=== PATIENT | male | born 1970 | race Caucasian/White ===

== ENCOUNTER → 2017-04-27 | Day surgery (SDC) | payer BC ==
[~2017-04-27] VITALS: Ht 177.8 cm; Wt 68.0 kg
[~2017-04-27] MED LIST: ACET325C PO; CHLORHEXIDINE GLUCONATE 2 % 1 PACK (2 CLOTHS) TOPICAL PRN; CLINDAMYCIN 600 MG/DEX PREMIX 50 ML ONE; CLINDAMYCIN 600 MG/NS PREMIX 50 ML IV SCH; IBUP1TAB7 PO; METOPROLOL TARTRATE 25 MG TAB PO PRN; POVIDONE IODINE 5% (ANTISEPSIS KIT) 4 APPLICATIONS EACH NARE PRN; SODIUM CHLORID 0.9% 500 ML IV PRN
[2017-04-27] MEDS: LACTATED RINGER'S 1000 ML IV PRN ×2 (07:50→10:24)
[2017-04-27 09:20] VITALS: BP 130/66; PULSE 70; RESP 16; TEMP 97.4; O2SAT 99
--- NOTE | 2017-04-27 21:41 | MP ---
cc: FREDDIE RODRIGUEZ MD DATE OF SURGERY 04/27/[address] Ruel Rodriguez PREOPERATIVE DIAGNOSIS Neoplasm right tongue. POSTOPERATIVE DIAGNOSIS Neoplasm right tongue. OPERATION PERFORMED 1. Direct laryngoscopy and biopsy. 2. Biopsy of right lateral tongue. INDICATIONS Documented in the history and physical. PROCEDURE IN DETAIL The patient was taken to OR #2 and placed in the supine position. Following induction of general anesthesia and intubation, a shoulder roll and a Jose M head drape were put in place. A dental guard was placed and, using an anterior commissure scope, hypopharynx and larynx were brought into view. There was no evidence of lesions of the hypopharynx or larynx. The scope was removed and a bite guard was put in place on the left side. This gave access to the oral cavity was there was a grossly malignant lesion eroding on the right lateral border of the tongue. Biopsies were obtained from this site. Inspection of the remainder of the oral cavity showed there to be no evidence of neoplastic lesion. The bite guard was removed and the procedure was terminated. The patient was reversed from anesthesia and taken to recovery in good condition. There were no complications. Blood loss was 10 mL. MD ADDIS Bruce/ /8:49 AM /9:33 PM
== END | disposition home or self-care (01) ==
LOC: PHSDC 06:09
PROVIDERS: ATTEND Otolaryngology
DX: D37.02 Neoplasm of uncertain behavior of tongue (principal)
CPT/HCPCS: 00320; 31535; 88305; J3010; J7120

== ENCOUNTER 2017-05-31 06:36 | Day surgery (SDC) | payer BC ==
[~2017-05-31] VITALS: Ht 177.8 cm; Wt 66.8 kg
[~2017-05-31 06:36] MED LIST changes: -CHLORHEXIDINE GLUCONATE 2 % 1 PACK (2 CLOTHS) TOPICAL PRN; -CLINDAMYCIN 600 MG/DEX PREMIX 50 ML ONE; -CLINDAMYCIN 600 MG/NS PREMIX 50 ML IV SCH; -METOPROLOL TARTRATE 25 MG TAB PO PRN; -POVIDONE IODINE 5% (ANTISEPSIS KIT) 4 APPLICATIONS EACH NARE PRN; -SODIUM CHLORID 0.9% 500 ML IV PRN
[2017-05-31 06:55] VITALS: BP 130/106; PULSE 83; RESP 20; TEMP 98.6; O2SAT 100
[2017-05-31] MEDS ORDERED: SENO8.6T5 PO (07:04)
[2017-05-31] MEDS ORDERED: HYDR-3583 PO (07:04)
[2017-05-31] MEDS ORDERED: CHLORHEXIDINE GLUCONATE 2 % 1 PACK (2 CLOTHS) TOPICAL SCH ×2 (07:15→08:15)
[2017-05-31] MEDS ORDERED: VANCOMYCIN 1000 MG/NS 250 ML - implanted port/tunneled catheter IV SCH ×4 (07:15→08:15)
[2017-05-31 07:35] LABS: AUTOMATED NEUTROPHIL # 5.1 TH/MM3 (1.8-7.7); BASOPHIL % 0.5 % (0.0-2.0); EOSINOPHIL # 0.1 TH/MM3 (0-0.4); EOSINOPHIL % 1.2 % (0.0-4.0); HEMATOCRIT 41.9 % (39.0-51.0); HEMOGLOBIN 14.4 GM/DL (13.0-17.0); LYMPHOCYTE # 3.5 TH/MM3 (1.0-4.8); MEAN CELL VOLUME 88.4 FL (80.0-100.0); MEAN CORPUSCULAR HEMOGLOBIN 30.4 PG (27.0-34.0); MEAN CORPUSCULAR HGB CONC 34.4 % (32.0-36.0); MEAN PLATELET VOLUME 8.8 FL (7.0-11.0); MONO % 7.8 % (0.0-8.0); MONOCYTE # 0.7 TH/MM3 (0-0.9); NEUT % 53.5 % (16.0-70.0); PLATELET COUNT 239 TH/MM3 (150-450); RED BLOOD COUNT 4.74 MIL/MM3 (4.50-5.90); RED CELL DISTRIBUTION WIDTH 13.1 % (11.6-17.2); WHITE BLOOD COUNT 9.5 TH/MM3 (4.0-11.0)
[2017-05-31] MEDS ORDERED: POVIDONE IODINE 5% (ANTISEPSIS KIT) 4 APPLICATIONS EACH NARE SCH (08:15)
[2017-05-31] MEDS ORDERED: SODIUM CHLORIDE 0.9% 1000 ML IV SCH (08:15)
[2017-05-31] MEDS ORDERED: MIDAZOLAM HCL 2 MG/2 ML VIAL ONE ×3 (08:22→09:08)
[2017-05-31] MEDS ORDERED: LIDOCAINE 1%/EPINEPHrine 1:100,000 SOLN 30 ML VIAL ONE (08:39)
--- NOTE | 2017-05-31 09:25 | PD.RAD ---
Post Procedure Progress Note Pre Procedure Diagnosis: (1) Oropharyngeal cancer Post Procedure Diagnosis: (1) Oropharyngeal cancer Procedure Date: May 31, 2017 Supervising Radiologist: Rodolfo Ramirez Proceduralist/Assist: Isaias Rojas RT(R), RT Robby(R) Anesthesia: Local, Analgesia, Conscious Sedation Plan of Activity Patient to Unit: ROPU Patient Condition: Good See PACS Report for procedural detail/treatment Central Venous Access Device Procedure 1 Right Internal Jugular Infusaport Placement single lumen Kiswahili: 8 Rodolfo Ramirez MD May 31, 2017 09:25
[2017-05-31 09:30] VITALS: BP 128/75; PULSE 90; RESP 20; TEMP 97.8; O2SAT 98
[2017-05-31] MEDS ORDERED: SODIUM CHLORIDE 0.9% FLUSH 10 ML FLUSH IVF PRN (09:30)
[2017-05-31 09:45] VITALS: BP 117/71; PULSE 78; RESP 20; O2SAT 97
[2017-05-31 10:15] VITALS: BP 116/77; PULSE 82; RESP 18; O2SAT 98
[2017-05-31 10:45] VITALS: BP 115/76; PULSE 71; RESP 16; O2SAT 98
[2017-05-31 11:15] VITALS: BP 120/75; PULSE 79; RESP 18; O2SAT 98
--- NOTE | 2017-05-31 12:43 | RADRPT ---
EXAM DATE/TIME: 05/31/2017 10:01 [facility] COMPARISON: No previous studies available for comparison. INDICATIONS : Patient with oropharyngeal squamous cell cancer in need of Dkyci-y-Cvvb placement. MEDICAL HISTORY : Right side tongue mass, Smoker SURGICAL HISTORY : Tongue mass biopsy ENCOUNTER: Initial ACUITY: 1 month PAIN SCORE: 4/10 LOCATION: Right side jaw FLUORO TIME: 0.5 minutes IMAGE SERIES: 1 SEDATION TIME: 40 minutes ACCESS: Right internal jugular vein SEDATION: 1.) 4.5 mg midazolam (Versed) IV 2.) 225 mcg fentanyl (Sublimaze) IV Prophylactic antibiotics were administered with appropriate pre-procedure timing. Vancomycin within 2 hours of procedure, Ancef (or alternative) within 1 hour of procedure. DEVICE: 1. 8 Hong Konger single lumen Bard Power Port PROCEDURE : 1. Continuous pulse oximetry and EKG monitoring. 2. Intravenous conscious sedation. 3. Ultrasound guidance for venous access. 4. Fluoroscopic guided implantable central venous port placement. The patient was placed supine. The neck was prepped in sterile fashion. Full sterile technique was u sed, including cap, mask, sterile gloves and gown, and a large sterile sheet. Hand hygiene and 2% ch lorhexidine Betadine was utilized per protocol for cutaneous antisepsis with appropriate dry time for site. Sterile gel and sterile probe cover were utilized for ultrasound guidance. The skin and sub cutaneous tissues were infiltrated with local anesthetic solution. Under direct ultrasound guidance, central venous access was accomplished in the targeted vessel. The ultrasound images depicting access guidance were stored and saved to PACS for permanent record. A s ubcutaneous pocket was created using blunt dissection. The port was introduced to the pocket. The c atheter tubing was fed through a subcutaneous tunnel to the venotomy site. The catheter tubing was c ut to a suitable length and then was introduced through a valved Peel-Away sheath and positioned with catheter tubing tip at the cavo-atrial junction level. The pocket incision was closed with subcutic ular Vicryl suture. Steri-Strips were applied. The port was flushed and locked with heparin solutio n per protocol. Sterile dressing was applied to the site. The patient tolerated the procedure well. Conscious sedation was performed with the prescribed dosages and duration as above in the presence of an independent trained radiology nurse to assist in the monitoring of the patient. EKG and oximetry remained stable throughout the procedure. The patient tolerated the procedure well and there were no complications. The patient was sent to post anesthesia recovery in stable condition. CONCLUSION: Uncomplicated ultrasound and fluoroscopic guided implanted central venous port catheter placement as described in detail above. An 8 Hong Konger Power port was placed. Rodolfo Ramirez MD on May 31, 2017 at 12:42 Board Certified Radiologist. This report was verified electronically.
== END 2017-05-31 11:35 | disposition home or self-care (01) ==
LOC: HROP 06:36 → HRIP 06:39 → HROP 11:35
PROVIDERS: ATTEND Internal Medicine
DX: C10.9 Malignant neoplasm of oropharynx, unspecified (principal); Z01.818 Encounter for other preprocedural examination; F17.200 Nicotine dependence, unspecified, uncomplicated
CPT/HCPCS: 36561; 76937; 77001; 85025; 85610; 85730; 99152; 99153; C1788; J1642; J2250; J3010; J3370; J7030; J7050

== ENCOUNTER 2017-06-13 18:55 | Inpatient (IN) | payer BC ==
[~2017-06-13] VITALS: Ht 177.8 cm; Wt 62.1 kg
[~2017-06-13 18:55] MED LIST changes: +HYDR-3583 PO; +SENO8.6T5 PO
[2017-06-13 19:33] VITALS: BP 120/79; PULSE 112; RESP 18; TEMP 99; O2SAT 99
[2017-06-13 20:24] VITALS: RESP 19; O2SAT 98
[2017-06-13] MEDS ORDERED: ONDA8TAB7 PO (20:28)
[2017-06-13] MEDS ORDERED: DEXA4TAB PO (20:28)
[2017-06-13] MEDS ORDERED: FLUC100T2 PO (20:28)
--- NOTE | 2017-06-13 20:37 | PD ---
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 He reports that this was diagnosed approximately a month ago. He reports that his oncologist is . He denies having a primary care physician. He reports that he recently had a dental extraction done and the plan is for him to undergo radiation therapy once he is completely healed from the extraction. He is seeing Dr. lindsey for this. He reports that since the last chemotherapy he has had increasing generalized weakness due to poor p.o. intake. He reports having persistent nausea without vomiting. He reports that is very difficult to eat as his tongue does not move well. He reports that he has been drinking fluids. Initially, he was reticent to have a feeding tube placed, however he reports that this point he has changed his mind because of persistent weakness and hunger. The patient otherwise in review of systems denies having any recent fevers, cough or congestion, neck pain, chest pain, shortness of breath, abdominal pain, urinary symptoms, or neurologic symptoms. The patient reports that he has had diarrhea since Wednesday. He reports that on Wednesday he had 3 episodes and then took an Imodium per the recommendations of his oncologist had no further episodes on Wednesday, however today he has had 2 episodes again. He reports that the stool is brown in color. He denies having any blood or mucus in his stool. 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 Abdominal Surgery: No AICD: No Cardiac Surgery: No Ear Surgery: No Endocrine Surgery: No Eye Surgery: No Genitourinary Surgery: No Gynecologic Surgery: No Joint Replacement: No Oral Surgery: Yes (teeth extraction) Pacemaker: No Thoracic Surgery: No Social History Alcohol Use: No Tobacco Use: Yes Substance Use: No Allergies-Medications (Allergen,Severity, Reaction): Coded Allergies: Penicillins (Verified Allergy, Severe, UNSURE - CHILD, 06/13/17) Uncoded Allergies: SHELLFISH (Allergy, Severe, Anaphylaxis, 04/27/17) Reported Meds & Prescriptions Reported Meds & Active Scripts Active Reported Fluconazole 100 Mg Tab 100 Mg PO DAILY Dexamethasone 4 Mg Tab 4 Mg PO DIRECTED Ondansetron (Ondansetron HCl) 8 Mg Tab 8 Mg PO TID Hydrocodone-Acetaminophen 10-325 mg Tab 1 Tab PO Q4H PRN Acetaminophen 325 Mg Capsule PO DIRECTED Review of Systems Except as stated in HPI: all other systems reviewed are Neg General / Constitutional: No: Fever Eyes: No: Visual changes HENT: No: Headaches Cardiovascular: No: Chest Pain or Discomfort Respiratory: No: Shortness of Breath Gastrointestinal: Positive: Nausea, Diarrhea, Changes in Bowel Habits, No: Vomiting, Abdominal Pain, Loss of Appetite, Other Genitourinary: No: Dysuria Musculoskeletal: No: Pain Skin: No Rash Neurologic: Positive: Weakness (Generalized weakness), No: Focal Abnormalities , Change in Mentation, Slurred Speech, Sensory Disturbance Psychiatric: No: Depression Endocrine: No: Polydipsia Hematologic/Lymphatic: No: Easy Bruising Physical Exam Narrative General: The patient is a well-developed thin appearing male in no acute distress Head and Neck exam: Head is normocephalic atraumatic. Eyes: EOMI, pupils are equal round and reactive to light. Nose: Midline septum with pink mucous membranes Mouth: The patient has an irregularly shaped tongue on examination. Moist mucus membranes. Posterior oropharynx is not erythematous. No tonsillar hypertrophy. Uvula midline. Airway patent. Neck: No palpable lymphadenopathy. No nuchal rigidity. No thyromegaly. Cardiovascular: Regular rate and rhythm without murmurs, gallops, or rubs. Lungs: Clear to auscultation bilaterally. No wheezes, rhonchi, or rales. Abdomen: Soft, without tenderness to palpation in all 4 quadrants of the abdomen. No guarding, rebound, or rigidity. Normal bowel sounds are audible. No tenderness on palpation of McBurney's point. Negative Doyle sign Extremities: No clubbing, cyanosis, or edema. 2+ pulses in all 4 extremities. No calf tenderness on palpation peer Back: No spinous process tenderness to palpation. No costovertebral angle tenderness to palpation. Neurologic Exam: Grossly nonfocal. Skin Exam: No rash noted. Intact skin that is warm and dry. Data Data Last Documented VS Vital Signs Date Time Temp Pulse Resp B/P (MAP) Pulse Ox O2 Delivery O2 Flow Rate FiO2 06/13/17 20:24 19 98 Room Air 06/13/17 19:33 99.0 112 120/79 (93) Orders Orders Electrocardiogram (06/13/17 20:15) Complete Blood Count With Diff (06/13/17 20:15) Comprehensive Metabolic Panel (06/13/17 20:15) Creatine Kinase (Cpk) (06/13/17 20:15) Ckmb (Isoenzyme) Profile (06/13/17 20:15) Troponin I (06/13/17 20:15) Prothrombin Time / Inr (Pt) (06/13/17 20:15) Act Partial Throm Time (Ptt) (06/13/17 20:15) Lipase (06/13/17 20:15) Urinalysis - C+S If Indicated (06/13/17 20:15) Magnesium (Mg) (06/13/17 20:15) Thyroid Stimulating Hormone (06/13/17 20:15) Iv Access Insert/Monitor (06/13/17 20:15) Ecg Monitoring (06/13/17 20:15) Oximetry (06/13/17 20:15) Chest, Single Ap (06/13/17 20:15) Sodium Chlor 0.9% 1000 Ml Inj (Ns 1000 M (06/13/17 20:45) Ondansetron Inj (Zofran Inj) (06/13/17 20:45) Morphine Inj (Morphine Inj) (06/13/17 22:00) Sodium Chlorid 0.9% 500 Ml Inj (Ns 500 M (06/13/17 22:15) Admit Order (Ed Use Only) (06/13/17 22:22) Labs Laboratory Tests Test 06/13/17 20:30 06/13/17 22:10 White Blood Count 3.7 TH/MM3 Red Blood Count 5.12 MIL/MM3 Hemoglobin 15.7 GM/DL Hematocrit 44.7 % Mean Corpuscular Volume 87.2 FL Mean Corpuscular Hemoglobin 30.7 PG Mean Corpuscular Hemoglobin Concent 35.2 % Red Cell Distribution Width 13.0 % Platelet Count 133 TH/MM3 Mean Platelet Volume 10.3 FL Neutrophils (%) (Auto) 61.0 % Lymphocytes (%) (Auto) 36.2 % Monocytes (%) (Auto) 1.5 % Eosinophils (%) (Auto) 0.6 % Basophils (%) (Auto) 0.7 % Neutrophils # (Auto) 2.2 TH/MM3 Lymphocytes # (Auto) 1.3 TH/MM3 Monocytes # (Auto) 0.1 TH/MM3 Eosinophils # (Auto) 0.0 TH/MM3 Basophils # (Auto) 0.0 TH/MM3 CBC Comment AUTO DIFF Differential Total Cells Counted 100 Neutrophils % (Manual) 54 % Band Neutrophils % 9 % Lymphocytes % 34 % Monocytes % 2 % Eosinophils % 1 % Neutrophils # (Manual) 2.3 TH/MM3 Nucleated Red Blood Cells 1 /100 WBC Differential Comment FINAL DIFF MANUAL Platelet Estimate LOW Platelet Morphology Comment NORMAL Prothrombin Time 10.0 SEC Prothromb Time International Ratio 1.0 RATIO Activated Partial Thromboplast Time 25.1 SEC Blood Urea Nitrogen 20 MG/DL Creatinine 1.09 MG/DL Random Glucose 98 MG/DL Total Protein 6.8 GM/DL Albumin 3.5 GM/DL Calcium Level 8.4 MG/DL Magnesium Level 2.0 MG/DL Alkaline Phosphatase 84 U/L Aspartate Amino Transf (AST/SGOT) 18 U/L Alanine Aminotransferase (ALT/SGPT) 36 U/L Total Bilirubin 0.5 MG/DL Sodium Level 130 MEQ/L Potassium Level 4.1 MEQ/L Chloride Level 94 MEQ/L Carbon Dioxide Level 28.3 MEQ/L Anion Gap 8 MEQ/L Estimat Glomerular Filtration Rate 73 ML/MIN Total Creatine Kinase 36 U/L Troponin I LESS THAN 0.02 NG/ML Lipase 91 U/L Thyroid Stimulating Hormone 3rd Gen 0.466 uIU/ML Urine Color LIGHT-YELLOW Urine Turbidity CLEAR Urine pH 6.5 Urine Specific [place] 1.013 Urine Protein TRACE mg/dL Urine Glucose (UA) TRACE mg/dL Urine Ketones NEG mg/dL Urine Occult Blood NEG Urine Nitrite NEG Urine Bilirubin NEG Urine Urobilinogen LESS THAN 2.0 MG/DL Urine Leukocyte Esterase NEG Urine RBC LESS THAN 1 /hpf Urine WBC LESS THAN 1 /hpf Urine Mucus FEW /lpf Microscopic Urinalysis Comment CULT NOT INDICATED MDM Medical Decision Making Medical Screen Exam Complete: Yes Emergency Medical Condition: Yes Medical Record Reviewed: Yes Interpretation(s) Last Impressions Chest X-Ray 06/13/172014 Signed Impressions: Service Date/Time: Tuesday, June 13, 2017 20:39 - CONCLUSION: The lungs are clear. Gerardo Doran MD Differential Diagnosis Dehydration, versus electrolyte derangements, versus gastroenteritis Narrative Course During the course of the patient's emergency department visit, the patient's history, examination, and differential diagnosis were reviewed with the patient. The patient was placed on a tele tech with oximetry and frequent blood pressure monitoring. The patient had IV access obtained and blood work sent for analysis. The patient had an EKG done on arrival. The patient's EKG shows a sinus rhythm with a short CT interval, heart rate of 94, QRS duration 82 ms, QTC [address] segment elevation. The patient was started on normal saline IV fluids, Zofran 4 mg IV for nausea, morphine for pain. The patient's studies were reviewed and remarkable for A CBC that shows a white count of 3.7, hemoglobin 15.7, platelets 133 with 54 neutrophils, 9 bands. CMP is remarkable for a sodium of 130, chloride 94, BUN 20, GFR 74, calcium 8.4, cardiac enzymes within normal limits, lipase 91, TSH 0.466, PT 10, PTT 25.1. Urinalysis is unremarkable. Chest x-ray shows no acute abnormality. The patient's results were discussed with the patient, including the plan of care. I explained that further testing and/ or monitoring is indicated based on the patient's history, examination, and/ or laboratory findings. Therefore, I recommended admission for additional evaluation. The patient expressed understanding and was agreeable with this plan. The patient was admitted to the hospital in stable condition and [facility] Physician Communication Physician Communication The patient's case including history, pertinent physical examination findings, and laboratory studies were discussed with Dr. Luevano. It was agreed that [facility] Diagnosis Primary Impression: Generalized weakness Additional Impressions: Dehydration Dysphagia Qualified Codes: R13.10 - Dysphagia, unspecified Admitting Information Admitting Physician Requests: Observation Jeanette Araiza MD Jun 13, 2017 20:37
[2017-06-13] MEDS ORDERED: SODIUM CHLOR 0.9% 1000 ML INJ 1,000 ML IV ONE (20:45)
[2017-06-13] MEDS ORDERED: ONDANSETRON HCL 4 MG/2 ML VIAL IV ONE (20:45)
--- NOTE | 2017-06-13 20:52 | RADRPT ---
EXAM DATE/TIME: 06/13/2017 20:39 [facility] COMPARISON: No previous studies available for comparison. INDICATIONS : Cough. Congestion. Weakness. MEDICAL HISTORY : None. SURGICAL HISTORY : None. ENCOUNTER: Initial ACUITY: 3 days PAIN SCORE: 5/10 LOCATION: Bilateral chest FINDINGS: A single view of the chest demonstrates the lungs to be symmetrically aerated without evidence of mas s, infiltrate or effusion. The cardiomediastinal contours are unremarkable. Osseous structures are intact. [id number]-c-Ffgq catheter tip in the distal superior vena cava. CONCLUSION: The lungs are clear. Gerardo Doran MD on June 13, 2017 at 20:50 Board Certified Radiologist. This report was verified electronically.
[2017-06-13 21:04] LABS: AUTOMATED NEUTROPHIL # 2.2 TH/MM3 (1.8-7.7); BASOPHIL % 0.7 % (0.0-2.0); EOSINOPHIL % 0.6 % (0.0-4.0); HEMATOCRIT 44.7 % (39.0-51.0); HEMOGLOBIN 15.7 GM/DL (13.0-17.0); LYMPH % 36.2 % (9.0-44.0); LYMPHOCYTE # 1.3 TH/MM3 (1.0-4.8); MEAN CELL VOLUME 87.2 FL (80.0-100.0); MEAN CORPUSCULAR HEMOGLOBIN 30.7 PG (27.0-34.0); MEAN CORPUSCULAR HGB CONC 35.2 % (32.0-36.0); MEAN PLATELET VOLUME 10.3 FL (7.0-11.0); MONO % 1.5 % (0.0-8.0); MONOCYTE # 0.1 TH/MM3 (0-0.9); PLATELET COUNT 133 TH/MM3 (150-450); RED BLOOD COUNT 5.12 MIL/MM3 (4.50-5.90); WHITE BLOOD COUNT 3.7 TH/MM3 (4.0-11.0)
[2017-06-13 21:20] LABS: ALBUMIN 3.5 GM/DL (3.4-5.0); AST (GOT) 18 U/L (15-37); BICARBONATE 28.3 MEQ/L (21.0-32.0); BLOOD UREA NITROGEN 20 MG/DL (7-18); CALCIUM 8.4 MG/DL (8.5-10.1); CHLORIDE 94 MEQ/L (98-107); CREATININE 1.09 MG/DL (0.60-1.30); GLOMERULAR FILTRATION RATE 73 ML/MIN (>89); GLUCOSE,RANDOM 98 MG/DL (74-106); SODIUM (NA) 130 MEQ/L (136-145)
[2017-06-13 21:21] LABS: ALT (GPT) 36 U/L (12-78)
[2017-06-13 21:32] LABS: ALKALINE PHOSPHATASE 84 U/L (45-117); TOTAL BILIRUBIN ADULT 0.5 MG/DL (0.2-1.0); TOTAL PROTEIN 6.8 GM/DL (6.4-8.2); TROPONIN I LESS THAN 0.02 NG/ML (0.02-0.05)
[2017-06-13 21:35] LABS: BANDS 9 % (0-6); CORRECTED NUCLEATED RBC 1 /100 WBC (0-0); LYMPHOCYTES 34 % (9-44); MONOCYTES 2 % (0-8); NEUTROPHIL # MANUAL DIFF 2.3 TH/MM3 (1.8-7.7); NUCLEATED RED BLOOD CELL 1 (0-0); POLYS (SEG NEUTROPHILS) 54 % (16-70)
[2017-06-13] MEDS ORDERED: MORPHINE SULFATE 4 MG/ML INJ IV PUSH ONE (22:00)
[2017-06-13] MEDS ORDERED: SODIUM CHLORID 0.9% 500 ML INJ 500 ML IV ONE (22:15)
[2017-06-13] MEDS ORDERED: IOHEXOL 350 MG/ML 50 ML BTL (for RAD DIAG) G-TUBE ONE (22:25)
--- NOTE | 2017-06-13 22:41 | HHI.HP ---
[facility] Dwayne Naranjo MD Admission Diagnosis Generalized weakness, dehydration Diagnoses: (1) Generalized weakness Diagnosis: Principal (2) Dehydration Diagnosis: Principal (3) Oropharyngeal cancer Diagnosis: Principal Travel History International Travel<30 Days: No Contact w/Intl Traveler <30 Da: No Traveled to Known Affected Are: No History of Present Illness This is a 46-year-old male with a PMH of Squamous Cell Carcinoma of Tongue, currently on Chemo, who presented to the ER w/ complaints of generalized weakness and decreased PO intake. Recently diagnosed w/ Tongue CA approx 1mo ago, following w/ Dr. Purvis and Dr. Naranjo, s/p dental extraction in preparation for radiation and started Chemo last week. Seen in office on Wednesday and found to be dehydration, s/p IVF. States since Wednesday w/ worsening weakness and unable to eat/drink. Denies fever, chills, nausea, vomiting or diarrhea. PEG Tube discussed however pt had declined, now agreeable to feeding tube placement. On arrival, BP 120/79, HR 112, O2 sat 99% on RA, WBC 3.7. Platelets 133. Chemistry unremarkable except for BUN 20, GFR 73 increased from labs on 06/07/17. INR 1.0. UA negative. CXR with no acute findings. Review of Systems Except as stated in HPI: all other systems reviewed are Neg ROS: 14 point review of systems otherwise negative. Past Family Social History Past Medical History PMH: Squamous Cell Carcinoma of Tongue Past Surgical History PAST SURGICAL HISTORY: Dental Extractions Allergies: Coded Allergies: Penicillins (Verified Allergy, Severe, UNSURE - CHILD, 06/13/17) Uncoded Allergies: SHELLFISH (Allergy, Severe, Anaphylaxis, 04/27/17) Family History PAST FAMILY HISTORY: Reviewed. No h/o DM or CAD Social History PAST SOCIAL HISTORY: Negative for alcohol or drugs. History of tobacco. Physical Exam Vital Signs Vital Signs Date Time Temp Pulse Resp B/P (MAP) Pulse Ox O2 Delivery O2 Flow Rate FiO2 06/13/17 20:24 19 98 Room Air 06/13/17 19:33 99.0 112 18 120/79 (41) 99 Physical Exam PE: GENERAL: Pleasant middle-aged white male in no acute distress. Father at bedside. HEENT: PERRLA, EOMI. No scleral icterus or conjunctival pallor. No lid lag or facial droop. CARDIOVASCULAR: Regular rate and rhythm. No obvious murmurs to auscultation. No chest tenderness to palpation. RESPIRATORY: No obvious rhonchi or wheezing. Clear to auscultation. Breath sounds equal bilaterally. GASTROINTESTINAL: Abdomen soft, non-tender, nondistended. BS normal. MUSCULOSKELETAL: Extremities without clubbing, cyanosis, or edema. No obvious deformities. NEUROLOGICAL: Awake, alert and oriented x4. No focal neurologic deficits. Moving both upper and lower extremities spontaneously. Laboratory Laboratory Tests Test 06/13/17 20:30 06/13/17 22:10 White Blood Count 3.7 Red Blood Count 5.12 Hemoglobin 15.7 Hematocrit 44.7 Mean Corpuscular Volume 87.2 Mean Corpuscular Hemoglobin 30.7 Mean Corpuscular Hemoglobin Concent 35.2 Red Cell Distribution Width 13.0 Platelet Count 133 Mean Platelet Volume 10.3 Neutrophils (%) (Auto) 61.0 Lymphocytes (%) (Auto) 36.2 Monocytes (%) (Auto) 1.5 Eosinophils (%) (Auto) 0.6 Basophils (%) (Auto) 0.7 Neutrophils # (Auto) 2.2 Lymphocytes # (Auto) 1.3 Monocytes # (Auto) 0.1 Eosinophils # (Auto) 0.0 Basophils # (Auto) 0.0 CBC Comment AUTO DIFF Differential Total Cells Counted 100 Neutrophils % (Manual) 54 Band Neutrophils % 9 Lymphocytes % 34 Monocytes % 2 Eosinophils % 1 Neutrophils # (Manual) 2.3 Nucleated Red Blood Cells 1 Differential Comment FINAL DIFF MANUAL Platelet Estimate LOW Platelet Morphology Comment NORMAL Prothrombin Time 10.0 Prothromb Time International Ratio 1.0 Activated Partial Thromboplast Time 25.1 Blood Urea Nitrogen 20 Creatinine 1.09 Random Glucose 98 Total Protein 6.8 Albumin 3.5 Calcium Level 8.4 Magnesium Level 2.0 Alkaline Phosphatase 84 Aspartate Amino Transf (AST/SGOT) 18 Alanine Aminotransferase (ALT/SGPT) 36 Total Bilirubin 0.5 Sodium Level 130 Potassium Level 4.1 Chloride Level 94 Carbon Dioxide Level 28.3 Anion Gap 8 Estimat Glomerular Filtration Rate 73 Total Creatine Kinase 36 Troponin I LESS THAN 0.02 Lipase 91 Thyroid Stimulating Hormone 3rd Gen 0.466 Result Diagram: 06/13/17202906/13/172029 Caprini VTE Risk Assessment Caprini VTE Risk Assessment: No/Low Risk (score <= 1) Caprini Risk Assessment Model Point Value = 1 Point Value = 2 Point Value = 3 Point Value = 5 Age 41-60 Minor surgery BMI > 25 kg/m2 Swollen legs Varicose veins or History of unexplained or recurrent spontaneous Oral contraceptives or hormone replacement Sepsis (< 1 month) Serious lung disease, including pneumonia (< 1 month) Abnormal pulmonary function Acute myocardial infarction Congestive heart failure (< 1 month) History of inflammatory bowel disease Medical patient at bed rest Age 61-74 Arthroscopic surgery Major open surgery (> 45 min) Laparoscopic surgery (> 45 min) Malignancy Confined to bed (> 72 hours) Immobilizing plaster cast Central venous access Age >= 75 History of VTE Family history of VTE Factor V Leiden Prothrombin [id number] Lupus anticoagulant Anticardiolipin antibodies Elevated serum homocysteine Heparin-induced thrombocytopenia Other congenital or acquired thrombophilia Stroke (< 1 month) Elective arthroplasty Hip, pelvis, or leg fracture Acute spinal cord injury (< 1 month) Prophylaxis Regimen Total Risk Factor Score Risk Level Prophylaxis Regimen 0-1 Low Early ambulation 2 Moderate Order ONE of the following: *Sequential Compression Device (SCD) *Heparin 5000 units SQ BID 3-4 Higher Order ONE of the following medications: *Heparin 5000 units SQ TID *Enoxaparin/Lovenox 40 mg SQ daily (WT < 150 kg, CrCl > 30 mL/min) *Enoxaparin/Lovenox 30 mg SQ daily (WT < 150 kg, CrCl > 10-29 mL/min) *Enoxaparin/Lovenox 30 mg SQ BID (WT < 150 kg, CrCl > 30 mL/min) AND/OR *Sequential Compression Device (SCD) 5 or more Highest Order ONE of the following medications: *Heparin 5000 units SQ TID (Preferred with Epidurals) *Enoxaparin/Lovenox 40 mg SQ daily (WT < 150 kg, CrCl > 30 mL/min) *Enoxaparin/Lovenox 30 mg SQ daily (WT < 150 kg, CrCl > 10-29 mL/min) *Enoxaparin/Lovenox 30 mg SQ BID (WT < 150 kg, CrCl > 30 mL/min) AND *Sequential Compression Device (SCD) Assessment and Plan Problem List: (1) Generalized weakness ICD Code: R53.1 - Weakness Status: Acute (2) Dehydration ICD Code: E86.0 - Dehydration Status: Acute (3) Oropharyngeal cancer ICD Code: C10.9 - Malignant neoplasm of oropharynx, unspecified Assessment and Plan A/P: 1. Generalized Weakness: likely secondary to combination of chemotherapy and decreased PO intake. PT for eval/tx. 2. Dehydration: BUN 20, GFR 73, previously normal on 06/07/17, unable to take PO , previously offered PEG tube, however had declined, now agreeable. Consult IR for PEG Tube Placement, IVF for hydration, Skimmer Scoop Operator Consult post placement. 3. Oropharyngeal CA: Recent Dx of Squamous Cell CA of Tongue, following w/ Dr. Naranjo, on Chemo, will consult for further recommendations. 4. DVT Prophylaxis: SCD/Teds. 5. Social work for d/c planning as needed. 6. Case discussed w/ ER physician at length, labs/records/imaging reviewed by me. Lucia Luevano MD Jun 13, 2017 22:41
[2017-06-13 22:45] LABS: BILIRUBIN, URINE NEG (NEG); BLOOD, URINE NEG (NEG); GLUCOSE,URINE TRACE mg/dL (NEG); KETONE, URINE NEG (NEG); MUCUS URINE FEW /lpf (OCC); NITRITE,URINE NEG (NEG); PH, URINE 6.5 (5.0-8.5); URINE COLOR LIGHT-YELLOW (YELLW/STRAW); URINE LEUKOCYTE ESTERASE NEG (NEG)
[2017-06-13] MEDS ORDERED: LACTULOSE SYRUP 20 GM/30 ML CUP PO PRN (22:45)
[2017-06-13] MEDS ORDERED: BISACODYL 10 MG SUPP RECTAL PRN (22:45)
[2017-06-13] MEDS ORDERED: MAGNESIUM HYDROXIDE SUSP 30 ML CUP PO PRN (22:45)
[2017-06-13] MEDS ORDERED: SENNOSIDES 8.6 MG TAB PO PRN (22:45)
[2017-06-14] VITALS (20 sets, daily range): BP systolic 101–125; BP diastolic 60–80; PULSE 73–94; RESP 16–22; TEMP 97.2–100.6; O2SAT 96–100
[2017-06-14] MEDS: SODIUM CHLOR 0.9% 1000 ML INJ 1,000 ML IV SCH ×4 (00:34→22:38)
[2017-06-14] MEDS: MORPHINE SULFATE 2 MG/ML INJ IV PUSH PRN ×6 (00:36→19:56)
[2017-06-14] MEDS: ONDANSETRON HCL 4 MG/2 ML VIAL IVP PRN ×4 (03:48→22:29)
[2017-06-14] MEDS: DOCUSATE SODIUM 50 MG/SENNA 8.6 MG TAB PO SCH ×2 (08:27→20:47)
[2017-06-14] MEDS: SODIUM CHLORIDE 0.9% FLUSH 10 ML FLUSH IV FLUSH SCH ×2 (08:27→20:47)
[2017-06-14 08:51] LABS: AUTOMATED NEUTROPHIL # 0.6 TH/MM3 (1.8-7.7); BASOPHIL % 0.6 % (0.0-2.0); EOSINOPHIL % 1.1 % (0.0-4.0); HEMATOCRIT 40.3 % (39.0-51.0); HEMOGLOBIN 13.9 GM/DL (13.0-17.0); LYMPH % 65.6 % (9.0-44.0); LYMPHOCYTE # 1.5 TH/MM3 (1.0-4.8); MEAN CELL VOLUME 88.2 FL (80.0-100.0); MEAN CORPUSCULAR HEMOGLOBIN 30.3 PG (27.0-34.0); MEAN CORPUSCULAR HGB CONC 34.4 % (32.0-36.0); MEAN PLATELET VOLUME 10.3 FL (7.0-11.0); MONO % 3.9 % (0.0-8.0); MONOCYTE # 0.1 TH/MM3 (0-0.9); NEUT % 28.8 % (16.0-70.0); PLATELET COUNT 116 TH/MM3 (150-450); RED BLOOD COUNT 4.57 MIL/MM3 (4.50-5.90); WHITE BLOOD COUNT 2.2 TH/MM3 (4.0-11.0)
[2017-06-14] MEDS ORDERED: MIDAZOLAM HCL 2 MG/2 ML VIAL ONE (09:28)
[2017-06-14 09:29] LABS: ALBUMIN 2.9 GM/DL (3.4-5.0); AST (GOT) 12 U/L (15-37); BICARBONATE 27.3 MEQ/L (21.0-32.0); BLOOD UREA NITROGEN 17 MG/DL (7-18); CALCIUM 8.6 MG/DL (8.5-10.1); CHLORIDE 99 MEQ/L (98-107); CREATININE 0.95 MG/DL (0.60-1.30); GLOMERULAR FILTRATION RATE 86 ML/MIN (>89); GLUCOSE,RANDOM 82 MG/DL (74-106); SODIUM (NA) 134 MEQ/L (136-145)
[2017-06-14] MEDS ORDERED: GLUCAGON 1 MG/ML VIAL ONE (09:29)
[2017-06-14 09:41] LABS: ALKALINE PHOSPHATASE 72 U/L (45-117); ALT (GPT) 28 U/L (12-78); TOTAL BILIRUBIN ADULT 0.5 MG/DL (0.2-1.0); TOTAL PROTEIN 5.8 GM/DL (6.4-8.2)
[2017-06-14 10:03] LABS: BANDS 7 % (0-6); LYMPHOCYTES 70 % (9-44); MONOCYTES 4 % (0-8); NEUTROPHIL # MANUAL DIFF 0.6 TH/MM3 (1.8-7.7); POLYS (SEG NEUTROPHILS) 19 % (16-70)
[2017-06-14] MEDS ORDERED: VANCOMYCIN HCL 1000 MG VIAL ONE (10:16)
--- NOTE | 2017-06-14 10:52 | PD.RAD ---
Post Procedure Progress Note Pre Procedure Diagnosis: (1) Dysphagia (2) Oropharyngeal cancer Post Procedure Diagnosis: (1) Dysphagia (2) Oropharyngeal cancer Procedure Date: Jun 14, 2017 Supervising Radiologist: Adriano Cardenas Proceduralist/Assist: Michelle Bull, RT(R), Marilynn Jang, RT(R) Anesthesia: Conscious Sedation Plan of Activity Patient to Unit: ROPU Patient Condition: Good See PACS Report for procedural detail/treatment Adriano Cardenas MD Jun 14, 2017 10:52
--- NOTE | 2017-06-14 10:52 | HHI.PR ---
Subjective Remarks Patient in nad. Seen later after he returned from IR . Had his PEG tube placed by IR. Has some pain at the PEG tube site. No fever or chills. No n/v/d/c. Denies chest pain or sob . Objective Vitals Vital Signs Date Time Temp Pulse Resp B/P (MAP) Pulse Ox O2 Delivery O2 Flow Rate FiO2 06/14/17 10:40 97.4 82 16 113/68 (83) 99 06/14/17 08:02 98.8 84 16 115/69 (84) 98 06/14/17 03:15 98.9 84 18 125/80 (95) 100 06/14/17 00:36 99.0 83 18 116/75 (89) 99 06/13/17 20:24 19 98 Room Air 06/13/17 19:33 99.0 112 18 120/79 (93) 99 Result Diagram: 06/14/17 0642 06/14/17 0642 Imaging Last Impressions Chest X-Ray 06/13/172014 Signed Impressions: Service Date/Time: Tuesday, June 13, 2017 20:39 - CONCLUSION: The lungs are clear. Gerardo Doran MD Objective Remarks GENERAL: Pleasant middle-aged white male in no acute distress. Father at bedside. HEENT: PERRLA, EOMI. No scleral icterus or conjunctival pallor. No lid lag or facial droop. CARDIOVASCULAR: Regular rate and rhythm. No obvious murmurs to auscultation. No chest tenderness to palpation. RESPIRATORY: No obvious rhonchi or wheezing. Clear to auscultation. Breath sounds equal bilaterally. GASTROINTESTINAL: PEG tube in place, dressing c/d/i. Some tenderness to palpation at the PEG tube side. Abdomen soft, nondistended. BS normal. MUSCULOSKELETAL: Extremities without clubbing, cyanosis, or edema. No obvious deformities. NEUROLOGICAL: Awake, alert and oriented x4. No focal neurologic deficits. Moving both upper and lower extremities spontaneously. A/P Problem List: (1) Generalized weakness ICD Code: R53.1 - Weakness Status: Acute (2) Dehydration ICD Code: E86.0 - Dehydration Status: Acute (3) Oropharyngeal cancer ICD Code: C10.9 - Malignant neoplasm of oropharynx, unspecified Assessment and Plan 1. Generalized Weakness: likely secondary to combination of chemotherapy and decreased PO intake. PT for eval/tx. 2. Dehydration: BUN 20, GFR 73, previously normal on 06/07/17, unable to take PO , previously offered PEG tube, however had declined, now agreeable. Consult IR for PEG Tube Placement, IVF for hydration, Life Skills Coordinator Consulted post placement. 3. Oropharyngeal CA: Recent Dx of Squamous Cell CA of Tongue, following w/ Dr. Naranjo, on Chemo, will consult for further recommendations. 4. DVT Prophylaxis: SCD/Teds. Discussed with patient, nurse, family Shanti Diaz MD Jun 14, 2017 10:52
--- NOTE | 2017-06-14 10:55 | RADRPT ---
EXAM DATE/TIME: 06/14/2017 08:44 [facility] COMPARISON: No previous studies available for comparison. INDICATIONS : Patient with a history of tongue cancer. MEDICAL HISTORY : Tongue cancer SURGICAL HISTORY : Dental extractions. ENCOUNTER: Subsequent ACUITY: 2 months PAIN SCORE: 4/10 LOCATION: right side jaw FLUORO TIME: 1.2 minutes IMAGE SERIES: 0 SEDATION TIME: 30 minutes CONTRAST: 20 cc Omnipaque (iohexol) 350 1.) 3 mg midazolam (Versed) IV 2.) 150 mcg Fentanyl (Sublimaze) IV Intra-procedural antibiotics were given as prescribed above. DEVICE(S): 1.) 18 Fr gastrostomy tube PROCEDURE : 1. Limited abdominal ultrasound. 2. Fluoroscopically guided gastrostomy tube placement. 3. Conscious sedation with continuous EKG and oximetry monitoring. The risks, benefits and alternatives to the procedure were explained and verbal and written consent w as obtained. The site was prepped in sterile fashion. Full sterile technique was used, including ca p, mask, sterile gloves and gown and a large sterile sheet. Hand hygiene and 2% chlorhexidine and/or betadine/alcohol prep was utilized per protocol for cutaneous antisepsis. The skin and subcutaneous tissues were infiltrated with local anesthetic solution. Sterile gel and sterile probe cover were u tilized for ultrasound guidance. Ultrasound was used to veto the position of the liver. The stomach was insufflated with room air. Th ree percutaneous fasteners were placed to secure the anterior gastric wall. A small incision was made between the fasteners. The stomach was accessed with an 18 gauge needle. A n 0.035 wire was advanced into the small bowel. The tract was dilated. The gastrostomy tube was int roduced through a peel-away sheath. The position was confirmed with an injection of contrast. Conscious sedation was performed with the prescribed dosages and duration as above in the presence of an independent trained radiology nurse to assist in the monitoring of the patient. EKG and oximetry remained stable throughout the procedure. The patient tolerated the procedure well and there were n o complications. The patient was sent to post anesthesia recovery in stable condition. CONCLUSION: Uncomplicated gastrostomy tube placement as above. Adriano Cardenas MD on June 14, 2017 at 10:53 Board Certified Radiologist. This report was verified electronically.
--- NOTE | 2017-06-14 18:10 | EKG ---
Date Performed: 06/13/2017 Time Performed: 20:07:33 PTAGE: 46 years EKG: Sinus rhythm WITH SHORT [place] INTERVAL MINIMAL VOLTAGE CRITERIA FOR LVH, CONSIDER NORMAL VARIANT BORDERLINE ECG NO PREVIOUS TRACING DOCTOR: Shayy Faust Interpretating Date/Time 06/14/2017 18:09:58
[2017-06-14] MEDS: ACETAMINOPHEN/HYDROcodone 325 MG/5 MG TAB PO PRN ×2 (18:38→22:37)
[2017-06-15] VITALS (33 sets, daily range): BP systolic 112–133; BP diastolic 69–78; PULSE 82–134; RESP 16–20; TEMP 99.9–102.6; O2SAT 97–100
[2017-06-15] MEDS: FLUCONAZOLE 100 MG PREMIX BAG 50 ML IV SCH ×2 (00:05→22:38)
[2017-06-15] MEDS: MORPHINE SULFATE 2 MG/ML INJ IV PUSH PRN ×4 (01:24→22:30)
[2017-06-15] MEDS: ACETAMINOPHEN 325 MG TAB PO PRN ×3 (01:28→19:00)
[2017-06-15] MEDS ORDERED: CHOLESTYRAMINE 4 GM PACKET PO ONE (03:30)
[2017-06-15] MEDS: ACETAMINOPHEN/HYDROcodone 325 MG/5 MG TAB PO PRN ×2 (03:42→08:09)
[2017-06-15 07:04] LABS: BICARBONATE 27.3 MEQ/L (21.0-32.0); CALCIUM 7.9 MG/DL (8.5-10.1); CREATININE 1.13 MG/DL (0.60-1.30)
[2017-06-15 07:11] LABS: HEMATOCRIT 37.7 % (39.0-51.0); HEMOGLOBIN 12.9 GM/DL (13.0-17.0); MEAN CELL VOLUME 87.9 FL (80.0-100.0); MEAN CORPUSCULAR HGB CONC 34.1 % (32.0-36.0); MEAN PLATELET VOLUME 10.1 FL (7.0-11.0); PLATELET COUNT 103 TH/MM3 (150-450); RED BLOOD COUNT 4.29 MIL/MM3 (4.50-5.90); RED CELL DISTRIBUTION WIDTH 12.7 % (11.6-17.2)
[2017-06-15] MEDS: DOCUSATE SODIUM 50 MG/SENNA 8.6 MG TAB PO SCH ×2 (07:24→21:00)
[2017-06-15] MEDS: SODIUM CHLORIDE 0.9% FLUSH 10 ML FLUSH IV FLUSH SCH ×2 (07:24→21:01)
--- NOTE | 2017-06-15 08:29 | HHI.PR ---
Subjective Remarks This is a pleasant 46 y/o Male with Squamous Cell Carcinoma of the Tongue, currently on Chemotherapy, who came to ER with generalized weakness and decreased PO intake. Recently diagnosed w/ Tongue CA approx 1mo ago, following w/ Dr. Purvis and Dr. Naranjo, s/p dental extraction in preparation for radiation and started Chemo last week. Seen in office on Wednesday and found to be dehydration, s/p IVF. States since Wednesday w/ worsening weakness and unable to eat/drink. 06/15: Yesterday status post PEG tube placement by Interventional Radiology. patient Neutropenic developed fever with diagnosis of Neutropenic Fever was started on Aztreonam by Oncology and asked for ID specialist consult. as per Doctor Naranjo Severe dysphagia due to large tongue mass, Status post PEG tube placement, Oral thrush present, no nausea, vomit or diarrhea. Objective Vital Signs Date Time Temp Pulse Resp B/P (MAP) Pulse Ox O2 Delivery O2 Flow Rate FiO2 06/15/17 08:07 101.3 102 18 112/78 (89) 99 06/15/17 07:23 96 06/15/17 06:00 94 06/15/17 05:00 92 06/15/17 04:40 16 06/15/17 04:03 94 06/15/17 03:50 100.4 96 20 119/72 (88) 98 06/15/17 03:00 124 06/15/17 02:28 16 06/15/17 02:00 90 06/15/17 01:29 18 06/15/17 01:25 101.0 06/15/17 01:00 90 06/15/17 00:09 100.2 06/15/17 00:02 88 06/14/17 23:00 88 06/14/17 22:54 100.6 88 16 114/67 (83) 96 06/14/17 22:00 94 06/14/17 21:00 84 06/14/17 20:01 88 06/14/17 19:57 99.9 91 18 113/72 (86) 98 06/14/17 19:00 90 06/14/17 17:10 98.2 86 22 114/75 (88) 99 06/14/17 16:00 98.3 74 20 121/68 (85) 100 06/14/17 15:24 81 18 115/65 (82) 99 06/14/17 14:15 97.2 84 18 121/74 (90) 100 06/14/17 14:15 97.2 83 18 122/75 (91) 100 06/14/17 13:27 99.4 73 16 109/70 (83) 100 06/14/17 12:05 80 18 115/72 (86) 99 06/14/17 11:30 77 18 101/60 (74) 100 06/14/17 11:00 77 18 108/69 (82) 98 06/14/17 10:45 82 18 113/68 (83) 98 06/14/17 10:40 97.4 82 16 113/68 (83) 99 I/O 06/14/17 06/14/17 06/14/17 06/15/17 06/15/17 06/15/17 07:00 15:00 23:00 07:00 15:00 23:00 Intake Total 595 ml 853 ml Output Total 200 ml 1 ml Balance 395 ml 852 ml Intake Oral 240 ml 240 ml IV Total 355 ml Tube Feeding 213 ml Other 400 ml Output Urine Total 200 ml Stool Total 1 ml # Voids 1 2 2 # Bowel Movements 2 Result Diagram: 06/15/17 0537 06/15/17 0537 Imaging Last Impressions Gastrostomy Tube Placement 06/14/17 0000 Signed Impressions: Service Date/Time: Wednesday, June 14, 2017 08:44 - CONCLUSION: Uncomplicated gastrostomy tube placement as above. Adriano Cardenas MD Chest X-Ray 06/13/172014 Signed Impressions: Service Date/Time: Tuesday, June 13, 2017 20:39 - CONCLUSION: The lungs are clear. Gerardo Doran MD Procedures PEG tube placement 06/14 Other Results Laboratory Tests Test 06/13/17 20:30 06/13/17 22:10 06/14/17 06:42 06/15/17 00:13 Eosinophils % 1 % Nucleated Red Blood Cells 1 /100 WBC Prothrombin Time 10.0 SEC Prothromb Time International Ratio 1.0 RATIO Activated Partial Thromboplast Time 25.1 SEC Blood Urea Nitrogen 20 MG/DL 17 MG/DL Creatinine 1.09 MG/DL 0.95 MG/DL Random Glucose 98 MG/DL 82 MG/DL Total Protein 6.8 GM/DL 5.8 GM/DL Albumin 3.5 GM/DL 2.9 GM/DL Calcium Level 8.4 MG/DL 8.6 MG/DL Magnesium Level 2.0 MG/DL Alkaline Phosphatase 84 U/L 72 U/L Aspartate Amino Transf (AST/SGOT) 18 U/L 12 U/L Alanine Aminotransferase (ALT/SGPT) 36 U/L 28 U/L Total Bilirubin 0.5 MG/DL 0.5 MG/DL Sodium Level 130 MEQ/L 134 MEQ/L Potassium Level 4.1 MEQ/L 4.2 MEQ/L Chloride Level 94 MEQ/L 99 MEQ/L Carbon Dioxide Level 28.3 MEQ/L 27.3 MEQ/L Total Creatine Kinase 36 U/L Troponin I LESS THAN 0.02 NG/ML Lipase 91 U/L Thyroid Stimulating Hormone 3rd Gen 0.466 uIU/ML Urine Color LIGHT-YELLOW Urine Turbidity CLEAR Urine pH 6.5 Urine Specific [place] 1.013 Urine Protein TRACE mg/dL Urine Glucose (UA) TRACE mg/dL Urine Ketones NEG mg/dL Urine Occult Blood NEG Urine Nitrite NEG Urine Bilirubin NEG Urine Urobilinogen LESS THAN 2.0 MG/DL Urine Leukocyte Esterase NEG Urine RBC LESS THAN 1 /hpf Urine WBC LESS THAN 1 /hpf Urine Mucus FEW /lpf Microscopic Urinalysis Comment CULT NOT INDICATED Neutrophils (%) (Auto) 28.8 % Lymphocytes (%) (Auto) 65.6 % Monocytes (%) (Auto) 3.9 % Eosinophils (%) (Auto) 1.1 % Basophils (%) (Auto) 0.6 % Neutrophils # (Auto) 0.6 TH/MM3 Lymphocytes # (Auto) 1.5 TH/MM3 Monocytes # (Auto) 0.1 TH/MM3 Eosinophils # (Auto) 0.0 TH/MM3 Basophils # (Auto) 0.0 TH/MM3 Differential Total Cells Counted 100 Neutrophils % (Manual) 19 % Band Neutrophils % 7 % Lymphocytes % 70 % Monocytes % 4 % Neutrophils # (Manual) 0.6 TH/MM3 Platelet Estimate LOW Platelet Morphology Comment NORMAL Red Cell Morphology Comment NORMAL Stool C. difficile Toxin (PCR) NEGATIVE Stl C. difficile Toxin Epiderm 027 PRESUMPTIVE NEGATIVE Test 06/15/17 05:37 White Blood Count 1.0 TH/MM3 Red Blood Count 4.29 MIL/MM3 Hemoglobin 12.9 GM/DL Hematocrit 37.7 % Mean Corpuscular Volume 87.9 FL Mean Corpuscular Hemoglobin 30.0 PG Mean Corpuscular Hemoglobin Concent 34.1 % Red Cell Distribution Width 12.7 % Platelet Count 103 TH/MM3 Mean Platelet Volume 10.1 FL CBC Comment AUTO DIFF Blood Urea Nitrogen 16 MG/DL Creatinine 1.13 MG/DL Random Glucose 102 MG/DL Calcium Level 7.9 MG/DL Sodium Level 133 MEQ/L Potassium Level 4.3 MEQ/L Chloride Level 98 MEQ/L Carbon Dioxide Level 27.3 MEQ/L Anion Gap 8 MEQ/L Estimat Glomerular Filtration Rate 70 ML/MIN Objective Remarks GENERAL: No acute distress. HEENT: PERRLA, EOMI. No scleral icterus or conjunctival pallor. No lid lag or facial droop. large tongue mass and positive oral trush. CARDIOVASCULAR: Regular rate and rhythm. No obvious murmurs to auscultation. No chest tenderness to palpation. RESPIRATORY: No obvious rhonchi or wheezing. Clear to auscultation. Breath sounds equal bilaterally. GASTROINTESTINAL: PEG tube in place, dressing c/d/i. Some tenderness to palpation at the PEG tube side. Abdomen soft, nondistended. BS normal. MUSCULOSKELETAL: Extremities without clubbing, cyanosis, or edema. No obvious deformities. NEUROLOGICAL: Awake, alert and oriented x4. No focal neurologic deficits. Moving both upper and lower extremities spontaneously. Medications and IVs Current Medications Medications (Trade) Dose Ordered Sig/Tiffanie Route Start Time Stop Time Status Last Admin Sodium Chloride 1,000 ml @ 100 mls/hr Q10H IV 06/13/17 23:00 06/14/17 22:38 (NS Flush) 2 ml UNSCH PRN IV FLUSH 06/13/17 22:45 (NS Flush) 2 ml BID IV FLUSH 06/14/17 09:00 06/14/17 08:27 (Zofran Inj) 4 mg Q6H PRN IVP 06/13/17 22:45 06/14/17 22:29 (Tylenol) 650 mg Q6H PRN PO 06/13/17 22:45 06/15/17 01:28 (Morphine Inj) 2 mg Q3H PRN IV PUSH 06/13/17 22:45 06/15/17 01:24 (Kathleen-Colace) 1 tab BID PO 06/14/17 09:00 (Milk Of Magnesia Liq) 30 ml Q12H PRN PO 06/13/17 22:45 (Senokot) 17.2 mg Q12H PRN PO 06/13/17 22:45 (Dulcolax Supp) 10 mg DAILY PRN RECTAL 06/13/17 22:45 (Lactulose Liq) 30 ml DAILY PRN PO 06/13/17 22:45 Fluconazole/ Sodium Chloride 50 ml @ 50 mls/hr Q24H IV 06/14/17 23:00 06/15/17 00:05 (Roxicodone) 5 mg Q4H PRN PO 06/15/17 08:30 UNV Aztreonam 2000 mg/ Sodium Chloride 100 ml @ 200 mls/hr Q8H IV 06/15/17 08:30 UNV A/P Assessment and Plan (1) Generalized weakness ICD Code: R53.1 - Weakness Status: Acute (2) Dehydration ICD Code: E86.0 - Dehydration Status: Acute (3) 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 Generalized Weakness: likely secondary to combination of chemotherapy and decreased PO intake. PT for eval/tx. 2. Dehydration: BUN 20, GFR 73, previously normal on 06/07/17, unable to take PO , previously offered PEG tube, however had declined, now agreeable. status post PEG tube placement, Dietitian consulted. for tube feeding. 3. Oropharyngeal CA: Recent Dx of Squamous Cell CA of Tongue, Doctor Marcella following student records specialist 4. Neutropenic fever started on Aztreonam by Oncology and asked for ID specialist. 5. Oral Thrush on Nystatin swish and swallow. 4. DVT Prophylaxis: SCD/Teds. Discharge Planning as per student records specialist. Kyle Ramires MD Jun 15, 2017 08:29
[2017-06-15] MEDS ORDERED: AZTREONAM INJ 2,000 MG in SODIUM CHLORIDE 0.9% INJ 100 ML IV SCH (09:00)
--- NOTE | 2017-06-15 09:36 | MB ---
cc: Dwayne Naranjo MD DATE OF CONSULT: REASON FOR CONSULTATION: Patient with locally advanced base of the tongue cancer, who presents to the emergency department with poor intake and dehydration. 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 He has T3 disease. On imaging, no gabby disease was found but subsequently he was found to have palpable bilateral cervical lymph nodes. Due to significant dysphagia and delay in initiating combined chemotherapy and radiation treatment, he was initiated on neoadjuvant chemotherapy. He has been receiving the TPF regime. The patient had declined PEG tube placement. He has received 1 cycle of TPF. He has now developed significant dysphagia and he is unable to eat orally. His liquid intake is also poor. He presents to the emergency department. He was admitted to the hospital. He was given IV hydration. He is feeling somewhat better. He is now agreeable to placement of a PEG tube. REVIEW OF SYSTEMS: A comprehensive review of systems was completed which is negative except as described in the history of present illness. PAST MEDICAL HISTORY: Squamous cell carcinoma of the tongue. PAST SURGICAL HISTORY: Tongue biopsy, history of dental extraction. FAMILY HISTORY: Family history was reviewed and is noncontributory to this admission. SOCIAL HISTORY: History of tobacco abuse. No alcohol abuse. No drug abuse. MEDICATIONS: Zofran 4 mg IV q.6 hours p.r.n., senna p.r.n., bisacodyl p.r.n. ALLERGIES: HE IS ALLERGIC TO PENICILLIN AND SHELLFISH. PHYSICAL EXAMINATION: VITAL SIGNS: Blood pressure is 115/69, pulse is 80, temperature is 98.8. GENERAL: Well-developed, well-nourished male in no apparent distress. HEENT: Pupils are equal, round and reactive to light. EOMI. Oral thrush is noted. Tongue mass was seen on exam. Bilateral cervical lymphadenopathy is significantly decreased. CHEST: Clear to auscultation bilaterally. CARDIAC: S1, S2. Regular rate and rhythm. ABDOMEN: Soft, nontender, nondistended. Bowel sounds are present. EXTREMITIES: Without any edema, erythema or cyanosis. SKIN: Without any petechiae, lesion or bruises. NEURO: No focal deficits. PSYCHIATRIC: Mood and affect . IMAGING STUDIES: Chest x-ray was reviewed and did not show any acute cardiopulmonary abnormality. ASSESSMENT AND PLAN: This is a 46-year-old male who has a diagnosis of HPV negative squamous cell carcinoma of the tongue. He is currently being treated with neoadjuvant chemotherapy. He presents to the emergency department with poor intake, dehydration and nausea. 1. Severe dysphagia due to large tongue mass. He is unable to maintain his oral intake. He is agreeable to placement of a PEG tube. We will ask IR for PEG tube placement. Will consult retail greeter for tube feeds. He will also need dietary instructions. 2. Nausea. Continue Zofran and Compazine p.r.n. 3. Oral candidiasis. I will start him on oral Diflucan. He was given a prescription for nystatin previously but the oral candidiasis has been resistant to this treatment. 4. Squamous cell carcinoma of the tongue. He will resume neoadjuvant chemotherapy in the outpatient setting. 5. Neutropenia 2/2 to chemotherapy--may need neurogen injections, if WBC continues to drop monitor daily cbc Thank you for allowing me to participate in the care of this patient. I will continue to follow this patient along. MD LAZARO Gonzalez/TL/ , 10:48 PM , 08:23 AM [facility]
--- NOTE | 2017-06-15 09:54 | RADRPT ---
EXAM DATE/TIME: 06/15/2017 09:07 [facility] COMPARISON: CHEST SINGLE AP, June 13, 2017, 20:39. INDICATIONS : Weakness and cough. MEDICAL HISTORY : Tongue cancer SURGICAL HISTORY : Dental extractions. ENCOUNTER: Subsequent ACUITY: 3 days PAIN SCORE: 0/10 LOCATION: Bilateral chest FINDINGS: Stable right IJ [id number]. No new focal pleural or parenchymal opacities. Cardiomediastinal conto urs are within normal limits. Bony thorax is intact. CONCLUSION: 1. No acute abnormality or significant interval change. Adriano Cardenas MD on June 15, 2017 at 9:51 Board Certified Radiologist. This report was verified electronically.
[2017-06-15 09:55] LABS: BANDS 4 % (0-6); LYMPHOCYTES 67 % (9-44); MONOCYTES 22 % (0-8); POLYS (SEG NEUTROPHILS) 7 % (16-70)
[2017-06-15 09:57] LABS: NEUTROPHIL # MANUAL DIFF 0.1 TH/MM3 (1.8-7.7); OVALOCYTES 1+ (NORMAL)
[2017-06-15] MEDS: ONDANSETRON HCL 4 MG/2 ML VIAL IVP PRN ×2 (12:00→18:57)
--- NOTE | 2017-06-15 13:09 | PD.ID.CON ---
History of Present Illness Service ID Consult Requested By Reason for Consult Evaluation and Mment of Neutropenic fever s/p chemotherapy. Primary Care Physician Dwayne Naranjo MD Diagnoses: History of Present Illness is a 46 y/o CM with PMHx of smoking for many years. 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 He has T3 disease. Per review of Dr.Awais Naranjo records patient was found on imaging to have no gabby disease but subsequently he was found to have palpable bilateral cervical lymph nodes. Due to significant dysphagia and delay in initiating combined chemotherapy and radiation treatment, he was initiated on neoadjuvant chemotherapy. He has been receiving a regimen named as TPF. The patient had declined PEG tube placement initially. Hehas received 1 cycle of TPF last dose of which was 06/11/2017 using a PORT cath in right chest wall when the port was last accessed. He then developed significant dysphagia and was unable to eat orally any solids. He has noticed a progressive worsening of his dysphagia for solid foods. His liquid intake ended up being poor as well. With this background, patient presented to the emergency department. He was admitted to the hospital and was given IV fluids. On admission patient had no fever and his WBC was 3.7. He was tachycardic on admission and BP was normal range for age. Patient started developing leucopenia worsening and given his recent history of Chemotherapy and neutropenia ID was consulted. Review of Systems ROS Limitations: Clinical Condition Constitutional: DENIES: Diaphoretic episodes, Fatigue, Fever, Weight gain, Weight loss, Chills, Dizziness, Change in appetite, Night Sweats Endocrine: DENIES: Heat/cold intolerance, Polydipsia, Polyuria, Polyphagia Eyes: DENIES: Blurred vision, Diplopia, Eye inflammation, Eye pain, Vision loss , Photosensitivity, Double Vision Ears, nose, mouth, throat: COMPLAINS OF: Oral lesions, Throat pain, Odynophagia , DENIES: Tinnitus, Hearing loss, Vertigo, Nasal discharge, Hoarseness, Ear Pain , Running Nose, Epistaxis, Sinus Pain, Toothache Respiratory: DENIES: Apneas, Cough, Snoring, Wheezing, Hemoptysis, Sputum production, Shortness of breath Cardiovascular: DENIES: Chest pain, Palpitations, Syncope, Dyspnea on Exertion , PND, Lower Extremity Edema, Orthopnea, Claudication Gastrointestinal: COMPLAINS OF: Diarrhea, DENIES: Abdominal pain, Black stools , Bloody stools, Constipation, Nausea, Vomiting, Difficulty Swallowing, Anorexia Genitourinary: DENIES: Sexual dysfunction, Urinary frequency, Urinary incontinence, Urgency, Hematuria, Dysuria, Nocturia, Penile Discharge, Testicular Pain, Testicular Swelling Musculoskeletal: DENIES: Joint pain, Muscle aches, Stiffness, Joint Swelling, Back pain, Neck pain Integumentary: DENIES: Abnormal pigmentation, Nail changes, Pruritus, Rash Hematologic/lymphatic: DENIES: Bruising, Lymphadenopathy Immunologic/allergic: DENIES: Eczema, Urticaria Neurologic: DENIES: Abnormal gait, Headache, Localized weakness, Paresthesias, Seizures, Speech Problems, Tremor, Poor Balance Psychiatric: DENIES: Anxiety, Confusion, Mood changes, Depression, Hallucinations, Agitation, Suicidal Ideation, Homicidal Ideation, Delusions Except as stated in HPI: all other systems reviewed are Neg Past Family Social History Allergies: Coded Allergies: Penicillins (Verified Allergy, Severe, UNSURE - CHILD, 06/13/17) Uncoded Allergies: SHELLFISH (Allergy, Severe, Anaphylaxis, 04/27/17) Past Medical History Squamous cell carcinoma of the tongue. s/p biopsy Past Surgical History Tongue biopsy, history of dental extraction in Jun 02, 2007. No dental prophylaxis just mouth washes per patient. Reported Medications Reported Meds & Active Scripts Active Reported Fluconazole 100 Mg Tab 100 Mg PO DAILY Dexamethasone 4 Mg Tab 4 Mg PO DIRECTED Ondansetron (Ondansetron HCl) 8 Mg Tab 8 Mg PO TID Hydrocodone-Acetaminophen 10-325 mg Tab 1 Tab PO Q4H PRN Acetaminophen 325 Mg Capsule PO DIRECTED Active Ordered Medications Current Medications Medications (Trade) Dose Ordered Sig/Tiffanie Route Start Time Stop Time Status Last Admin Sodium Chloride 1,000 ml @ 100 mls/hr Q10H IV 06/13/17 23:00 06/15/17 15:13 (NS Flush) 2 ml UNSCH PRN IV FLUSH 06/13/17 22:45 (NS Flush) 2 ml BID IV FLUSH 06/14/17 09:00 06/14/17 08:27 (Zofran Inj) 4 mg Q6H PRN IVP 06/13/17 22:45 06/15/17 12:00 (Tylenol) 650 mg Q6H PRN PO 06/13/17 22:45 06/15/17 12:17 (Morphine Inj) 2 mg Q3H PRN IV PUSH 06/13/17 22:45 06/15/17 12:18 (Kathleen-Colace) 1 tab BID PO 06/14/17 09:00 (Milk Of Magnesia Liq) 30 ml Q12H PRN PO 06/13/17 22:45 (Senokot) 17.2 mg Q12H PRN PO 06/13/17 22:45 (Dulcolax Supp) 10 mg DAILY PRN RECTAL 06/13/17 22:45 (Lactulose Liq) 30 ml DAILY PRN PO 06/13/17 22:45 Fluconazole/ Sodium Chloride 50 ml @ 50 mls/hr Q24H IV 06/14/17 23:00 06/15/17 00:05 (Roxicodone) 5 mg Q4H PRN PO 06/15/17 08:30 06/15/17 15:25 (Neupogen Inj) 480 mcg DAILY@14 SQ 06/15/17 14:00 06/15/17 15:13 Cefepime HCl 2000 mg/Sodium Chloride 100 ml @ 200 mls/hr Q8H IV 06/15/17 15:00 06/15/17 15:13 (Benadryl Inj) 25 mg Q6H PRN IV PUSH 06/15/17 14:00 (Flagyl) 500 mg Q8HR PO 06/15/17 14:00 06/15/17 15:13 Family History Family h/o breast cancer in one aunt. Dad had prostate cancer. Social History History of smoking in past. No oral tobacco use. No alcohol abuse. No drug abuse. Single lives in an apartment. Parents help him out. No children. Not . Physical Exam Vital Signs Vital Signs Date Time Temp Pulse Resp B/P (MAP) Pulse Ox O2 Delivery O2 Flow Rate FiO2 06/15/17 13:01 110 06/15/17 11:58 102.2 107 16 133/77 (95) 97 06/15/17 08:07 101.3 102 18 112/78 (89) 99 06/15/17 07:23 96 06/15/17 06:00 94 06/15/17 05:00 92 06/15/17 04:40 16 06/15/17 04:03 94 06/15/17 03:50 100.4 96 20 119/72 (88) 98 06/15/17 03:00 124 06/15/17 02:28 16 06/15/17 02:00 90 06/15/17 01:29 18 06/15/17 01:25 101.0 06/15/17 01:00 90 06/15/17 00:09 100.2 06/15/17 00:02 88 06/14/17 23:00 88 06/14/17 22:54 100.6 88 16 114/67 (83) 96 06/14/17 22:00 94 06/14/17 21:00 84 06/14/17 20:01 88 06/14/17 19:57 99.9 91 18 113/72 (86) 98 06/14/17 19:00 90 06/14/17 17:10 98.2 86 22 114/75 (88) 99 06/14/17 16:00 98.3 74 20 121/68 (85) 100 06/14/17 15:24 81 18 115/65 (82) 99 06/14/17 14:15 97.2 84 18 121/74 (90) 100 06/14/17 14:15 97.2 83 18 122/75 (91) 100 06/14/17 13:27 99.4 73 16 109/70 (83) 100 Physical Exam GENERAL: This is a well-nourished, well-developed patient, in no apparent distress. SKIN: No rashes, ecchymoses or lesions. Cool and dry. HEAD: Atraumatic. Normocephalic. No temporal or scalp tenderness. EYES: Pupils equal round and reactive. Extraocular motions intact. No scleral icterus. No injection or drainage. Mouth exam: Enlarged tongue. Voice like potato in mouth. Tongue with white deposit. Patient was able to lift tongue and undersurface with similar white patches. Uvula central. No bleeding. ENT: Nose without bleeding, purulent drainage or septal hematoma. NECK: Trachea midline. Supple, nontender, no meningeal signs. CARDIOVASCULAR: Regular rate and rhythm without murmurs, gallops, or rubs. RESPIRATORY: Clear to auscultation. Breath sounds equal bilaterally. No wheezes , rales, or rhonchi. GASTROINTESTINAL: Abdomen soft, non-tender, nondistended. PEG tube site with no e/o infection. MUSCULOSKELETAL: Extremities without clubbing, cyanosis, or edema. No joint tenderness, effusion, or edema noted. No calf tenderness. Negative Homans sign bilaterally. NEUROLOGICAL: Awake and alert. Non focal exam Psych cooperative IV line sites with no e.o infection. Laboratory Laboratory Tests Test 06/15/17 00:13 06/15/17 05:37 Stool C. difficile Toxin (PCR) NEGATIVE Stl C. difficile Toxin Epiderm 027 PRESUMPTIVE NEGATIVE White Blood Count 1.0 Red Blood Count 4.29 Hemoglobin 12.9 Hematocrit 37.7 Mean Corpuscular Volume 87.9 Mean Corpuscular Hemoglobin 30.0 Mean Corpuscular Hemoglobin Concent 34.1 Red Cell Distribution Width 12.7 Platelet Count 103 Mean Platelet Volume 10.1 CBC Comment AUTO DIFF Differential Total Cells Counted 100 Neutrophils % (Manual) 7 Band Neutrophils % 4 Lymphocytes % 67 Monocytes % 22 Neutrophils # (Manual) 0.1 Differential Comment FINAL DIFF MANUAL Platelet Estimate LOW Platelet Morphology Comment ENLARGED Ovalocytes 1+ Blood Urea Nitrogen 16 Creatinine 1.13 Random Glucose 102 Calcium Level 7.9 Sodium Level 133 Potassium Level 4.3 Chloride Level 98 Carbon Dioxide Level 27.3 Anion Gap 8 Estimat Glomerular Filtration Rate 70 Date/Time Source Procedure Growth Status 06/15/17 08:40 Blood Peripheral Aerobic Blood Culture Pending Received 06/15/17 08:40 Blood Peripheral Anaerobic Blood Culture Pending Received Result Diagram: 06/15/17 0537 06/15/17 0537 Imaging Last Impressions Chest X-Ray 06/15/17 0000 Signed Impressions: Service Date/Time: Thursday, June 15, 2017 09:07 - CONCLUSION: 1. No acute abnormality or significant interval change. Adriano Cardenas MD Gastrostomy Tube Placement 06/14/17 0000 Signed Impressions: Service Date/Time: Wednesday, June 14, 2017 08:44 - CONCLUSION: Uncomplicated gastrostomy tube placement as above. Adriano Cardenas MD Assessment and Plan Assessment and Plan Neutropenic fever Cancer of tongue T3 stage S/p chemotherapy on 06/11/[address] Diarrhea Cdiff negative likely mucositis related to chemotherapy. Oral thrush vs cancer of tongue related leucoplakia. Possible Esophagitis Candidal vs Malignancy related. Penicillin allergy Recs Follow blood cultures DC Azactam(does not cover Strep and other gram negatives well and with oral and GI pathology coverage needed) Start Cefepime IV. DW patient allergy in detail. Patient had strep throat as a child with throat swelling and rash. Unsure if disease related or PCN related. Explained to patient and he is ok with trying out Cefepime. Explained risks of rash, difficulty breathing etc. Start oral flagyl (anaerobe coverage given history of diarrhea related, GI mucositis) Blood culture from port x1. Recent history of port access possible bacteremia. Continue Vanco IV (target 15-20) Continue Diflucan IV for now. Assess response to Diflucan to decide if escalation needed. Benadryl Prn. dw RN to call me if any adverse reactions to Cefepime. Follow cultures Follow clinically dw patient in presence of RN. Noa Hawkins MD Jun 15, 2017 13:09
[2017-06-15] MEDS ORDERED: diphenhydrAMINE HCL 50 MG/ML VIAL IV PUSH PRN (14:00)
[2017-06-15 14:33] LABS: BILIRUBIN, URINE NEG (NEG); BLOOD, URINE NEG (NEG); GLUCOSE,URINE 70 mg/dL (NEG); HYALINE CAST, URINE 3 /lpf (RARE); KETONE, URINE 10 mg/dL (NEG); MUCUS URINE FEW /lpf (OCC); NITRITE,URINE NEG (NEG); PH, URINE 5.5 (5.0-8.5); URINE COLOR YELLOW (YELLW/STRAW); URINE LEUKOCYTE ESTERASE NEG (NEG)
[2017-06-15] MEDS: metroNIDAZOLE 500 MG TAB PO SCH ×2 (15:13→21:00)
[2017-06-15] MEDS: FILGRASTIM 480 MCG/1.6 ML VIAL SQ SCH (15:13)
[2017-06-15] MEDS: SODIUM CHLOR 0.9% 1000 ML INJ 1,000 ML IV SCH ×2 (15:13→22:37)
[2017-06-15] MEDS: CEFEPIME INJ 2,000 MG in SODIUM CHLORIDE 0.9% INJ 100 ML IV SCH (15:13)
--- NOTE | 2017-06-15 18:52 | PD.ONC.PN ---
Subjective Subjective Remarks had fever overnight, tachycardic and having diarrhea nausea somewhat better tube feeds started RN present during rounds stools sample was sent out for c.diff Objective Data Date Time Temp Pulse Resp B/P (MAP) Pulse Ox O2 Delivery O2 Flow Rate FiO2 06/15/17 17:15 108 06/15/17 17:00 134 06/15/17 16:46 14 06/15/17 16:00 98 06/15/17 15:40 100.3 100 16 123/69 (87) 100 06/15/17 15:00 100 06/15/17 14:00 104 06/15/17 13:01 110 06/15/17 12:00 108 06/15/17 11:58 102.2 107 16 133/77 (95) 97 06/15/17 11:00 122 06/15/17 10:00 104 06/15/17 09:00 100 06/15/17 08:07 101.3 102 18 112/78 (89) 99 06/15/17 08:00 102 06/15/17 07:23 96 06/15/17 06:00 94 06/15/17 05:00 92 06/15/17 04:40 16 06/15/17 04:03 94 06/15/17 03:50 100.4 96 20 119/72 (88) 98 06/15/17 03:00 124 06/15/17 02:28 16 06/15/17 02:00 90 06/15/17 01:29 18 06/15/17 01:25 101.0 06/15/17 01:00 90 06/15/17 00:09 100.2 06/15/17 00:02 88 06/14/17 23:00 88 06/14/17 22:54 100.6 88 16 114/67 (83) 96 06/14/17 22:00 94 06/14/17 21:00 84 06/14/17 20:01 88 06/14/17 19:57 99.9 91 18 113/72 (86) 98 06/14/17 19:00 90 06/15/17 06/15/17 06/15/17 07:00 15:00 23:00 Intake Total 853 ml 1320 ml Output Total 1 ml Balance 852 ml 1320 ml Result Diagram: 06/15/17 0537 06/15/17 0537 Laboratory Results Laboratory Tests Test 06/15/17 00:13 06/15/17 05:37 06/15/17 12:22 Stool C. difficile Toxin (PCR) NEGATIVE Stl C. difficile Toxin Epiderm 027 PRESUMPTIVE NEGATIVE White Blood Count 1.0 TH/MM3 Red Blood Count 4.29 MIL/MM3 Hemoglobin 12.9 GM/DL Hematocrit 37.7 % Mean Corpuscular Volume 87.9 FL Mean Corpuscular Hemoglobin 30.0 PG Mean Corpuscular Hemoglobin Concent 34.1 % Red Cell Distribution Width 12.7 % Platelet Count 103 TH/MM3 Mean Platelet Volume 10.1 FL CBC Comment AUTO DIFF Differential Total Cells Counted 100 Neutrophils % (Manual) 7 % Band Neutrophils % 4 % Lymphocytes % 67 % Monocytes % 22 % Neutrophils # (Manual) 0.1 TH/MM3 Differential Comment FINAL DIFF MANUAL Platelet Estimate LOW Platelet Morphology Comment ENLARGED Ovalocytes 1+ Blood Urea Nitrogen 16 MG/DL Creatinine 1.13 MG/DL Random Glucose 102 MG/DL Calcium Level 7.9 MG/DL Sodium Level 133 MEQ/L Potassium Level 4.3 MEQ/L Chloride Level 98 MEQ/L Carbon Dioxide Level 27.3 MEQ/L Anion Gap 8 MEQ/L Estimat Glomerular Filtration Rate 70 ML/MIN Urine Color YELLOW Urine Turbidity CLEAR Urine pH 5.5 Urine Specific [place] 1.018 Urine Protein TRACE mg/dL Urine Glucose (UA) 70 mg/dL Urine Ketones 10 mg/dL Urine Occult Blood NEG Urine Nitrite NEG Urine Bilirubin NEG Urine Urobilinogen LESS THAN 2.0 MG/DL Urine Leukocyte Esterase NEG Urine RBC LESS THAN 1 /hpf Urine WBC 2 /hpf Urine Hyaline Casts 3 /lpf Urine Mucus FEW /lpf Culture Results Microbiology Date/Time Source Procedure Growth Status 06/15/17 14:30 Blood Other Aerobic Blood Culture Pending Received 06/15/17 14:30 Blood Other Anaerobic Blood Culture Pending Received 06/15/17 08:40 Blood Peripheral Aerobic Blood Culture Pending Received 06/15/17 08:40 Blood Peripheral Anaerobic Blood Culture Pending Received 06/15/17 08:35 Blood Peripheral Aerobic Blood Culture Pending Received 06/15/17 08:35 Blood Peripheral Anaerobic Blood Culture Pending Received Imaging Studies Last 24 hours Impressions Chest X-Ray 06/15/17 0000 Signed Impressions: Service Date/Time: Thursday, June 15, 2017 09:07 - CONCLUSION: 1. No acute abnormality or significant interval change. Adriano Cardenas MD Administered Medications Medications (Trade) Dose Ordered Sig/Tiffanie Route PRN Reason Start Time Stop Time Status Last Admin Dose Admin Sodium Chloride 1,000 ml @ 100 mls/hr Q10H IV 06/13/17 23:00 06/15/17 15:13 Sodium Chloride (NS Flush) 2 ml BID IV FLUSH 06/14/17 09:00 06/14/17 08:27 Ondansetron HCl (Zofran Inj) 4 mg Q6H PRN IVP NAUSEA OR VOMITING 06/13/17 22:45 06/15/17 12:00 Acetaminophen (Tylenol) 650 mg Q6H PRN PO FEVER>100.4 06/13/17 22:45 06/15/17 12:17 Morphine Sulfate (Morphine Inj) 2 mg Q3H PRN IV PUSH PAIN 6-10 06/13/17 22:45 06/15/17 12:18 Fluconazole/ Sodium Chloride 50 ml @ 50 mls/hr Q24H IV 06/14/17 23:00 06/15/17 00:05 Oxycodone HCl (Roxicodone) 5 mg Q4H PRN PO PAIN SCALE 1 TO 5 06/15/17 08:30 06/15/17 15:25 Filgrastim (Neupogen Inj) 480 mcg DAILY@14 SQ 06/15/17 14:00 06/15/17 15:13 Cefepime HCl 2000 mg/Sodium Chloride 100 ml @ 200 mls/hr Q8H IV 06/15/17 15:00 06/15/17 15:13 Metronidazole (Flagyl) 500 mg Q8HR PO 06/15/17 14:00 06/15/17 15:13 Objective Remarks GENERAL: nad SKIN: Warm and dry. HEENT: oral thrush . NECK: Supple, trachea midline. No JVD or lymphadenopathy. LYMPHATIC: No adenopathy. CARDIOVASCULAR: Regular rate and rhythm without murmurs. RESPIRATORY: Breath sounds equal bilaterally. No accessory muscle use. GASTROINTESTINAL: Abdomen soft, mild diffused tenderness, nondistended. EXTREMITIES: No cyanosis, or edema. 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 He is currently being treated with neoadjuvant chemotherapy. He presents to the emergency department with poor intake, dehydration and nausea. 1. Febrile Neutropenia due to chemotherapy - Neupogen started earlier - Blood cultures pending - on IV cefepime - if continue to spike fevers will add IV Vancomycin - C.diff negative 2. Diarrhea 2/2 to chemotherapy - IV hydration - Imodium prn 3. Dysphagia due to malignancy - PEG tube placed - on Tube feeds 4. Thrombocytopenia 2/2 maliganacy 5. Base of the tongue squamous cell carcinoma - s/p TPF Problem Qualifiers (1) Dysphagia: Qualified Codes: R13.10 - Dysphagia, unspecified Dwayne Naranjo MD Jun 15, 2017 18:51
[2017-06-15] MEDS ORDERED: PADIMATE (CHAPSTICK) 4.5 GM TUBE TOPICAL PRN (21:15)
[2017-06-15] MEDS: SODIUM CHLORIDE 0.9% FLUSH 10 ML FLUSH IV FLUSH PRN (22:30)
[2017-06-16] VITALS (27 sets, daily range): BP systolic 113–123; BP diastolic 62–76; PULSE 76–103; RESP 16–18; TEMP 98.5–101.1; O2SAT 97–99
[2017-06-16] MEDS: ONDANSETRON HCL 4 MG/2 ML VIAL IVP PRN ×4 (00:10→18:36)
[2017-06-16] MEDS: SODIUM CHLORIDE 0.9% FLUSH 10 ML FLUSH IV FLUSH PRN (00:11)
[2017-06-16] MEDS: CEFEPIME INJ 2,000 MG in SODIUM CHLORIDE 0.9% INJ 100 ML IV SCH ×4 (00:11→22:17)
[2017-06-16] MEDS: ACETAMINOPHEN 325 MG TAB PO PRN (01:22)
[2017-06-16] MEDS: metroNIDAZOLE 500 MG TAB PO SCH ×2 (06:15→14:23)
[2017-06-16] MEDS: DOCUSATE SODIUM 50 MG/SENNA 8.6 MG TAB PO SCH ×2 (08:35→21:00)
[2017-06-16] MEDS: SODIUM CHLORIDE 0.9% FLUSH 10 ML FLUSH IV FLUSH SCH ×2 (08:41→21:00)
--- NOTE | 2017-06-16 08:53 | HHI.PR ---
Subjective Remarks This is a pleasant 46 y/o Male with Squamous Cell Carcinoma of the Tongue, currently on Chemotherapy, who came to ER with generalized weakness and decreased PO intake. Recently diagnosed w/ Tongue CA approx 1mo ago, following w/ Dr. Purvis and Dr. Naranjo, s/p dental extraction in preparation for radiation and started Chemo last week. Seen in office on Wednesday and found to be dehydration, s/p IVF. States since Wednesday w/ worsening weakness and unable to eat/drink. 06/15: Yesterday status post PEG tube placement by Interventional Radiology. patient Neutropenic developed fever with diagnosis of Neutropenic Fever was started on Aztreonam by Oncology and asked for ID specialist consult. as per Doctor Marcella Severe dysphagia due to large tongue mass, Status post PEG tube placement, Oral thrush present. 06/16: Stable in his bedroom, continue present care. HPV negative, asked for Dietitian, was started on Neupogen, initially on Aztreonam, switched to Cefepime by ID specialist, today added Levaquin due to that continue with Fever. Diarrhea due to chemotherapy. Objective Vital Signs Date Time Temp Pulse Resp B/P (MAP) Pulse Ox O2 Delivery O2 Flow Rate FiO2 06/16/17 06:03 84 06/16/17 05:02 80 06/16/17 04:31 99.2 92 16 118/68 (85) 99 06/16/17 04:02 80 06/16/17 03:08 85 06/16/17 02:05 88 06/16/17 01:02 103 06/16/17 00:12 101.1 97 18 123/76 (92) 99 06/16/17 00:07 102 06/15/17 23:04 82 06/15/17 22:02 88 06/15/17 21:08 89 06/15/17 20:47 100.0 93 16 129/74 (92) 98 06/15/17 20:45 99.9 06/15/17 20:00 106 06/15/17 19:26 16 06/15/17 19:07 110 06/15/17 19:00 102.6 06/15/17 17:15 108 06/15/17 17:00 134 06/15/17 16:46 14 06/15/17 16:00 98 06/15/17 15:40 100.3 100 16 123/69 (87) 100 06/15/17 15:00 100 06/15/17 14:00 104 06/15/17 13:01 110 06/15/17 12:00 108 06/15/17 11:58 102.2 107 16 133/77 (95) 97 06/15/17 11:00 122 06/15/17 10:00 104 06/15/17 09:00 100 I/O 06/15/17 06/15/17 06/15/17 06/16/17 06/16/17 06/16/17 07:00 15:00 23:00 07:00 15:00 23:00 Intake Total 853 ml 2320 ml 665 ml Output Total 1 ml Balance 852 ml 2320 ml 665 ml Intake Oral 240 ml 200 ml 200 ml IV Total 2000 ml 165 ml Tube Feeding 213 ml 120 ml 120 ml Other 400 ml 180 ml Stool Total 1 ml # Voids 2 4 2 # Bowel Movements 5 2 Result Diagram: 06/15/17 0537 06/15/17 0537 Imaging Last Impressions Chest X-Ray 06/15/17 0000 Signed Impressions: Service Date/Time: Thursday, June 15, 2017 09:07 - CONCLUSION: 1. No acute abnormality or significant interval change. Adriano Cardenas MD Gastrostomy Tube Placement 06/14/17 0000 Signed Impressions: Service Date/Time: Wednesday, June 14, 2017 08:44 - CONCLUSION: Uncomplicated gastrostomy tube placement as above. Adriano Cardenas MD Procedures PEG tube placement 06/14 Other Results Laboratory Tests Test 06/13/17 20:30 06/13/17 22:10 06/14/17 06:42 06/15/17 00:13 Eosinophils % 1 % Nucleated Red Blood Cells 1 /100 WBC Prothrombin Time 10.0 SEC Prothromb Time International Ratio 1.0 RATIO Activated Partial Thromboplast Time 25.1 SEC Blood Urea Nitrogen 20 MG/DL 17 MG/DL Creatinine 1.09 MG/DL 0.95 MG/DL Random Glucose 98 MG/DL 82 MG/DL Total Protein 6.8 GM/DL 5.8 GM/DL Albumin 3.5 GM/DL 2.9 GM/DL Calcium Level 8.4 MG/DL 8.6 MG/DL Magnesium Level 2.0 MG/DL Alkaline Phosphatase 84 U/L 72 U/L Aspartate Amino Transf (AST/SGOT) 18 U/L 12 U/L Alanine Aminotransferase (ALT/SGPT) 36 U/L 28 U/L Total Bilirubin 0.5 MG/DL 0.5 MG/DL Sodium Level 130 MEQ/L 134 MEQ/L Potassium Level 4.1 MEQ/L 4.2 MEQ/L Chloride Level 94 MEQ/L 99 MEQ/L Carbon Dioxide Level 28.3 MEQ/L 27.3 MEQ/L Total Creatine Kinase 36 U/L Troponin I LESS THAN 0.02 NG/ML Lipase 91 U/L Thyroid Stimulating Hormone 3rd Gen 0.466 uIU/ML Microscopic Urinalysis Comment CULT NOT INDICATED Neutrophils (%) (Auto) 28.8 % Lymphocytes (%) (Auto) 65.6 % Monocytes (%) (Auto) 3.9 % Eosinophils (%) (Auto) 1.1 % Basophils (%) (Auto) 0.6 % Neutrophils # (Auto) 0.6 TH/MM3 Lymphocytes # (Auto) 1.5 TH/MM3 Monocytes # (Auto) 0.1 TH/MM3 Eosinophils # (Auto) 0.0 TH/MM3 Basophils # (Auto) 0.0 TH/MM3 Red Cell Morphology Comment NORMAL Stool C. difficile Toxin (PCR) NEGATIVE Stl C. difficile Toxin Epiderm 027 PRESUMPTIVE NEGATIVE Test 06/15/17 05:37 06/15/17 12:22 White Blood Count 1.0 TH/MM3 Red Blood Count 4.29 MIL/MM3 Hemoglobin 12.9 GM/DL Hematocrit 37.7 % Mean Corpuscular Volume 87.9 FL Mean Corpuscular Hemoglobin 30.0 PG Mean Corpuscular Hemoglobin Concent 34.1 % Red Cell Distribution Width 12.7 % Platelet Count 103 TH/MM3 Mean Platelet Volume 10.1 FL CBC Comment AUTO DIFF Differential Total Cells Counted 100 Neutrophils % (Manual) 7 % Band Neutrophils % 4 % Lymphocytes % 67 % Monocytes % 22 % Neutrophils # (Manual) 0.1 TH/MM3 Differential Comment FINAL DIFF MANUAL Platelet Estimate LOW Platelet Morphology Comment ENLARGED Ovalocytes 1+ Blood Urea Nitrogen 16 MG/DL Creatinine 1.13 MG/DL Random Glucose 102 MG/DL Calcium Level 7.9 MG/DL Sodium Level 133 MEQ/L Potassium Level 4.3 MEQ/L Chloride Level 98 MEQ/L Carbon Dioxide Level 27.3 MEQ/L Anion Gap 8 MEQ/L Estimat Glomerular Filtration Rate 70 ML/MIN Urine Color YELLOW Urine Turbidity CLEAR Urine pH 5.5 Urine Specific [place] 1.018 Urine Protein TRACE mg/dL Urine Glucose (UA) 70 mg/dL Urine Ketones 10 mg/dL Urine Occult Blood NEG Urine Nitrite NEG Urine Bilirubin NEG Urine Urobilinogen LESS THAN 2.0 MG/DL Urine Leukocyte Esterase NEG Urine RBC LESS THAN 1 /hpf Urine WBC 2 /hpf Urine Hyaline Casts 3 /lpf Urine Mucus FEW /lpf Objective Remarks GENERAL: No acute distress. HEENT: PERRLA, EOMI. No scleral icterus or conjunctival pallor. No lid lag or facial droop. large tongue mass and positive oral trush. CARDIOVASCULAR: Regular rate and rhythm. RESPIRATORY: No obvious rhonchi or wheezing. Clear to auscultation. GASTROINTESTINAL: PEG tube in place, dressing c/d/i. Some tenderness to palpation at the PEG tube side. MUSCULOSKELETAL: Extremities without clubbing, cyanosis, or edema. No obvious deformities. NEUROLOGICAL: Awake, alert and oriented x4. No focal deficits. Medications and IVs Current Medications Medications (Trade) Dose Ordered Sig/Tiffanie Route Start Time Stop Time Status Last Admin Sodium Chloride 1,000 ml @ 100 mls/hr Q10H IV 06/13/17 23:00 06/15/17 22:37 (NS Flush) 2 ml UNSCH PRN IV FLUSH 06/13/17 22:45 06/16/17 00:11 (NS Flush) 2 ml BID IV FLUSH 06/14/17 09:00 06/15/17 21:01 (Zofran Inj) 4 mg Q6H PRN IVP 06/13/17 22:45 06/16/17 06:16 (Tylenol) 650 mg Q6H PRN PO 06/13/17 22:45 06/16/17 01:22 (Morphine Inj) 2 mg Q3H PRN IV PUSH 06/13/17 22:45 06/15/17 22:30 (Kathleen-Colace) 1 tab BID PO 06/14/17 09:00 (Milk Of Magnesia Liq) 30 ml Q12H PRN PO 06/13/17 22:45 (Senokot) 17.2 mg Q12H PRN PO 06/13/17 22:45 (Dulcolax Supp) 10 mg DAILY PRN RECTAL 06/13/17 22:45 (Lactulose Liq) 30 ml DAILY PRN PO 06/13/17 22:45 Fluconazole/ Sodium Chloride 50 ml @ 50 mls/hr Q24H IV 06/14/17 23:00 06/15/17 22:38 (Roxicodone) 5 mg Q4H PRN PO 06/15/17 08:30 06/16/17 06:16 (Neupogen Inj) 480 mcg DAILY@14 SQ 06/15/17 14:00 06/15/17 15:13 Cefepime HCl 2000 mg/Sodium Chloride 100 ml @ 200 mls/hr Q8H IV 06/15/17 15:00 Future Hold 06/16/17 00:11 (Benadryl Inj) 25 mg Q6H PRN IV PUSH 06/15/17 14:00 (Flagyl) 500 mg Q8HR PO 06/15/17 14:00 06/16/17 06:15 (Chapstick) 1 applic UNSCH PRN TOPICAL 06/15/17 21:15 A/P Assessment and Plan (1) Generalized weakness ICD Code: R53.1 - Weakness Status: Acute (2) Dehydration ICD Code: E86.0 - Dehydration Status: Acute (3) 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 Generalized Weakness: likely secondary to combination of chemotherapy and decreased PO intake. PT for eval/tx. 2. Dehydration: BUN 20, GFR 73, previously normal on 06/07/17, unable to take PO , previously offered PEG tube, however had declined, now agreeable. status post PEG tube placement, Dietitian consulted. for tube feeding. 3. Oropharyngeal CA: Recent Dx of Squamous Cell CA of Tongue, Doctor Marcella following Oncology specialist06/16: HPV negative started on Neupogen, initially on Aztreonam, switched to Cefepime by ID specialist, today added Levaquin due to that continue with Fever. 4. Diarrhea due to chemotherapy. C Diff negative. 5. Neutropenic fever started on Aztreonam by Oncology and asked for ID specialist. 6. 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 at this time on Fluconazole. 4. DVT Prophylaxis: SCD/Teds. Discharge Planning as per material specialist. Kyle Ramires MD Jun 16, 2017 08:53
[2017-06-16] MEDS ORDERED: LEVOFLOXACIN 500 MG PREMIX INJ 100 ML IV SCH (09:00)
[2017-06-16] MEDS: SODIUM CHLOR 0.9% 1000 ML INJ 1,000 ML IV SCH ×2 (10:25→22:08)
--- NOTE | 2017-06-16 10:32 | HHI.IDPN ---
Subjective Subjective Remarks is a 46 y/o CM with PMHx of smoking for many years. 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 He has T3 disease. Per review of Dr.Awais Naranjo records patient was found on imaging to have no gabby disease but subsequently he was found to have palpable bilateral cervical lymph nodes. Due to significant dysphagia and delay in initiating combined chemotherapy and radiation treatment, he was initiated on neoadjuvant chemotherapy. He has been receiving a regimen named as TPF. The patient had declined PEG tube placement initially. Hehas received 1 cycle of TPF last dose of which was 06/11/2017 using a PORT cath in right chest wall when the port was last accessed. He then developed significant dysphagia and was unable to eat orally any solids. He has noticed a progressive worsening of his dysphagia for solid foods. His liquid intake ended up being poor as well. With this background, patient presented to the emergency department. He was admitted to the hospital and was given IV fluids. On admission patient had no fever and his WBC was 3.7. He was tachycardic on admission and BP was normal range for age. Patient started developing leucopenia worsening and given his recent history of Chemotherapy and neutropenia ID was consulted. Antibiotics Cefepime IV Flagyl oral Fluconazole oral. Lines Line sites with no e.o infection Past Medical History Past Medical History Squamous cell carcinoma of the tongue. s/p biopsy Past Surgical History Tongue biopsy, history of dental extraction in Jun 02, 2007. No dental prophylaxis just mouth washes per patient. Allergies: Coded Allergies: Penicillins (Verified Allergy, Severe, UNSURE - CHILD, 06/13/17) Uncoded Allergies: SHELLFISH (Allergy, Severe, Anaphylaxis, 04/27/17) Objective . Vital Signs Date Time Temp Pulse Resp B/P (MAP) Pulse Ox O2 Delivery O2 Flow Rate FiO2 06/16/17 06:03 84 06/16/17 05:02 80 06/16/17 04:31 99.2 92 16 118/68 (85) 99 06/16/17 04:02 80 06/16/17 03:08 85 06/16/17 02:05 88 06/16/17 01:02 103 06/16/17 00:12 101.1 97 18 123/76 (92) 99 06/16/17 00:07 102 06/15/17 23:04 82 06/15/17 22:02 88 06/15/17 21:08 89 06/15/17 20:47 100.0 93 16 129/74 (92) 98 06/15/17 20:45 99.9 06/15/17 20:00 106 06/15/17 19:26 16 06/15/17 19:07 110 06/15/17 19:00 102.6 06/15/17 17:15 108 06/15/17 17:00 134 06/15/17 16:46 14 06/15/17 16:00 98 06/15/17 15:40 100.3 100 16 123/69 (87) 100 06/15/17 15:00 100 06/15/17 14:00 104 06/15/17 13:01 110 06/15/17 12:00 108 06/15/17 11:58 102.2 107 16 133/77 (95) 97 06/15/17 11:00 122 . Laboratory Tests Test 06/15/17 05:37 White Blood Count 1.0 TH/MM3 Red Blood Count 4.29 MIL/MM3 Hemoglobin 12.9 GM/DL Hematocrit 37.7 % Mean Corpuscular Volume 87.9 FL Mean Corpuscular Hemoglobin 30.0 PG Mean Corpuscular Hemoglobin Concent 34.1 % Red Cell Distribution Width 12.7 % Platelet Count 103 TH/MM3 Mean Platelet Volume 10.1 FL CBC Comment AUTO DIFF Differential Total Cells Counted 100 Neutrophils % (Manual) 7 % Band Neutrophils % 4 % Lymphocytes % 67 % Monocytes % 22 % Neutrophils # (Manual) 0.1 TH/MM3 Differential Comment FINAL DIFF MANUAL Platelet Estimate LOW Platelet Morphology Comment ENLARGED Ovalocytes 1+ Laboratory Tests Test 06/15/17 05:37 Blood Urea Nitrogen 16 MG/DL Creatinine 1.13 MG/DL Random Glucose 102 MG/DL Calcium Level 7.9 MG/DL Sodium Level 133 MEQ/L Potassium Level 4.3 MEQ/L Chloride Level 98 MEQ/L Carbon Dioxide Level 27.3 MEQ/L Anion Gap 8 MEQ/L Estimat Glomerular Filtration Rate 70 ML/MIN Microbiology Date/Time Source Procedure Growth Status 06/15/17 14:30 Blood Other Aerobic Blood Culture Pending Received 06/15/17 14:30 Blood Other Anaerobic Blood Culture Pending Received 06/15/17 08:40 Blood Peripheral Aerobic Blood Culture Pending Received 06/15/17 08:40 Blood Peripheral Anaerobic Blood Culture Pending Received 06/15/17 08:35 Blood Peripheral Aerobic Blood Culture Pending Received 06/15/17 08:35 Blood Peripheral Anaerobic Blood Culture Pending Received Imaging Last Impressions Chest X-Ray 06/15/17 0000 Signed Impressions: Service Date/Time: Thursday, June 15, 2017 09:07 - CONCLUSION: 1. No acute abnormality or significant interval change. Adriano Cardenas MD Gastrostomy Tube Placement 06/14/17 0000 Signed Impressions: Service Date/Time: Wednesday, June 14, 2017 08:44 - CONCLUSION: Uncomplicated gastrostomy tube placement as above. Adriano Cardenas MD Physical Exam GENERAL: This is a well-nourished, well-developed patient, in no apparent distress. SKIN: No rashes, ecchymoses or lesions. Cool and dry. HEAD: Atraumatic. Normocephalic. No temporal or scalp tenderness. EYES: Pupils equal round and reactive. Extraocular motions intact. No scleral icterus. No injection or drainage. Mouth exam: Enlarged tongue. Voice like potato in mouth. Tongue with white deposit. Patient was able to lift tongue and undersurface with similar white patches. Uvula central. No bleeding. ENT: Nose without bleeding, purulent drainage or septal hematoma. NECK: Trachea midline. Supple, nontender, no meningeal signs. CARDIOVASCULAR: Regular rate and rhythm without murmurs, gallops, or rubs. RESPIRATORY: Clear to auscultation. Breath sounds equal bilaterally. No wheezes , rales, or rhonchi. GASTROINTESTINAL: Abdomen soft, non-tender, nondistended. PEG tube site with no e/o infection. MUSCULOSKELETAL: Extremities without clubbing, cyanosis, or edema. No joint tenderness, effusion, or edema noted. No calf tenderness. Negative Homans sign bilaterally. NEUROLOGICAL: Awake and alert. Non focal exam Psych cooperative IV line sites with no e.o infection. Assessment & Plan Remarks Neutropenic fever Cancer of tongue T3 stage S/p chemotherapy on 06/11/[address] Diarrhea Cdiff negative likely mucositis related to chemotherapy. Oral thrush vs cancer of tongue related leucoplakia. Possible Esophagitis Candidal vs Malignancy related. Penicillin allergy: unknown as a child when he had strep throat. Recs Follow blood cultures Continue Cefepime IV. dw patient he denies any tongue swelling, difficulty breathing or lip swelling etc. He denies any rash. He reports nausea, vomiting and diarrhea with abdominal discomfort. Willing to try premedication with Benadryl. Says "I think it is in my head: lets try with Benadryl and give me something to take the edge off". Counseled him to let RN know if any signs of airway issues, rash or any adverse reaction I will reassess if cefepime should be continued based on this info. DC oral flagyl could be contributing to nausea and vomiting. Will reassess later in the day. If fevers persist will consider Vanco IV. Continue Diflucan IV for now. Assess response to Diflucan to decide if escalation needed. Benadryl Prn. anthony RN to call me if any adverse reactions to Cefepime. Follow cultures Follow clinically dw patient and RN. Noa Hawkins MD Jun 16, 2017 10:32
[2017-06-16 12:28] LABS: HEMATOCRIT 34.4 % (39.0-51.0); HEMOGLOBIN 11.8 GM/DL (13.0-17.0); MEAN CORPUSCULAR HEMOGLOBIN 29.8 PG (27.0-34.0); MEAN CORPUSCULAR HGB CONC 34.2 % (32.0-36.0); MEAN PLATELET VOLUME 8.9 FL (7.0-11.0); PLATELET COUNT 106 TH/MM3 (150-450); RED BLOOD COUNT 3.95 MIL/MM3 (4.50-5.90); RED CELL DISTRIBUTION WIDTH 13.1 % (11.6-17.2); WHITE BLOOD COUNT 4.4 TH/MM3 (4.0-11.0)
[2017-06-16 13:21] LABS: BANDS 21 % (0-6); LYMPHOCYTES 19 % (9-44); MONOCYTES 36 % (0-8); POLYS (SEG NEUTROPHILS) 24 % (16-70)
[2017-06-16 13:22] LABS: DOHLE BODIES PRESENT (NONE SEEN)
[2017-06-16] MEDS: diphenhydrAMINE HCL 50 MG/ML VIAL IV PUSH SCH ×2 (14:00→22:08)
[2017-06-16] MEDS: FILGRASTIM 480 MCG/1.6 ML VIAL SQ SCH (14:25)
--- NOTE | 2017-06-16 17:15 | PD.ONC.PN ---
Subjective Subjective Remarks remains nauseous 3-4 episodes of diarrhea today no fevers oral intake is poor Tube feeds ongoing ambulating denies any pain Objective Data Date Time Temp Pulse Resp B/P (MAP) Pulse Ox O2 Delivery O2 Flow Rate FiO2 06/16/17 16:13 98.5 80 16 120/62 (81) 99 06/16/17 13:00 88 06/16/17 12:00 82 06/16/17 12:00 99.5 93 16 122/76 (91) 98 06/16/17 11:00 86 06/16/17 10:00 86 06/16/17 09:00 88 06/16/17 08:00 99.2 90 16 115/64 (81) 97 06/16/17 08:00 86 06/16/17 07:00 76 06/16/17 06:03 84 06/16/17 05:02 80 06/16/17 04:31 99.2 92 16 118/68 (85) 99 06/16/17 04:02 80 06/16/17 03:08 85 06/16/17 02:05 88 06/16/17 01:02 103 06/16/17 00:12 101.1 97 18 123/76 (92) 99 06/16/17 00:07 102 06/15/17 23:04 82 06/15/17 22:02 88 06/15/17 21:08 89 06/15/17 20:47 100.0 93 16 129/74 (92) 98 06/15/17 20:45 99.9 06/15/17 20:00 106 06/15/17 19:26 16 06/15/17 19:07 110 06/15/17 19:00 102.6 06/16/17 06/16/17 06/16/17 07:00 15:00 23:00 Intake Total 665 ml Balance 665 ml Result Diagram: 06/16/17 1210 06/15/17 0537 Laboratory Results Laboratory Tests Test 06/16/17 12:10 White Blood Count 4.4 TH/MM3 Red Blood Count 3.95 MIL/MM3 Hemoglobin 11.8 GM/DL Hematocrit 34.4 % Mean Corpuscular Volume 87.0 FL Mean Corpuscular Hemoglobin 29.8 PG Mean Corpuscular Hemoglobin Concent 34.2 % Red Cell Distribution Width 13.1 % Platelet Count 106 TH/MM3 Mean Platelet Volume 8.9 FL CBC Comment AUTO DIFF Differential Total Cells Counted 100 Neutrophils % (Manual) 24 % Band Neutrophils % 21 % Lymphocytes % 19 % Monocytes % 36 % Neutrophils # (Manual) 2.0 TH/MM3 Differential Comment FINAL DIFF MANUAL Dohle Bodies PRESENT Platelet Estimate LOW Platelet Morphology Comment NORMAL Red Cell Morphology Comment NORMAL Culture Results Microbiology Date/Time Source Procedure Growth Status 06/15/17 14:30 Blood Other Aerobic Blood Culture - Preliminary NO GROWTH IN 1 DAY Resulted 06/15/17 14:30 Blood Other Anaerobic Blood Culture - Preliminary NO GROWTH IN 1 DAY Resulted 06/15/17 08:40 Blood Peripheral Aerobic Blood Culture - Preliminary NO GROWTH IN 1 DAY Resulted 06/15/17 08:40 Blood Peripheral Anaerobic Blood Culture - Preliminary NO GROWTH IN 1 DAY Resulted 06/15/17 08:35 Blood Peripheral Aerobic Blood Culture - Preliminary NO GROWTH IN 1 DAY Resulted 06/15/17 08:35 Blood Peripheral Anaerobic Blood Culture - Preliminary NO GROWTH IN 1 DAY Resulted Administered Medications Medications (Trade) Dose Ordered Sig/Tiffanie Route PRN Reason Start Time Stop Time Status Last Admin Dose Admin Sodium Chloride 1,000 ml @ 100 mls/hr Q10H IV 06/13/17 23:00 06/16/17 10:25 Sodium Chloride (NS Flush) 2 ml UNSCH PRN IV FLUSH FLUSH AFTER USING IV ACCESS 06/13/17 22:45 06/16/17 00:11 Sodium Chloride (NS Flush) 2 ml BID IV FLUSH 06/14/17 09:00 06/15/17 21:01 Ondansetron HCl (Zofran Inj) 4 mg Q6H PRN IVP NAUSEA OR VOMITING 06/13/17 22:45 06/16/17 12:53 Acetaminophen (Tylenol) 650 mg Q6H PRN PO FEVER>100.4 06/13/17 22:45 06/16/17 01:22 Morphine Sulfate (Morphine Inj) 2 mg Q3H PRN IV PUSH PAIN 6-10 06/13/17 22:45 06/15/17 22:30 Fluconazole/ Sodium Chloride 50 ml @ 50 mls/hr Q24H IV 06/14/17 23:00 06/15/17 22:38 Oxycodone HCl (Roxicodone) 5 mg Q4H PRN PO PAIN SCALE 1 TO 5 06/15/17 08:30 06/16/17 14:23 Filgrastim (Neupogen Inj) 480 mcg DAILY@14 SQ 06/15/17 14:00 06/16/17 14:25 Cefepime HCl 2000 mg/Sodium Chloride 100 ml @ 200 mls/hr Q8H IV 06/15/17 15:00 Future hold 06/16/17 15:36 Metronidazole (Flagyl) 500 mg Q8HR PO 06/15/17 14:00 06/16/17 14:23 Levofloxacin/ Dextrose 100 ml @ 100 mls/hr Q24H IV 06/16/17 09:00 06/16/17 10:24 Diphenhydramine HCl (Benadryl Inj) 25 mg Q6H IV PUSH 06/16/17 14:00 06/16/17 14:00 Objective Remarks GENERAL: nad SKIN: Warm and dry. LYMPHATIC: No adenopathy. CARDIOVASCULAR: Regular rate and rhythm without murmurs. RESPIRATORY: Breath sounds equal bilaterally. No accessory muscle use. GASTROINTESTINAL: Abdomen soft, nondistended, mildly tender EXTREMITIES: No cyanosis, or edema. 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 He is currently being treated with neoadjuvant chemotherapy. He presents to the emergency department with poor intake, dehydration and nausea. 1. Febrile Neutropenia due to chemotherapy - Neutropenia resolved - continue Neupogen for another 48 hours - Blood cultures NGTD - on IV cefepime - if continue to spike fevers will add IV Vancomycin - C.diff negative - D/C Levaquin and Flagyl as this causing the patient to have possible nausea 2. Diarrhea 2/2 to chemotherapy//? antibiotics - IV hydration - Imodium prn started 3. Dysphagia due to malignancy - PEG tube placed - on Tube feeds 4. Thrombocytopenia 2/2 maliganacy 5. Base of the tongue squamous cell carcinoma - s/p TPF 6. Nausea persistent: - trial of scopolamine patch - continue zofran prn 7. Oral Mucositis and candidiasis: - will add magic mouthwash - IV Diflucan RN present during rounds Problem Qualifiers (1) Dysphagia: Qualified Codes: R13.10 - Dysphagia, unspecified Dwayne Naranjo MD Jun 16, 2017 17:15
[2017-06-16] MEDS ORDERED: SODIUM CHLORIDE 0.9% FLUSH 10 ML FLUSH IV FLUSH PRN (17:30)
[2017-06-16] MEDS ORDERED: LOPERAMIDE HCL SOLN 2 MG/10 ML UDC PO PRN (18:45)
[2017-06-16] MEDS: SCOPOLAMINE 1.5 MG PATCH T-DERMAL SCH (22:10)
[2017-06-16] MEDS: MORPHINE SULFATE 2 MG/ML INJ IV PUSH PRN (22:12)
[2017-06-16] MEDS: NYSTAT/DIPHENHY/LIDO MOUTHWASH (Adult) 120ML SWISH-SWAL SCH (22:14)
[2017-06-17] VITALS (25 sets, daily range): BP systolic 102–128; BP diastolic 55–76; PULSE 70–100; RESP 16–20; TEMP 98.4–99; O2SAT 98–100
[2017-06-17] MEDS: FLUCONAZOLE 100 MG PREMIX BAG 50 ML IV SCH (00:22)
[2017-06-17] MEDS: diphenhydrAMINE HCL 50 MG/ML VIAL IV PUSH SCH ×3 (02:16→20:00)
[2017-06-17] MEDS: MORPHINE SULFATE 2 MG/ML INJ IV PUSH PRN ×2 (02:16→06:08)
[2017-06-17 04:49] LABS: AUTOMATED NEUTROPHIL # 3.8 TH/MM3 (1.8-7.7); BASOPHIL % 0.1 % (0.0-2.0); EOSINOPHIL % 0.1 % (0.0-4.0); HEMATOCRIT 22.8 % (39.0-51.0); HEMOGLOBIN 7.9 GM/DL (13.0-17.0); LYMPH % 16.2 % (9.0-44.0); MEAN CELL VOLUME 87.6 FL (80.0-100.0); MEAN CORPUSCULAR HEMOGLOBIN 30.3 PG (27.0-34.0); MEAN CORPUSCULAR HGB CONC 34.5 % (32.0-36.0); MEAN PLATELET VOLUME 8.4 FL (7.0-11.0); MONO % 19.5 % (0.0-8.0); MONOCYTE # 1.2 TH/MM3 (0-0.9); NEUT % 64.1 % (16.0-70.0); PLATELET COUNT 88 TH/MM3 (150-450); RED BLOOD COUNT 2.61 MIL/MM3 (4.50-5.90); RED CELL DISTRIBUTION WIDTH 12.9 % (11.6-17.2)
[2017-06-17 05:19] LABS: ALBUMIN 1.9 GM/DL (3.4-5.0); ALKALINE PHOSPHATASE 55 U/L (45-117); ALT (GPT) 14 U/L (12-78); AST (GOT) 8 U/L (15-37); BICARBONATE 24.3 MEQ/L (21.0-32.0); BLOOD UREA NITROGEN 12 MG/DL (7-18); CALCIUM 7.7 MG/DL (8.5-10.1); CHLORIDE 105 MEQ/L (98-107); CREATININE 0.87 MG/DL (0.60-1.30); GLOMERULAR FILTRATION RATE 95 ML/MIN (>89); GLUCOSE,RANDOM 93 MG/DL (74-106); MAGNESIUM 1.9 MG/DL (1.5-2.5); PHOSPHORUS 1.4 MG/DL (2.5-4.9); SODIUM (NA) 139 MEQ/L (136-145); TOTAL BILIRUBIN ADULT 0.2 MG/DL (0.2-1.0); TOTAL PROTEIN 4.9 GM/DL (6.4-8.2)
[2017-06-17] MEDS: ONDANSETRON HCL 4 MG/2 ML VIAL IVP PRN (06:07)
[2017-06-17] MEDS: CEFEPIME INJ 2,000 MG in SODIUM CHLORIDE 0.9% INJ 100 ML IV SCH (06:08)
[2017-06-17] MEDS: SODIUM CHLOR 0.9% 1000 ML INJ 1,000 ML IV SCH (07:00)
[2017-06-17 08:24] LABS: BANDS 38 % (0-6); LYMPHOCYTES 14 % (9-44); MONOCYTES 5 % (0-8); NEUTROPHIL # MANUAL DIFF 4.9 TH/MM3 (1.8-7.7); POLYS (SEG NEUTROPHILS) 43 % (16-70); TOXIC GRANULATION 2+ (NORMAL)
[2017-06-17 08:25] LABS: DOHLE BODIES PRESENT (NONE SEEN)
[2017-06-17 08:26] LABS: OVALOCYTES 1+ (NORMAL)
--- NOTE | 2017-06-17 08:33 | HHI.PR ---
Subjective Remarks This is a pleasant 46 y/o Male with Squamous Cell Carcinoma of the Tongue, currently on Chemotherapy, who came to ER with generalized weakness and decreased PO intake. Recently diagnosed w/ Tongue CA approx 1mo ago, following w/ Dr. Purvis and Dr. Naranjo, s/p dental extraction in preparation for radiation and started Chemo last week. Seen in office on Wednesday and found to be dehydration, s/p IVF. States since Wednesday w/ worsening weakness and unable to eat/drink. 06/15: Yesterday status post PEG tube placement by Interventional Radiology. patient Neutropenic developed fever with diagnosis of Neutropenic Fever was started on Aztreonam by Oncology and asked for ID specialist consult. as per Doctor Marcella Severe dysphagia due to large tongue mass, Status post PEG tube placement, Oral thrush present. 06/16: Stable in his bedroom, continue present care. HPV negative, asked for Dietitian, was started on Neupogen, initially on Aztreonam, switched to Cefepime by ID specialist, added Flagyl and then removed , continued Diflucan, he had some allergic reaction handled by ID specialist with Benadryl. 06/17: patient improving condition, seen by ID specialist recommended to discontinue Cefepime, IV, Neutropenia resolved, continue Diflucan IV for now and switch to oral to complete 7 day course, Nystatin local for 10 days, persistent nausea, vomit or diarrhea, awaiting final by Oncology. ID singed off the case. as per Oncology started on Scopolamine patch. Objective Vital Signs Date Time Temp Pulse Resp B/P (MAP) Pulse Ox O2 Delivery O2 Flow Rate FiO2 06/17/17 06:00 82 06/17/17 05:00 76 06/17/17 04:06 98.5 76 16 128/76 (93) 98 06/17/17 04:00 78 06/17/17 03:00 90 06/17/17 02:00 78 06/17/17 01:00 80 06/17/17 00:03 99.0 85 16 120/75 (90) 100 06/17/17 00:00 82 06/16/17 23:00 82 06/16/17 22:05 99.0 76 18 113/65 (81) 99 06/16/17 22:00 78 06/16/17 21:00 84 06/16/17 20:00 81 06/16/17 18:00 84 06/16/17 17:00 84 06/16/17 16:13 98.5 80 16 120/62 (81) 99 06/16/17 16:00 84 06/16/17 15:00 78 06/16/17 14:00 80 06/16/17 13:00 88 06/16/17 13:00 82 06/16/17 12:00 82 06/16/17 12:00 99.5 93 16 122/76 (91) 98 06/16/17 11:00 86 06/16/17 10:00 86 06/16/17 09:00 88 I/O 06/16/17 06/16/17 06/16/17 06/17/17 06/17/17 06/17/17 07:00 15:00 23:00 07:00 15:00 23:00 Intake Total 665 ml 100 ml 520 ml 200 ml Output Total 0 ml Balance 665 ml 100 ml 520 ml 200 ml Intake Oral 200 ml 240 ml 200 ml IV Total 165 ml 100 ml 100 ml Tube Feeding 120 ml 180 ml Other 180 ml Tube Feeding Residual Discard 0 ml # Voids 2 1 2 # Bowel Movements 2 5 1 Result Diagram: 06/17/17 0420 06/17/17 0420 Imaging Last Impressions Chest X-Ray 06/15/17 0000 Signed Impressions: Service Date/Time: Thursday, June 15, 2017 09:07 - CONCLUSION: 1. No acute abnormality or significant interval change. Adriano Cardenas MD Gastrostomy Tube Placement 06/14/17 0000 Signed Impressions: Service Date/Time: Wednesday, June 14, 2017 08:44 - CONCLUSION: Uncomplicated gastrostomy tube placement as above. Adriano Cardenas MD Procedures PEG tube placement 06/14 Other Results Laboratory Tests Test 06/13/17 20:30 06/13/17 22:10 06/15/17 00:13 06/15/17 12:22 Eosinophils % 1 % Nucleated Red Blood Cells 1 /100 WBC Prothrombin Time 10.0 SEC Prothromb Time International Ratio 1.0 RATIO Activated Partial Thromboplast Time 25.1 SEC Total Creatine Kinase 36 U/L Troponin I LESS THAN 0.02 NG/ML Lipase 91 U/L Thyroid Stimulating Hormone 3rd Gen 0.466 uIU/ML Microscopic Urinalysis Comment CULT NOT INDICATED Stool C. difficile Toxin (PCR) NEGATIVE Stl C. difficile Toxin Epiderm 027 PRESUMPTIVE NEGATIVE Urine Color YELLOW Urine Turbidity CLEAR Urine pH 5.5 Urine Specific [place] 1.018 Urine Protein TRACE mg/dL Urine Glucose (UA) 70 mg/dL Urine Ketones 10 mg/dL Urine Occult Blood NEG Urine Nitrite NEG Urine Bilirubin NEG Urine Urobilinogen LESS THAN 2.0 MG/DL Urine Leukocyte Esterase NEG Urine RBC LESS THAN 1 /hpf Urine WBC 2 /hpf Urine Hyaline Casts 3 /lpf Urine Mucus FEW /lpf Test 06/16/17 12:10 06/17/17 04:20 Red Cell Morphology Comment NORMAL White Blood Count 6.0 TH/MM3 Red Blood Count 2.61 MIL/MM3 Hemoglobin 7.9 GM/DL Hematocrit 22.8 % Mean Corpuscular Volume 87.6 FL Mean Corpuscular Hemoglobin 30.3 PG Mean Corpuscular Hemoglobin Concent 34.5 % Red Cell Distribution Width 12.9 % Platelet Count 88 TH/MM3 Mean Platelet Volume 8.4 FL Neutrophils (%) (Auto) 64.1 % Lymphocytes (%) (Auto) 16.2 % Monocytes (%) (Auto) 19.5 % Eosinophils (%) (Auto) 0.1 % Basophils (%) (Auto) 0.1 % Neutrophils # (Auto) 3.8 TH/MM3 Lymphocytes # (Auto) 1.0 TH/MM3 Monocytes # (Auto) 1.2 TH/MM3 Eosinophils # (Auto) 0.0 TH/MM3 Basophils # (Auto) 0.0 TH/MM3 CBC Comment AUTO DIFF Differential Total Cells Counted 100 Neutrophils % (Manual) 43 % Band Neutrophils % 38 % Lymphocytes % 14 % Monocytes % 5 % Neutrophils # (Manual) 4.9 TH/MM3 Differential Comment FINAL DIFF MANUAL Toxic Granulation 2+ Dohle Bodies PRESENT Platelet Estimate LOW Platelet Morphology Comment NORMAL Ovalocytes 1+ Blood Urea Nitrogen 12 MG/DL Creatinine 0.87 MG/DL Random Glucose 93 MG/DL Total Protein 4.9 GM/DL Albumin 1.9 GM/DL Calcium Level 7.7 MG/DL Phosphorus Level 1.4 MG/DL Magnesium Level 1.9 MG/DL Alkaline Phosphatase 55 U/L Aspartate Amino Transf (AST/SGOT) 8 U/L Alanine Aminotransferase (ALT/SGPT) 14 U/L Total Bilirubin 0.2 MG/DL Sodium Level 139 MEQ/L Potassium Level 3.8 MEQ/L Chloride Level 105 MEQ/L Carbon Dioxide Level 24.3 MEQ/L Anion Gap 10 MEQ/L Estimat Glomerular Filtration Rate 95 ML/MIN Objective Remarks GENERAL: No acute distress. HEENT: PERRLA, EOMI. No scleral icterus or conjunctival pallor. No lid lag or facial droop. large tongue mass and positive oral trush. CARDIOVASCULAR: Regular rate and rhythm. RESPIRATORY: No obvious rhonchi or wheezing. Clear to auscultation. GASTROINTESTINAL: PEG tube in place, dressing c/d/i. Some tenderness to palpation at the PEG tube side. MUSCULOSKELETAL: Extremities without clubbing, cyanosis, or edema. No obvious deformities. NEUROLOGICAL: Awake, alert and oriented x4. No focal deficits. Medications and IVs Current Medications Medications (Trade) Dose Ordered Sig/Tiffanie Route Start Time Stop Time Status Last Admin Sodium Chloride 1,000 ml @ 100 mls/hr Q10H IV 06/13/17 23:00 06/16/17 22:08 (NS Flush) 2 ml UNSCH PRN IV FLUSH 06/13/17 22:45 06/16/17 00:11 (NS Flush) 2 ml BID IV FLUSH 06/14/17 09:00 06/15/17 21:01 (Zofran Inj) 4 mg Q6H PRN IVP 06/13/17 22:45 06/17/17 06:07 (Tylenol) 650 mg Q6H PRN PO 06/13/17 22:45 06/16/17 01:22 (Morphine Inj) 2 mg Q3H PRN IV PUSH 06/13/17 22:45 06/17/17 06:08 (Kathleen-Colace) 1 tab BID PO 06/14/17 09:00 (Milk Of Magnesia Liq) 30 ml Q12H PRN PO 06/13/17 22:45 (Senokot) 17.2 mg Q12H PRN PO 06/13/17 22:45 (Dulcolax Supp) 10 mg DAILY PRN RECTAL 06/13/17 22:45 (Lactulose Liq) 30 ml DAILY PRN PO 06/13/17 22:45 Fluconazole/ Sodium Chloride 50 ml @ 50 mls/hr Q24H IV 06/14/17 23:00 06/17/17 00:22 (Roxicodone) 5 mg Q4H PRN PO 06/15/17 08:30 06/16/17 18:36 (Neupogen Inj) 480 mcg DAILY@14 SQ 06/15/17 14:00 06/16/17 14:25 Cefepime HCl 2000 mg/Sodium Chloride 100 ml @ 200 mls/hr Q8H IV 06/15/17 15:00 Future hold 06/17/17 06:08 (Chapstick) 1 applic UNSCH PRN TOPICAL 06/15/17 21:15 (Benadryl Inj) 25 mg Q6H IV PUSH 06/16/17 14:00 06/17/17 02:16 (NS Flush) 5 ml UNSCH PRN IV FLUSH 06/16/17 17:30 (Heparin Central Flush) 250 units UNSCH PRN IV FLUSH 06/16/17 17:30 (Heparin Central Flush) 500 units UNSCH IV FLUSH 06/16/17 17:30 (Magic Mouthwash Adult Liq) 10 ml QID SWISH-SWAL 06/16/17 21:00 06/16/17 22:14 (Transderm-Scop 1.5 Mg Patch.72 Hr) 1 patch Q3D T-DERMAL 06/16/17 21:00 06/16/17 22:10 (Imodium Liq) 2 mg UNSCH PRN PO 06/16/17 18:45 A/P Assessment and Plan (1) Generalized weakness ICD Code: R53.1 - Weakness Status: Acute (2) Dehydration ICD Code: E86.0 - Dehydration Status: Acute (3) 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 Generalized Weakness: likely secondary to combination of chemotherapy and decreased PO intake. PT for eval/tx. 2. Dehydration: BUN 20, GFR 73, previously normal on 06/07/17, unable to take PO , previously offered PEG tube, however had declined, now agreeable. status post PEG tube placement, receiving tube feedings. 3. Oropharyngeal CA: Recent Dx of Squamous Cell CA of Tongue, Doctor Marcella following Oncology specialist06/16: HPV negative started on Neupogen, initially on Aztreonam, switched to Cefepime by ID specialist, today added Levaquin due to that continue with Fever. 4. Diarrhea due to chemotherapy. C Diff negative. 5. Neutropenic fever started Aztreonam not good coverage with this medicine, was started on Cefepime by ID specialist he developed allergic reaction handled with Diphenhydramine, added Flagyl and then removed, continued Diflucan. today 06/17: ID specialist recommended to discontinue Cefepime, IV, Neutropenia resolved, continue Diflucan IV for now and switch to oral to complete 7 day course, Nystatin local for 10 days, awaiting final by Oncology. ID singed off the case. 6. 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 at this time on Fluconazole. continue IV and then oral Nystatin for 10 days. 7. Hypophosphatemia 1.4 given 21 mmol of Potassium phosphate, DVT Prophylaxis: SCD/Teds. Discharge Planning as per debt collection specialist. Kyle Rmaires MD Jun 17, 2017 08:33
[2017-06-17] MEDS: NYSTAT/DIPHENHY/LIDO MOUTHWASH (Adult) 120ML SWISH-SWAL SCH ×4 (08:57→21:00)
[2017-06-17] MEDS: DOCUSATE SODIUM 50 MG/SENNA 8.6 MG TAB PO SCH ×2 (08:58→21:00)
[2017-06-17] MEDS ORDERED: POTASSIUM PHOSPHATE INJ 21 MMOL in SODIUM CHLORIDE 0.9% INJ 150 ML IV ONE (09:00)
[2017-06-17] MEDS ORDERED: MAGNESIUM SULFATE 1 GM PREMIX 100 ML IV ONE (09:00)
--- NOTE | 2017-06-17 10:32 | HHI.IDPN ---
Subjective Subjective Remarks is a 46 y/o CM with PMHx of smoking for many years. 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 He has T3 disease. Per review of Dr.Awais Naranjo records patient was found on imaging to have no gabby disease but subsequently he was found to have palpable bilateral cervical lymph nodes. Due to significant dysphagia and delay in initiating combined chemotherapy and radiation treatment, he was initiated on neoadjuvant chemotherapy. He has been receiving a regimen named as TPF. The patient had declined PEG tube placement initially. Hehas received 1 cycle of TPF last dose of which was 06/11/2017 using a PORT cath in right chest wall when the port was last accessed. He then developed significant dysphagia and was unable to eat orally any solids. He has noticed a progressive worsening of his dysphagia for solid foods. His liquid intake ended up being poor as well. With this background, patient presented to the emergency department. He was admitted to the hospital and was given IV fluids. On admission patient had no fever and his WBC was 3.7. He was tachycardic on admission and BP was normal range for age. Patient started developing leucopenia worsening and given his recent history of Chemotherapy and neutropenia ID was consulted. Overnight events reviewed. No fevers No rash Complains of nausea. tube feeds increased to 25 cc. Speech therapist at bedside and recommends only liquids for pleasure. Nutrition mostly thru PEG tube. Antibiotics Cefepime IV Lines Line sites with no e.o infection Past Medical History Past Medical History Squamous cell carcinoma of the tongue. s/p biopsy Past Surgical History Tongue biopsy, history of dental extraction in Jun 02, 2007. No dental prophylaxis just mouth washes per patient. Allergies: Coded Allergies: Penicillins (Verified Allergy, Severe, UNSURE - CHILD, 06/13/17) Uncoded Allergies: SHELLFISH (Allergy, Severe, Anaphylaxis, 04/27/17) Objective . Vital Signs Date Time Temp Pulse Resp B/P (MAP) Pulse Ox O2 Delivery O2 Flow Rate FiO2 06/17/17 08:00 99.0 78 18 111/67 (82) 100 06/17/17 06:00 82 06/17/17 05:00 76 06/17/17 04:06 98.5 76 16 128/76 (93) 98 06/17/17 04:00 78 06/17/17 03:00 90 3/15/18 02:00 78 06/17/17 01:00 80 06/17/17 00:03 99.0 85 16 120/75 (90) 100 06/17/17 00:00 82 06/16/17 23:00 82 06/16/17 22:05 99.0 76 18 113/65 (81) 99 06/16/17 22:00 78 06/16/17 21:00 84 06/16/17 20:00 81 06/16/17 18:00 84 06/16/17 17:00 84 06/16/17 16:13 98.5 80 16 120/62 (81) 99 06/16/17 16:00 84 06/16/17 15:00 78 06/16/17 14:00 80 06/16/17 13:00 88 06/16/17 13:00 82 06/16/17 12:00 82 06/16/17 12:00 99.5 93 16 122/76 (91) 98 06/16/17 11:00 86 . Laboratory Tests Test 06/16/17 12:10 06/17/17 04:20 White Blood Count 4.4 TH/MM3 6.0 TH/MM3 Red Blood Count 3.95 MIL/MM3 2.61 MIL/MM3 Hemoglobin 11.8 GM/DL 7.9 GM/DL Hematocrit 34.4 % 22.8 % Mean Corpuscular Volume 87.0 FL 87.6 FL Mean Corpuscular Hemoglobin 29.8 PG 30.3 PG Mean Corpuscular Hemoglobin Concent 34.2 % 34.5 % Red Cell Distribution Width 13.1 % 12.9 % Platelet Count 106 TH/MM3 88 TH/MM3 Mean Platelet Volume 8.9 FL 8.4 FL CBC Comment AUTO DIFF AUTO DIFF Differential Total Cells Counted 100 100 Neutrophils % (Manual) 24 % 43 % Band Neutrophils % 21 % 38 % Lymphocytes % 19 % 14 % Monocytes % 36 % 5 % Neutrophils # (Manual) 2.0 TH/MM3 4.9 TH/MM3 Differential Comment FINAL DIFF MANUAL FINAL DIFF MANUAL Dohle Bodies PRESENT PRESENT Platelet Estimate LOW LOW Platelet Morphology Comment NORMAL NORMAL Red Cell Morphology Comment NORMAL Neutrophils (%) (Auto) 64.1 % Lymphocytes (%) (Auto) 16.2 % Monocytes (%) (Auto) 19.5 % Eosinophils (%) (Auto) 0.1 % Basophils (%) (Auto) 0.1 % Neutrophils # (Auto) 3.8 TH/MM3 Lymphocytes # (Auto) 1.0 TH/MM3 Monocytes # (Auto) 1.2 TH/MM3 Eosinophils # (Auto) 0.0 TH/MM3 Basophils # (Auto) 0.0 TH/MM3 Toxic Granulation 2+ Ovalocytes 1+ Laboratory Tests Test 06/17/17 04:20 Blood Urea Nitrogen 12 MG/DL Creatinine 0.87 MG/DL Random Glucose 93 MG/DL Total Protein 4.9 GM/DL Albumin 1.9 GM/DL Calcium Level 7.7 MG/DL Phosphorus Level 1.4 MG/DL Magnesium Level 1.9 MG/DL Alkaline Phosphatase 55 U/L Aspartate Amino Transf (AST/SGOT) 8 U/L Alanine Aminotransferase (ALT/SGPT) 14 U/L Total Bilirubin 0.2 MG/DL Sodium Level 139 MEQ/L Potassium Level 3.8 MEQ/L Chloride Level 105 MEQ/L Carbon Dioxide Level 24.3 MEQ/L Anion Gap 10 MEQ/L Estimat Glomerular Filtration Rate 95 ML/MIN Microbiology Date/Time Source Procedure Growth Status 06/15/17 14:30 Blood Other Aerobic Blood Culture - Preliminary NO GROWTH IN 1 DAY Resulted 06/15/17 14:30 Blood Other Anaerobic Blood Culture - Preliminary NO GROWTH IN 1 DAY Resulted 06/15/17 08:40 Blood Peripheral Aerobic Blood Culture - Preliminary NO GROWTH IN 1 DAY Resulted 06/15/17 08:40 Blood Peripheral Anaerobic Blood Culture - Preliminary NO GROWTH IN 1 DAY Resulted 06/15/17 08:35 Blood Peripheral Aerobic Blood Culture - Preliminary NO GROWTH IN 1 DAY Resulted 06/15/17 08:35 Blood Peripheral Anaerobic Blood Culture - Preliminary NO GROWTH IN 1 DAY Resulted Imaging Last Impressions Chest X-Ray 06/15/17 0000 Signed Impressions: Service Date/Time: Thursday, June 15, 2017 09:07 - CONCLUSION: 1. No acute abnormality or significant interval change. Adriano Cardenas MD Gastrostomy Tube Placement 06/14/17 0000 Signed Impressions: Service Date/Time: Wednesday, June 14, 2017 08:44 - CONCLUSION: Uncomplicated gastrostomy tube placement as above. Adriano Cardenas MD Physical Exam GENERAL: This is a well-nourished, well-developed patient, in no apparent distress. SKIN: No rashes, ecchymoses or lesions. Cool and dry. HEAD: Atraumatic. Normocephalic. No temporal or scalp tenderness. EYES: Pupils equal round and reactive. Extraocular motions intact. No scleral icterus. No injection or drainage. Mouth exam: Enlarged tongue. Voice like potato in mouth. Tongue with white deposit. Patient was able to lift tongue and undersurface with similar white patches. Uvula central. No bleeding. ENT: Nose without bleeding, purulent drainage or septal hematoma. NECK: Trachea midline. Supple, nontender, no meningeal signs. CARDIOVASCULAR: Regular rate and rhythm without murmurs, gallops, or rubs. RESPIRATORY: Clear to auscultation. Breath sounds equal bilaterally. No wheezes , rales, or rhonchi. GASTROINTESTINAL: Abdomen soft, non-tender, nondistended. PEG tube site with no e/o infection. MUSCULOSKELETAL: Extremities without clubbing, cyanosis, or edema. No joint tenderness, effusion, or edema noted. No calf tenderness. Negative Homans sign bilaterally. NEUROLOGICAL: Awake and alert. Non focal exam Psych cooperative IV line sites with no e.o infection. Assessment & Plan Remarks Neutropenic fever Cancer of tongue T3 stage S/p chemotherapy on 06/11/[address] Diarrhea Cdiff negative likely mucositis related to chemotherapy. Oral thrush vs cancer of tongue related leucoplakia. Possible Esophagitis Candidal vs Malignancy related. Penicillin allergy: unknown as a child when he had strep throat. Recs Follow blood cultures DC Cefepime IV. Neutropenia resolved. Continue Diflucan IV for now may be switched to oral to complete 7 day course. Nystatin local application on tongue surfaces if helps continue for 10 days. Not sure if some of the leucoplakia is cancer related. Follow cultures Follow clinically dw patient and RN. anthony Lainez: will sign off please call back if any change in clinical condition or question. I will be OOT from 06/18 to 06/27/2017. Noa Hawkins MD Jun 17, 2017 10:32
[2017-06-17] MEDS: SODIUM CHLORIDE 0.9% FLUSH 10 ML FLUSH IV FLUSH SCH ×2 (12:09→22:45)
--- NOTE | 2017-06-17 12:44 | PD.ONC.PN ---
Subjective Subjective Remarks says that antibiotics are making me sick nausea better controlled no fevers overnight TF continues Objective Data Date Time Temp Pulse Resp B/P (MAP) Pulse Ox O2 Delivery O2 Flow Rate FiO2 06/17/17 12:00 99.0 75 18 117/56 (76) 100 06/17/17 08:00 99.0 78 18 111/67 (82) 100 06/17/17 06:00 82 06/17/17 05:00 76 06/17/17 04:06 98.5 76 16 128/76 (93) 98 06/17/17 04:00 78 06/17/17 03:00 90 06/17/17 02:00 78 06/17/17 01:00 80 06/17/17 00:03 99.0 85 16 120/75 (90) 100 06/17/17 00:00 82 06/16/17 23:00 82 06/16/17 22:05 99.0 76 18 113/65 (81) 99 06/16/17 22:00 78 06/16/17 21:00 84 06/16/17 20:00 81 06/16/17 18:00 84 06/16/17 17:00 84 06/16/17 16:13 98.5 80 16 120/62 (81) 99 06/16/17 16:00 84 06/16/17 15:00 78 06/16/17 14:00 80 06/16/17 13:00 88 06/16/17 13:00 82 06/17/17 06/17/17 06/17/17 07:00 15:00 23:00 Intake Total 300 ml Balance 300 ml Result Diagram: 06/17/17 0420 06/17/17 0420 Laboratory Results Laboratory Tests Test 06/17/17 04:20 White Blood Count 6.0 TH/MM3 Red Blood Count 2.61 MIL/MM3 Hemoglobin 7.9 GM/DL Hematocrit 22.8 % Mean Corpuscular Volume 87.6 FL Mean Corpuscular Hemoglobin 30.3 PG Mean Corpuscular Hemoglobin Concent 34.5 % Red Cell Distribution Width 12.9 % Platelet Count 88 TH/MM3 Mean Platelet Volume 8.4 FL Neutrophils (%) (Auto) 64.1 % Lymphocytes (%) (Auto) 16.2 % Monocytes (%) (Auto) 19.5 % Eosinophils (%) (Auto) 0.1 % Basophils (%) (Auto) 0.1 % Neutrophils # (Auto) 3.8 TH/MM3 Lymphocytes # (Auto) 1.0 TH/MM3 Monocytes # (Auto) 1.2 TH/MM3 Eosinophils # (Auto) 0.0 TH/MM3 Basophils # (Auto) 0.0 TH/MM3 CBC Comment AUTO DIFF Differential Total Cells Counted 100 Neutrophils % (Manual) 43 % Band Neutrophils % 38 % Lymphocytes % 14 % Monocytes % 5 % Neutrophils # (Manual) 4.9 TH/MM3 Differential Comment FINAL DIFF MANUAL Toxic Granulation 2+ Dohle Bodies PRESENT Platelet Estimate LOW Platelet Morphology Comment NORMAL Ovalocytes 1+ Blood Urea Nitrogen 12 MG/DL Creatinine 0.87 MG/DL Random Glucose 93 MG/DL Total Protein 4.9 GM/DL Albumin 1.9 GM/DL Calcium Level 7.7 MG/DL Phosphorus Level 1.4 MG/DL Magnesium Level 1.9 MG/DL Alkaline Phosphatase 55 U/L Aspartate Amino Transf (AST/SGOT) 8 U/L Alanine Aminotransferase (ALT/SGPT) 14 U/L Total Bilirubin 0.2 MG/DL Sodium Level 139 MEQ/L Potassium Level 3.8 MEQ/L Chloride Level 105 MEQ/L Carbon Dioxide Level 24.3 MEQ/L Anion Gap 10 MEQ/L Estimat Glomerular Filtration Rate 95 ML/MIN Culture Results Microbiology Date/Time Source Procedure Growth Status 06/15/17 14:30 Blood Other Aerobic Blood Culture - Preliminary NO GROWTH IN 2 DAYS Resulted 06/15/17 14:30 Blood Other Anaerobic Blood Culture - Preliminary NO GROWTH IN 2 DAYS Resulted 06/15/17 08:40 Blood Peripheral Aerobic Blood Culture - Preliminary NO GROWTH IN 2 DAYS Resulted 06/15/17 08:40 Blood Peripheral Anaerobic Blood Culture - Preliminary NO GROWTH IN 2 DAYS Resulted 06/15/17 08:35 Blood Peripheral Aerobic Blood Culture - Preliminary NO GROWTH IN 2 DAYS Resulted 06/15/17 08:35 Blood Peripheral Anaerobic Blood Culture - Preliminary NO GROWTH IN 2 DAYS Resulted Administered Medications Medications (Trade) Dose Ordered Sig/Tiffanie Route PRN Reason Start Time Stop Time Status Last Admin Dose Admin Sodium Chloride 1,000 ml @ 100 mls/hr Q10H IV 06/13/17 23:00 06/17/17 07:00 Sodium Chloride (NS Flush) 2 ml UNSCH PRN IV FLUSH FLUSH AFTER USING IV ACCESS 06/13/17 22:45 06/16/17 00:11 Sodium Chloride (NS Flush) 2 ml BID IV FLUSH 06/14/17 09:00 06/17/17 12:09 Ondansetron HCl (Zofran Inj) 4 mg Q6H PRN IVP NAUSEA OR VOMITING 06/13/17 22:45 06/17/17 06:07 Acetaminophen (Tylenol) 650 mg Q6H PRN PO FEVER>100.4 06/13/17 22:45 06/16/17 01:22 Morphine Sulfate (Morphine Inj) 2 mg Q3H PRN IV PUSH PAIN 6-10 06/13/17 22:45 06/17/17 06:08 Fluconazole/ Sodium Chloride 50 ml @ 50 mls/hr Q24H IV 06/14/17 23:00 06/17/17 00:22 Oxycodone HCl (Roxicodone) 5 mg Q4H PRN PO PAIN SCALE 1 TO 5 06/15/17 08:30 06/17/17 08:58 Filgrastim (Neupogen Inj) 480 mcg DAILY@14 SQ 06/15/17 14:00 06/16/17 14:25 Diphenhydramine HCl (Benadryl Inj) 25 mg Q6H IV PUSH 06/16/17 14:00 06/17/17 02:16 Multi-Ingredient Mouthwash/Gargle (Magic Mouthwash Adult Liq) 10 ml QID SWISH-SWAL 06/16/17 21:00 06/17/17 12:08 Scopolamine (Transderm-Scop 1.5 Mg Patch.72 Hr) 1 patch Q3D T-DERMAL 06/16/17 21:00 06/16/17 22:10 Loperamide HCl (Imodium Liq) 2 mg UNSCH PRN PO DIARRHEA 06/16/17 18:45 06/17/17 08:57 Potassium Phosphate 21 mmol/ Sodium Chloride 157 ml @ 38.75 mls/ hr ONCE ONCE IV 06/17/17 09:00 06/17/17 13:03 06/17/17 09:25 Objective Remarks GENERAL: nad CARDIOVASCULAR: Regular rate and rhythm without murmurs. RESPIRATORY: Breath sounds equal bilaterally. No accessory muscle use. GASTROINTESTINAL: Abdomen soft, nondistended. diffused mil tenderness EXTREMITIES: No cyanosis, or edema. 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 He is currently being treated with neoadjuvant chemotherapy. He presents to the emergency department with poor intake, dehydration and nausea. 1. Febrile Neutropenia due to chemotherapy - Neutropenia resolved - will stop Neupogen tomorrow - Blood cultures NGTD - stop cefepime - C.diff negative 2. Diarrhea 2/2 to chemotherapy//? antibiotics - resolving - IV hydration - Imodium prn started 3. Dysphagia due to malignancy - PEG tube placed - on Tube feeds 4. Thrombocytopenia 2/2 maliganacy 5. Base of the tongue squamous cell carcinoma - s/p TPF 6. Nausea persistent:---improving -scopolamine patch - continue zofran prn 7. Oral Mucositis and candidiasis: - magic mouthwash tid - IV Diflucan Patient's relative present during rounds spoke with Dr. Hawkins regarding d/cing cefepime Problem Qualifiers (1) Dysphagia: Qualified Codes: R13.10 - Dysphagia, unspecified Dwayne Naranjo MD Jun 17, 2017 12:44
[2017-06-17] MEDS: FILGRASTIM 480 MCG/1.6 ML VIAL SQ SCH (14:53)
[2017-06-17] MEDS ORDERED: diphenhydrAMINE HCL 25 MG CAP PO ONE (21:15)
[2017-06-17] MEDS ORDERED: ACETAMINOPHEN 325 MG TAB PO ONE (21:15)
[2017-06-17] MEDS ORDERED: diphenhydrAMINE HCL 25 MG CAP PO PRN (22:15)
[2017-06-17] MEDS ORDERED: ACETAMINOPHEN 325 MG TAB PO PRN (22:15)
[2017-06-18] VITALS (17 sets, daily range): BP systolic 102–115; BP diastolic 55–72; PULSE 62–90; RESP 18–20; TEMP 97.4–99; O2SAT 98–99
[2017-06-18] MEDS: FLUCONAZOLE 100 MG PREMIX BAG 50 ML IV SCH (00:16)
[2017-06-18] MEDS: diphenhydrAMINE HCL 50 MG/ML VIAL IV PUSH SCH ×4 (02:00→20:00)
[2017-06-18] MEDS ORDERED: ACETAMINOPHEN 325 MG TAB PO PRN (02:30)
[2017-06-18] MEDS ORDERED: diphenhydrAMINE HCL 25 MG CAP PO PRN (02:30)
[2017-06-18] MEDS: SODIUM CHLOR 0.9% 1000 ML INJ 1,000 ML IV SCH ×3 (05:50→23:00)
[2017-06-18] MEDS: NYSTAT/DIPHENHY/LIDO MOUTHWASH (Adult) 120ML SWISH-SWAL SCH ×4 (07:45→21:03)
[2017-06-18] MEDS: DOCUSATE SODIUM 50 MG/SENNA 8.6 MG TAB PO SCH ×2 (07:47→21:00)
--- NOTE | 2017-06-18 08:51 | PD.ONC.PN ---
Subjective Subjective Remarks afebrile nausea minimal able to eat soft food able to ambulate Objective Data Date Time Temp Pulse Resp B/P (MAP) Pulse Ox O2 Delivery O2 Flow Rate FiO2 06/18/17 07:10 98.3 65 20 102/66 99 06/18/17 06:00 72 06/18/17 05:00 62 06/18/17 04:01 98.4 69 20 103/59 (74) 98 06/18/17 04:00 98.4 69 20 103/59 (74) 98 06/18/17 04:00 68 06/18/17 03:50 98.4 69 20 103/59 98 06/18/17 03:35 98.4 70 20 111/65 98 06/18/17 03:00 76 06/18/17 02:30 99.0 70 20 115/58 98 06/18/17 02:00 70 06/18/17 01:00 90 06/18/17 00:00 75 06/18/17 00:00 98.7 71 20 102/55 (71) 99 06/17/17 23:25 98.7 71 20 102/55 99 06/17/17 23:00 76 06/17/17 22:55 98.4 72 20 103/56 99 06/17/17 22:00 78 06/17/17 21:00 86 06/17/17 20:00 74 06/17/17 20:00 98.4 72 20 106/58 (74) 99 06/17/17 19:00 70 06/17/17 18:00 82 06/17/17 17:00 100 06/17/17 16:00 98.7 73 18 113/59 (77) 100 06/17/17 16:00 74 06/17/17 15:00 80 06/17/17 14:00 76 06/17/17 13:00 86 06/17/17 12:15 78 06/17/17 12:00 99.0 75 18 117/56 (76) 100 06/18/17 06/18/17 06/18/17 07:00 15:00 23:00 Intake Total 1300 ml 450 ml Balance 1300 ml 450 ml Result Diagram: 06/17/17 04206/17/17 0420 Culture Results Microbiology Date/Time Source Procedure Growth Status 06/15/17 14:30 Blood Other Aerobic Blood Culture - Preliminary NO GROWTH IN 2 DAYS Resulted 06/15/17 14:30 Blood Other Anaerobic Blood Culture - Preliminary NO GROWTH IN 2 DAYS Resulted Administered Medications Medications (Trade) Dose Ordered Sig/Tiffanie Route PRN Reason Start Time Stop Time Status Last Admin Dose Admin Sodium Chloride 1,000 ml @ 100 mls/hr Q10H IV 06/13/17 23:00 06/18/17 05:50 Sodium Chloride (NS Flush) 2 ml UNSCH PRN IV FLUSH FLUSH AFTER USING IV ACCESS 06/13/17 22:45 06/16/17 00:11 Sodium Chloride (NS Flush) 2 ml BID IV FLUSH 06/14/17 09:00 06/17/17 22:45 Ondansetron HCl (Zofran Inj) 4 mg Q6H PRN IVP NAUSEA OR VOMITING 06/13/17 22:45 06/17/17 06:07 Acetaminophen (Tylenol) 650 mg Q6H PRN PO FEVER>100.4 06/13/17 22:45 06/16/17 01:22 Morphine Sulfate (Morphine Inj) 2 mg Q3H PRN IV PUSH PAIN 6-10 06/13/17 22:45 06/17/17 06:08 Senna/Docusate Sodium (Kathleen-Colace) 1 tab BID PO 06/14/17 09:00 06/18/17 07:47 Fluconazole/ Sodium Chloride 50 ml @ 50 mls/hr Q24H IV 06/14/17 23:00 06/18/17 00:16 Oxycodone HCl (Roxicodone) 5 mg Q4H PRN PO PAIN SCALE 1 TO 5 06/15/17 08:30 06/18/17 07:48 Filgrastim (Neupogen Inj) 480 mcg DAILY@14 SQ 06/15/17 14:00 06/17/17 14:53 Diphenhydramine HCl (Benadryl Inj) 25 mg Q6H IV PUSH 06/16/17 14:00 06/18/17 08:05 Multi-Ingredient Mouthwash/Gargle (Magic Mouthwash Adult Liq) 10 ml QID SWISH-SWAL 06/16/17 21:00 06/18/17 07:45 Scopolamine (Transderm-Scop 1.5 Mg Patch.72 Hr) 1 patch Q3D T-DERMAL 06/16/17 21:00 06/16/17 22:10 Loperamide HCl (Imodium Liq) 2 mg UNSCH PRN PO DIARRHEA 06/16/17 18:45 06/17/17 08:57 Diphenhydramine HCl (Benadryl) 25 mg UNSCH X1 PRN PO 30 MIN BEFORE TRANSFUSION 06/18/17 02:30 06/18/17 23:59 06/18/17 02:47 Acetaminophen (Tylenol) 650 mg UNSCH X1 PRN PO 30 MIN BEFORE TRANSFUSION 06/18/17 02:30 06/18/17 23:59 06/18/17 02:46 Objective Remarks GENERAL: nad SKIN: Warm and dry. LYMPHATIC: No adenopathy. CARDIOVASCULAR: Regular rate and rhythm without murmurs. RESPIRATORY: Breath sounds equal bilaterally. No accessory muscle use. GASTROINTESTINAL: Abdomen soft , nondistended. EXTREMITIES: No cyanosis, or edema. 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 He is currently being treated with neoadjuvant chemotherapy. He presents to the emergency department with poor intake, dehydration and nausea. 1. Febrile Neutropenia due to chemotherapy - Neutropenia resolved - Neupogen stopped - Blood cultures NGTD - stop cefepime - C.diff negative 2. Diarrhea 2/2 to chemotherapy//? antibiotics - resolving - IV hydration - Imodium prn started 3. Dysphagia due to malignancy - PEG tube placed - on Tube feeds 4. Thrombocytopenia 2/2 maliganacy 5. Base of the tongue squamous cell carcinoma - s/p TPF 6. Nausea persistent:---improving -scopolamine patch - continue zofran prn 7. Oral Mucositis and candidiasis: - magic mouthwash tid - IV Diflucan - switch IV Diflucan to oral Ok to d/c home on Wednesday if continues to do well Problem Qualifiers (1) Dysphagia: Qualified Codes: R13.10 - Dysphagia, unspecified Dwayne Naranjo MD Jun 18, 2017 08:51
--- NOTE | 2017-06-18 08:51 | HHI.PR ---
Subjective Remarks This is a pleasant 46 y/o Male with Squamous Cell Carcinoma of the Tongue, currently on Chemotherapy, who came to ER with generalized weakness and decreased PO intake. Recently diagnosed w/ Tongue CA approx 1mo ago, following w/ Dr. Purvis and Dr. Naranjo, s/p dental extraction in preparation for radiation and started Chemo last week. Seen in office on Wednesday and found to be dehydration, s/p IVF. States since Wednesday w/ worsening weakness and unable to eat/drink. 06/15: Yesterday status post PEG tube placement by Interventional Radiology. patient Neutropenic developed fever with diagnosis of Neutropenic Fever was started on Aztreonam by Oncology and asked for ID specialist consult. as per Doctor Marcella Severe dysphagia due to large tongue mass, Status post PEG tube placement, Oral thrush present. 06/16: Stable in his bedroom, continue present care. HPV negative, asked for Dietitian, was started on Neupogen, initially on Aztreonam, switched to Cefepime by ID specialist, added Flagyl and then removed , continued Diflucan, he had some allergic reaction handled by ID specialist with Benadryl. 06/17: patient improving condition, seen by ID specialist recommended to discontinue Cefepime, IV, Neutropenia resolved, continue Diflucan IV for now and switch to oral to complete 7 day course, Nystatin local for 10 days, persistent nausea and vomit, awaiting final by Oncology. ID singed off the case. as per Oncology started on Scopolamine patch. 06/18: Seen in his bedroom in the presence of his relative, continue with nausea , but no vomit, recommended by Oncology Swallow evaluation, Hemoglobin improved to 12.5 after two units of PRBCs, will stop Neupogen tomorrow and probable discharge during the weekend. Objective Vital Signs Date Time Temp Pulse Resp B/P (MAP) Pulse Ox O2 Delivery O2 Flow Rate FiO2 06/18/17 07:10 98.3 65 20 102/66 99 06/18/17 06:00 72 06/18/17 05:00 62 06/18/17 04:01 98.4 69 20 103/59 (74) 98 06/18/17 04:00 98.4 69 20 103/59 (74) 98 06/18/17 04:00 68 06/18/17 03:50 98.4 69 20 103/59 98 06/18/17 03:35 98.4 70 20 111/65 98 06/18/17 03:00 76 06/18/17 02:30 99.0 70 20 115/58 98 06/18/17 02:00 70 06/18/17 01:00 90 06/18/17 00:00 75 06/18/17 00:00 98.7 71 20 102/55 (71) 99 06/17/17 23:25 98.7 71 20 102/55 99 06/17/17 23:00 76 06/17/17 22:55 98.4 72 20 103/56 99 06/17/17 22:00 78 06/17/17 21:00 86 06/17/17 20:00 74 06/17/17 20:00 98.4 72 20 106/58 (74) 99 06/17/17 19:00 70 06/17/17 18:00 82 06/17/17 17:00 100 06/17/17 16:00 98.7 73 18 113/59 (77) 100 06/17/17 16:00 74 06/17/17 15:00 80 06/17/17 14:00 76 06/17/17 13:00 86 06/17/17 12:15 78 06/17/17 12:00 99.0 75 18 117/56 (76) 100 I/O 06/17/17 06/17/17 06/17/17 06/18/17 06/18/17 06/18/17 06:59 14:59 22:59 06:59 14:59 22:59 Intake Total 200 ml 200 ml 890 ml 1300 ml 450 ml Balance 200 ml 200 ml 890 ml 1300 ml 450 ml Intake Oral 200 ml 600 ml 480 ml IV Total 200 ml Tube Feeding 290 ml 300 ml Packed Cells 400 ml 400 ml Blood Product IV Normal Saline Flush 50 ml Tube Irrigant 120 ml # Voids 2 5 5 # Bowel Movements 1 2 1 Result Diagram: 06/17/17 0420 06/17/17 0420 Imaging Last Impressions Chest X-Ray 06/15/17 0000 Signed Impressions: Service Date/Time: Thursday, June 15, 2017 09:07 - CONCLUSION: 1. No acute abnormality or significant interval change. Adriano Cardenas MD Gastrostomy Tube Placement 06/14/17 0000 Signed Impressions: Service Date/Time: Wednesday, June 14, 2017 08:44 - CONCLUSION: Uncomplicated gastrostomy tube placement as above. Adriano Cardenas MD Procedures PEG tube placement 06/14 Other Results Laboratory Tests Test 06/13/17 20:30 06/13/17 22:10 06/15/17 00:13 06/15/17 12:22 Eosinophils % 1 % Nucleated Red Blood Cells 1 /100 WBC Prothrombin Time 10.0 SEC Prothromb Time International Ratio 1.0 RATIO Activated Partial Thromboplast Time 25.1 SEC Total Creatine Kinase 36 U/L Troponin I LESS THAN 0.02 NG/ML Lipase 91 U/L Thyroid Stimulating Hormone 3rd Gen 0.466 uIU/ML Microscopic Urinalysis Comment CULT NOT INDICATED Stool C. difficile Toxin (PCR) NEGATIVE Stl C. difficile Toxin Epiderm 027 PRESUMPTIVE NEGATIVE Urine Color YELLOW Urine Turbidity CLEAR Urine pH 5.5 Urine Specific [place] 1.018 Urine Protein TRACE mg/dL Urine Glucose (UA) 70 mg/dL Urine Ketones 10 mg/dL Urine Occult Blood NEG Urine Nitrite NEG Urine Bilirubin NEG Urine Urobilinogen LESS THAN 2.0 MG/DL Urine Leukocyte Esterase NEG Urine RBC LESS THAN 1 /hpf Urine WBC 2 /hpf Urine Hyaline Casts 3 /lpf Urine Mucus FEW /lpf Test 06/16/17 12:10 06/17/17 04:20 Red Cell Morphology Comment NORMAL White Blood Count 6.0 TH/MM3 Red Blood Count 2.61 MIL/MM3 Hemoglobin 7.9 GM/DL Hematocrit 22.8 % Mean Corpuscular Volume 87.6 FL Mean Corpuscular Hemoglobin 30.3 PG Mean Corpuscular Hemoglobin Concent 34.5 % Red Cell Distribution Width 12.9 % Platelet Count 88 TH/MM3 Mean Platelet Volume 8.4 FL Neutrophils (%) (Auto) 64.1 % Lymphocytes (%) (Auto) 16.2 % Monocytes (%) (Auto) 19.5 % Eosinophils (%) (Auto) 0.1 % Basophils (%) (Auto) 0.1 % Neutrophils # (Auto) 3.8 TH/MM3 Lymphocytes # (Auto) 1.0 TH/MM3 Monocytes # (Auto) 1.2 TH/MM3 Eosinophils # (Auto) 0.0 TH/MM3 Basophils # (Auto) 0.0 TH/MM3 CBC Comment AUTO DIFF Differential Total Cells Counted 100 Neutrophils % (Manual) 43 % Band Neutrophils % 38 % Lymphocytes % 14 % Monocytes % 5 % Neutrophils # (Manual) 4.9 TH/MM3 Differential Comment FINAL DIFF MANUAL Toxic Granulation 2+ Dohle Bodies PRESENT Platelet Estimate LOW Platelet Morphology Comment NORMAL Ovalocytes 1+ Blood Urea Nitrogen 12 MG/DL Creatinine 0.87 MG/DL Random Glucose 93 MG/DL Total Protein 4.9 GM/DL Albumin 1.9 GM/DL Calcium Level 7.7 MG/DL Phosphorus Level 1.4 MG/DL Magnesium Level 1.9 MG/DL Alkaline Phosphatase 55 U/L Aspartate Amino Transf (AST/SGOT) 8 U/L Alanine Aminotransferase (ALT/SGPT) 14 U/L Total Bilirubin 0.2 MG/DL Sodium Level 139 MEQ/L Potassium Level 3.8 MEQ/L Chloride Level 105 MEQ/L Carbon Dioxide Level 24.3 MEQ/L Anion Gap 10 MEQ/L Estimat Glomerular Filtration Rate 95 ML/MIN Objective Remarks GENERAL: No acute distress. HEENT: PERRLA, EOMI. No scleral icterus or conjunctival pallor. No lid lag or facial droop. large tongue mass and positive oral trush. CARDIOVASCULAR: Regular rate and rhythm. RESPIRATORY: No obvious rhonchi or wheezing. Clear to auscultation. GASTROINTESTINAL: PEG tube in place, dressing c/d/i. Some tenderness to palpation at the PEG tube side. MUSCULOSKELETAL: Extremities without clubbing, cyanosis, or edema. No obvious deformities. NEUROLOGICAL: Awake, alert and oriented x4. No focal deficits. Medications and IVs Current Medications Medications (Trade) Dose Ordered Sig/Tiffanie Route Start Time Stop Time Status Last Admin Sodium Chloride 1,000 ml @ 100 mls/hr Q10H IV 06/13/17 23:00 06/18/17 05:50 (NS Flush) 2 ml UNSCH PRN IV FLUSH 06/13/17 22:45 06/16/17 00:11 (NS Flush) 2 ml BID IV FLUSH 06/14/17 09:00 06/17/17 22:45 (Zofran Inj) 4 mg Q6H PRN IVP 06/13/17 22:45 06/17/17 06:07 (Tylenol) 650 mg Q6H PRN PO 06/13/17 22:45 06/16/17 01:22 (Morphine Inj) 2 mg Q3H PRN IV PUSH 06/13/17 22:45 06/17/17 06:08 (Kathleen-Colace) 1 tab BID PO 06/14/17 09:00 06/18/17 07:47 (Milk Of Magnesia Liq) 30 ml Q12H PRN PO 06/13/17 22:45 (Senokot) 17.2 mg Q12H PRN PO 06/13/17 22:45 (Dulcolax Supp) 10 mg DAILY PRN RECTAL 06/13/17 22:45 (Lactulose Liq) 30 ml DAILY PRN PO 06/13/17 22:45 Fluconazole/ Sodium Chloride 50 ml @ 50 mls/hr Q24H IV 06/14/17 23:00 06/18/17 00:16 (Roxicodone) 5 mg Q4H PRN PO 06/15/17 08:30 06/18/17 07:48 (Neupogen Inj) 480 mcg DAILY@14 SQ 06/15/17 14:00 06/17/17 14:53 (Chapstick) 1 applic UNSCH PRN TOPICAL 06/15/17 21:15 (Benadryl Inj) 25 mg Q6H IV PUSH 06/16/17 14:00 06/18/17 08:05 (NS Flush) 5 ml UNSCH PRN IV FLUSH 06/16/17 17:30 (Heparin Central Flush) 250 units UNSCH PRN IV FLUSH 06/16/17 17:30 (Heparin Central Flush) 500 units UNSCH IV FLUSH 06/16/17 17:30 (Magic Mouthwash Adult Liq) 10 ml QID SWISH-SWAL 06/16/17 21:00 06/18/17 07:45 (Transderm-Scop 1.5 Mg Patch.72 Hr) 1 patch Q3D T-DERMAL 06/16/17 21:00 06/16/17 22:10 (Imodium Liq) 2 mg UNSCH PRN PO 06/16/17 18:45 06/17/17 08:57 (Tylenol) 650 mg Q4H PRN PO 06/17/17 22:15 06/19/17 22:14 (Benadryl) 25 mg Q4H PRN PO 06/17/17 22:15 06/19/17 22:14 (Benadryl) 25 mg UNSCH X1 PRN PO 06/18/17 02:30 06/18/17 23:59 06/18/17 02:47 (Tylenol) 650 mg UNSCH X1 PRN PO 06/18/17 02:30 06/18/17 23:59 06/18/17 02:46 A/P Assessment and Plan (1) Generalized weakness ICD Code: R53.1 - Weakness Status: Acute (2) Dehydration ICD Code: E86.0 - Dehydration Status: Acute (3) 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 Generalized Weakness: likely secondary to combination of chemotherapy and decreased PO intake. PT for eval/tx. 2. Dehydration: BUN 20, GFR 73, previously normal on 06/07/17, unable to take PO , previously offered PEG tube, however had declined, now agreeable. status post PEG tube placement, receiving tube feedings. asked by Oncology for Speech therapy for swallow evaluation. 3. Oropharyngeal CA: Recent Dx of Squamous Cell CA of Tongue, Doctor Marcella following Oncology specialist06/16: HPV negative started on Neupogen, but will be discontinued tomorrow. 4. Diarrhea due to chemotherapy. C Diff negative. 5. Neutropenic fever started Aztreonam not good coverage with this medicine, was started on Cefepime by ID specialist he developed allergic reaction handled with Diphenhydramine, added Flagyl and then removed, continued Diflucan. today 06/17: ID specialist recommended to discontinue Cefepime, IV, Neutropenia resolved, continue Diflucan IV for now and switch to oral to complete 7 day course, Nystatin local for 10 days, awaiting final by Oncology. ID singed off the case. 6. 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 at this time on Fluconazole. continue IV and then oral Nystatin for 10 days. 7. Hypophosphatemia 1.4 given 21 mmol of Potassium phosphate, 8. Anemia Hemoglobin 7.9 given two units of PRBCs today 12.6 DVT Prophylaxis: SCD/Teds. Discussed on Multidisciplinary rounds and recommended by Oncology for discharge during the weekend. Discharge Planning Expected by tomorrow. Kyle Ramires MD Jun 18, 2017 08:51
[2017-06-18] MEDS: SODIUM CHLORIDE 0.9% FLUSH 10 ML FLUSH IV FLUSH SCH ×2 (08:56→21:03)
[2017-06-18 09:05] LABS: HEMATOCRIT 37.1 % (39.0-51.0); HEMOGLOBIN 12.6 GM/DL (13.0-17.0); PLATELET COUNT 159 TH/MM3 (150-450); WHITE BLOOD COUNT 28.1 TH/MM3 (4.0-11.0)
[2017-06-18 09:36] LABS: ALBUMIN 2.1 GM/DL (3.4-5.0); AST (GOT) 10 U/L (15-37); BICARBONATE 26.4 MEQ/L (21.0-32.0); BLOOD UREA NITROGEN 8 MG/DL (7-18); CALCIUM 8.5 MG/DL (8.5-10.1); CHLORIDE 107 MEQ/L (98-107); CREATININE 0.91 MG/DL (0.60-1.30); GLOMERULAR FILTRATION RATE 90 ML/MIN (>89); GLUCOSE,RANDOM 93 MG/DL (74-106); SODIUM (NA) 142 MEQ/L (136-145)
[2017-06-18 09:45] LABS: ALKALINE PHOSPHATASE 145 U/L (45-117); ALT (GPT) 15 U/L (12-78); PHOSPHORUS 2.7 MG/DL (2.5-4.9); TOTAL BILIRUBIN ADULT 0.4 MG/DL (0.2-1.0); TOTAL PROTEIN 5.1 GM/DL (6.4-8.2)
[2017-06-18] MEDS: FILGRASTIM 480 MCG/1.6 ML VIAL SQ SCH (14:54)
[2017-06-19] VITALS (12 sets, daily range): BP systolic 106–123; BP diastolic 60–75; PULSE 60–82; RESP 16–24; TEMP 98.3–99.1; O2SAT 96–100
[2017-06-19] MEDS: ACETAMINOPHEN 325 MG TAB PO PRN (01:01)
[2017-06-19] MEDS: diphenhydrAMINE HCL 50 MG/ML VIAL IV PUSH SCH ×2 (01:49→08:00)
[2017-06-19] MEDS: SODIUM CHLOR 0.9% 1000 ML INJ 1,000 ML IV SCH (03:39)
[2017-06-19 06:33] LABS: AUTOMATED NEUTROPHIL # 33.7 TH/MM3 (1.8-7.7); BASOPHIL # 0.1 TH/MM3 (0-0.2); BASOPHIL % 0.3 % (0.0-2.0); EOSINOPHIL % 0.1 % (0.0-4.0); HEMATOCRIT 36.5 % (39.0-51.0); HEMOGLOBIN 12.1 GM/DL (13.0-17.0); LYMPH % 8.6 % (9.0-44.0); LYMPHOCYTE # 3.3 TH/MM3 (1.0-4.8); MEAN CELL VOLUME 87.5 FL (80.0-100.0); MEAN CORPUSCULAR HEMOGLOBIN 29.1 PG (27.0-34.0); MEAN CORPUSCULAR HGB CONC 33.3 % (32.0-36.0); MEAN PLATELET VOLUME 8.1 FL (7.0-11.0); MONO % 2.6 % (0.0-8.0); NEUT % 88.4 % (16.0-70.0); PLATELET COUNT 179 TH/MM3 (150-450); RED BLOOD COUNT 4.17 MIL/MM3 (4.50-5.90); RED CELL DISTRIBUTION WIDTH 14.2 % (11.6-17.2); WHITE BLOOD COUNT 38.1 TH/MM3 (4.0-11.0)
[2017-06-19] MEDS: FLUCONAZOLE 100 MG TAB PO SCH (08:26)
[2017-06-19] MEDS: NYSTAT/DIPHENHY/LIDO MOUTHWASH (Adult) 120ML SWISH-SWAL SCH ×4 (08:27→22:42)
[2017-06-19] MEDS: DOCUSATE SODIUM 50 MG/SENNA 8.6 MG TAB PO SCH (08:31)
[2017-06-19] MEDS: SODIUM CHLORIDE 0.9% FLUSH 10 ML FLUSH IV FLUSH SCH ×2 (08:31→22:05)
--- NOTE | 2017-06-19 08:36 | PD.ONC.PN ---
Subjective Subjective Remarks Afebrile overnight. Patient resting in bed in nad. Starting bolus tube feeds today. had some pain earlier this am not controlled with Oxycodone 5mg. ok with going home when tolerating bolus tube feeds. Objective Data Date Time Temp Pulse Resp B/P (MAP) Pulse Ox O2 Delivery O2 Flow Rate FiO2 06/19/17 08:09 98.3 70 18 123/67 (85) 100 06/19/17 07:00 82 06/19/17 06:00 60 06/19/17 05:00 60 06/19/17 04:00 62 06/19/17 04:00 98.7 77 18 106/60 (75) 98 06/19/17 03:00 66 06/19/17 02:00 66 06/19/17 01:00 72 06/19/17 00:00 68 06/19/17 00:00 99.1 75 19 107/69 (82) 96 06/18/17 22:00 66 06/18/17 20:00 68 06/18/17 20:00 97.4 81 18 107/68 (81) 99 06/18/17 17:46 18 06/18/17 16:00 98.8 76 18 105/65 (78) 98 06/18/17 12:00 98.6 79 18 111/66 (81) 98 06/19/17 06/19/17 06/19/17 07:00 15:00 23:00 Intake Total 1888 ml Balance 1888 ml Result Diagram: 06/19/17 0505 06/18/17 0900 Laboratory Results Laboratory Tests Test 06/18/17 08:45 06/18/17 09:00 06/19/17 05:05 White Blood Count 28.1 TH/MM3 38.1 TH/MM3 Hemoglobin 12.6 GM/DL 12.1 GM/DL Hematocrit 37.1 % 36.5 % Platelet Count 159 TH/MM3 179 TH/MM3 Blood Urea Nitrogen 8 MG/DL Creatinine 0.91 MG/DL Random Glucose 93 MG/DL Total Protein 5.1 GM/DL Albumin 2.1 GM/DL Calcium Level 8.5 MG/DL Phosphorus Level 2.7 MG/DL Magnesium Level 2.0 MG/DL Alkaline Phosphatase 145 U/L Aspartate Amino Transf (AST/SGOT) 10 U/L Alanine Aminotransferase (ALT/SGPT) 15 U/L Total Bilirubin 0.4 MG/DL Sodium Level 142 MEQ/L Potassium Level 3.8 MEQ/L Chloride Level 107 MEQ/L Carbon Dioxide Level 26.4 MEQ/L Anion Gap 9 MEQ/L Estimat Glomerular Filtration Rate 90 ML/MIN Red Blood Count 4.17 MIL/MM3 Mean Corpuscular Volume 87.5 FL Mean Corpuscular Hemoglobin 29.1 PG Mean Corpuscular Hemoglobin Concent 33.3 % Red Cell Distribution Width 14.2 % Mean Platelet Volume 8.1 FL Neutrophils (%) (Auto) 88.4 % Lymphocytes (%) (Auto) 8.6 % Monocytes (%) (Auto) 2.6 % Eosinophils (%) (Auto) 0.1 % Basophils (%) (Auto) 0.3 % Neutrophils # (Auto) 33.7 TH/MM3 Lymphocytes # (Auto) 3.3 TH/MM3 Monocytes # (Auto) 1.0 TH/MM3 Eosinophils # (Auto) 0.0 TH/MM3 Basophils # (Auto) 0.1 TH/MM3 CBC Comment AUTO DIFF Administered Medications Medications (Trade) Dose Ordered Sig/Tiffanie Route PRN Reason Start Time Stop Time Status Last Admin Dose Admin Sodium Chloride 1,000 ml @ 100 mls/hr Q10H IV 06/13/17 23:00 06/19/17 03:39 Sodium Chloride (NS Flush) 2 ml UNSCH PRN IV FLUSH FLUSH AFTER USING IV ACCESS 06/13/17 22:45 06/16/17 00:11 Sodium Chloride (NS Flush) 2 ml BID IV FLUSH 06/14/17 09:00 06/18/17 21:03 Ondansetron HCl (Zofran Inj) 4 mg Q6H PRN IVP NAUSEA OR VOMITING 06/13/17 22:45 06/17/17 06:07 Acetaminophen (Tylenol) 650 mg Q6H PRN PO FEVER>100.4 06/13/17 22:45 06/19/17 01:01 Senna/Docusate Sodium (Kathleen-Colace) 1 tab BID PO 06/14/17 09:00 06/18/17 07:47 Oxycodone HCl (Roxicodone) 5 mg Q4H PRN PO PAIN SCALE 1 TO 5 06/15/17 08:30 06/19/17 05:18 Diphenhydramine HCl (Benadryl Inj) 25 mg Q6H IV PUSH 06/16/17 14:00 06/18/17 14:53 Multi-Ingredient Mouthwash/Gargle (Magic Mouthwash Adult Liq) 10 ml QID SWISH-SWAL 06/16/17 21:00 06/18/17 21:03 Scopolamine (Transderm-Scop 1.5 Mg Patch.72 Hr) 1 patch Q3D T-DERMAL 06/16/17 21:00 06/16/17 22:10 Loperamide HCl (Imodium Liq) 2 mg UNSCH PRN PO DIARRHEA 06/16/17 18:45 06/17/17 08:57 Fluconazole (Diflucan) 100 mg DAILY PO 06/19/17 09:00 06/19/17 08:26 Objective Remarks GENERAL: chronically ill appearing middle aged male, supine in bed resting. SKIN: Warm and dry. HEAD: Normocephalic. EYES: No injection or drainage. NECK: Supple, trachea midline. CARDIOVASCULAR: Regular rate and rhythm RESPIRATORY: Breath sounds equal bilaterally. No accessory muscle use. GASTROINTESTINAL: Abdomen soft, non-tender, nondistended. PEG tube clamped. EXTREMITIES: No cyanosis NEUROLOGICAL: awake and alert, normal speech. moving extremities. 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 receiving neoadjuvant chemotherapy outpatient. Was admitted with dehydration, nausea, malnutrition. Plan 1. monitor CBC, start Lovenox for DVT prophylaxis 2. start bolus-tube feeds. 3. once tolerating bolus tube feeds, patient is clear for discharge from oncology perspective. Attending Statement The exam, history, and the medical decision-making described in the above note were completed with the assistance of the mid-level provider. I reviewed and agree with the findings presented. I attest that I had a [id number] encounter with the patient on the same day, and personally performed and documented my assessment and findings in the medical record. doing well and tolerating tube feedings. neck nodes much better and hopefully home in 1-2 days if tolerating tube feedings. Jacquelin Quan Jun 19, 2017 08:36 Jake Morales MD Jun 19, 2017 12:57
[2017-06-19 09:18] LABS: BANDS 54 % (0-6); DOHLE BODIES PRESENT (NONE SEEN); LYMPHOCYTES 7 % (9-44); MONOCYTES 3 % (0-8); NEUTROPHIL # MANUAL DIFF 34.3 TH/MM3 (1.8-7.7); POLYS (SEG NEUTROPHILS) 36 % (16-70); TOXIC GRANULATION 2+ (NORMAL)
[2017-06-19] MEDS: ENOXAPARIN SODIUM 40 MG/0.4 ML SYRINGE SQ SCH (10:23)
--- NOTE | 2017-06-19 12:44 | HHI.PR ---
Subjective Remarks Follow-up squamous carcinoma of the tongue/neutropenic fever/failure to thrive 06/19/17-patient seen and examined, bolus feeds started today, no acute event overnight. Denies any significant shortness of breath Objective Vitals Vital Signs Date Time Temp Pulse Resp B/P (MAP) Pulse Ox O2 Delivery O2 Flow Rate FiO2 06/19/17 11:27 98.6 74 18 113/60 (77) 98 06/19/17 08:09 98.3 70 18 123/67 (85) 100 06/19/17 07:00 82 06/19/17 06:00 60 06/19/17 05:00 60 06/19/17 04:00 62 06/19/17 04:00 98.7 77 18 106/60 (75) 98 06/19/17 03:00 66 06/19/17 02:00 66 06/19/17 01:00 72 06/19/17 00:00 68 06/19/17 00:00 99.1 75 19 107/69 (82) 96 06/18/17 22:00 66 06/18/17 20:00 68 06/18/17 20:00 97.4 81 18 107/68 (81) 99 06/18/17 17:46 18 06/18/17 16:00 98.8 76 18 105/65 (78) 98 I/O 06/18/17 06/18/17 06/18/17 06/19/17 06/19/17 06/19/17 07:00 15:00 23:00 07:00 15:00 23:00 Intake Total 1300 ml 450 ml 2903 ml 1888 ml Balance 1300 ml 450 ml 2903 ml 1888 ml Intake Oral 480 ml IV Total 1063 ml 998 ml Tube Feeding 300 ml 1840 ml 840 ml Packed Cells 400 ml 400 ml Blood Product IV Normal Saline Flush 50 ml Tube Irrigant 120 ml Other 50 ml # Voids 5 # Bowel Movements 1 Result Diagram: 06/19/17 0505 06/18/17 0900 Imaging Last Impressions Chest X-Ray 06/15/17 0000 Signed Impressions: Service Date/Time: Thursday, June 15, 2017 09:07 - CONCLUSION: 1. No acute abnormality or significant interval change. Adriano Cardenas MD Gastrostomy Tube Placement 06/14/17 0000 Signed Impressions: Service Date/Time: Wednesday, June 14, 2017 08:44 - CONCLUSION: Uncomplicated gastrostomy tube placement as above. Adriano Cardenas MD Objective Remarks GENERAL: NAD SKIN: Warm and dry. HEAD: Normocephalic. EYES: No scleral icterus. No injection or drainage. NECK: Supple, trachea midline. No JVD or lymphadenopathy. CARDIOVASCULAR: Regular rate and rhythm without murmurs, gallops, or rubs. RESPIRATORY: Breath sounds equal bilaterally. No accessory muscle use. GASTROINTESTINAL: Abdomen soft, non-tender, nondistended. PEG tube in place MUSCULOSKELETAL: No cyanosis, or edema. BACK: Nontender without obvious deformity. No CVA tenderness. A/P Problem List: (1) Generalized weakness ICD Code: R53.1 - Weakness Status: Acute (2) Dehydration ICD Code: E86.0 - Dehydration Status: Acute (3) Oropharyngeal cancer ICD Code: C10.9 - Malignant neoplasm of oropharynx, unspecified Assessment and Plan 46-year-old man with 1. Oropharyngeal CA: Recent Dx of Squamous Cell CA of Tongue, Doctor Marcella following agriculture extension specialist HPV negative s/p Neupogen, 2. Diarrhea due to chemotherapy. C Diff negative. Resolved 3. Neutropenic fever Resolved Completed course of antibiotics Appreciate input from ID 4. Oral Thrush 2 new oral Nystatin for 10 days. 5. Dysphagia PEG tube placed 06/18/17 Currently tube feed and if tolerated bolus tube will discharge in a.m. 6. Anemia of acute bleed Transfused PRBC DVT Prophylaxis: SCD/Teds. Álvaro Strong MD Jun 19, 2017 12:44
[2017-06-19] MEDS ORDERED: MORPHINE SULFATE 2 MG/ML INJ IV PRN (18:00)
[2017-06-19] MEDS: SCOPOLAMINE 1.5 MG PATCH T-DERMAL SCH (22:05)
[2017-06-20] VITALS: BP 115/67; PULSE 73; RESP 20; TEMP 98.5; O2SAT 98
[2017-06-20 04:00] VITALS: BP 117/70; PULSE 73; RESP 18; TEMP 98.8; O2SAT 99
[2017-06-20 06:04] LABS: HEMATOCRIT 39.3 % (39.0-51.0); MEAN CELL VOLUME 88.3 FL (80.0-100.0); MEAN CORPUSCULAR HEMOGLOBIN 29.3 PG (27.0-34.0); MEAN CORPUSCULAR HGB CONC 33.1 % (32.0-36.0); MEAN PLATELET VOLUME 7.7 FL (7.0-11.0); PLATELET COUNT 208 TH/MM3 (150-450); RED BLOOD COUNT 4.45 MIL/MM3 (4.50-5.90); RED CELL DISTRIBUTION WIDTH 14.3 % (11.6-17.2); WHITE BLOOD COUNT 32.6 TH/MM3 (4.0-11.0)
[2017-06-20 07:24] LABS: BANDS 14 % (0-6); LYMPHOCYTES 12 % (9-44); METAMYELOCYTES 1 % (0-1); MONOCYTES 4 % (0-8); MYELOCYTES 1 % (0-0); NEUTROPHIL # MANUAL DIFF 27.4 TH/MM3 (1.8-7.7); POLYS (SEG NEUTROPHILS) 68 % (16-70)
[2017-06-20 07:26] LABS: TOXIC VACUOLATION PRESENT (NONE SEEN)
[2017-06-20 08:26] VITALS: BP 121/80; PULSE 72; RESP 16; O2SAT 100
[2017-06-20] MEDS: FLUCONAZOLE 100 MG TAB PO SCH (08:32)
[2017-06-20] MEDS: ENOXAPARIN SODIUM 40 MG/0.4 ML SYRINGE SQ SCH (08:32)
[2017-06-20] MEDS: NYSTAT/DIPHENHY/LIDO MOUTHWASH (Adult) 120ML SWISH-SWAL SCH ×2 (08:33→14:00)
[2017-06-20] MEDS: SODIUM CHLORIDE 0.9% FLUSH 10 ML FLUSH IV FLUSH SCH (08:33)
[2017-06-20] MEDS ORDERED: SCOPOLAMINE 1.5 MG T-DERMAL (09:47)
[2017-06-20] MEDS ORDERED: MAGICADU2 SWISH-SWAL (09:47)
[2017-06-20] MEDS ORDERED: VITAL G-TUBE (09:50)
--- NOTE | 2017-06-20 09:51 | HHI.FF ---
Face to Face Verification Diagnosis: (1) Oropharyngeal cancer (2) Dysphagia Home Health Nursing Order: Medical education Nursing assessment with vital signs Instructions: Gastrostomy tube maintenance and bolus tube feeding teaching I have seen patient Gavin Flowers on 06/20/17. My clinical findings support the need for the requested home health care services because: Ltd mobility - disease progression I certify that my clinical findings support that this patient is homebound because: Need for psychosocial assistance Jacquelin Quan Jun 20, 2017 09:51
--- NOTE | 2017-06-20 09:55 | PD.ONC.PN ---
Subjective Subjective Remarks Afebrile overnight. Patient resting in bed in nad. No complaints. tolerating bolus tube feeds. feels ready to go home. Objective Data Date Time Temp Pulse Resp B/P (MAP) Pulse Ox O2 Delivery O2 Flow Rate FiO2 06/20/17 08:26 72 16 121/80 (94) 100 06/20/17 04:00 98.8 73 18 117/70 (86) 99 06/20/17 00:00 98.5 73 20 115/67 (83) 98 06/19/17 20:00 98.7 68 24 110/75 (87) 99 06/19/17 17:01 98.5 76 16 108/65 (79) 99 06/19/17 11:27 98.6 74 18 113/60 (77) 98 06/20/17 06/20/17 06/20/17 06:59 14:59 22:59 Intake Total 1440 ml Output Total 600 ml Balance 840 ml Result Diagram: 06/20/17 0520 06/18/17 0900 Laboratory Results Laboratory Tests Test 06/20/17 05:20 White Blood Count 32.6 TH/MM3 Red Blood Count 4.45 MIL/MM3 Hemoglobin 13.0 GM/DL Hematocrit 39.3 % Mean Corpuscular Volume 88.3 FL Mean Corpuscular Hemoglobin 29.3 PG Mean Corpuscular Hemoglobin Concent 33.1 % Red Cell Distribution Width 14.3 % Platelet Count 208 TH/MM3 Mean Platelet Volume 7.7 FL CBC Comment AUTO DIFF Differential Total Cells Counted 100 Neutrophils % (Manual) 68 % Band Neutrophils % 14 % Lymphocytes % 12 % Monocytes % 4 % Neutrophils # (Manual) 27.4 TH/MM3 Metamyelocytes 1 % Myelocytes 1 % Differential Comment FINAL DIFF MANUAL Toxic Vacuolation PRESENT Platelet Estimate NORMAL Platelet Morphology Comment NORMAL Red Cell Morphology Comment NORMAL Administered Medications Medications (Trade) Dose Ordered Sig/Tiffanie Route PRN Reason Start Time Stop Time Status Last Admin Dose Admin Sodium Chloride (NS Flush) 2 ml UNSCH PRN IV FLUSH FLUSH AFTER USING IV ACCESS 06/13/17 22:45 06/16/17 00:11 Sodium Chloride (NS Flush) 2 ml BID IV FLUSH 06/14/17 09:00 06/20/17 08:33 Ondansetron HCl (Zofran Inj) 4 mg Q6H PRN IVP NAUSEA OR VOMITING 06/13/17 22:45 06/17/17 06:07 Acetaminophen (Tylenol) 650 mg Q6H PRN PO FEVER>100.4 06/13/17 22:45 06/19/17 01:01 Oxycodone HCl (Roxicodone) 5 mg Q4H PRN PO PAIN SCALE 1 TO 5 06/15/17 08:30 06/19/17 05:18 Multi-Ingredient Mouthwash/Gargle (Magic Mouthwash Adult Liq) 10 ml QID SWISH-SWAL 06/16/17 21:00 06/20/17 08:33 Scopolamine (Transderm-Scop 1.5 Mg Patch.72 Hr) 1 patch Q3D T-DERMAL 06/16/17 21:00 06/19/17 22:05 Loperamide HCl (Imodium Liq) 2 mg UNSCH PRN PO DIARRHEA 06/16/17 18:45 06/17/17 08:57 Fluconazole (Diflucan) 100 mg DAILY PO 06/19/17 09:00 06/20/17 08:32 Oxycodone HCl (Roxicodone) 10 mg Q4H PRN PO pain6-10 06/19/17 08:00 06/20/17 08:33 Enoxaparin Sodium (Lovenox Inj) 40 mg Q24H SQ 06/19/17 09:00 06/20/17 08:32 Morphine Sulfate (Morphine Inj) 2 mg Q2H PRN IV BREAKTHROUGH PAIN 06/19/17 18:00 06/19/17 18:25 Objective Remarks GENERAL: chronically ill male, upright in bed in nad. SKIN: Warm and dry. HEAD: Normocephalic. EYES: No injection or drainage. NECK: Supple, trachea midline. CARDIOVASCULAR: Regular rate and rhythm RESPIRATORY: Breath sounds equal bilaterally. No accessory muscle use. GASTROINTESTINAL: Abdomen soft, non-tender, nondistended. PEG tube clamped. EXTREMITIES: No cyanosis NEUROLOGICAL: awake, alert. moving all extremities. 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 receiving neoadjuvant chemotherapy outpatient. Was admitted with dehydration, nausea, malnutrition. Plan 1. clear for discharge 2. Rx written for bolus tube feeds per furniture repair technician recommendations: Vital 1.5 360cc QID 3. follow up in clinic on Wednesday. Attending Statement The exam, history, and the medical decision-making described in the above note were completed with the assistance of the mid-level provider. I reviewed and agree with the findings presented. I attest that I had a [id number] encounter with the patient on the same day, and personally performed and documented my assessment and findings in the medical record. doing well and feeling stronger. abdomen soft. still has pain related to tx. will discharge home and give prescription for oxycodone 10 mg as needed . outpatient follow up in place Jacquelin Quan Jun 20, 2017 09:55 Jake Morales MD Jun 20, 2017 12:37
--- NOTE | 2017-06-20 11:20 | HHI.PR ---
Subjective Remarks Follow-up squamous carcinoma of the tongue/neutropenic fever/failure to thrive 06/19/17-patient seen and examined, bolus feeds started today, no acute event overnight. Denies any significant shortness of breath 06/20/17-patient seen and examined, tolerated bolus feeds yesterday and this morning Objective Vitals Vital Signs Date Time Temp Pulse Resp B/P (MAP) Pulse Ox O2 Delivery O2 Flow Rate FiO2 06/20/17 08:26 72 16 121/80 (94) 100 06/20/17 04:00 98.8 73 18 117/70 (86) 99 06/20/17 00:00 98.5 73 20 115/67 (83) 98 06/19/17 20:00 98.7 68 24 110/75 (87) 99 06/19/17 17:01 98.5 76 16 108/65 (79) 99 06/19/17 11:27 98.6 74 18 113/60 (77) 98 I/O 06/19/17 06/19/17 06/19/17 06/20/17 06/20/17 06/20/17 07:00 15:00 23:00 07:00 15:00 23:00 Intake Total 1888 ml 1020 ml 1440 ml Output Total 600 ml 600 ml Balance 1888 ml 420 ml 840 ml Intake Oral 1020 ml 1440 ml IV Total 998 ml Tube Feeding 840 ml Other 50 ml Output Urine Total 600 ml 600 ml # Voids 7 5 # Bowel Movements 1 Result Diagram: 06/20/17 0520 06/18/17 0900 Imaging Last Impressions Chest X-Ray 06/15/17 0000 Signed Impressions: Service Date/Time: Thursday, June 15, 2017 09:07 - CONCLUSION: 1. No acute abnormality or significant interval change. Adriano Cardenas MD Gastrostomy Tube Placement 06/14/17 0000 Signed Impressions: Service Date/Time: Wednesday, June 14, 2017 08:44 - CONCLUSION: Uncomplicated gastrostomy tube placement as above. Adriano Cardenas MD Objective Remarks GENERAL: NAD SKIN: Warm and dry. HEAD: Normocephalic. EYES: No scleral icterus. No injection or drainage. NECK: Supple, trachea midline. No JVD or lymphadenopathy. CARDIOVASCULAR: Regular rate and rhythm without murmurs, gallops, or rubs. RESPIRATORY: Breath sounds equal bilaterally. No accessory muscle use. GASTROINTESTINAL: Abdomen soft, non-tender, nondistended. PEG tube in place MUSCULOSKELETAL: No cyanosis, or edema. BACK: Nontender without obvious deformity. No CVA tenderness. Procedures PEG tube placement A/P Problem List: (1) Generalized weakness ICD Code: R53.1 - Weakness Status: Acute (2) Dehydration ICD Code: E86.0 - Dehydration Status: Acute (3) Oropharyngeal cancer ICD Code: C10.9 - Malignant neoplasm of oropharynx, unspecified Assessment and Plan 46-year-old man with 1. Oropharyngeal CA: Recent Dx of Squamous Cell CA of Tongue, Doctor Marcella following operations specialist HPV negative Currently on Neupogen, 2. Diarrhea due to chemotherapy. C Diff negative. Resolved 3. Neutropenic fever Resolved Completed course of antibiotics Appreciate input from ID 4. Oral Thrush Continue oral Nystatin for 10 days. 5. Dysphagia PEG tube placed 06/18/17 Currently tube feed and tolerating bolus feeds 6. Anemia of acute bleed Transfused PRBC DVT Prophylaxis: SCD/Teds. Álvaro Strong MD Jun 20, 2017 11:20
[2017-06-20] MEDS ORDERED: DIFL100T PO (11:23)
--- NOTE | 2017-06-20 11:25 | HHI.DS ---
Discharge Summary Admission Date Jun 14, 2017 at 11:09 Discharge Date: Jun 20, 2017 Admitting Diagnosis Generalized weakness, dehydration (1) Generalized weakness ICD Code: R53.1 - Weakness Status: Acute (2) Dehydration ICD Code: E86.0 - Dehydration Status: Acute (3) Oropharyngeal cancer ICD Code: C10.9 - Malignant neoplasm of oropharynx, unspecified Procedures PEG tube placement Brief History - From Admission This is a 46-year-old male with a PMH of Squamous Cell Carcinoma of Tongue, currently on Chemo, who presented to the ER w/ complaints of generalized weakness and decreased PO intake. Recently diagnosed w/ Tongue CA approx 1mo ago, following w/ Dr. Purvis and Dr. Naranjo, s/p dental extraction in preparation for radiation and started Chemo last week. Seen in office on Wednesday and found to be dehydration, s/p IVF. States since Wednesday w/ worsening weakness and unable to eat/drink. Denies fever, chills, nausea, vomiting or diarrhea. PEG Tube discussed however pt had declined, now agreeable to feeding tube placement. On arrival, BP 120/79, HR 112, O2 sat 99% on RA, WBC 3.7. Platelets 133. Chemistry unremarkable except for BUN 20, GFR 73 increased from labs on 06/07/17. INR 1.0. UA negative. CXR with no acute findings. CBC/BMP: 06/20/17 0520 06/18/17 0900 Significant Findings Laboratory Tests Test 06/18/17 08:45 06/18/17 09:00 06/19/17 05:05 06/20/17 05:20 White Blood Count 28.1 TH/MM3 (4.0-11.0) 38.1 TH/MM3 (4.0-11.0) 32.6 TH/MM3 (4.0-11.0) Hemoglobin 12.6 GM/DL (13.0-17.0) 12.1 GM/DL (13.0-17.0) Hematocrit 37.1 % (39.0-51.0) 36.5 % (39.0-51.0) Total Protein 5.1 GM/DL (6.4-8.2) Albumin 2.1 GM/DL (3.4-5.0) Alkaline Phosphatase 145 U/L (45-117) Aspartate Amino Transf (AST/SGOT) 10 U/L (15-37) Red Blood Count 4.17 MIL/MM3 (4.50-5.90) 4.45 MIL/MM3 (4.50-5.90) Neutrophils (%) (Auto) 88.4 % (16.0-70.0) Lymphocytes (%) (Auto) 8.6 % (9.0-44.0) Neutrophils # (Auto) 33.7 TH/MM3 (1.8-7.7) Monocytes # (Auto) 1.0 TH/MM3 (0-0.9) Band Neutrophils % 54 % (0-6) 14 % (0-6) Lymphocytes % 7 % (9-44) Neutrophils # (Manual) 34.3 TH/MM3 (1.8-7.7) 27.4 TH/MM3 (1.8-7.7) Toxic Granulation 2+ (NORMAL) Dohle Bodies PRESENT (NONE SEEN) Myelocytes 1 % (0-0) Toxic Vacuolation PRESENT (NONE SEEN) Imaging Last Impressions Chest X-Ray 06/15/17 0000 Signed Impressions: Service Date/Time: Thursday, June 15, 2017 09:07 - CONCLUSION: 1. No acute abnormality or significant interval change. Adriano Cardenas MD Gastrostomy Tube Placement 06/14/17 0000 Signed Impressions: Service Date/Time: Wednesday, June 14, 2017 08:44 - CONCLUSION: Uncomplicated gastrostomy tube placement as above. Adriano Cardenas MD PE at Discharge GENERAL: NAD SKIN: Warm and dry. HEAD: Normocephalic. EYES: No scleral icterus. No injection or drainage. NECK: Supple, trachea midline. No JVD or lymphadenopathy. CARDIOVASCULAR: Regular rate and rhythm without murmurs, gallops, or rubs. RESPIRATORY: Breath sounds equal bilaterally. No accessory muscle use. GASTROINTESTINAL: Abdomen soft, non-tender, nondistended. PEG tube in place MUSCULOSKELETAL: No cyanosis, or edema. BACK: Nontender without obvious deformity. No CVA tenderness. Hospital Course While in the hospital, patient was treated for: 1. Oropharyngeal CA: Recent Dx of Squamous Cell CA of Tongue, Doctor Marcella following inbound ingredient logistics specialist HPV negative he was treated with Neupogen, 2. Diarrhea due to chemotherapy. C Diff negative. Resolved 3. Neutropenic fever Resolved Completed course of antibiotics Appreciate input from ID 4. Oral Thrush He was treated with oral Nystatin to complete in total of 10 days. 5. Dysphagia PEG tube placed 06/18/17 and patient tolerated tube feed as well as bolus feed prior to discharge 6. Anemia of acute bleed Transfused PRBC 2 units DVT Prophylaxis: SCD/Teds. Pt Condition on Discharge: Good Discharge Disposition: Disch w/ Home Health Serv Discharge Time: > 30 minutes Discharge Instructions DIET: Follow Instructions for: On Tube Feeding Activities you can perform: Regular-No Restrictions Follow up Referrals: Oncology/Hematology - 06/22/17 with Dwayne Naranjo MD PCP Follow-up - 1 Week New Medications: [vital] () 360 ML G-TUBE QID Vital 1.5, 360mls four times daily. flush with 100cc saline after each feeding. Fluconazole (Diflucan) 100 Mg Tab 100 MG PO DAILY for Infection, #5 TAB Pwmmlyhy-Qmwsoiwbutdqisu-Ciupzecvv Liq (Magic Mouthwash Adult Liq) 120 Ml Susp 10 ML SWISH-SWAL QID for oral thrush, #360 ML [Scopolamine 1.5 Mg Patch.72 Hr] () 1 PATCH PATCH 1 PATCH T-DERMAL Q3D, #6 Continued Medications: Acetaminophen (Acetaminophen) 325 Mg Capsule PO DIRECTED Dexamethasone (Dexamethasone) 4 Mg Tab 4 MG PO DIRECTED, TAB 0 Refills Fluconazole (Fluconazole) 100 Mg Tab 100 MG PO DAILY for Infection, TAB 0 Refills Hydrocodone-Acetaminophen (Hydrocodone-Acetaminophen) 10-325 mg Tab 1 TAB PO Q4H PRN for PAIN, TAB 0 Refills Ondansetron (Ondansetron) 8 Mg Tab 8 MG PO TID for Nausea/Vomiting, TAB 0 Refills Álvaro Strong MD Jun 20, 2017 11:25
[2017-06-20] MEDS ORDERED: OXYC-395 PO (12:35)
== END 2017-06-20 14:25 | disposition home health service (06) | DRG 809 ==
LOC: NEPE 18:55 → NEDA 22:24 → NEPGCP 06-14 00:07 → OBSVTOIN 06-14 11:09 → HCIN 06-14 14:05
PROVIDERS: ADMIT Hospitalist; ATTEND Hospitalist
PROC: 0DH63UZ Insertion of Feeding Device into Stomach, Percutaneous Approach (ICD-10-PCS; principal; 2017-06-14)
PROC: 30233N1 Transfusion of Nonautologous Red Blood Cells into Peripheral Vein, Percutaneous Approach (ICD-10-PCS; 2017-06-17)
DX: D70.1 Agranulocytosis secondary to cancer chemotherapy (principal); B37.0 Candidal stomatitis; R13.10 Dysphagia, unspecified; K52.1 Toxic gastroenteritis and colitis; E46 Unspecified protein-calorie malnutrition; D69.59 Other secondary thrombocytopenia; Z68.1 Body mass index [BMI] 19.9 or less, adult; R50.81 Fever presenting with conditions classified elsewhere; E83.39 Other disorders of phosphorus metabolism; C01 Malignant neoplasm of base of tongue; E86.0 Dehydration; T45.1X5A Adverse effect of antineoplastic and immunosuppressive drugs, initial encounter; R00.0 Tachycardia, unspecified; R11.2 Nausea with vomiting, unspecified; R62.7 Adult failure to thrive; D63.0 Anemia in neoplastic disease; Z80.3 Family history of malignant neoplasm of breast; Z80.42 Family history of malignant neoplasm of prostate; Z87.891 Personal history of nicotine dependence; Z88.0 Allergy status to penicillin; Z91.013 Allergy to seafood
CPT/HCPCS: 36430; 49440; 71045; 80048; 80053; 81001; 82550; 83690; 83735; 84100; 84443; 84484; 85007; 85014; 85018; 85027; 85048; 85049; 85610; 85730; 86850; 86900; 86901; 86920; 87040; 87493; 93005; 96361; 96365; 96372; 96374; 96375; 99152; 99153; C1769; C1887; C1894; G0378; J0692; J1100; J1200; J1442; J1450; J1610; J1626; J1642; J1650; J1956; J2250; J2270; J2405; J2505; J3010; J3370; J3475; J7030; J7040; P9016; Q9967

== ENCOUNTER 2017-07-01 09:28 | Emergency (ER) | payer BC ==
[~2017-07-01] VITALS: Ht 177.8 cm; Wt 62.0 kg
[~2017-07-01 09:28] MED LIST changes: +DEXA4TAB PO; +DIFL100T PO; +FLUC100T2 PO; -IBUP1TAB7 PO; +MAGICADU2 SWISH-SWAL; +ONDA8TAB7 PO; +OXYC-395 PO; +SCOPOLAMINE 1.5 MG T-DERMAL; -SENO8.6T5 PO; +VITAL G-TUBE
[2017-07-01 09:32] VITALS: BP 107/63; PULSE 109; RESP 19; TEMP 97.6; O2SAT 98
[2017-07-01] MEDS ORDERED: SODIUM CHLORIDE 0.9% FLUSH 10 ML FLUSH IVF PRN (10:15)
--- NOTE | 2017-07-01 10:26 | PD ---
HPI Chief Complaint: General Weakness Time Seen by Provider: 10:19 Travel History International Travel<30 days: No Contact w/Intl Traveler<30days: No Traveled to known affect area: No History of Present Illness HPI 46-year-old male patient with history of tongue cancer currently on chemotherapy , here because he states that he feels like he is getting dehydrated, getting less and less down, nauseous, and having diarrhea. He denies any fevers or other issues. He has a PEG tube and states that he does get hydration and liquid supplements through his PEG tube as well. Modifying Factors: None Associated Signs & Symptoms: General weakness, feeling dehydrated, nausea, diarrhea Risk Factors: Tongue cancer on chemotherapy PFSH Past Medical History Autoimmune Disease: No Cancer: Yes (squamous cell on tounge) Cardiovascular Problems: No Chemotherapy: Yes Diabetes: No Endocrine: No Genitourinary: No Hepatitis: No Hiatal Hernia: No Immune Disorder: No Musculoskeletal: No Neurologic: No Psychiatric: No Reproductive: No Respiratory: No Radiation Therapy: No (radiation in [facility]) Thyroid Disease: No Past Surgical History Abdominal Surgery: No AICD: No Cardiac Surgery: No Ear Surgery: No Endocrine Surgery: No Eye Surgery: No Genitourinary Surgery: No Gynecologic Surgery: No Insulin Pump: No Joint Replacement: No Oral Surgery: Yes (teeth extraction) Pacemaker: No Thoracic Surgery: No Social History Alcohol Use: No Tobacco Use: Yes Substance Use: No Allergies-Medications (Allergen,Severity, Reaction): Coded Allergies: Penicillins (Verified Allergy, Severe, UNSURE - CHILD, 07/01/17) Uncoded Allergies: SHELLFISH (Allergy, Severe, Anaphylaxis, 04/27/17) Reported Meds & Prescriptions Reported Meds & Active Scripts Active Zofran Odt (Ondansetron Odt) 4 Mg Tab 4 Mg SL Q6HR PRN Oxycodone (Oxycodone HCl) 10 Mg Tab 10 Mg PO Q4H PRN [vital] 360 Ml G-TUBE QID Vital 1.5, 360mls four times daily. flush with 100cc saline after each feeding. Magic Mouthwash Adult Liq (Multi-Ingredient Mouthwash/Gargle) 120 Ml Susp 10 Ml SWISH-SWAL QID [Scopolamine 1.5 Mg Patch.72 Hr] 1 PATCH Patch 1 Patch T-DERMAL Q3D Reported Imodium A-D (Loperamide HCl) 2 Mg Capsule 2 Mg PO Q6H PRN Ondansetron (Ondansetron HCl) 8 Mg Tab 8 Mg PO TID Review of Systems Except as stated in HPI: all other systems reviewed are Neg Physical Exam Narrative GENERAL: Well-developed middle-age male patient currently in mild distress. Awake and oriented 3. SKIN: Focused skin assessment warm/dry. HEAD: Atraumatic. Normocephalic. EYES: Pupils equal and round. No scleral icterus. No injection or drainage. ENT: No nasal bleeding or discharge. Mucous membranes pink and moist. Tongue with whitish plaques. Airway intact. NECK: Trachea midline. No JVD. Supple. CARDIOVASCULAR: Regular rate and rhythm. No murmur appreciated. RESPIRATORY: No accessory muscle use. Clear to auscultation. Breath sounds equal bilaterally. GASTROINTESTINAL: Abdomen soft, non-tender, nondistended. Hepatic and splenic margins not palpable. PEG tube in place. MUSCULOSKELETAL: No obvious deformities. No clubbing. No cyanosis. No edema. NEUROLOGICAL: Awake and alert. No obvious cranial nerve deficits. Motor grossly within normal limits. Normal speech. PSYCHIATRIC: Appropriate mood and affect; insight and judgment normal. Data Data Last Documented VS Vital Signs Date Time Temp Pulse Resp B/P (MAP) Pulse Ox O2 Delivery O2 Flow Rate FiO2 07/01/17 13:00 74 18 104/62 (76) 97 Room Air 07/01/17 09:32 97.6 Orders Orders Electrocardiogram (07/01/17 10:14) Complete Blood Count With Diff (07/01/17 10:14) Comprehensive Metabolic Panel (07/01/17 10:14) Urinalysis - C+S If Indicated (07/01/17 10:14) Ecg Monitoring (07/01/17 10:14) Iv Access Insert/Monitor (07/01/17 10:14) Oximetry (07/01/17 10:14) Sodium Chloride 0.9% Flush (Ns Flush) (07/01/17 10:15) Sodium Chlor 0.9% 1000 Ml Inj (Ns 1000 M (07/01/17 10:30) Ondansetron Inj (Zofran Inj) (07/01/17 10:30) Ed Discharge Order (07/01/17 12:48) Labs Laboratory Tests Test 07/01/17 10:25 07/01/17 11:56 White Blood Count 12.3 TH/MM3 Red Blood Count 4.66 MIL/MM3 Hemoglobin 14.0 GM/DL Hematocrit 41.2 % Mean Corpuscular Volume 88.4 FL Mean Corpuscular Hemoglobin 29.9 PG Mean Corpuscular Hemoglobin Concent 33.9 % Red Cell Distribution Width 14.2 % Platelet Count 215 TH/MM3 Mean Platelet Volume 10.0 FL Neutrophils (%) (Auto) 91.8 % Lymphocytes (%) (Auto) 6.2 % Monocytes (%) (Auto) 1.3 % Eosinophils (%) (Auto) 0.1 % Basophils (%) (Auto) 0.6 % Neutrophils # (Auto) 11.3 TH/MM3 Lymphocytes # (Auto) 0.8 TH/MM3 Monocytes # (Auto) 0.2 TH/MM3 Eosinophils # (Auto) 0.0 TH/MM3 Basophils # (Auto) 0.1 TH/MM3 CBC Comment DIFF FINAL Differential Comment Blood Urea Nitrogen 23 MG/DL Creatinine 0.84 MG/DL Random Glucose 75 MG/DL Total Protein 6.7 GM/DL Albumin 2.8 GM/DL Calcium Level 8.5 MG/DL Alkaline Phosphatase 111 U/L Aspartate Amino Transf (AST/SGOT) 37 U/L Alanine Aminotransferase (ALT/SGPT) 88 U/L Total Bilirubin 0.3 MG/DL Sodium Level 136 MEQ/L Potassium Level 4.4 MEQ/L Chloride Level 103 MEQ/L Carbon Dioxide Level 25.1 MEQ/L Anion Gap 8 MEQ/L Estimat Glomerular Filtration Rate 99 ML/MIN Urine Color LIGHT-YELLOW Urine Turbidity CLEAR Urine pH 7.0 Urine Specific [place] 1.014 Urine Protein NEG mg/dL Urine Glucose (UA) NEG mg/dL Urine Ketones NEG mg/dL Urine Occult Blood NEG Urine Nitrite NEG Urine Bilirubin NEG Urine Urobilinogen LESS THAN 2.0 MG/DL Urine Leukocyte Esterase NEG Urine RBC LESS THAN 1 /hpf Urine WBC 1 /hpf Microscopic Urinalysis Comment CULT NOT INDICATED MDM Medical Decision Making Medical Screen Exam Complete: Yes Emergency Medical Condition: Yes Medical Record Reviewed: Yes Interpretation(s) Laboratory Tests Test 07/01/17 10:25 07/01/17 11:56 White Blood Count 12.3 TH/MM3 (4.0-11.0) Neutrophils (%) (Auto) 91.8 % (16.0-70.0) Lymphocytes (%) (Auto) 6.2 % (9.0-44.0) Neutrophils # (Auto) 11.3 TH/MM3 (1.8-7.7) Lymphocytes # (Auto) 0.8 TH/MM3 (1.0-4.8) Blood Urea Nitrogen 23 MG/DL (7-18) Albumin 2.8 GM/DL (3.4-5.0) Alanine Aminotransferase (ALT/SGPT) 88 U/L (12-78) Differential Diagnosis Dehydration versus metabolic issues versus sepsis versus gastroenteritis Narrative Course Lab work did not show significant metabolic issues. His BUN is mildly elevated and I suspect that he may have some mild dehydration. IV fluids have been given in the ER. He does not have any vomiting in the ER. Abdomen is fairly benign and not suspecting acute intra-abdominal process. Symptoms are likely secondary to chemotherapy side effects. At this point, plan would be to release him with further symptomatic relief for nausea and vomiting and follow- up to oncologist. The plan was discussed with the patient he states understanding. I have discussed the plan with Dr. Naranjo, patient's oncologist, as well and he is agreeable. Diagnosis Primary Impression: Mild dehydration Med/Other Pt SpecificInfo: Prescription(s) given Scripts Ondansetron Odt (Zofran Odt) 4 Mg Tab 4 MG SL Q6HR Y for Nausea/Vomiting, #7 TAB 0 Refills Prov: Santhosh Greenwood MD 07/01/17 Disposition: 01 DISCHARGE HOME Condition: Stable Santhosh Greenwood MD Jul 01, 2017 10:25
[2017-07-01] MEDS ORDERED: SODIUM CHLOR 0.9% 1000 ML INJ 1,000 ML IV ONE (10:30)
[2017-07-01] MEDS ORDERED: ONDANSETRON HCL 4 MG/2 ML VIAL IV PUSH ONE (10:30)
[2017-07-01 10:50] LABS: AUTOMATED NEUTROPHIL # 11.3 TH/MM3 (1.8-7.7); BASOPHIL # 0.1 TH/MM3 (0-0.2); BASOPHIL % 0.6 % (0.0-2.0); EOSINOPHIL % 0.1 % (0.0-4.0); HEMATOCRIT 41.2 % (39.0-51.0); LYMPH % 6.2 % (9.0-44.0); LYMPHOCYTE # 0.8 TH/MM3 (1.0-4.8); MEAN CELL VOLUME 88.4 FL (80.0-100.0); MEAN CORPUSCULAR HEMOGLOBIN 29.9 PG (27.0-34.0); MEAN CORPUSCULAR HGB CONC 33.9 % (32.0-36.0); MONO % 1.3 % (0.0-8.0); MONOCYTE # 0.2 TH/MM3 (0-0.9); NEUT % 91.8 % (16.0-70.0); PLATELET COUNT 215 TH/MM3 (150-450); RED BLOOD COUNT 4.66 MIL/MM3 (4.50-5.90); RED CELL DISTRIBUTION WIDTH 14.2 % (11.6-17.2); WHITE BLOOD COUNT 12.3 TH/MM3 (4.0-11.0)
[2017-07-01] MEDS ORDERED: OXYC-395 PO (10:55)
[2017-07-01] MEDS ORDERED: LOPE-1 PO (10:55)
[2017-07-01 11:01] VITALS: BP 113/66; PULSE 70; RESP 18
[2017-07-01 11:13] LABS: ALBUMIN 2.8 GM/DL (3.4-5.0); AST (GOT) 37 U/L (15-37); BICARBONATE 25.1 MEQ/L (21.0-32.0); BLOOD UREA NITROGEN 23 MG/DL (7-18); CALCIUM 8.5 MG/DL (8.5-10.1); CHLORIDE 103 MEQ/L (98-107); CREATININE 0.84 MG/DL (0.60-1.30); GLOMERULAR FILTRATION RATE 99 ML/MIN (>89); GLUCOSE,RANDOM 75 MG/DL (74-106); SODIUM (NA) 136 MEQ/L (136-145)
[2017-07-01 11:14] LABS: ALT (GPT) 88 U/L (12-78)
[2017-07-01 11:16] LABS: ALKALINE PHOSPHATASE 111 U/L (45-117); TOTAL BILIRUBIN ADULT 0.3 MG/DL (0.2-1.0); TOTAL PROTEIN 6.7 GM/DL (6.4-8.2)
[2017-07-01 12:02] LABS: BILIRUBIN, URINE NEG (NEG); BLOOD, URINE NEG (NEG); GLUCOSE,URINE NEG (NEG); KETONE, URINE NEG (NEG); NITRITE,URINE NEG (NEG); URINE COLOR LIGHT-YELLOW (YELLW/STRAW); URINE LEUKOCYTE ESTERASE NEG (NEG)
[2017-07-01] MEDS ORDERED: ZOFR4TAB3 SL (12:51)
[2017-07-01 13:00] VITALS: BP 104/62; PULSE 74; RESP 18; O2SAT 97
--- NOTE | 2017-07-02 11:30 | EKG ---
Date Performed: 07/01/2017 Time Performed: 10:47:40 PTAGE: 46 years EKG: Sinus rhythm WITH SHORT CO INTERVAL POSSIBLE RIGHT VENTRICULAR CONDUCTION DELAY BORDERLINE ECG PREVIOUS TRACING : 07/01/2017 10.41 Since the previous tracing, no significant change noted DOCTOR: Patric Snow Interpretating Date/Time 07/02/2017 11:26:29
== END 2017-07-01 14:15 | disposition home or self-care (01) ==
LOC: NEPC 09:28
DX: E86.0 Dehydration (principal); C02.9 Malignant neoplasm of tongue, unspecified; Z93.1 Gastrostomy status; Z72.0 Tobacco use
CPT/HCPCS: 80053; 81001; 85025; 93005; 96374; 99284; J2405; J7030

== ENCOUNTER 2017-07-03 08:21 | Inpatient (IN) | payer BC ==
[2017-07-03] VITALS (10 sets, daily range): BP systolic 81–112; BP diastolic 48–67; PULSE 59–87; RESP 14–24; TEMP 97.7–99.2; O2SAT 97–100
[~2017-07-03] VITALS: Ht 177.8 cm; Wt 51.8 kg
[~2017-07-03 08:21] MED LIST changes: -ACET325C PO; -DEXA4TAB PO; -DIFL100T PO; -FLUC100T2 PO; -HYDR-3583 PO; +LOPE-1 PO; +ZOFR4TAB3 SL
[2017-07-03] MEDS ORDERED: SODIUM CHLOR 0.9% 1000 ML INJ 1,000 ML IV ONE ×4 (08:54→18:15)
[2017-07-03] MEDS ORDERED: SODIUM CHLORIDE 0.9% FLUSH 10 ML FLUSH IVF PRN ×2 (09:00)
[2017-07-03] MEDS ORDERED: PROCHLORPERAZINE INJ 10 MG/2 ML VIAL IV PUSH ONE (09:00)
[2017-07-03] MEDS ORDERED: diphenhydrAMINE HCL 50 MG/ML VIAL IV PUSH ONE (09:00)
[2017-07-03 09:30] LABS: AUTOMATED NEUTROPHIL # 3.7 TH/MM3 (1.8-7.7); BASOPHIL % 0.7 % (0.0-2.0); EOSINOPHIL % 0.6 % (0.0-4.0); HEMATOCRIT 43.4 % (39.0-51.0); HEMOGLOBIN 14.6 GM/DL (13.0-17.0); LYMPH % 18.1 % (9.0-44.0); LYMPHOCYTE # 0.8 TH/MM3 (1.0-4.8); MEAN CORPUSCULAR HEMOGLOBIN 29.3 PG (27.0-34.0); MEAN CORPUSCULAR HGB CONC 33.6 % (32.0-36.0); MEAN PLATELET VOLUME 9.3 FL (7.0-11.0); MONO % 1.2 % (0.0-8.0); MONOCYTE # 0.1 TH/MM3 (0-0.9); NEUT % 79.4 % (16.0-70.0); PLATELET COUNT 175 TH/MM3 (150-450); RED BLOOD COUNT 4.99 MIL/MM3 (4.50-5.90); RED CELL DISTRIBUTION WIDTH 14.3 % (11.6-17.2); WHITE BLOOD COUNT 4.7 TH/MM3 (4.0-11.0)
[2017-07-03] MEDS ORDERED: HYDROmorphone HCL PF 2 MG/ML VIAL IV PUSH ONE (09:30)
[2017-07-03 10:03] LABS: BICARBONATE 26.3 MEQ/L (21.0-32.0); CALCIUM 8.9 MG/DL (8.5-10.1); CREATININE 0.8 MG/DL (0.60-1.30)
--- NOTE | 2017-07-03 11:40 | PD ---
HPI . Nausea and diarrhea Chief Complaint: GI Complaint Time Seen by Provider: 08:54 Travel History International Travel<30 days: No Contact w/Intl Traveler<30days: No Traveled to known affect area: No History of Present Illness HPI This is a patient with a history of tongue cancer who has a PEG tube and who is currently receiving chemotherapy through a port who presents to us with nausea, vomiting and diarrhea. He has tried to feed himself through his PEG tube but vomits the feedings. He is also having diarrhea. His symptoms have been uncontrolled by scopolamine and Zofran ODT. He is complaining of feeling profoundly weak. The patient reports that he was seen here just a couple of days ago for same. His labs were unremarkable and he was sent home. He states that the symptoms have persisted. The patient's father expresses concern about sending him home again. He is followed by Dr. James for the tongue cancer. Symptoms are moderate with no obvious modifying factors. 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) Cardiovascular Problems: No Chemotherapy: Yes (CURRENT) Diabetes: No Diminished Hearing: No Endocrine: No Gastrointestinal Disorders: Yes (nausea ) Genitourinary: No Hepatitis: No Hiatal Hernia: No Immune Disorder: No Implanted Vascular Access Dvce: Yes Musculoskeletal: No Neurologic: No Psychiatric: No Reproductive: No Respiratory: No Immunizations Current: Yes Thyroid Disease: No Tetanus Vaccination: Unknown Influenza Vaccination: No Past Surgical History Abdominal Surgery: Yes (PEG TUBE PLACEMENT ) AICD: No Cardiac Surgery: No Ear Surgery: No Endocrine Surgery: No Eye Surgery: No Genitourinary Surgery: No Gynecologic Surgery: No Insulin Pump: No Joint Replacement: No Neurologic Surgery: No Oral Surgery: Yes (teeth extraction) Pacemaker: No Thoracic Surgery: No Other Surgery: Yes (PORT PLACEMENT ) Social History Alcohol Use: No Tobacco Use: No (QUIT ) Substance Use: No Allergies-Medications (Allergen,Severity, Reaction): Coded Allergies: Penicillins (Verified Allergy, Severe, UNSURE - CHILD, 07/01/17) Uncoded Allergies: SHELLFISH (Allergy, Severe, Anaphylaxis, 04/27/17) Reported Meds & Prescriptions Reported Meds & Active Scripts Active Zofran Odt (Ondansetron Odt) 4 Mg Tab 4 Mg SL Q6HR PRN Oxycodone (Oxycodone HCl) 10 Mg Tab 10 Mg PO Q4H PRN [vital] 360 Ml G-TUBE QID Vital 1.5, 360mls four times daily. flush with 100cc saline after each feeding. Magic Mouthwash Adult Liq (Multi-Ingredient Mouthwash/Gargle) 120 Ml Susp 10 Ml SWISH-SWAL QID [Scopolamine 1.5 Mg Patch.72 Hr] 1 PATCH Patch 1 Patch T-DERMAL Q3D Reported Imodium A-D (Loperamide HCl) 2 Mg Capsule 2 Mg PO Q6H PRN Ondansetron (Ondansetron HCl) 8 Mg Tab 8 Mg PO TID Review of Systems Except as stated in HPI: all other systems reviewed are Neg General / Constitutional: No: Fever, Chills HENT: Positive: Other (Tongue pain. Difficulty speaking secondary to the tongue mass.) Gastrointestinal: Positive: Nausea, Vomiting, Diarrhea, Abdominal Pain Neurologic: Positive: Weakness Physical Exam Narrative GENERAL: Patient is awake and alert. Speech is a little bit difficult to understand because of his tongue mass. SKIN: warm/dry. Skin has good color and turgor. HEAD: Normocephalic. Atraumatic. EYES: Pupils equal and round. No scleral icterus. No injection or drainage. ENT: No nasal bleeding or discharge. Mucous membranes pink and moist. NECK: Trachea midline. Full range of motion without pain.. CARDIOVASCULAR: Regular rate and rhythm. Heart sounds normal. RESPIRATORY: No accessory muscle use. Clear to auscultation. Breath sounds equal bilaterally. GASTROINTESTINAL: Abdomen soft. Nontender. Bowel sounds present. Nondistended. PEG tube in place. MUSCULOSKELETAL: No obvious deformities. NEUROLOGICAL: Awake and alert. No obvious cranial nerve deficits. Motor grossly within normal limits. Normal speech. PSYCHIATRIC: Appropriate mood and affect; insight and judgment normal. Data Data Last Documented VS Vital Signs Date Time Temp Pulse Resp B/P (MAP) Pulse Ox O2 Delivery O2 Flow Rate FiO2 07/03/17 10:00 63 18 81/48 (59) 97 Room Air 07/03/17 08:25 97.7 Orders Orders Complete Blood Count With Diff (07/03/17 08:54) Basic Metabolic Panel (Bmp) (07/03/17 08:54) Urinalysis - C+S If Indicated (07/03/17 08:54) Iv Access Insert/Monitor (07/03/17 08:54) Ecg Monitoring (07/03/17 08:54) Oximetry (07/03/17 08:54) Sodium Chlor 0.9% 1000 Ml Inj (Ns 1000 M (07/03/17 08:54) Sodium Chloride 0.9% Flush (Ns Flush) (07/03/17 09:00) C Diff Toxin Pcr (07/03/17 08:54) Enteric Path (Stool) (07/03/17 08:54) Sodium Chlor 0.9% 1000 Ml Inj (Ns 1000 M (07/03/17 08:56) Sodium Chloride 0.9% Flush (Ns Flush) (07/03/17 09:00) Diphenhydramine Inj (Benadryl Inj) (07/03/17 09:00) Prochlorperazine Inj (Compazine Inj) (07/03/17 09:00) Hydromorphone Pf Inj (Dilaudid Pf Inj) (07/03/17 09:30) Lactic Acid (07/03/17 11:29) Sodium Chlor 0.9% 1000 Ml Inj (Ns 1000 M (07/03/17 11:30) Labs Laboratory Tests Test 07/03/17 09:15 White Blood Count 4.7 TH/MM3 Red Blood Count 4.99 MIL/MM3 Hemoglobin 14.6 GM/DL Hematocrit 43.4 % Mean Corpuscular Volume 87.0 FL Mean Corpuscular Hemoglobin 29.3 PG Mean Corpuscular Hemoglobin Concent 33.6 % Red Cell Distribution Width 14.3 % Platelet Count 175 TH/MM3 Mean Platelet Volume 9.3 FL Neutrophils (%) (Auto) 79.4 % Lymphocytes (%) (Auto) 18.1 % Monocytes (%) (Auto) 1.2 % Eosinophils (%) (Auto) 0.6 % Basophils (%) (Auto) 0.7 % Neutrophils # (Auto) 3.7 TH/MM3 Lymphocytes # (Auto) 0.8 TH/MM3 Monocytes # (Auto) 0.1 TH/MM3 Eosinophils # (Auto) 0.0 TH/MM3 Basophils # (Auto) 0.0 TH/MM3 CBC Comment DIFF FINAL Differential Comment Blood Urea Nitrogen 20 MG/DL Creatinine 0.80 MG/DL Random Glucose 100 MG/DL Calcium Level 8.9 MG/DL Sodium Level 134 MEQ/L Potassium Level 5.0 MEQ/L Chloride Level 101 MEQ/L Carbon Dioxide Level 26.3 MEQ/L Anion Gap 7 MEQ/L Estimat Glomerular Filtration Rate 105 ML/MIN MDM Medical Decision Making Medical Screen Exam Complete: Yes Emergency Medical Condition: Yes Differential Diagnosis Differential diagnosis of diarrhea includes but is not limited to early enteritis, bacterial enteritis, antibiotic induced diarrhea, irritable bowel syndrome Narrative Course This is a cancer patient who has just finished chemo (he is still attached to the [id number]) who presents to us with chief complaint of nausea, vomiting and diarrhea. These have been ongoing symptoms for the last several days. The patient was seen here a few days ago for same. His labs looked good that day and he was discharged home. He is using scopolamine and Zofran ODT but is still unable to tolerate PEG tube feedings. He is feeling very weak. CBC & BMP Diagram 07/03/17 09:15 Calcium Level 8.9 The patient reports that he feels better following IV Compazine/Benadryl and a liter of IV fluids. I will go ahead and give him a second liter of fluids. He and his father are requesting admission for hydration. That seems like a reasonable request. His outpatient management has been maximized with the use of both scopolamine and Zofran but he continues to vomit his PEG tube feedings. Physician Communication Physician Communication Dr Nolan Diagnosis Primary Impression: Vomiting Qualified Codes: R11.2 - Nausea with vomiting, unspecified Additional Impressions: Diarrhea Qualified Codes: R19.7 - Diarrhea, unspecified Dehydration Admitting Information Admitting Physician Requests: Observation Condition: Stable Caroline Villanueva MD Jul 03, 2017 11:40
[2017-07-03] MEDS ORDERED: ONDANSETRON HCL 4 MG/2 ML VIAL IVP PRN (11:45)
[2017-07-03] MEDS ORDERED: NALOXONE HCL 0.4 MG/ML AMP IV PUSH PRN (11:45)
[2017-07-03] MEDS ORDERED: SODIUM CHLOR 0.9% 1000 ML INJ 1,000 ML IV SCH (12:00)
[2017-07-03 12:22] LABS: BILIRUBIN, URINE NEG (NEG); BLOOD, URINE NEG (NEG); GLUCOSE,URINE NEG (NEG); KETONE, URINE NEG (NEG); NITRITE,URINE NEG (NEG); PH, URINE 6.5 (5.0-8.5); URINE COLOR YELLOW (YELLW/STRAW); URINE LEUKOCYTE ESTERASE NEG (NEG)
--- NOTE | 2017-07-03 13:54 | HHI.HP ---
[facility] Dwayne Naranjo MD Admission Diagnosis persistent N/V/D, tongue cancer Diagnoses: Chief Complaint: Generalized weakness, nausea/vomiting/diarrhea Travel History International Travel<30 Days: No Contact w/Intl Traveler <30 Da: No Traveled to Known Affected Are: No History of Present Illness 46-year-old male with a history significant for tongue cancer undergoing chemotherapy who presented to the hospital with complaint of nausea, vomiting, diarrhea, and generalized weakness. Patient reports he had 3 episodes of diarrhea started around 2 AM this morning with associated nausea and vomiting. He became very weak and felt dehydrated which prompted the emergency room visit. He states this is chemotherapy related. He has had similar issue in the past. He denies any sick contacts. Review of Systems Constitutional: COMPLAINS OF: Fatigue, DENIES: Fever, Chills Ears, nose, mouth, throat: COMPLAINS OF: Oral lesions Respiratory: DENIES: Cough, Shortness of breath Gastrointestinal: COMPLAINS OF: Diarrhea, Nausea, Vomiting, DENIES: Abdominal pain, Black stools, Bloody stools Except as stated in HPI: all other systems reviewed are Neg Past Family Social History Past Medical History Squamous cell carcinoma of the tongue Past Surgical History Dental extraction Tongue biopsy Reported Medications Reported Meds & Active Scripts Active Zofran Odt (Ondansetron Odt) 4 Mg Tab 4 Mg SL Q6HR PRN Oxycodone (Oxycodone HCl) 10 Mg Tab 10 Mg PO Q4H PRN [vital] 360 Ml G-TUBE QID Vital 1.5, 360mls four times daily. flush with 100cc saline after each feeding. Magic Mouthwash Adult Liq (Multi-Ingredient Mouthwash/Gargle) 120 Ml Susp 10 Ml SWISH-SWAL QID [Scopolamine 1.5 Mg Patch.72 Hr] 1 PATCH Patch 1 Patch T-DERMAL Q3D Reported Imodium A-D (Loperamide HCl) 2 Mg Capsule 2 Mg PO Q6H PRN Ondansetron (Ondansetron HCl) 8 Mg Tab 8 Mg PO TID Allergies: Coded Allergies: Penicillins (Verified Allergy, Severe, UNSURE - CHILD, 07/03/17) Uncoded Allergies: SHELLFISH (Allergy, Severe, Anaphylaxis, 04/27/17) Family History Reviewed and found to be noncontributory. Social History Patient states he quit using tobacco. Denies alcohol or illicit drug use. Physical Exam Vital Signs Vital Signs Date Time Temp Pulse Resp B/P (MAP) Pulse Ox O2 Delivery O2 Flow Rate FiO2 07/03/17 12:00 59 24 92/54 (67) 98 Room Air 07/03/17 10:00 63 18 81/48 (59) 97 Room Air 07/03/17 09:17 73 18 112/66 (81) 99 Room Air 07/03/17 08:25 97.7 87 18 108/55 (72) 100 Physical Exam GENERAL: This is a well-nourished, well-developed patient, in no apparent distress. SKIN: No rashes, ecchymoses or lesions. Cool and dry. HEAD: Atraumatic. Normocephalic. No temporal or scalp tenderness. EYES: Pupils equal round and reactive. Extraocular motions intact. No scleral icterus. No injection or drainage. ENT: Right side of the tongue with irritation and some deformity. Airway patent. NECK: Trachea midline. No JVD or lymphadenopathy. Supple, nontender, no meningeal signs. CARDIOVASCULAR: Regular rate and rhythm without murmurs, gallops, or rubs. RESPIRATORY: Clear to auscultation. Breath sounds equal bilaterally. No wheezes , rales, or rhonchi. GASTROINTESTINAL: Abdomen soft, non-tender, nondistended. PEG tube in place. MUSCULOSKELETAL: Extremities without clubbing, cyanosis, or edema. No joint tenderness, effusion, or edema noted. No calf tenderness. Negative Homans sign bilaterally. NEUROLOGICAL: Awake and alert. Cranial nerves II through XII intact. Motor and sensory grossly within normal limits. Five out of 5 muscle strength in all muscle groups. Normal speech. Laboratory Laboratory Tests Test 07/03/17 09:15 07/03/17 11:05 07/03/17 12:05 White Blood Count 4.7 Red Blood Count 4.99 Hemoglobin 14.6 Hematocrit 43.4 Mean Corpuscular Volume 87.0 Mean Corpuscular Hemoglobin 29.3 Mean Corpuscular Hemoglobin Concent 33.6 Red Cell Distribution Width 14.3 Platelet Count 175 Mean Platelet Volume 9.3 Neutrophils (%) (Auto) 79.4 Lymphocytes (%) (Auto) 18.1 Monocytes (%) (Auto) 1.2 Eosinophils (%) (Auto) 0.6 Basophils (%) (Auto) 0.7 Neutrophils # (Auto) 3.7 Lymphocytes # (Auto) 0.8 Monocytes # (Auto) 0.1 Eosinophils # (Auto) 0.0 Basophils # (Auto) 0.0 CBC Comment DIFF FINAL Differential Comment Blood Urea Nitrogen 20 Creatinine 0.80 Random Glucose 100 Calcium Level 8.9 Sodium Level 134 Potassium Level 5.0 Chloride Level 101 Carbon Dioxide Level 26.3 Anion Gap 7 Estimat Glomerular Filtration Rate 105 Urine Color YELLOW Urine Turbidity CLEAR Urine pH 6.5 Urine Specific [place] 1.014 Urine Protein TRACE Urine Glucose (UA) NEG Urine Ketones NEG Urine Occult Blood NEG Urine Nitrite NEG Urine Bilirubin NEG Urine Urobilinogen LESS THAN 2.0 Urine Leukocyte Esterase NEG Urine RBC LESS THAN 1 Urine WBC 1 Microscopic Urinalysis Comment CULT NOT INDICATED Lactic Acid Level 1.0 Result Diagram: 07/03/1791407/03/17914 Caprini VTE Risk Assessment Caprini VTE Risk Assessment: Mod/High Risk (score >= 2) Caprini Risk Assessment Model Point Value = 1 Point Value = 2 Point Value = 3 Point Value = 5 Age 41-60 Minor surgery BMI > 25 kg/m2 Swollen legs Varicose veins or History of unexplained or recurrent spontaneous Oral contraceptives or hormone replacement Sepsis (< 1 month) Serious lung disease, including pneumonia (< 1 month) Abnormal pulmonary function Acute myocardial infarction Congestive heart failure (< 1 month) History of inflammatory bowel disease Medical patient at bed rest Age 61-74 Arthroscopic surgery Major open surgery (> 45 min) Laparoscopic surgery (> 45 min) Malignancy Confined to bed (> 72 hours) Immobilizing plaster cast Central venous access Age >= 75 History of VTE Family history of VTE Factor V Leiden Prothrombin [id number] Lupus anticoagulant Anticardiolipin antibodies Elevated serum homocysteine Heparin-induced thrombocytopenia Other congenital or acquired thrombophilia Stroke (< 1 month) Elective arthroplasty Hip, pelvis, or leg fracture Acute spinal cord injury (< 1 month) Prophylaxis Regimen Total Risk Factor Score Risk Level Prophylaxis Regimen 0-1 Low Early ambulation 2 Moderate Order ONE of the following: *Sequential Compression Device (SCD) *Heparin 5000 units SQ BID 3-4 Higher Order ONE of the following medications: *Heparin 5000 units SQ TID *Enoxaparin/Lovenox 40 mg SQ daily (WT < 150 kg, CrCl > 30 mL/min) *Enoxaparin/Lovenox 30 mg SQ daily (WT < 150 kg, CrCl > 10-29 mL/min) *Enoxaparin/Lovenox 30 mg SQ BID (WT < 150 kg, CrCl > 30 mL/min) AND/OR *Sequential Compression Device (SCD) 5 or more Highest Order ONE of the following medications: *Heparin 5000 units SQ TID (Preferred with Epidurals) *Enoxaparin/Lovenox 40 mg SQ daily (WT < 150 kg, CrCl > 30 mL/min) *Enoxaparin/Lovenox 30 mg SQ daily (WT < 150 kg, CrCl > 10-29 mL/min) *Enoxaparin/Lovenox 30 mg SQ BID (WT < 150 kg, CrCl > 30 mL/min) AND *Sequential Compression Device (SCD) Assessment and Plan Problem List: (1) Chemotherapy-induced nausea and vomiting ICD Code: R11.2 - Nausea with vomiting, unspecified; T45.1X5A - Adverse effect of antineoplastic and immunosuppressive drugs, initial encounter Plan: Continue antiemetics with Zofran, discussed with oncologist, Dr. Thompson. Symptoms likely related to chemotherapy. IV fluids for hydration. Continue tube feeding (2) Primary tongue squamous cell carcinoma ICD Code: C02.9 - Malignant neoplasm of tongue, unspecified Plan: Patient currently receiving chemotherapy. Follow-up outpatient. Continue bypass feeding via PEG with vitals 1.5 at 360 mL's 4 times daily per previous dietitian recommendations. Consult dietitian to see if there is any other formula that can help with diarrhea. (3) Diarrhea ICD Code: R19.7 - Diarrhea, unspecified Status: Acute Plan: Doubt C. difficile. Likely related to chemotherapy. Check C. diff. Imodium as needed. (4) Dehydration ICD Code: E86.0 - Dehydration Status: Acute Plan: Mild. Continue IV fluid Assessment and Plan Admit for observation for IV fluid and symptomatic control of nausea, vomiting, and diarrhea. If he does not turn around quickly, he may need to be admitted for further supportive care. Discussed Condition With Dr. Villanueva and Dr. Villanueva Problem Qualifiers (1) Diarrhea: Qualified Codes: R19.7 - Diarrhea, unspecified Kamila Nolan MD Jul 03, 2017 13:54
[2017-07-03] MEDS ORDERED: METOCLOPRAMIDE HCL 10 MG/2 ML VIAL IV PUSH PRN (14:00)
[2017-07-03] MEDS ORDERED: LOPERAMIDE HCL 2 MG CAP PO PRN (14:00)
[2017-07-03] MEDS: ONDANSETRON HCL 4 MG/2 ML VIAL IVP SCH ×2 (16:30→21:35)
--- NOTE | 2017-07-03 16:40 | MB ---
cc: José Miguel Thompson MD DATE: 07/03/2017 REASON FOR CONSULTATION: Oncology consult to render and opinion on patient with nausea, vomiting, diarrhea after chemotherapy for head and neck cancer. 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 He just completed cycle 2 of TPF chemotherapy. He started having nausea the day after chemotherapy. This morning, he threw up for the first time. He also started to diarrhea a few days ago. On average he has about 3-4 watery stools. He started having mucositis. He is still able to drink fluid, but he is not able to swallow any solid food and is getting nutrition through the PEG tube. He denies any fever or chill. He has lost some weight. He denies any chest pressure, palpitations, shortness of breath or cough. He denies any dysuria or hematuria. PAST MEDICAL HISTORY: Base of tongue squamous cell carcinoma with involvement of bilateral cervical lymph nodes P16 negative. PAST SURGICAL HISTORY: PEG tube placement and port placement, tongue biopsy and dental extraction. FAMILY HISTORY: Father has prostate cancer. Mother had breast cancer. SOCIAL HISTORY: Quit tobacco about 2 months ago. Denies any alcohol use. ALLERGIES: PENICILLIN AND SHELLFISH. MEDICATIONS: 1. Scopolamine. 2. Zofran p.r.n. 3. Reglan p.r.n. REVIEW OF SYSTEMS: CONSTITUTIONAL: As above. EYES: Negative. ENT: As above. CARDIOVASCULAR: He denies any chest pressure or palpitation. RESPIRATORY: No shortness of breath or cough. GASTROINTESTINAL: As above. GENITOURINARY: As above. MUSCULOSKELETAL: Negative. HEMATOLOGIC: Negative. DERMATOLOGIC: Negative. NEUROLOGIC: Negative. PSYCHIATRIC: Negative. PHYSICAL EXAMINATION: VITAL SIGNS: Temperature 97.7, blood pressure 100/58, O2 saturation 99% on room air. GENERAL: He is alert and oriented x 3, no acute distress. HEENT: He has alopecia. Pupils equal, round, and reactive to light. Oropharynx grade 1 mucositis. No bleeding noted. NECK: No thyromegaly. No palpable adenopathy. LYMPHATIC: No palpable cervical, axillary, or inguinal lymph node. CARDIOVASCULAR: Regular S1, S2. No murmur. LUNGS: Clear to auscultation bilaterally. No wheeze or rhonchi. ABDOMEN: Soft, nontender. Could not palpate liver, spleen. PEG tube site noted, no erythema. EXTREMITIES: No cyanosis, clubbing, or edema. BACK: No paravertebral tenderness. SKIN: No rash or petechiae. NEUROLOGIC: Nonfocal. LABORATORY DATA: WBC 4.7, hemoglobin 14.6, platelet count 175. Creatinine 0.8. ASSESSMENT: 1. Base of tongue poorly differentiated squamous cell carcinoma with palpable bilateral cervical adenopathy. P16 negative. He is currently receiving neoadjuvant chemotherapy. He developed significant nausea, vomiting and dysphagia after first cycle of TPF chemotherapy and a PEG tube was placed. He received cycle 2 of chemotherapy 06/28/2017 and the 5-FU pump was discontinue today. He again tolerated it poorly. He had persistent nausea. He threw up once this morning. He also been having diarrhea for the last few days. These are all side effects from the chemotherapy. He, however, has a good response and neck adenopathy are no longer palpable. His CBC is normal today. He will need to start Neupogen tomorrow. 2. Persistent nausea and vomiting due to cisplatin. I am going to schedule his intravenous Zofran. He will continue the scopolamine patch. Anticipate nausea to improve in the next few days. 3. Diarrhea, most likely due to the 5-FU infusion. The 5-FU pump was just discontinued. He will continue Imodium as needed. I am going to stop his Reglan. If he still has no improvement, I will start him on Lomotil. 4. Mucositis due to chemotherapy. He will start Magic mouthwash. 5. Nutrition. He is getting PEG tube feeding. Nutrition has been consulted. 6. Dehydration. He will continue IV fluid. PLAN: 1. Continue hydration. 2. Schedule Zofran and stop Reglan. 3. Start Magic mouthwash. 4. Continue scopolamine patch. 5. Await nutrition consult. 6. Start Neupogen tomorrow. 7. Case discussed with Dr. Nolan. Thank you Dr. Nolan for asking me to see this patient. MD CHRIS Forbes/MOHINDER , 03:00 PM , 04:39 PM LIZBETH
[2017-07-03] MEDS: SCOPOLAMINE 1.5 MG PATCH T-DERMAL SCH (17:39)
[2017-07-03] MEDS: NYSTAT/DIPHENHY/LIDO MOUTHWASH (Adult) 120ML SWISH-SWAL SCH ×2 (17:39→21:40)
[2017-07-03] MEDS: SODIUM CHLORIDE 0.9% FLUSH 10 ML FLUSH IV FLUSH SCH (21:00)
[2017-07-03] MEDS: SODIUM CHLOR 0.9% 1000 ML INJ 1,000 ML IV SCH (21:38)
[2017-07-04] VITALS (19 sets, daily range): BP systolic 108–128; BP diastolic 60–82; PULSE 66–86; RESP 12–18; TEMP 97.7–99.8; O2SAT 99–100
[2017-07-04] MEDS ORDERED: PROMETHAZINE INJ 25 MG/ML VIAL IM ONE (03:45)
[2017-07-04] MEDS ORDERED: HYDROmorphone HCL PF 2 MG/ML VIAL IV PUSH ONE (03:45)
[2017-07-04] MEDS: HYOSCYAMINE SOLN 0.125 MG/ML 15 ML BTL PO PRN ×2 (04:07→10:18)
[2017-07-04] MEDS: SODIUM CHLOR 0.9% 1000 ML INJ 1,000 ML IV SCH ×4 (05:51→21:34)
[2017-07-04] MEDS: ONDANSETRON HCL 4 MG/2 ML VIAL IVP SCH ×3 (06:29→21:36)
[2017-07-04] MEDS: LOPERAMIDE HCL SOLN 2 MG/10 ML UDC PO PRN ×3 (06:30→18:22)
--- NOTE | 2017-07-04 07:55 | HHI.PR ---
Subjective Remarks Follow up on patient with tongue cancer undergoing chemo admitted with N/V, diarrhea. Patient seen and examined. Complaining of persistent nausea, no vomiting this morning. Still with diarrhea but has improved some. C Diff negative. Endorses weakness. Denies any fever or chills. Denies any chest pain or dyspnea. Denies any dysuria. Objective Vitals Vital Signs Date Time Temp Pulse Resp B/P (MAP) Pulse Ox O2 Delivery O2 Flow Rate FiO2 07/04/17 07:37 99.8 84 12 125/65 (85) 100 07/04/17 03:45 99.1 70 16 109/69 (82) 99 07/04/17 00:01 99.4 72 16 108/60 (76) 99 07/03/17 21:27 99.2 71 17 106/67 (80) 100 07/03/17 17:06 98.8 73 14 93/57 (69) 99 07/03/17 16:39 70 16 103/58 (73) 98 07/03/17 16:30 79 18 103/58 (73) 98 Room Air 07/03/17 14:00 66 18 100/58 (72) 99 Room Air 07/03/17 13:00 68 20 90/52 (65) 99 Room Air 07/03/17 12:00 59 24 92/54 (67) 98 Room Air 07/03/17 10:00 63 18 81/48 (59) 97 Room Air 07/03/17 09:17 73 18 112/66 (81) 99 Room Air 07/03/17 08:25 97.7 87 18 108/55 (72) 100 I/O 07/03/17 07/03/17 07/03/17 07/04/17 07/04/17 07/04/17 07:00 15:00 23:00 07:00 15:00 23:00 Intake Total 3000 ml 1000 ml 1000 ml Balance 3000 ml 1000 ml 1000 ml Intake IV Total 3000 ml 1000 ml 1000 ml Result Diagram: 07/03/1791407/03/17914 Objective Remarks GENERAL: This is a thin ill appearing male patient, in no apparent distress. Awake and alert. Sitting up in bed. SKIN: Cool and dry. HEAD: Atraumatic. Normocephalic. EYES: Extraocular motions intact. No scleral icterus. No injection or drainage. ENT: Right side of the tongue with irritation and some deformity. Airway patent. NECK: Trachea midline. CARDIOVASCULAR: Regular rate and rhythm without murmurs, gallops, or rubs. RESPIRATORY: Clear to auscultation. Breath sounds equal bilaterally. No wheezes , rales, or rhonchi. GASTROINTESTINAL: Abdomen soft, non-tender, nondistended. PEG tube in place. MUSCULOSKELETAL: Extremities without clubbing, cyanosis, or edema. NEUROLOGICAL: Awake and alert. Cranial nerves II through XII grossly intact. Motor and sensory grossly within normal limits. Nonfocal. Dysarthric speech secondary to tongue cancer. PSYCHIATRIC: Appropriate mood and affect. Normal judgment and insight. Medications and IVs Current Medications Medications (Trade) Dose Ordered Sig/Tiffanie Route Start Time Stop Time Status Last Admin (Heparin Central Flush) 500 units DAILY IV FLUSH 07/03/17 11:45 07/03/17 12:03 (NS Flush) 2 ml UNSCH PRN IV FLUSH 07/03/17 11:45 (NS Flush) 2 ml BID IV FLUSH 07/03/17 21:00 (Narcan Inj) 0.4 mg UNSCH PRN IV PUSH 07/03/17 11:45 (Roxicodone) 5 mg Q4H PRN PO 07/03/17 14:00 07/04/17 06:30 (Transderm-Scop 1.5 Mg Patch.72 Hr) 1 patch Q3D T-DERMAL 07/03/17 16:00 07/03/17 17:39 Miscellaneous Information 1 Q3D T-DERMAL 07/06/17 16:00 (Zofran Inj) 8 mg Q8HR IVP 07/03/17 15:15 07/04/17 06:29 (Magic Mouthwash Adult Liq) 10 ml QID SWISH-SWAL 07/03/17 18:00 07/03/17 21:40 Sodium Chloride 1,000 ml @ 125 mls/hr Q8H IV 07/03/17 18:30 07/04/17 05:51 (Levsin Liq) 0.125 mg Q4H PRN PO 07/04/17 03:45 07/04/17 04:07 (Imodium Liq) 2 mg UNSCH PRN PO 07/04/17 06:15 07/04/17 06:30 A/P Problem List: (1) Chemotherapy-induced nausea and vomiting ICD Code: R11.2 - Nausea with vomiting, unspecified; T45.1X5A - Adverse effect of antineoplastic and immunosuppressive drugs, initial encounter (2) Primary tongue squamous cell carcinoma ICD Code: C02.9 - Malignant neoplasm of tongue, unspecified (3) Diarrhea ICD Code: R19.7 - Diarrhea, unspecified Status: Acute (4) Dehydration ICD Code: E86.0 - Dehydration Status: Acute Assessment and Plan 46-year-old male with tongue cancer currently undergoing chemotherapy treatment admitted with weakness, diarrhea, nausea and vomiting. Chemotherapy induced nausea and vomiting -Continue antiemetics with IV Zofran and scopolamine patch -Hem/Onc following, appreciate recommendations -IVF for hydration Chemotherapy induced neutropenia Low grade fever -Tm 99.8 -started on Neupogen per Oncology Primary tongue squamous cell carcinoma Dysphagia -currently undergoing neoadjuvant chemotherapy -pain medication prn -continue PEG feedings with Vital 1.5 at 360mls QID per previous dietary recommendations - unable to tolerate TF overnight 2/2 N/V -Home Therapy Teacher consulted Diarrhea -related to tube feeding and chemotherapy treatment -C diff negative -continue Lomotil prn -IVF -monitor electrolytes Dehydration -secondary to volume loss -improved with IVF hydration DVT prophylaxis -bilateral SCDs Discharge Planning Discharge pending clinical improvement and Oncology clearance Problem Qualifiers (1) Diarrhea: Qualified Codes: R19.7 - Diarrhea, unspecified Shanae Muñoz Jul 04, 2017 07:55
[2017-07-04 08:33] LABS: HEMATOCRIT 38.9 % (39.0-51.0); HEMOGLOBIN 13.2 GM/DL (13.0-17.0); MEAN CELL VOLUME 87.4 FL (80.0-100.0); MEAN CORPUSCULAR HEMOGLOBIN 29.7 PG (27.0-34.0); MEAN PLATELET VOLUME 9.5 FL (7.0-11.0); PLATELET COUNT 151 TH/MM3 (150-450); RED BLOOD COUNT 4.45 MIL/MM3 (4.50-5.90); RED CELL DISTRIBUTION WIDTH 14.2 % (11.6-17.2); WHITE BLOOD COUNT 3.9 TH/MM3 (4.0-11.0)
[2017-07-04] MEDS: SODIUM CHLORIDE 0.9% FLUSH 10 ML FLUSH IV FLUSH SCH ×2 (09:00→20:30)
[2017-07-04 09:03] LABS: ALBUMIN 2.6 GM/DL (3.4-5.0); ALKALINE PHOSPHATASE 93 U/L (45-117); ALT (GPT) 43 U/L (12-78); AST (GOT) 19 U/L (15-37); BICARBONATE 26.1 MEQ/L (21.0-32.0); BLOOD UREA NITROGEN 14 MG/DL (7-18); CALCIUM 7.9 MG/DL (8.5-10.1); CHLORIDE 104 MEQ/L (98-107); CREATININE 0.73 MG/DL (0.60-1.30); GLOMERULAR FILTRATION RATE 116 ML/MIN (>89); GLUCOSE,RANDOM 88 MG/DL (74-106); SODIUM (NA) 136 MEQ/L (136-145); TOTAL BILIRUBIN ADULT 0.4 MG/DL (0.2-1.0)
[2017-07-04 09:12] LABS: BANDS 7 % (0-6); LYMPHOCYTES 28 % (9-44); NEUTROPHIL # MANUAL DIFF 2.8 TH/MM3 (1.8-7.7); POLYS (SEG NEUTROPHILS) 65 % (16-70)
--- NOTE | 2017-07-04 09:54 | PD.ONC.PN ---
Subjective Subjective Remarks Tmax 99.8 overnight. patient resting in bed in nad. had several loose stools overnight. still feels nauseated with occasional vomiting. not able to tolerate a regular diet. Objective Data Date Time Temp Pulse Resp B/P (MAP) Pulse Ox O2 Delivery O2 Flow Rate FiO2 07/04/17 07:37 99.8 84 12 125/65 (85) 100 07/04/17 03:45 99.1 70 16 109/69 (82) 99 07/04/17 00:01 99.4 72 16 108/60 (76) 99 07/03/17 21:27 99.2 71 17 106/67 (80) 100 07/03/17 17:06 98.8 73 14 93/57 (69) 99 07/03/17 16:39 70 16 103/58 (73) 98 07/03/17 16:30 79 18 103/58 (73) 98 Room Air 07/03/17 14:00 66 18 100/58 (72) 99 Room Air 07/03/17 13:00 68 20 90/52 (65) 99 Room Air 07/03/17 12:00 59 24 92/54 (67) 98 Room Air 07/03/17 10:00 63 18 81/48 (59) 97 Room Air 07/04/17 07/04/17 07/04/17 07:00 15:00 23:00 Intake Total 1000 ml Balance 1000 ml Result Diagram: 07/04/17 0747 07/04/17 0747 Laboratory Results Laboratory Tests Test 07/03/17 11:05 07/03/17 12:05 07/04/17 04:15 07/04/17 07:47 Urine Color YELLOW Urine Turbidity CLEAR Urine pH 6.5 Urine Specific [place] 1.014 Urine Protein TRACE mg/dL Urine Glucose (UA) NEG mg/dL Urine Ketones NEG mg/dL Urine Occult Blood NEG Urine Nitrite NEG Urine Bilirubin NEG Urine Urobilinogen LESS THAN 2.0 MG/DL Urine Leukocyte Esterase NEG Urine RBC LESS THAN 1 /hpf Urine WBC 1 /hpf Microscopic Urinalysis Comment CULT NOT INDICATED Lactic Acid Level 1.0 mmol/L Stool C. difficile Toxin (PCR) NEGATIVE Stl C. difficile Toxin Epiderm 027 PRESUMPTIVE NEGATIVE White Blood Count 3.9 TH/MM3 Red Blood Count 4.45 MIL/MM3 Hemoglobin 13.2 GM/DL Hematocrit 38.9 % Mean Corpuscular Volume 87.4 FL Mean Corpuscular Hemoglobin 29.7 PG Mean Corpuscular Hemoglobin Concent 34.0 % Red Cell Distribution Width 14.2 % Platelet Count 151 TH/MM3 Mean Platelet Volume 9.5 FL CBC Comment AUTO DIFF Differential Total Cells Counted 100 Neutrophils % (Manual) 65 % Band Neutrophils % 7 % Lymphocytes % 28 % Neutrophils # (Manual) 2.8 TH/MM3 Differential Comment FINAL DIFF MANUAL Platelet Estimate NORMAL Platelet Morphology Comment NORMAL Red Cell Morphology Comment NORMAL Blood Urea Nitrogen 14 MG/DL Creatinine 0.73 MG/DL Random Glucose 88 MG/DL Total Protein 6.0 GM/DL Albumin 2.6 GM/DL Calcium Level 7.9 MG/DL Alkaline Phosphatase 93 U/L Aspartate Amino Transf (AST/SGOT) 19 U/L Alanine Aminotransferase (ALT/SGPT) 43 U/L Total Bilirubin 0.4 MG/DL Sodium Level 136 MEQ/L Potassium Level 4.3 MEQ/L Chloride Level 104 MEQ/L Carbon Dioxide Level 26.1 MEQ/L Anion Gap 6 MEQ/L Estimat Glomerular Filtration Rate 116 ML/MIN Culture Results Microbiology Date/Time Source Procedure Growth Status 07/04/17 04:15 Stool Stool Pending Received Administered Medications Medications (Trade) Dose Ordered Sig/Tiffanie Route PRN Reason Start Time Stop Time Status Last Admin Dose Admin Heparin Sodium (Porcine) (Heparin Central Flush) 500 units DAILY IV FLUSH 07/03/17 11:45 07/03/17 12:03 Oxycodone HCl (Roxicodone) 5 mg Q4H PRN PO PAIN GREATER THAN 5 07/03/17 14:00 07/04/17 06:30 Scopolamine (Transderm-Scop 1.5 Mg Patch.72 Hr) 1 patch Q3D T-DERMAL 07/03/17 16:00 07/03/17 17:39 Ondansetron HCl (Zofran Inj) 8 mg Q8HR IVP 07/03/17 15:15 07/04/17 06:29 Multi-Ingredient Mouthwash/Gargle (Magic Mouthwash Adult Liq) 10 ml QID SWISH-SWAL 07/03/17 18:00 07/03/17 21:40 Sodium Chloride 1,000 ml @ 125 mls/hr Q8H IV 07/03/17 18:30 07/04/17 05:51 Hyoscyamine Sulfate (Levsin Liq) 0.125 mg Q4H PRN PO secretions 07/04/17 03:45 07/04/17 04:07 Loperamide HCl (Imodium Liq) 2 mg UNSCH PRN PO DIARRHEA 07/04/17 06:15 07/04/17 06:30 Objective Remarks GENERAL: Middle aged male, sitting up in bed, appears nauseated, malnourished. SKIN: Warm and dry. HEAD: Normocephalic. EYES: No injection or drainage. NECK: Supple, trachea midline. CARDIOVASCULAR: Regular rate and rhythm RESPIRATORY: Breath sounds equal bilaterally. No accessory muscle use. GASTROINTESTINAL: Abdomen soft, non-tender, nondistended. G-tube clamped. EXTREMITIES: No cyanosis NEUROLOGICAL: awake, alert. Assessment/Plan Problem List: (1) Chemotherapy-induced nausea and vomiting ICD Codes: R11.2 - Nausea with vomiting, unspecified; T45.1X5A - Adverse effect of antineoplastic and immunosuppressive drugs, initial encounter Plan: --on scheduled Zofran + scopolamine. --Anticipate nausea to improve in the next few days. (2) Primary tongue squamous cell carcinoma ICD Codes: C02.9 - Malignant neoplasm of tongue, unspecified Plan: --Base of tongue poorly differentiated squamous cell carcinoma with palpable bilateral cervical adenopathy. P16 negative. --developed significant nausea, vomiting and dysphagia after first cycle of TPF chemotherapy and a PEG tube was placed. --received cycle 2 of chemotherapy 06/28/2017 and the 5-FU pump, which was discontinued 07/03, started having nausea the day after chemotherapy. (3) Diarrhea ICD Codes: R19.7 - Diarrhea, unspecified Status: Acute Plan: --most likely due to the 5-FU infusion. The 5-FU pump was just discontinued on 07/03. --Imodium as needed. can start on Lomotil if needed. (4) Mucositis (ulcerative) due to antineoplastic therapy ICD Codes: K12.31 - Oral mucositis (ulcerative) due to antineoplastic therapy Plan: --on Magic mouthwash. (5) Malnourished ICD Codes: E46 - Unspecified protein-calorie malnutrition Plan: --getting PEG tube feeding. --anesthesiologist physician following. 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 Plan 1. continue supportive care 2. transfer to oncology 3. start Neupogen Attending Statement The exam, history, and the medical decision-making described in the above note were completed with the assistance of the mid-level provider. I reviewed and agree with the findings presented. I attest that I had a [id number] encounter with the patient on the same day, and personally performed and documented my assessment and findings in the medical record. Still has nausea and vomiting. Diarrhea improved with imodium. WBC trended lower. Start compazine. Continue hydration. Start neupogen. Restart tube feeding. Titrate pain meds. Problem Qualifiers (1) Diarrhea: Qualified Codes: R19.7 - Diarrhea, unspecified Jacquelin Quan Jul 04, 2017 09:54 José Miguel Thompson MD Jul 04, 2017 11:46
[2017-07-04] MEDS: NYSTAT/DIPHENHY/LIDO MOUTHWASH (Adult) 120ML SWISH-SWAL SCH ×4 (10:18→20:30)
[2017-07-04] MEDS: HYDROmorphone HCL PF 2 MG/ML VIAL IV PUSH PRN ×3 (11:54→20:25)
[2017-07-04] MEDS: PROCHLORPERAZINE INJ 10 MG/2 ML VIAL IV PUSH PRN ×3 (11:55→20:20)
[2017-07-04] MEDS: diphenhydrAMINE HCL 50 MG/ML VIAL IV PUSH PRN ×3 (11:55→20:23)
[2017-07-04] MEDS: FILGRASTIM 300 MCG/ML VIAL SQ SCH (13:23)
[2017-07-05] VITALS (23 sets, daily range): BP systolic 119–131; BP diastolic 66–80; PULSE 75–106; RESP 18–20; TEMP 99–102.5; O2SAT 97–99
[2017-07-05] MEDS: PROCHLORPERAZINE INJ 10 MG/2 ML VIAL IV PUSH PRN ×5 (01:11→22:18)
[2017-07-05] MEDS: diphenhydrAMINE HCL 50 MG/ML VIAL IV PUSH PRN ×3 (01:11→10:16)
[2017-07-05] MEDS: HYDROmorphone HCL PF 2 MG/ML VIAL IV PUSH PRN ×6 (01:16→22:19)
[2017-07-05 04:41] LABS: HEMOGLOBIN 12.9 GM/DL (13.0-17.0); MEAN CELL VOLUME 87.1 FL (80.0-100.0); MEAN CORPUSCULAR HEMOGLOBIN 29.6 PG (27.0-34.0); MEAN PLATELET VOLUME 9.3 FL (7.0-11.0); PLATELET COUNT 144 TH/MM3 (150-450); RED BLOOD COUNT 4.36 MIL/MM3 (4.50-5.90); RED CELL DISTRIBUTION WIDTH 14.1 % (11.6-17.2); WHITE BLOOD COUNT 1.5 TH/MM3 (4.0-11.0)
[2017-07-05 05:23] LABS: BICARBONATE 24.7 MEQ/L (21.0-32.0); CALCIUM 8.3 MG/DL (8.5-10.1); CREATININE 0.69 MG/DL (0.60-1.30)
[2017-07-05] MEDS: LOPERAMIDE HCL SOLN 2 MG/10 ML UDC PO PRN ×3 (06:10→20:06)
[2017-07-05] MEDS: SODIUM CHLOR 0.9% 1000 ML INJ 1,000 ML IV SCH ×2 (06:17→16:00)
[2017-07-05] MEDS: ONDANSETRON HCL 4 MG/2 ML VIAL IVP SCH ×3 (06:40→21:03)
[2017-07-05 08:36] LABS: BANDS 2 % (0-6); BASOPHILS 1 % (0-2); LYMPHOCYTES 55 % (9-44); METAMYELOCYTES 7 % (0-1); MONOCYTES 5 % (0-8); NEUTROPHIL # MANUAL DIFF 0.6 TH/MM3 (1.8-7.7); POLYS (SEG NEUTROPHILS) 29 % (16-70)
[2017-07-05 08:38] LABS: OVALOCYTES 1+ (NORMAL)
[2017-07-05] MEDS: SODIUM CHLORIDE 0.9% FLUSH 10 ML FLUSH IV FLUSH SCH ×2 (09:00→20:18)
[2017-07-05] MEDS: NYSTAT/DIPHENHY/LIDO MOUTHWASH (Adult) 120ML SWISH-SWAL SCH ×4 (09:39→20:27)
--- NOTE | 2017-07-05 10:48 | PD.ONC.PN ---
Subjective Subjective Remarks Low-grade fever of 100.0 this a.m. Patient reports he continues to have nausea and diarrhea However he does mention that he feels like his tongue lesion is decreasing in size Objective Data Date Time Temp Pulse Resp B/P (MAP) Pulse Ox O2 Delivery O2 Flow Rate FiO2 07/05/17 08:37 100.0 87 18 121/66 (84) 07/05/17 07:01 79 07/05/17 06:03 91 07/05/17 05:06 90 07/05/17 04:06 90 07/05/17 03:42 99.0 87 18 127/80 (96) 98 07/05/17 03:03 76 07/05/17 02:07 80 07/05/17 01:07 84 07/05/17 00:11 18 07/05/17 00:10 86 07/04/17 23:37 97.9 84 16 120/82 (95) 99 07/04/17 23:03 77 07/04/17 22:02 80 07/04/17 21:05 86 07/04/17 20:19 99.4 80 18 127/79 (95) 100 07/04/17 20:04 77 07/04/17 19:00 82 07/04/17 18:00 72 07/04/17 17:00 72 07/04/17 16:00 84 07/04/17 15:47 97.7 81 18 128/70 (89) 100 07/04/17 15:00 69 07/04/17 14:00 68 07/04/17 13:00 66 07/04/17 11:59 84 07/04/17 11:44 99.2 79 18 121/65 (83) 100 07/05/17 07/05/17 07/05/17 07:00 15:00 23:00 Intake Total 1000 ml 420 ml Balance 1000 ml 420 ml Result Diagram: 07/05/17 0350 07/05/17 0350 Laboratory Results Laboratory Tests Test 07/05/17 03:50 White Blood Count 1.5 TH/MM3 Red Blood Count 4.36 MIL/MM3 Hemoglobin 12.9 GM/DL Hematocrit 38.0 % Mean Corpuscular Volume 87.1 FL Mean Corpuscular Hemoglobin 29.6 PG Mean Corpuscular Hemoglobin Concent 34.0 % Red Cell Distribution Width 14.1 % Platelet Count 144 TH/MM3 Mean Platelet Volume 9.3 FL CBC Comment AUTO DIFF Differential Total Cells Counted 100 Neutrophils % (Manual) 29 % Band Neutrophils % 2 % Lymphocytes % 55 % Monocytes % 5 % Eosinophils % 1 % Basophils % 1 % Neutrophils # (Manual) 0.6 TH/MM3 Metamyelocytes 7 % Differential Comment FINAL DIFF MANUAL Atypical Lymphocytes % Platelet Estimate LOW Platelet Morphology Comment ENLARGED Ovalocytes 1+ Blood Urea Nitrogen 13 MG/DL Creatinine 0.69 MG/DL Random Glucose 86 MG/DL Calcium Level 8.3 MG/DL Sodium Level 138 MEQ/L Potassium Level 3.9 MEQ/L Chloride Level 104 MEQ/L Carbon Dioxide Level 24.7 MEQ/L Anion Gap 9 MEQ/L Estimat Glomerular Filtration Rate 124 ML/MIN Culture Results Microbiology Date/Time Source Procedure Growth Status 07/04/17 04:15 Stool Stool Pending Received Administered Medications Medications (Trade) Dose Ordered Sig/Tiffanie Route PRN Reason Start Time Stop Time Status Last Admin Dose Admin Heparin Sodium (Porcine) (Heparin Central Flush) 500 units DAILY IV FLUSH 07/03/17 11:45 07/04/17 10:17 Sodium Chloride (NS Flush) 2 ml BID IV FLUSH 07/03/17 21:00 07/05/17 09:00 Scopolamine (Transderm-Scop 1.5 Mg Patch.72 Hr) 1 patch Q3D T-DERMAL 07/03/17 16:00 07/03/17 17:39 Ondansetron HCl (Zofran Inj) 8 mg Q8HR IVP 07/03/17 15:15 07/05/17 06:40 Multi-Ingredient Mouthwash/Gargle (Magic Mouthwash Adult Liq) 10 ml QID SWISH-SWAL 07/03/17 18:00 07/05/17 09:39 Sodium Chloride 1,000 ml @ 125 mls/hr Q8H IV 07/03/17 18:30 07/05/17 06:17 Hyoscyamine Sulfate (Levsin Liq) 0.125 mg Q4H PRN PO secretions 07/04/17 03:45 07/04/17 10:18 Loperamide HCl (Imodium Liq) 2 mg UNSCH PRN PO DIARRHEA 07/04/17 06:15 07/05/17 06:10 Filgrastim (Neupogen Inj) 300 mcg DAILY@14 SQ 07/04/17 14:00 07/04/17 13:23 Hydromorphone HCl (Dilaudid Pf Inj) 0.5 mg Q4H PRN IV PUSH pain1-10 07/04/17 11:15 07/05/17 10:15 Prochlorperazine Edisylate (Compazine Inj) 5 mg Q4H PRN IV PUSH breakthrough nausea 07/04/17 11:15 07/05/17 10:15 Diphenhydramine HCl (Benadryl Inj) 25 mg Q4H PRN IV PUSH itching 07/04/17 11:15 07/05/17 10:16 Objective Remarks GENERAL: Younger male resting in bed in no obvious distress SKIN: Warm and dry. HEAD: Normocephalic. EYES: No scleral icterus. No injection or drainage. NECK: Supple, trachea midline. No JVD or lymphadenopathy. CARDIOVASCULAR: Regular rate and rhythm without murmurs. RESPIRATORY: Breath sounds equal bilaterally. No accessory muscle use. GASTROINTESTINAL: Abdomen soft. PEG tube in place. EXTREMITIES: No cyanosis, or edema. MUSCULOSKELETAL: Adequate muscle tone. NEUROLOGICAL: Moving all extremities. Alert and oriented. Difficulty with speech however this is due to oral lesion. Assessment/Plan Problem List: (1) Chemotherapy-induced nausea and vomiting ICD Codes: R11.2 - Nausea with vomiting, unspecified; T45.1X5A - Adverse effect of antineoplastic and immunosuppressive drugs, initial encounter Plan: --on scheduled Zofran + scopolamine. --Patient has as needed Compazine --Anticipate nausea to improve in the next few days. (2) Primary tongue squamous cell carcinoma ICD Codes: C02.9 - Malignant neoplasm of tongue, unspecified Plan: --Base of tongue poorly differentiated squamous cell carcinoma with palpable bilateral cervical adenopathy. P16 negative. --developed significant nausea, vomiting and dysphagia after first cycle of TPF chemotherapy and a PEG tube was placed. --received cycle 2 of chemotherapy 06/28/2017 and the 5-FU pump, which was discontinued 07/03, started having nausea the day after chemotherapy. (3) Diarrhea ICD Codes: R19.7 - Diarrhea, unspecified Status: Acute Plan: --most likely due to the 5-FU infusion. The 5-FU pump was just discontinued on 07/03. --Imodium as needed. can start on Lomotil if needed. (4) Mucositis (ulcerative) due to antineoplastic therapy ICD Codes: K12.31 - Oral mucositis (ulcerative) due to antineoplastic therapy Plan: --on Magic mouthwash. (5) Malnourished ICD Codes: E46 - Unspecified protein-calorie malnutrition Plan: --getting PEG tube feeding. --bowling ball grader and marker following. 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 Plan 1. Increase Compazine to 10 mg p.o. every 8 hours as needed for breakthrough nausea 2. Get blood cultures 1 for low-grade temp 3. Start cefepime for neutropenia with low-grade fever 4. Continue supportive care Attending Statement The exam, history, and the medical decision-making described in the above note were completed with the assistance of the mid-level provider. I reviewed and agree with the findings presented. I attest that I had a [id number] encounter with the patient on the same day, and personally performed and documented my assessment and findings in the medical record. Locally advanced base of the tongue cancer receiving jorge-adjuvant chemotherapy Nausea persists--getting Zofran and has scopolamine patch add compazine start trial of steroids dexamethasone 4mg BID low grade fever with Neutropenia ANC 600 blood cultures and start IV cefepime continue daily Neupogen IV Dilaudid for pain control Oral mucositis and Candidiasis Magic mouth wash TID start IV Diflucan continue Tube feeds acutely ill patient with multiple issues Problem Qualifiers (1) Diarrhea: Qualified Codes: R19.7 - Diarrhea, unspecified Sharon Rojas MARKETING CLERK Jul 05, 2017 10:47 Dwayne Naranjo MD Jul 05, 2017 22:55
--- NOTE | 2017-07-05 11:32 | HHI.PR ---
Subjective Remarks Patient reports he is still having severe nausea. Pain is not controlled. He is requiring IV Dilaudid. Temperature 100.0 this morning and is neutropenic. Objective Vitals Vital Signs Date Time Temp Pulse Resp B/P (MAP) Pulse Ox O2 Delivery O2 Flow Rate FiO2 07/05/17 08:37 100.0 87 18 121/66 (84) 07/05/17 07:01 79 07/05/17 06:03 91 07/05/17 05:06 90 07/05/17 04:06 90 07/05/17 03:42 99.0 87 18 127/80 (96) 98 07/05/17 03:03 76 07/05/17 02:07 80 07/05/17 01:07 84 07/05/17 00:11 18 07/05/17 00:10 86 07/04/17 23:37 97.9 84 16 120/82 (95) 99 07/04/17 23:03 77 07/04/17 22:02 80 07/04/17 21:05 86 07/04/17 20:19 99.4 80 18 127/79 (95) 100 07/04/17 20:04 77 07/04/17 19:00 82 07/04/17 18:00 72 07/04/17 17:00 72 07/04/17 16:00 84 07/04/17 15:47 97.7 81 18 128/70 (89) 100 07/04/17 15:00 69 07/04/17 14:00 68 07/04/17 13:00 66 07/04/17 11:59 84 07/04/17 11:44 99.2 79 18 121/65 (83) 100 I/O 07/04/17 07/04/17 07/04/17 07/05/17 07/05/17 07/05/17 07:00 15:00 23:00 07:00 15:00 23:00 Intake Total 1000 ml 1150 ml 1000 ml 420 ml Balance 1000 ml 1150 ml 1000 ml 420 ml Intake Oral 150 ml 240 ml IV Total 1000 ml 1000 ml 1000 ml Tube Feeding 120 ml Tube Irrigant 60 ml # Voids 4 # Bowel Movements 5 1 Result Diagram: 07/05/17 0350 07/05/17 0350 Objective Remarks GENERAL: Chronically ill-appearing male in no acute distress. ENT: Right side of the tongue with irritation and some deformity. Airway patent. CARDIOVASCULAR: Normal rate and regular rhythm without murmurs, gallops, or rubs. RESPIRATORY: Good respiratory efforts. Breath sounds equal and clear to auscultation bilaterally. GASTROINTESTINAL: Abdomen soft, non-tender, non-distended. Normal active bowel sounds MUSCULOSKELETAL: Extremities without cyanosis, or edema. NEURO: Alert & Oriented x4 to person, place, time, situation. Moves all ext x4 PSYCH: Appropriate mood and affect. A/P Problem List: (1) Chemotherapy-induced nausea and vomiting ICD Code: R11.2 - Nausea with vomiting, unspecified; T45.1X5A - Adverse effect of antineoplastic and immunosuppressive drugs, initial encounter Plan: Continue antiemetics with Zofran, scopolamine patch. Symptoms likely related to chemotherapy. IV fluids for hydration. Continue tube feeding (2) Primary tongue squamous cell carcinoma ICD Code: C02.9 - Malignant neoplasm of tongue, unspecified Plan: Patient currently receiving chemotherapy. Follow-up outpatient. Continue bypass feeding via PEG with vitals 1.5 at 360 mL's 4 times daily per previous dietitian recommendations. Consult dietitian to see if there is any other formula that can help with diarrhea. (3) Diarrhea ICD Code: R19.7 - Diarrhea, unspecified Status: Acute Plan: Likely related to chemotherapy. C. diff neg. Imodium as needed. (4) Dehydration ICD Code: E86.0 - Dehydration Status: Acute Plan: Mild. Continue IV fluid (5) Neutropenia ICD Code: D70.9 - Neutropenia, unspecified Plan: Appreciate oncology following. Patient has been started empirically on antibiotics. Blood cultures ordered. Discharge Planning Admit to inpatient. Patient has intractable nausea, diarrhea secondary to chemotherapy. He is neutropenic with low-grade fever. Will require a longer stay for workup and treatment. Problem Qualifiers (1) Diarrhea: Qualified Codes: R19.7 - Diarrhea, unspecified (2) Neutropenia: Qualified Codes: D70.1 - Agranulocytosis secondary to cancer chemotherapy; T45.1X5A - Adverse effect of antineoplastic and immunosuppressive drugs, initial encounter Kamila Nolan MD Jul 05, 2017 11:32
[2017-07-05] MEDS: CEFEPIME INJ 2,000 MG in SODIUM CHLORIDE 0.9% INJ 100 ML IV SCH ×2 (13:00→20:10)
[2017-07-05] MEDS: FILGRASTIM 300 MCG/ML VIAL SQ SCH (14:00)
[2017-07-05] MEDS: ACETAMINOPHEN 650 MG/20.3 ML UDC PEG PRN ×2 (18:40→22:50)
[2017-07-06] VITALS (22 sets, daily range): BP systolic 101–122; BP diastolic 60–69; PULSE 70–105; RESP 16–20; TEMP 97.9–101.1; O2SAT 97–99
[2017-07-06] MEDS: FLUCONAZOLE 100 MG PREMIX BAG 50 ML IV SCH ×2 (01:20→23:34)
[2017-07-06] MEDS: SODIUM CHLOR 0.9% 1000 ML INJ 1,000 ML IV SCH ×4 (01:20→20:05)
[2017-07-06] MEDS: PROCHLORPERAZINE INJ 10 MG/2 ML VIAL IV PUSH PRN ×2 (02:41→09:01)
[2017-07-06] MEDS: HYDROmorphone HCL PF 2 MG/ML VIAL IV PUSH PRN ×6 (02:43→23:33)
[2017-07-06] MEDS: SODIUM CHLORIDE 0.9% FLUSH 10 ML FLUSH IV FLUSH PRN ×2 (02:45→03:57)
[2017-07-06] MEDS: ACETAMINOPHEN 650 MG/20.3 ML UDC PEG PRN ×2 (03:51→09:12)
[2017-07-06] MEDS: CEFEPIME INJ 2,000 MG in SODIUM CHLORIDE 0.9% INJ 100 ML IV SCH ×3 (05:42→22:04)
[2017-07-06 05:52] LABS: HEMATOCRIT 35.5 % (39.0-51.0); HEMOGLOBIN 12.2 GM/DL (13.0-17.0); MEAN CELL VOLUME 86.3 FL (80.0-100.0); MEAN CORPUSCULAR HEMOGLOBIN 29.6 PG (27.0-34.0); MEAN CORPUSCULAR HGB CONC 34.3 % (32.0-36.0); MEAN PLATELET VOLUME 9.2 FL (7.0-11.0); PLATELET COUNT 118 TH/MM3 (150-450); RED BLOOD COUNT 4.12 MIL/MM3 (4.50-5.90); RED CELL DISTRIBUTION WIDTH 13.9 % (11.6-17.2); WHITE BLOOD COUNT 0.9 TH/MM3 (4.0-11.0)
[2017-07-06 06:19] LABS: BICARBONATE 23.7 MEQ/L (21.0-32.0); CALCIUM 7.7 MG/DL (8.5-10.1); CREATININE 0.65 MG/DL (0.60-1.30)
[2017-07-06] MEDS: ONDANSETRON HCL 4 MG/2 ML VIAL IVP SCH ×3 (06:53→22:58)
[2017-07-06 08:18] LABS: BANDS 6 % (0-6); DOHLE BODIES PRESENT (NONE SEEN); LYMPHOCYTES 41 % (9-44); MONOCYTES 47 % (0-8); NEUTROPHIL # MANUAL DIFF 0.1 TH/MM3 (1.8-7.7); POLYS (SEG NEUTROPHILS) 5 % (16-70)
[2017-07-06] MEDS: SODIUM CHLORIDE 0.9% FLUSH 10 ML FLUSH IV FLUSH SCH ×2 (09:00→22:04)
[2017-07-06] MEDS: NYSTAT/DIPHENHY/LIDO MOUTHWASH (Adult) 120ML SWISH-SWAL SCH ×4 (09:01→21:00)
[2017-07-06] MEDS: LOPERAMIDE HCL SOLN 2 MG/10 ML UDC PO PRN (09:01)
[2017-07-06] MEDS: DEXAMETHASONE 4 MG TAB PO SCH ×2 (09:02→22:03)
--- NOTE | 2017-07-06 09:28 | PD.ONC.PN ---
Subjective Subjective Remarks Tmax 101.1 overnight. Patient resting in bed. tolerating tube feed boluses of ~120cc every four hours. however, he would like to try the continuous tube feeds again as he is still feeling nauseated. Objective Data Date Time Temp Pulse Resp B/P (MAP) Pulse Ox O2 Delivery O2 Flow Rate FiO2 07/06/17 09:14 100.5 105 20 122/66 (84) 98 07/06/17 06:05 88 07/06/17 05:05 92 07/06/17 04:14 93 07/06/17 04:00 18 07/06/17 03:45 101.1 94 18 119/67 (84) 98 07/06/17 03:09 90 07/06/17 02:01 87 07/06/17 01:04 91 07/06/17 01:00 99.9 93 18 105/65 (78) 98 07/06/17 00:08 88 07/05/17 23:08 92 07/05/17 22:02 99 07/05/17 21:05 104 07/05/17 20:00 102 07/05/17 19:50 99.7 106 18 131/70 (90) 97 07/05/17 19:48 99.4 07/05/17 19:01 91 07/05/17 17:52 102.5 104 20 127/74 (91) 99 07/05/17 17:11 95 07/05/17 12:30 100.2 91 19 119/75 (90) 98 07/05/17 12:00 75 07/06/17 07/06/17 07/06/17 07:00 15:00 23:00 Intake Total 1150 ml 370 ml Balance 1150 ml 370 ml Result Diagram: 07/06/17 0400 07/06/17 0400 Laboratory Results Laboratory Tests Test 07/06/17 04:00 White Blood Count 0.9 TH/MM3 Red Blood Count 4.12 MIL/MM3 Hemoglobin 12.2 GM/DL Hematocrit 35.5 % Mean Corpuscular Volume 86.3 FL Mean Corpuscular Hemoglobin 29.6 PG Mean Corpuscular Hemoglobin Concent 34.3 % Red Cell Distribution Width 13.9 % Platelet Count 118 TH/MM3 Mean Platelet Volume 9.2 FL CBC Comment AUTO DIFF Differential Total Cells Counted 100 Neutrophils % (Manual) 5 % Band Neutrophils % 6 % Lymphocytes % 41 % Monocytes % 47 % Eosinophils % 1 % Neutrophils # (Manual) 0.1 TH/MM3 Differential Comment FINAL DIFF MANUAL Dohle Bodies PRESENT Platelet Estimate LOW Platelet Morphology Comment NORMAL Red Cell Morphology Comment NORMAL Blood Urea Nitrogen 11 MG/DL Creatinine 0.65 MG/DL Random Glucose 115 MG/DL Calcium Level 7.7 MG/DL Sodium Level 135 MEQ/L Potassium Level 3.7 MEQ/L Chloride Level 102 MEQ/L Carbon Dioxide Level 23.7 MEQ/L Anion Gap 9 MEQ/L Estimat Glomerular Filtration Rate 133 ML/MIN Culture Results Microbiology Date/Time Source Procedure Growth Status 07/05/17 14:10 Blood Line Aerobic Blood Culture Pending Received 07/05/17 14:10 Blood Line Anaerobic Blood Culture Pending Received 07/04/17 04:15 Stool Stool - Final NO ENTERIC PATHOGENS DETECTED BY PCR... Complete Administered Medications Medications (Trade) Dose Ordered Sig/Tiffanie Route PRN Reason Start Time Stop Time Status Last Admin Dose Admin Heparin Sodium (Porcine) (Heparin Central Flush) 500 units DAILY IV FLUSH 07/03/17 11:45 07/04/17 10:17 Sodium Chloride (NS Flush) 2 ml UNSCH PRN IV FLUSH FLUSH AFTER USING IV ACCESS 07/03/17 11:45 07/06/17 03:57 Sodium Chloride (NS Flush) 2 ml BID IV FLUSH 07/03/17 21:00 07/05/17 20:18 Scopolamine (Transderm-Scop 1.5 Mg Patch.72 Hr) 1 patch Q3D T-DERMAL 07/03/17 16:00 07/03/17 17:39 Ondansetron HCl (Zofran Inj) 8 mg Q8HR IVP 07/03/17 15:15 07/06/17 06:53 Multi-Ingredient Mouthwash/Gargle (Magic Mouthwash Adult Liq) 10 ml QID SWISH-SWAL 07/03/17 18:00 07/06/17 09:01 Sodium Chloride 1,000 ml @ 125 mls/hr Q8H IV 07/03/17 18:30 07/06/17 01:20 Hyoscyamine Sulfate (Levsin Liq) 0.125 mg Q4H PRN PO secretions 07/04/17 03:45 07/04/17 10:18 Loperamide HCl (Imodium Liq) 2 mg UNSCH PRN PO DIARRHEA 07/04/17 06:15 07/06/17 09:01 Filgrastim (Neupogen Inj) 300 mcg DAILY@14 SQ 07/04/17 14:00 07/05/17 14:00 Diphenhydramine HCl (Benadryl Inj) 25 mg Q4H PRN IV PUSH itching 07/04/17 11:15 07/05/17 10:16 Prochlorperazine Edisylate (Compazine Inj) 10 mg Q4H PRN IV PUSH breakthrough nausea 07/05/17 12:00 07/06/17 09:01 Cefepime HCl 2000 mg/Sodium Chloride 100 ml @ 200 mls/hr Q8H IV 07/05/17 13:00 07/06/17 05:42 Hydromorphone HCl (Dilaudid Pf Inj) 1 mg Q4H PRN IV PUSH pain1-10 07/05/17 15:15 07/06/17 06:57 Acetaminophen (Tylenol 650 Mg/ 20 ml Liq) 650 mg Q4H PRN PEG FEVER GREATER THAN 100.4 07/05/17 18:45 07/06/17 09:12 Dexamethasone (Decadron) 4 mg Q12HR PO 07/06/17 09:00 07/06/17 09:02 Fluconazole/ Sodium Chloride 50 ml @ 50 mls/hr Q24H IV 07/06/17 00:00 07/06/17 01:20 Objective Remarks GENERAL: Middle aged male, sitting up in bed in [facility]. SKIN: Warm and dry. HEAD: Normocephalic. EYES: No injection or drainage. NECK: Supple, trachea midline. CARDIOVASCULAR: Regular rate and rhythm RESPIRATORY: Breath sounds equal bilaterally. No accessory muscle use. GASTROINTESTINAL: Abdomen soft, non-tender, G-tube clamped. EXTREMITIES: No cyanosis, or edema. MUSCULOSKELETAL: Adequate muscle tone. NEUROLOGICAL: awake and alert. moving extremities. Assessment/Plan Problem List: (1) Chemotherapy-induced nausea and vomiting ICD Codes: R11.2 - Nausea with vomiting, unspecified; T45.1X5A - Adverse effect of antineoplastic and immunosuppressive drugs, initial encounter Plan: --on scheduled Zofran + scopolamine. --Patient has as needed Compazine --nausea improving. (2) Primary tongue squamous cell carcinoma ICD Codes: C02.9 - Malignant neoplasm of tongue, unspecified Plan: --Base of tongue poorly differentiated squamous cell carcinoma with palpable bilateral cervical adenopathy. P16 negative. --developed significant nausea, vomiting and dysphagia after first cycle of TPF chemotherapy and a PEG tube was placed. --received cycle 2 of chemotherapy 06/28/2017 and the 5-FU pump, which was discontinued 07/03, started having nausea the day after chemotherapy. (3) Diarrhea ICD Codes: R19.7 - Diarrhea, unspecified Status: Acute Plan: --improving. --most likely due to the 5-FU infusion. The 5-FU pump was just discontinued on 07/03. --Imodium as needed. can start on Lomotil if needed. (4) Mucositis (ulcerative) due to antineoplastic therapy ICD Codes: K12.31 - Oral mucositis (ulcerative) due to antineoplastic therapy Plan: --on Magic mouthwash. (5) Malnourished ICD Codes: E46 - Unspecified protein-calorie malnutrition Plan: --getting PEG tube feeding. --benefits counselor following. 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 Plan 1. continue antibiotics 2. continue IVF + tube feeds 3. monitor fevers Attending Statement The exam, history, and the medical decision-making described in the above note were completed with the assistance of the mid-level provider. I reviewed and agree with the findings presented. I attest that I had a [id number] encounter with the patient on the same day, and personally performed and documented my assessment and findings in the medical record. Nausea better controlled oral pain/mucositis continue pain control with prn Dilaudid continue Neupogen had fever of 101 will hold off on expanding abx coverage blood cultures pending from 07/06 previous cx negative to date continue TF supportive care Problem Qualifiers (1) Diarrhea: Qualified Codes: R19.7 - Diarrhea, unspecified Jacquelin Quan Jul 06, 2017 09:28 Dwayne Naranjo MD Jul 07, 2017 00:25
--- NOTE | 2017-07-06 10:39 | HHI.PR ---
Subjective Remarks Persistent fevers. Feeling poorly. Nausea but no vomiting. Objective Vitals Vital Signs Date Time Temp Pulse Resp B/P (MAP) Pulse Ox O2 Delivery O2 Flow Rate FiO2 07/06/17 09:14 100.5 105 20 122/66 (84) 98 07/06/17 06:05 88 07/06/17 05:05 92 07/06/17 04:14 93 07/06/17 04:00 18 07/06/17 03:45 101.1 94 18 119/67 (84) 98 07/06/17 03:09 90 07/06/17 02:01 87 07/06/17 01:04 91 07/06/17 01:00 99.9 93 18 105/65 (78) 98 07/06/17 00:08 88 07/05/17 23:08 92 07/05/17 22:02 99 07/05/17 21:05 104 07/05/17 20:00 102 07/05/17 19:50 99.7 106 18 131/70 (90) 97 07/05/17 19:48 99.4 07/05/17 19:01 91 07/05/17 17:52 102.5 104 20 127/74 (91) 99 07/05/17 17:11 95 07/05/17 12:30 100.2 91 19 119/75 (90) 98 07/05/17 12:00 75 I/O 07/05/17 07/05/17 07/05/17 07/06/17 07/06/17 07/06/17 07:00 15:00 23:00 07:00 15:00 23:00 Intake Total 1000 ml 420 ml 910 ml 1150 ml 370 ml Balance 1000 ml 420 ml 910 ml 1150 ml 370 ml Intake Oral 240 ml 360 ml 60 ml IV Total 1000 ml 100 ml 1150 ml 100 ml Tube Feeding 120 ml 360 ml 120 ml Tube Irrigant 60 ml 90 ml 90 ml # Voids 4 2 1 # Bowel Movements 1 1 Result Diagram: 07/06/17 0400 07/06/17 0400 Objective Remarks GENERAL: Chronically ill-appearing male in no acute distress. ENT: Right side of the tongue with irritation and some deformity. Mucositis present. Airway patent. CARDIOVASCULAR: Normal rate and regular rhythm without murmurs, gallops, or rubs. RESPIRATORY: Good respiratory efforts. Breath sounds equal and clear to auscultation bilaterally. GASTROINTESTINAL: Abdomen soft, non-tender, non-distended. Normal active bowel sounds MUSCULOSKELETAL: Extremities without cyanosis, or edema. NEURO: Alert & Oriented x4 to person, place, time, situation. Moves all ext x4 PSYCH: Appropriate mood and affect. A/P Problem List: (1) Chemotherapy-induced nausea and vomiting ICD Code: R11.2 - Nausea with vomiting, unspecified; T45.1X5A - Adverse effect of antineoplastic and immunosuppressive drugs, initial encounter Plan: Continue antiemetics with Zofran, scopolamine patch. Symptoms likely related to chemotherapy. IV fluids for hydration. Continue tube feeding (2) Primary tongue squamous cell carcinoma ICD Code: C02.9 - Malignant neoplasm of tongue, unspecified Plan: Patient currently receiving chemotherapy. Follow-up outpatient. Continue bypass feeding via PEG with vitals Dietitian following. Can do smaller bolus feeding more frequently per the dietitian recommendations. Discussed with patient. Mucositis. Patient started on fluconazole (3) Diarrhea ICD Code: R19.7 - Diarrhea, unspecified Status: Acute Plan: Likely related to chemotherapy. C. diff neg. Imodium as needed. Add probiotic (4) Dehydration ICD Code: E86.0 - Dehydration Status: Acute Plan: Mild. Continue IV fluid (5) Neutropenic fever ICD Code: D70.9 - Neutropenia, unspecified; R50.81 - Fever presenting with conditions classified elsewhere Plan: Patient has been started empirically on broad-spectrum antibiotics. Blood cultures pending. Problem Qualifiers (1) Diarrhea: Qualified Codes: R19.7 - Diarrhea, unspecified Kamila Nolan MD Jul 06, 2017 10:39
[2017-07-06] MEDS: NYSTATIN SUSP 500,000 U/5 ML CUP SWISH-SWAL SCH ×3 (13:00→21:00)
[2017-07-06] MEDS: FILGRASTIM 300 MCG/ML VIAL SQ SCH (14:35)
[2017-07-06] MEDS: SCOPOLAMINE 1.5 MG PATCH T-DERMAL SCH (14:36)
[2017-07-06] MEDS: REMOVE OLD SCOPOLAMINE PATCH T-DERMAL SCH (15:35)
[2017-07-07] VITALS (27 sets, daily range): BP systolic 103–112; BP diastolic 62–66; PULSE 54–80; RESP 16–20; TEMP 97.8–98.3; O2SAT 97–100
[2017-07-07] MEDS: SODIUM CHLOR 0.9% 1000 ML INJ 1,000 ML IV SCH ×4 (02:30→23:39)
[2017-07-07] MEDS: PROCHLORPERAZINE INJ 10 MG/2 ML VIAL IV PUSH PRN (03:13)
[2017-07-07] MEDS: HYDROmorphone HCL PF 2 MG/ML VIAL IV PUSH PRN ×5 (03:24→22:05)
[2017-07-07] MEDS: SODIUM CHLORIDE 0.9% FLUSH 10 ML FLUSH IV FLUSH PRN (03:24)
[2017-07-07 05:27] LABS: HEMATOCRIT 32.7 % (39.0-51.0); HEMOGLOBIN 11.2 GM/DL (13.0-17.0); MEAN CELL VOLUME 87.1 FL (80.0-100.0); MEAN CORPUSCULAR HEMOGLOBIN 29.8 PG (27.0-34.0); MEAN CORPUSCULAR HGB CONC 34.2 % (32.0-36.0); MEAN PLATELET VOLUME 8.9 FL (7.0-11.0); PLATELET COUNT 130 TH/MM3 (150-450); RED BLOOD COUNT 3.76 MIL/MM3 (4.50-5.90); RED CELL DISTRIBUTION WIDTH 13.7 % (11.6-17.2); WHITE BLOOD COUNT 2.3 TH/MM3 (4.0-11.0)
[2017-07-07] MEDS: CEFEPIME INJ 2,000 MG in SODIUM CHLORIDE 0.9% INJ 100 ML IV SCH ×3 (05:30→20:27)
[2017-07-07 05:55] LABS: BICARBONATE 25.9 MEQ/L (21.0-32.0); CALCIUM 7.8 MG/DL (8.5-10.1); CREATININE 0.62 MG/DL (0.60-1.30)
[2017-07-07] MEDS: ONDANSETRON HCL 4 MG/2 ML VIAL IVP SCH (06:29)
[2017-07-07 07:59] LABS: BANDS 7 % (0-6); LYMPHOCYTES 20 % (9-44); MONOCYTES 59 % (0-8); NEUTROPHIL # MANUAL DIFF 0.5 TH/MM3 (1.8-7.7); POLYS (SEG NEUTROPHILS) 14 % (16-70)
[2017-07-07] MEDS: DEXAMETHASONE 4 MG TAB PO SCH ×2 (08:33→20:27)
[2017-07-07] MEDS: NYSTATIN SUSP 500,000 U/5 ML CUP SWISH-SWAL SCH ×4 (08:33→20:27)
[2017-07-07] MEDS: SODIUM CHLORIDE 0.9% FLUSH 10 ML FLUSH IV FLUSH SCH ×2 (08:42→21:00)
[2017-07-07] MEDS: NYSTAT/DIPHENHY/LIDO MOUTHWASH (Adult) 120ML SWISH-SWAL SCH ×4 (09:00→20:27)
--- NOTE | 2017-07-07 10:04 | HHI.PR ---
Subjective Remarks 46-year-old male with a history significant for tongue cancer undergoing chemotherapy who presented to the hospital with complaint of nausea, vomiting, diarrhea, and generalized weakness. Patient reports he had 3 episodes of diarrhea started around 2 AM this morning with associated nausea and vomiting. He became very weak and felt dehydrated which prompted the emergency room visit. He states this is chemotherapy related. He has had similar issue in the past. He denies any sick contacts. 4-1 Follow up on patient with tongue cancer undergoing chemo admitted with N/V, diarrhea. Patient seen and examined. Complaining of persistent nausea, no vomiting this morning. Still with diarrhea but has improved some. C Diff negative. Endorses weakness. Denies any fever or chills. Denies any chest pain or dyspnea. Denies any dysuria. 4-2 Patient reports he is still having severe nausea. Pain is not controlled. He is requiring IV Dilaudid. Temperature 100.0 this morning and is neutropenic. 4-3 Persistent fevers. Feeling poorly. Nausea but no vomiting. 4-4 STILL HAVING FEVERS NO VOMITING STILL HAVING NAUSEA TOLERATING TUBE FEEDS AT 30ML /HOUR DW RN AND PT AND CM AND ONCOLOGY Objective Vitals Vital Signs Date Time Temp Pulse Resp B/P (MAP) Pulse Ox O2 Delivery O2 Flow Rate FiO2 07/07/17 06:01 65 07/07/17 05:00 64 07/07/17 04:04 66 07/07/17 03:28 98.3 74 16 106/63 (77) 97 07/07/17 03:06 80 07/07/17 02:02 76 07/07/17 01:01 72 07/07/17 00:04 75 07/06/17 23:36 98.9 78 16 107/60 (76) 97 07/06/17 23:15 77 07/06/17 22:00 76 07/06/17 21:01 70 07/06/17 20:12 99.1 87 16 111/65 (80) 99 07/06/17 20:07 71 07/06/17 19:12 89 07/06/17 16:04 84 07/06/17 16:00 97.9 75 16 101/62 (75) 99 07/06/17 12:00 78 07/06/17 12:00 98.7 72 16 110/69 (83) 97 I/O 07/06/17 07/06/17 07/06/17 07/07/17 07/07/17 07/07/17 07:00 15:00 23:00 07:00 15:00 23:00 Intake Total 1150 ml 1270 ml 0 ml 2235 ml Balance 1150 ml 1270 ml 0 ml 2235 ml Intake Oral 60 ml 0 ml 60 ml IV Total 1150 ml 1000 ml 1350 ml Tube Feeding 120 ml 575 ml Tube Irrigant 90 ml 250 ml # Voids 1 5 3 # Bowel Movements 5 0 Result Diagram: 07/07/17 0350 07/07/17 0350 Other Results Laboratory Tests Test 07/05/17 03:50 07/06/17 04:00 07/07/17 03:50 White Blood Count 1.5 TH/MM3 0.9 TH/MM3 2.3 TH/MM3 Red Blood Count 4.36 MIL/MM3 4.12 MIL/MM3 3.76 MIL/MM3 Hemoglobin 12.9 GM/DL 12.2 GM/DL 11.2 GM/DL Hematocrit 38.0 % 35.5 % 32.7 % Mean Corpuscular Volume 87.1 FL 86.3 FL 87.1 FL Mean Corpuscular Hemoglobin 29.6 PG 29.6 PG 29.8 PG Mean Corpuscular Hemoglobin Concent 34.0 % 34.3 % 34.2 % Red Cell Distribution Width 14.1 % 13.9 % 13.7 % Platelet Count 144 TH/MM3 118 TH/MM3 130 TH/MM3 Mean Platelet Volume 9.3 FL 9.2 FL 8.9 FL CBC Comment AUTO DIFF AUTO DIFF AUTO DIFF Differential Total Cells Counted 100 100 100 Neutrophils % (Manual) 29 % 5 % 14 % Band Neutrophils % 2 % 6 % 7 % Lymphocytes % 55 % 41 % 20 % Monocytes % 5 % 47 % 59 % Eosinophils % 1 % 1 % Basophils % 1 % Neutrophils # (Manual) 0.6 TH/MM3 0.1 TH/MM3 0.5 TH/MM3 Metamyelocytes 7 % Differential Comment FINAL DIFF MANUAL FINAL DIFF MANUAL FINAL DIFF MANUAL Atypical Lymphocytes % Platelet Estimate LOW LOW LOW Platelet Morphology Comment ENLARGED NORMAL NORMAL Ovalocytes 1+ Blood Urea Nitrogen 13 MG/DL 11 MG/DL 10 MG/DL Creatinine 0.69 MG/DL 0.65 MG/DL 0.62 MG/DL Random Glucose 86 MG/DL 115 MG/DL 113 MG/DL Calcium Level 8.3 MG/DL 7.7 MG/DL 7.8 MG/DL Sodium Level 138 MEQ/L 135 MEQ/L 137 MEQ/L Potassium Level 3.9 MEQ/L 3.7 MEQ/L 3.8 MEQ/L Chloride Level 104 MEQ/L 102 MEQ/L 104 MEQ/L Carbon Dioxide Level 24.7 MEQ/L 23.7 MEQ/L 25.9 MEQ/L Anion Gap 9 MEQ/L 9 MEQ/L 7 MEQ/L Estimat Glomerular Filtration Rate 124 ML/MIN 133 ML/MIN 140 ML/MIN Dohle Bodies PRESENT Red Cell Morphology Comment NORMAL Objective Remarks GENERAL: AWAKE AND ALERT AND ORIENTED X3 TALKATIVE AND COOPERATIVE- THIN APPEARING GENTLEMAN SKIN: Warm and dry. HEAD: Atraumatic. Normocephalic. EYES: Pupils equal and round. No scleral icterus. No injection or drainage. EOMI ENT: No nasal bleeding or discharge. Mucous membranes pink and moist. NECK: Trachea midline. No JVD. SUPPLE CARDIOVASCULAR: Regular rate and rhythm. S1, S2 NO S3 OR S4 RESPIRATORY: No accessory muscle use. Clear to auscultation. Breath sounds equal bilaterally. GASTROINTESTINAL: Abdomen soft, non-tender, nondistended. Hepatic and splenic margins not palpable. PEG IN PLACE MUSCULOSKELETAL: Extremities without clubbing, cyanosis, or edema. No obvious deformities. NEUROLOGICAL: Awake and alert. No obvious cranial nerve deficits. Motor grossly within normal limits. 4 out of 5 muscle strength in the arms and legs. Normal speech. PSYCHIATRIC: Appropriate mood and affect; insight and judgment normal. Medications and IVs Current Medications Sodium Chloride 1,000 ml @ 1,000 mls/hr Q1H ONCE IV Last administered on at 09:10; Start 07/03/17 at 08:54; Stop 07/03/17 at 09:53; Status DC Sodium Chloride (NS Flush) 2 ml UNSCH PRN IVF FLUSH AFTER USING IV ACCESS Last administered on 07/03/17at 09:11; Start 07/03/17 at 09:00; Stop 07/03/17 at 11:51 ; Status DC Sodium Chloride 1,000 ml @ 1,000 mls/hr Q1H ONCE IV Last administered on at 09:10; Start 07/03/17 at 08:56; Stop 07/03/17 at 09:55; Status DC Sodium Chloride (NS Flush) 2 ml UNSCH PRN IVF FLUSH AFTER USING IV ACCESS Last administered on 07/03/17at 09:11; Start 07/03/17 at 09:00; Stop 07/03/17 at 11:51 ; Status DC Diphenhydramine HCl (Benadryl Inj) 25 mg ONCE ONCE IV PUSH Last administered on 07/03/17at 09:09; Start 07/03/17 at 09:00; Stop 07/03/17 at 09:01; Status DC Prochlorperazine Edisylate (Compazine Inj) 10 mg ONCE ONCE IV PUSH Last administered on 07/03/17at 09:11; Start 07/03/17 at 09:00; Stop 07/03/17 at 09:01 ; Status DC Hydromorphone HCl (Dilaudid Pf Inj) 2 mg ONCE ONCE IV PUSH Last administered on 07/03/17at 09:37; Start 07/03/17 at 09:30; Stop 07/03/17 at 09:31; Status DC Sodium Chloride 1,000 ml @ 999 mls/hr BOLUS ONCE IV Last administered on 07/03at 12:03; Start 07/03/17 at 11:30; Stop 07/03/17 at 12:30; Status DC Heparin Sodium (Porcine) (Heparin Central Flush) 500 units DAILY IV FLUSH Last administered on 07/04/17at 10:17; Start 07/03/17 at 11:45 Sodium Chloride 1,000 ml @ 125 mls/hr Q8H IV Last administered on 07/03/17at 13 :45; Start 07/03/17 at 12:00; Stop 07/03/17 at 18:09; Status DC Sodium Chloride (NS Flush) 2 ml UNSCH PRN IV FLUSH FLUSH AFTER USING IV ACCESS Last administered on 07/07/17at 03:24; Start 07/03/17 at 11:45 Sodium Chloride (NS Flush) 2 ml BID IV FLUSH Last administered on 07/07/17at 08: 42; Start 07/03/17 at 21:00 Ondansetron HCl (Zofran Inj) 4 mg Q6H PRN IVP NAUSEA OR VOMITING; Start at 11:45; Stop 07/03/17 at 15:05; Status DC Naloxone HCl (Narcan Inj) 0.4 mg UNSCH PRN IV PUSH SEE LABEL COMMENTS; Start at 11:45 Oxycodone HCl (Roxicodone) 5 mg Q4H PRN PO PAIN GREATER THAN 5 Last administered on 07/04/17at 06:30; Start 07/03/17 at 14:00; Stop 07/04/17 at 11:10; Status DC Loperamide HCl (Imodium) 2 mg Q6H PRN PO DIARRHEA; Start 07/03/17 at 14:00; Stop 07/04/17 at 06:11; Status DC Scopolamine (Transderm-Scop 1.5 Mg Patch.72 Hr) 1 patch Q3D T-DERMAL Last administered on 07/06/17at 14:36; Start 07/03/17 at 16:00 Metoclopramide HCl (Reglan Inj) 10 mg Q6H PRN IV PUSH NAUSEA Last administered on 07/03/17at 14:35; Start 07/03/17 at 14:00; Stop 07/03/17 at 15:05; Status DC Miscellaneous Information 1 Q3D T-DERMAL Last administered on 07/06/17at 15:35; Start 07/06/17 at 16:00 Ondansetron HCl (Zofran Inj) 8 mg Q8HR IVP Last administered on 07/07/17at 06:29 ; Start 07/03/17 at 15:15 Multi-Ingredient Mouthwash/Gargle (Magic Mouthwash Adult Liq) 10 ml QID SWISH- SWAL Last administered on 07/06/17at 21:00; Start 07/03/17 at 18:00 Sodium Chloride 1,000 ml @ 999 mls/hr Q1H1M ONCE IV Last administered on at 18:25; Start 07/03/17 at 18:15; Stop 07/03/17 at 19:15; Status DC Sodium Chloride 1,000 ml @ 125 mls/hr Q8H IV Last administered on 07/07/17at 06: 28; Start 07/03/17 at 18:30 Promethazine HCl (Phenergan Inj) 25 mg ONCE ONCE IM Last administered on at 03:57; Start 07/04/17 at 03:45; Stop 07/04/17 at 03:48; Status DC Hydromorphone HCl (Dilaudid Pf Inj) 0.5 mg ONCE ONCE IV PUSH Last administered on 07/04/17at 03:58; Start 07/04/17 at 03:45; Stop 07/04/17 at 03:48; Status DC Hyoscyamine Sulfate (Levsin Liq) 0.125 mg Q4H PRN PO secretions Last administered on 07/04/17at 10:18; Start 07/04/17 at 03:45 Loperamide HCl (Imodium Liq) 2 mg UNSCH PRN PO DIARRHEA Last administered on 07/06/17at 09:01; Start 07/04/17 at 06:15 Filgrastim (Neupogen Inj) 300 mcg DAILY@14 SQ Last administered on 07/06/17at 14: 35; Start 07/04/17 at 14:00; Stop 07/06/17 at 14:58; Status DC Hydromorphone HCl (Dilaudid Pf Inj) 0.5 mg Q4H PRN IV PUSH pain1-10 Last administered on 07/05/17at 10:15; Start 07/04/17 at 11:15; Stop 07/05/17 at 11:27; Status DC Prochlorperazine Edisylate (Compazine Inj) 5 mg Q4H PRN IV PUSH breakthrough nausea Last administered on 07/05/17at 10:15; Start 07/04/17 at 11:15; Stop at 10:43; Status DC Diphenhydramine HCl (Benadryl Inj) 25 mg Q4H PRN IV PUSH itching Last administered on 07/05/17at 10:16; Start 07/04/17 at 11:15 Prochlorperazine Edisylate (Compazine Inj) 10 mg Q4H PRN IV PUSH breakthrough nausea Last administered on 07/07/17at 03:13; Start 07/05/17 at 12:00 Cefepime HCl 2000 mg/Sodium Chloride 100 ml @ 200 mls/hr Q8H IV Last administered on 07/07/17at 05:30; Start 07/05/17 at 13:00 Hydromorphone HCl (Dilaudid Pf Inj) 1 mg Q4H PRN IV PUSH pain1-10 Last administered on 07/07/17 08:30; Start 07/05/17 at 15:15 Acetaminophen (Tylenol 650 Mg/ 20 ml Liq) 650 mg Q4H PRN PEG FEVER GREATER THAN 100.4 Last administered on 07/06/17 09:12; Start 07/05/17 at 18:45 Dexamethasone (Decadron) 4 mg Q12HR PO Last administered on 07/07/17 08:33; Start 07/06/17 at 09:00 Fluconazole/ Sodium Chloride 50 ml @ 50 mls/hr Q24H IV Last administered on 07/06at 23:34; Start 07/06/17 at 00:00 Nystatin (Mycostatin Liq) 5 ml QID SWISH-SWAL Last administered on 07/07/17 08 :33; Start 07/06/17 at 13:00 Filgrastim 300 mcg/Dextrose 26 ml @ 50 mls/hr DAILY@14 IV ; Start 07/07/17 at 14: 00 A/P Problem List: (1) Chemotherapy-induced nausea and vomiting ICD Code: R11.2 - Nausea with vomiting, unspecified; T45.1X5A - Adverse effect of antineoplastic and immunosuppressive drugs, initial encounter Plan: Continue antiemetics with Zofran, scopolamine patch. Symptoms likely related to chemotherapy. IV fluids for hydration. Continue tube feeding (2) Primary tongue squamous cell carcinoma ICD Code: C02.9 - Malignant neoplasm of tongue, unspecified Plan: Patient currently receiving chemotherapy. Follow-up outpatient. Continue bypass feeding via PEG with vitals Dietitian following. Can do smaller bolus feeding more frequently per the dietitian recommendations. Discussed with patient. Mucositis. Patient started on fluconazole (3) Diarrhea ICD Code: R19.7 - Diarrhea, unspecified Status: Acute Plan: Likely related to chemotherapy. C. diff neg. Imodium as needed. Add probiotic (4) Dehydration ICD Code: E86.0 - Dehydration Status: Acute Plan: Mild. Continue IV fluid (5) Neutropenic fever ICD Code: D70.9 - Neutropenia, unspecified; R50.81 - Fever presenting with conditions classified elsewhere Plan: Patient has been started empirically on broad-spectrum antibiotics. Blood cultures pending. Assessment and Plan (1) Chemotherapy-induced nausea and vomiting ICD Code: R11.2 - Nausea with vomiting, unspecified; T45.1X5A - Adverse effect of antineoplastic and immunosuppressive drugs, initial encounter Plan: Continue antiemetics with Zofran, scopolamine patch. Symptoms likely related to chemotherapy. IV fluids for hydration. Continue tube feeding (2) Primary tongue squamous cell carcinoma ICD Code: C02.9 - Malignant neoplasm of tongue, unspecified Plan: Patient currently receiving chemotherapy. Follow-up outpatient. Continue bypass feeding via PEG with vitals Dietitian following. Can do smaller bolus feeding more frequently per the dietitian recommendations. Discussed with patient. Mucositis. Patient started on fluconazole (3) Diarrhea ICD Code: R19.7 - Diarrhea, unspecified Status: Acute Plan: Likely related to chemotherapy. C. diff neg. Imodium as needed. Add probiotic (4) Dehydration ICD Code: E86.0 - Dehydration Status: Acute Plan: Mild. Continue IV fluid (5) Neutropenic fever ICD Code: D70.9 - Neutropenia, unspecified; R50.81 - Fever presenting with conditions classified elsewhere Plan: Patient has been started empirically on broad-spectrum antibiotics. Blood cultures pending. Discharge Planning PENDING TO CONTINUE AFEBRILE Problem Qualifiers (1) Diarrhea: Qualified Codes: R19.7 - Diarrhea, unspecified Alvarado Macedo DO Jul 07, 2017 10:04
--- NOTE | 2017-07-07 13:04 | PD.ONC.PN ---
Subjective Subjective Remarks Afebrile overnight. Patient resting in bed. he is tolerating his tube feeds at 30/hour and thinks he could tolerate more. he is getting back the feeling in his mouth which is painful. the pain is controlled with the dilaudid at present. still has increased oral secretions. Objective Data Date Time Temp Pulse Resp B/P (MAP) Pulse Ox O2 Delivery O2 Flow Rate FiO2 07/07/17 08:29 97.8 65 16 104/66 (79) 98 07/07/17 06:01 65 07/07/17 05:00 64 07/07/17 04:04 66 07/07/17 03:28 98.3 74 16 106/63 (77) 97 07/07/17 03:06 80 07/07/17 02:02 76 07/07/17 01:01 72 07/07/17 00:04 75 07/06/17 23:36 98.9 78 16 107/60 (76) 97 07/06/17 23:15 77 07/06/17 22:00 76 07/06/17 21:01 70 07/06/17 20:12 99.1 87 16 111/65 (80) 99 07/06/17 20:07 71 07/06/17 19:12 89 07/06/17 16:04 84 07/06/17 16:00 97.9 75 16 101/62 (75) 99 07/07/17 07/07/17 07/07/17 07:00 15:00 23:00 Intake Total 2235 ml Balance 2235 ml Result Diagram: 07/07/17 0350 07/07/17 0350 Laboratory Results Laboratory Tests Test 07/07/17 03:50 White Blood Count 2.3 TH/MM3 Red Blood Count 3.76 MIL/MM3 Hemoglobin 11.2 GM/DL Hematocrit 32.7 % Mean Corpuscular Volume 87.1 FL Mean Corpuscular Hemoglobin 29.8 PG Mean Corpuscular Hemoglobin Concent 34.2 % Red Cell Distribution Width 13.7 % Platelet Count 130 TH/MM3 Mean Platelet Volume 8.9 FL CBC Comment AUTO DIFF Differential Total Cells Counted 100 Neutrophils % (Manual) 14 % Band Neutrophils % 7 % Lymphocytes % 20 % Monocytes % 59 % Neutrophils # (Manual) 0.5 TH/MM3 Differential Comment FINAL DIFF MANUAL Platelet Estimate LOW Platelet Morphology Comment NORMAL Blood Urea Nitrogen 10 MG/DL Creatinine 0.62 MG/DL Random Glucose 113 MG/DL Calcium Level 7.8 MG/DL Sodium Level 137 MEQ/L Potassium Level 3.8 MEQ/L Chloride Level 104 MEQ/L Carbon Dioxide Level 25.9 MEQ/L Anion Gap 7 MEQ/L Estimat Glomerular Filtration Rate 140 ML/MIN Culture Results Microbiology Date/Time Source Procedure Growth Status 07/06/17 11:55 Blood Peripheral Aerobic Blood Culture - Preliminary NO GROWTH IN 1 DAY Resulted 07/06/17 11:55 Blood Peripheral Anaerobic Blood Culture - Preliminary NO GROWTH IN 1 DAY Resulted 07/05/17 14:10 Blood Line Aerobic Blood Culture - Preliminary NO GROWTH IN 2 DAYS Resulted 07/05/17 14:10 Blood Line Anaerobic Blood Culture - Preliminary NO GROWTH IN 2 DAYS Resulted Administered Medications Medications (Trade) Dose Ordered Sig/Tiffanie Route PRN Reason Start Time Stop Time Status Last Admin Dose Admin Heparin Sodium (Porcine) (Heparin Central Flush) 500 units DAILY IV FLUSH 07/03/17 11:45 07/04/17 10:17 Sodium Chloride (NS Flush) 2 ml UNSCH PRN IV FLUSH FLUSH AFTER USING IV ACCESS 07/03/17 11:45 07/07/17 03:24 Sodium Chloride (NS Flush) 2 ml BID IV FLUSH 07/03/17 21:00 07/07/17 08:42 Scopolamine (Transderm-Scop 1.5 Mg Patch.72 Hr) 1 patch Q3D T-DERMAL 07/03/17 16:00 07/06/17 14:36 Miscellaneous Information 1 Q3D T-DERMAL 07/06/17 16:00 07/06/17 15:35 Ondansetron HCl (Zofran Inj) 8 mg Q8HR IVP 07/03/17 15:15 07/07/17 06:29 Multi-Ingredient Mouthwash/Gargle (Magic Mouthwash Adult Liq) 10 ml QID SWISH-SWAL 07/03/17 18:00 07/06/17 21:00 Sodium Chloride 1,000 ml @ 125 mls/hr Q8H IV 07/03/17 18:30 07/07/17 06:28 Hyoscyamine Sulfate (Levsin Liq) 0.125 mg Q4H PRN PO secretions 07/04/17 03:45 07/04/17 10:18 Loperamide HCl (Imodium Liq) 2 mg UNSCH PRN PO DIARRHEA 07/04/17 06:15 07/06/17 09:01 Diphenhydramine HCl (Benadryl Inj) 25 mg Q4H PRN IV PUSH itching 07/04/17 11:15 07/05/17 10:16 Prochlorperazine Edisylate (Compazine Inj) 10 mg Q4H PRN IV PUSH breakthrough nausea 07/05/17 12:00 07/07/17 03:13 Cefepime HCl 2000 mg/Sodium Chloride 100 ml @ 200 mls/hr Q8H IV 07/05/17 13:00 07/07/17 05:30 Hydromorphone HCl (Dilaudid Pf Inj) 1 mg Q4H PRN IV PUSH pain1-10 07/05/17 15:15 07/07/17 08:30 Acetaminophen (Tylenol 650 Mg/ 20 ml Liq) 650 mg Q4H PRN PEG FEVER GREATER THAN 100.4 07/05/17 18:45 07/06/17 09:12 Dexamethasone (Decadron) 4 mg Q12HR PO 07/06/17 09:00 07/07/17 08:33 Fluconazole/ Sodium Chloride 50 ml @ 50 mls/hr Q24H IV 07/06/17 00:00 07/06/17 23:34 Nystatin (Mycostatin Liq) 5 ml QID SWISH-SWAL 07/06/17 13:00 07/07/17 08:33 Objective Remarks GENERAL: Middle aged male, sitting up in bed resting SKIN: Warm and dry. HEAD: Normocephalic. EYES: No injection or drainage. NECK: Supple, trachea midline. CARDIOVASCULAR: Regular rate and rhythm RESPIRATORY: Breath sounds equal bilaterally. No accessory muscle use. GASTROINTESTINAL: Abdomen soft, non-tender, G-tube in place, receiving TF @ 30cc /hr. +BS EXTREMITIES: No cyanosis, or edema. MUSCULOSKELETAL: Adequate muscle tone. NEUROLOGICAL: awake, alert. no obvious focal deficit. Assessment/Plan Problem List: (1) Chemotherapy-induced nausea and vomiting ICD Codes: R11.2 - Nausea with vomiting, unspecified; T45.1X5A - Adverse effect of antineoplastic and immunosuppressive drugs, initial encounter Status: Resolved Plan: --on scheduled Zofran + scopolamine. --Patient has as needed Compazine --nausea improving. (2) Primary tongue squamous cell carcinoma ICD Codes: C02.9 - Malignant neoplasm of tongue, unspecified Plan: --Base of tongue poorly differentiated squamous cell carcinoma with palpable bilateral cervical adenopathy. P16 negative. --developed significant nausea, vomiting and dysphagia after first cycle of TPF chemotherapy and a PEG tube was placed. --received cycle 2 of chemotherapy 06/28/2017 and the 5-FU pump, which was discontinued 07/03, started having nausea the day after chemotherapy. (3) Diarrhea ICD Codes: R19.7 - Diarrhea, unspecified Status: Acute Plan: --improving. --most likely due to the 5-FU infusion. The 5-FU pump was just discontinued on 07/03. --Imodium as needed. can start on Lomotil if needed. (4) Mucositis (ulcerative) due to antineoplastic therapy ICD Codes: K12.31 - Oral mucositis (ulcerative) due to antineoplastic therapy Plan: --on Magic mouthwash. (5) Malnourished ICD Codes: E46 - Unspecified protein-calorie malnutrition Plan: --increase tube feeding to 60cc/hr today --svp research and strategic analysis following. 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 Plan 1. increase tube feeds to 60cc/hr 2. monitor labs 3. continue supportive care. 4. continue Neupogen. 5. continue antibiotics. 6. change Zofran to as needed. Attending Statement The exam, history, and the medical decision-making described in the above note were completed with the assistance of the mid-level provider. I reviewed and agree with the findings presented. I attest that I had a [id number] encounter with the patient on the same day, and personally performed and documented my assessment and findings in the medical record. clinically improved today counts improving ANC 500 continue cefepime blood cultures negative oral pain due to mucositis continue diflucan and magic mouth wash Tube feeds as tolerated supportive care Problem Qualifiers (1) Diarrhea: Qualified Codes: R19.7 - Diarrhea, unspecified Jacquelin Quan Jul 07, 2017 13:04 Dwayne Naranjo MD Jul 07, 2017 23:55
--- NOTE | 2017-07-07 14:16 | RADRPT ---
EXAM DATE/TIME: 07/07/2017 13:42 [facility] COMPARISON: CHEST SINGLE AP, June 15, 2017, 9:07. INDICATIONS : Cough. MEDICAL HISTORY : Cancer, tongue. SURGICAL HISTORY : None. ENCOUNTER: Initial ACUITY: 1 day PAIN SCORE: 0/10 LOCATION: Bilateral chest FINDINGS: A single view of the chest demonstrates the lungs to be symmetrically aerated without evidence of mas s, infiltrate or effusion. The cardiomediastinal contours are unremarkable. Osseous structures are intact. [id number] catheter tip in the mid superior vena cava. CONCLUSION: The lungs are clear. Gerardo Doran MD on July 07, 2017 at 14:13 Board Certified Radiologist. This report was verified electronically.
[2017-07-07] MEDS: ONDANSETRON HCL 4 MG/2 ML VIAL IV PUSH PRN ×2 (14:25→22:03)
[2017-07-07] MEDS: FILGRASTIM INJ 300 MCG in DEXTROSE 5% IN WATER INJ 25 ML IV SCH ×2 (14:28)
[2017-07-07] MEDS: FLUCONAZOLE 100 MG PREMIX BAG 50 ML IV SCH (23:39)
[2017-07-08] VITALS (27 sets, daily range): BP systolic 95–112; BP diastolic 55–74; PULSE 50–92; RESP 16–20; TEMP 97.5–98.1; O2SAT 97–100
[2017-07-08] MEDS: HYDROmorphone HCL PF 2 MG/ML VIAL IV PUSH PRN ×6 (01:46→23:04)
[2017-07-08] MEDS: PROCHLORPERAZINE INJ 10 MG/2 ML VIAL IV PUSH PRN (01:47)
[2017-07-08] MEDS: CEFEPIME INJ 2,000 MG in SODIUM CHLORIDE 0.9% INJ 100 ML IV SCH (04:28)
[2017-07-08 05:31] LABS: AUTOMATED NEUTROPHIL # 4.7 TH/MM3 (1.8-7.7); BASOPHIL % 0.1 % (0.0-2.0); HEMATOCRIT 31.1 % (39.0-51.0); HEMOGLOBIN 10.7 GM/DL (13.0-17.0); LYMPH % 15.8 % (9.0-44.0); LYMPHOCYTE # 1.4 TH/MM3 (1.0-4.8); MEAN CELL VOLUME 86.7 FL (80.0-100.0); MEAN CORPUSCULAR HEMOGLOBIN 29.9 PG (27.0-34.0); MEAN CORPUSCULAR HGB CONC 34.5 % (32.0-36.0); MEAN PLATELET VOLUME 8.8 FL (7.0-11.0); MONO % 30.4 % (0.0-8.0); MONOCYTE # 2.7 TH/MM3 (0-0.9); NEUT % 53.7 % (16.0-70.0); PLATELET COUNT 173 TH/MM3 (150-450); RED BLOOD COUNT 3.59 MIL/MM3 (4.50-5.90); WHITE BLOOD COUNT 8.8 TH/MM3 (4.0-11.0)
[2017-07-08 06:05] LABS: ALBUMIN 1.9 GM/DL (3.4-5.0); AST (GOT) 13 U/L (15-37); BICARBONATE 26.1 MEQ/L (21.0-32.0); BLOOD UREA NITROGEN 9 MG/DL (7-18); CHLORIDE 105 MEQ/L (98-107); CREATININE 0.59 MG/DL (0.60-1.30); GLOMERULAR FILTRATION RATE 149 ML/MIN (>89); GLUCOSE,RANDOM 109 MG/DL (74-106); MAGNESIUM 1.5 MG/DL (1.5-2.5); SODIUM (NA) 139 MEQ/L (136-145)
[2017-07-08 06:14] LABS: ALKALINE PHOSPHATASE 62 U/L (45-117); ALT (GPT) 22 U/L (12-78); FREE T4 1.11 NG/DL (0.76-1.46); PHOSPHORUS 2.3 MG/DL (2.5-4.9); TOTAL BILIRUBIN ADULT 0.2 MG/DL (0.2-1.0); TOTAL PROTEIN 4.9 GM/DL (6.4-8.2)
[2017-07-08 08:30] LABS: BANDS 34 % (0-6); LYMPHOCYTES 19 % (9-44); MONOCYTES 27 % (0-8); NEUTROPHIL # MANUAL DIFF 4.8 TH/MM3 (1.8-7.7); POLYS (SEG NEUTROPHILS) 20 % (16-70)
[2017-07-08] MEDS: NYSTATIN SUSP 500,000 U/5 ML CUP SWISH-SWAL SCH ×4 (08:43→20:53)
[2017-07-08] MEDS: NYSTAT/DIPHENHY/LIDO MOUTHWASH (Adult) 120ML SWISH-SWAL SCH ×4 (08:43→20:53)
[2017-07-08] MEDS: DEXAMETHASONE 4 MG TAB PO SCH ×2 (08:43→20:53)
[2017-07-08] MEDS: SODIUM CHLORIDE 0.9% FLUSH 10 ML FLUSH IV FLUSH SCH ×2 (08:43→23:06)
[2017-07-08] MEDS: SODIUM CHLOR 0.9% 1000 ML INJ 1,000 ML IV SCH (08:50)
[2017-07-08] MEDS ORDERED: PANTOPRAZOLE SOD 20 MG DELAYED RELEASE TAB PO SCH (09:30)
--- NOTE | 2017-07-08 09:59 | PD.ONC.PN ---
Subjective Subjective Remarks Afebrile overnight. patient resting in bed in nad. tolerating tube feeds at 50cc/hr. went for a walk yesterday. overall feeling better. Objective Data Date Time Temp Pulse Resp B/P (MAP) Pulse Ox O2 Delivery O2 Flow Rate FiO2 07/08/17 08:37 98.1 67 16 110/60 (77) 99 07/08/17 04:24 97.5 88 20 95/55 (68) 99 07/08/17 04:00 57 07/08/17 03:00 92 07/08/17 02:00 80 07/08/17 01:00 70 07/08/17 00:00 98.1 70 20 109/64 (79) 100 07/08/17 00:00 66 07/07/17 23:00 60 07/07/17 22:00 62 07/07/17 21:00 62 07/07/17 20:14 98.0 68 20 103/62 (76) 100 07/07/17 20:00 63 07/07/17 19:00 62 07/07/17 18:00 58 07/07/17 17:00 58 07/07/17 16:30 97.9 74 16 105/62 (76) 100 07/07/17 16:00 56 07/07/17 15:00 60 07/07/17 14:00 54 07/07/17 12:00 98.3 78 16 112/64 (80) 100 07/07/17 12:00 66 07/07/17 11:00 62 07/07/17 10:00 60 07/08/17 07/08/17 07/08/17 06:59 14:59 22:59 Intake Total 1350 ml Balance 1350 ml Result Diagram: 07/08/17 0435 07/08/17 0435 Laboratory Results Laboratory Tests Test 07/08/17 04:35 White Blood Count 8.8 TH/MM3 Red Blood Count 3.59 MIL/MM3 Hemoglobin 10.7 GM/DL Hematocrit 31.1 % Mean Corpuscular Volume 86.7 FL Mean Corpuscular Hemoglobin 29.9 PG Mean Corpuscular Hemoglobin Concent 34.5 % Red Cell Distribution Width 14.0 % Platelet Count 173 TH/MM3 Mean Platelet Volume 8.8 FL Neutrophils (%) (Auto) 53.7 % Lymphocytes (%) (Auto) 15.8 % Monocytes (%) (Auto) 30.4 % Eosinophils (%) (Auto) 0.0 % Basophils (%) (Auto) 0.1 % Neutrophils # (Auto) 4.7 TH/MM3 Lymphocytes # (Auto) 1.4 TH/MM3 Monocytes # (Auto) 2.7 TH/MM3 Eosinophils # (Auto) 0.0 TH/MM3 Basophils # (Auto) 0.0 TH/MM3 CBC Comment AUTO DIFF Differential Total Cells Counted 100 Neutrophils % (Manual) 20 % Band Neutrophils % 34 % Lymphocytes % 19 % Monocytes % 27 % Neutrophils # (Manual) 4.8 TH/MM3 Differential Comment FINAL DIFF MANUAL Platelet Estimate NORMAL Platelet Morphology Comment NORMAL Red Cell Morphology Comment NORMAL Blood Urea Nitrogen 9 MG/DL Creatinine 0.59 MG/DL Random Glucose 109 MG/DL Total Protein 4.9 GM/DL Albumin 1.9 GM/DL Calcium Level 8.0 MG/DL Phosphorus Level 2.3 MG/DL Magnesium Level 1.5 MG/DL Alkaline Phosphatase 62 U/L Aspartate Amino Transf (AST/SGOT) 13 U/L Alanine Aminotransferase (ALT/SGPT) 22 U/L Total Bilirubin 0.2 MG/DL Sodium Level 139 MEQ/L Potassium Level 3.8 MEQ/L Chloride Level 105 MEQ/L Carbon Dioxide Level 26.1 MEQ/L Anion Gap 8 MEQ/L Estimat Glomerular Filtration Rate 149 ML/MIN Free Thyroxine 1.11 NG/DL Thyroid Stimulating Hormone 3rd Gen 0.291 uIU/ML Culture Results Microbiology Date/Time Source Procedure Growth Status 07/06/17 11:55 Blood Peripheral Aerobic Blood Culture - Preliminary NO GROWTH IN 1 DAY Resulted 07/06/17 11:55 Blood Peripheral Anaerobic Blood Culture - Preliminary NO GROWTH IN 1 DAY Resulted 07/05/17 14:10 Blood Line Aerobic Blood Culture - Preliminary NO GROWTH IN 2 DAYS Resulted 07/05/17 14:10 Blood Line Anaerobic Blood Culture - Preliminary NO GROWTH IN 2 DAYS Resulted Administered Medications Medications (Trade) Dose Ordered Sig/Tiffanie Route PRN Reason Start Time Stop Time Status Last Admin Dose Admin Heparin Sodium (Porcine) (Heparin Central Flush) 500 units DAILY IV FLUSH 07/03/17 11:45 07/04/17 10:17 Sodium Chloride (NS Flush) 2 ml UNSCH PRN IV FLUSH FLUSH AFTER USING IV ACCESS 07/03/17 11:45 07/07/17 03:24 Sodium Chloride (NS Flush) 2 ml BID IV FLUSH 07/03/17 21:00 07/07/17 08:42 Scopolamine (Transderm-Scop 1.5 Mg Patch.72 Hr) 1 patch Q3D T-DERMAL 07/03/17 16:00 07/06/17 14:36 Miscellaneous Information 1 Q3D T-DERMAL 07/06/17 16:00 07/06/17 15:35 Multi-Ingredient Mouthwash/Gargle (Magic Mouthwash Adult Liq) 10 ml QID SWISH-SWAL 07/03/17 18:00 07/08/17 08:43 Hyoscyamine Sulfate (Levsin Liq) 0.125 mg Q4H PRN PO secretions 07/04/17 03:45 07/04/17 10:18 Loperamide HCl (Imodium Liq) 2 mg UNSCH PRN PO DIARRHEA 07/04/17 06:15 07/06/17 09:01 Diphenhydramine HCl (Benadryl Inj) 25 mg Q4H PRN IV PUSH itching 07/04/17 11:15 07/05/17 10:16 Prochlorperazine Edisylate (Compazine Inj) 10 mg Q4H PRN IV PUSH breakthrough nausea 07/05/17 12:00 07/08/17 01:47 Cefepime HCl 2000 mg/Sodium Chloride 100 ml @ 200 mls/hr Q8H IV 07/05/17 13:00 07/08/17 04:28 Hydromorphone HCl (Dilaudid Pf Inj) 1 mg Q4H PRN IV PUSH pain1-10 07/05/17 15:15 07/08/17 06:01 Acetaminophen (Tylenol 650 Mg/ 20 ml Liq) 650 mg Q4H PRN PEG FEVER GREATER THAN 100.4 07/05/17 18:45 07/06/17 09:12 Dexamethasone (Decadron) 4 mg Q12HR PO 07/06/17 09:00 07/08/17 08:43 Fluconazole/ Sodium Chloride 50 ml @ 50 mls/hr Q24H IV 07/06/17 00:00 07/07/17 23:39 Nystatin (Mycostatin Liq) 5 ml QID SWISH-SWAL 07/06/17 13:00 07/08/17 08:43 Filgrastim 300 mcg/Dextrose 26 ml @ 50 mls/hr DAILY@14 IV 07/07/17 14:00 07/07/17 14:28 Ondansetron HCl (Zofran Inj) 4 mg Q6HR PRN IV PUSH nausea 07/07/17 13:15 07/07/17 22:03 Objective Remarks GENERAL: Thin middle aged male, sitting up in bed in nad. SKIN: Warm and dry. HEAD: Normocephalic. EYES: No injection or drainage. NECK: Supple, trachea midline. CARDIOVASCULAR: Regular rate and rhythm RESPIRATORY: Breath sounds equal bilaterally. No accessory muscle use. GASTROINTESTINAL: Abdomen soft, non-tender, nondistended. G-tube with TF @ 50cc/ hr EXTREMITIES: No cyanosis NEUROLOGICAL: awake and alert. no focal deficit. Assessment/Plan Problem List: (1) Primary tongue squamous cell carcinoma ICD Codes: C02.9 - Malignant neoplasm of tongue, unspecified Plan: --Base of tongue poorly differentiated squamous cell carcinoma with palpable bilateral cervical adenopathy. P16 negative. --developed significant nausea, vomiting and dysphagia after first cycle of TPF chemotherapy and a PEG tube was placed. --received cycle 2 of chemotherapy 06/28/2017 and the 5-FU pump, which was discontinued 07/03, started having nausea the day after chemotherapy. (2) Malnourished ICD Codes: E46 - Unspecified protein-calorie malnutrition Plan: --change back to bolus tube feeds today --disc pad knockout worker following. (3) Neutropenic fever ICD Codes: D70.9 - Neutropenia, unspecified; R50.81 - Fever presenting with conditions classified elsewhere Status: Resolved Plan: --BC no growth --on Cefepime + diflucan (4) Chemotherapy-induced nausea and vomiting ICD Codes: R11.2 - Nausea with vomiting, unspecified; T45.1X5A - Adverse effect of antineoplastic and immunosuppressive drugs, initial encounter Status: Resolved Plan: ---has scopolamine patch + PRN Compazine --nausea improved (5) Diarrhea ICD Codes: R19.7 - Diarrhea, unspecified Status: Resolved Plan: --resolved --most likely due to the 5-FU infusion. The 5-FU pump was just discontinued on 07/03. --Imodium as needed. can start on Lomotil if needed. (6) Mucositis (ulcerative) due to antineoplastic therapy ICD Codes: K12.31 - Oral mucositis (ulcerative) due to antineoplastic therapy Status: Resolved Plan: --on Magic mouthwash. 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 Plan 1. change tube feeds back to bolus 2. stop IVF 3. continue antibiotics 4. if patient remains afebrile and counts remain stable, consider discharging home tomorrow. Attending Statement The exam, history, and the medical decision-making described in the above note were completed with the assistance of the mid-level provider. I reviewed and agree with the findings presented. I attest that I had a [id number] encounter with the patient on the same day, and personally performed and documented my assessment and findings in the medical record. clinically looks better today counts improving no longer neutropenic d/c cefepine start oral levaquin continue Diflucan for esophagitis stop Neupogen tomorrow encourage to ambulate switch to oral pain meds tomorrow continue tube feeds d/c in the next 48 hours Problem Qualifiers (1) Diarrhea: Qualified Codes: R19.7 - Diarrhea, unspecified Jacquelin Quan Jul 08, 2017 09:59 Dwayne Naranjo MD Jul 08, 2017 19:22
--- NOTE | 2017-07-08 10:45 | HHI.PR ---
Subjective Remarks 46-year-old male with a history significant for tongue cancer undergoing chemotherapy who presented to the hospital with complaint of nausea, vomiting, diarrhea, and generalized weakness. Patient reports he had 3 episodes of diarrhea started around 2 AM this morning with associated nausea and vomiting. He became very weak and felt dehydrated which prompted the emergency room visit. He states this is chemotherapy related. He has had similar issue in the past. He denies any sick contacts. 4-1 Follow up on patient with tongue cancer undergoing chemo admitted with N/V, diarrhea. Patient seen and examined. Complaining of persistent nausea, no vomiting this morning. Still with diarrhea but has improved some. C Diff negative. Endorses weakness. Denies any fever or chills. Denies any chest pain or dyspnea. Denies any dysuria. 4-2 Patient reports he is still having severe nausea. Pain is not controlled. He is requiring IV Dilaudid. Temperature 100.0 this morning and is neutropenic. 4-3 Persistent fevers. Feeling poorly. Nausea but no vomiting. 4-4 STILL HAVING FEVERS NO VOMITING STILL HAVING NAUSEA TOLERATING TUBE FEEDS AT 30ML /HOUR DW RN AND PT AND CM AND ONCOLOGY 4-5 BEING SWITCHED TO BOLUS TUBE FEEDS HAVING CONSTIPATION NO BM YESTERDAY OR TODAY BUT TAKING PAIN MEDS DW RN AND PT AND CM AND ONCOLOGY AM LABS Objective Vitals Vital Signs Date Time Temp Pulse Resp B/P (MAP) Pulse Ox O2 Delivery O2 Flow Rate FiO2 07/08/17 08:37 98.1 67 16 110/60 (77) 99 07/08/17 04:24 97.5 88 20 95/55 (68) 99 07/08/17 04:00 57 07/08/17 03:00 92 07/08/17 02:00 80 07/08/17 01:00 70 07/08/17 00:00 98.1 70 20 109/64 (79) 100 07/08/17 00:00 66 07/07/17 23:00 60 07/07/17 22:00 62 07/07/17 21:00 62 07/07/17 20:14 98.0 68 20 103/62 (76) 100 07/07/17 20:00 63 07/07/17 19:00 62 07/07/17 18:00 58 07/07/17 17:00 58 07/07/17 16:30 97.9 74 16 105/62 (76) 100 07/07/17 16:00 56 07/07/17 15:00 60 07/07/17 14:00 54 07/07/17 12:00 98.3 78 16 112/64 (80) 100 07/07/17 12:00 66 07/07/17 11:00 62 I/O 07/07/17 07/07/17 07/07/17 07/08/17 07/08/17 07/08/17 07:00 15:00 23:00 07:00 15:00 23:00 Intake Total 2235 ml 100 ml 1350 ml Balance 2235 ml 100 ml 1350 ml Intake Oral 60 ml 200 ml IV Total 1350 ml 100 ml 1150 ml Tube Feeding 575 ml Tube Irrigant 250 ml # Voids 3 3 # Bowel Movements 0 Result Diagram: 07/08/17 0435 07/08/17 0435 Other Results Laboratory Tests Test 07/06/17 04:00 07/07/17 03:50 07/08/17 04:35 White Blood Count 0.9 TH/MM3 2.3 TH/MM3 8.8 TH/MM3 Red Blood Count 4.12 MIL/MM3 3.76 MIL/MM3 3.59 MIL/MM3 Hemoglobin 12.2 GM/DL 11.2 GM/DL 10.7 GM/DL Hematocrit 35.5 % 32.7 % 31.1 % Mean Corpuscular Volume 86.3 FL 87.1 FL 86.7 FL Mean Corpuscular Hemoglobin 29.6 PG 29.8 PG 29.9 PG Mean Corpuscular Hemoglobin Concent 34.3 % 34.2 % 34.5 % Red Cell Distribution Width 13.9 % 13.7 % 14.0 % Platelet Count 118 TH/MM3 130 TH/MM3 173 TH/MM3 Mean Platelet Volume 9.2 FL 8.9 FL 8.8 FL CBC Comment AUTO DIFF AUTO DIFF AUTO DIFF Differential Total Cells Counted 100 100 100 Neutrophils % (Manual) 5 % 14 % 20 % Band Neutrophils % 6 % 7 % 34 % Lymphocytes % 41 % 20 % 19 % Monocytes % 47 % 59 % 27 % Eosinophils % 1 % Neutrophils # (Manual) 0.1 TH/MM3 0.5 TH/MM3 4.8 TH/MM3 Differential Comment FINAL DIFF MANUAL FINAL DIFF MANUAL FINAL DIFF MANUAL Dohle Bodies PRESENT Platelet Estimate LOW LOW NORMAL Platelet Morphology Comment NORMAL NORMAL NORMAL Red Cell Morphology Comment NORMAL NORMAL Blood Urea Nitrogen 11 MG/DL 10 MG/DL 9 MG/DL Creatinine 0.65 MG/DL 0.62 MG/DL 0.59 MG/DL Random Glucose 115 MG/DL 113 MG/DL 109 MG/DL Calcium Level 7.7 MG/DL 7.8 MG/DL 8.0 MG/DL Sodium Level 135 MEQ/L 137 MEQ/L 139 MEQ/L Potassium Level 3.7 MEQ/L 3.8 MEQ/L 3.8 MEQ/L Chloride Level 102 MEQ/L 104 MEQ/L 105 MEQ/L Carbon Dioxide Level 23.7 MEQ/L 25.9 MEQ/L 26.1 MEQ/L Anion Gap 9 MEQ/L 7 MEQ/L 8 MEQ/L Estimat Glomerular Filtration Rate 133 ML/MIN 140 ML/MIN 149 ML/MIN Neutrophils (%) (Auto) 53.7 % Lymphocytes (%) (Auto) 15.8 % Monocytes (%) (Auto) 30.4 % Eosinophils (%) (Auto) 0.0 % Basophils (%) (Auto) 0.1 % Neutrophils # (Auto) 4.7 TH/MM3 Lymphocytes # (Auto) 1.4 TH/MM3 Monocytes # (Auto) 2.7 TH/MM3 Eosinophils # (Auto) 0.0 TH/MM3 Basophils # (Auto) 0.0 TH/MM3 Total Protein 4.9 GM/DL Albumin 1.9 GM/DL Phosphorus Level 2.3 MG/DL Magnesium Level 1.5 MG/DL Alkaline Phosphatase 62 U/L Aspartate Amino Transf (AST/SGOT) 13 U/L Alanine Aminotransferase (ALT/SGPT) 22 U/L Total Bilirubin 0.2 MG/DL Free Thyroxine 1.11 NG/DL Thyroid Stimulating Hormone 3rd Gen 0.291 uIU/ML Imaging Last Impressions Chest X-Ray 07/07/17 0000 Signed Impressions: Service Date/Time: Friday, July 07, 2017 13:42 - CONCLUSION: The lungs are clear. Gerardo Doran MD Objective Remarks GENERAL: AWAKE AND ALERT AND ORIENTED X3 TALKATIVE AND COOPERATIVE- THIN APPEARING GENTLEMAN SKIN: Warm and dry. HEAD: Atraumatic. Normocephalic. EYES: Pupils equal and round. No scleral icterus. No injection or drainage. EOMI ENT: No nasal bleeding or discharge. Mucous membranes pink and moist. NECK: Trachea midline. No JVD. SUPPLE CARDIOVASCULAR: Regular rate and rhythm. S1, S2 NO S3 OR S4 RESPIRATORY: No accessory muscle use. Clear to auscultation. Breath sounds equal bilaterally. GASTROINTESTINAL: Abdomen soft, non-tender, nondistended. Hepatic and splenic margins not palpable. PEG IN PLACE MUSCULOSKELETAL: Extremities without clubbing, cyanosis, or edema. No obvious deformities. NEUROLOGICAL: Awake and alert. No obvious cranial nerve deficits. Motor grossly within normal limits. 4 out of 5 muscle strength in the arms and legs. Normal speech. PSYCHIATRIC: Appropriate mood and affect; insight and judgment normal. Medications and IVs Current Medications Sodium Chloride 1,000 ml @ 1,000 mls/hr Q1H ONCE IV Last administered on 09:10; Start 07/03/17 at 08:54; Stop 07/03/17 at 09:53; Status DC Sodium Chloride (NS Flush) 2 ml UNSCH PRN IVF FLUSH AFTER USING IV ACCESS Last administered on 07/03/17 09:11; Start 07/03/17 at 09:00; Stop 07/03/17 at 11:51 ; Status DC Sodium Chloride 1,000 ml @ 1,000 mls/hr Q1H ONCE IV Last administered on 09:10; Start 07/03/17 at 08:56; Stop 07/03/17 at 09:55; Status DC Sodium Chloride (NS Flush) 2 ml UNSCH PRN IVF FLUSH AFTER USING IV ACCESS Last administered on 07/03/17 09:11; Start 07/03/17 at 09:00; Stop 07/03/17 at 11:51 ; Status DC Diphenhydramine HCl (Benadryl Inj) 25 mg ONCE ONCE IV PUSH Last administered on 07/03/17 09:09; Start 07/03/17 at 09:00; Stop 07/03/17 at 09:01; Status DC Prochlorperazine Edisylate (Compazine Inj) 10 mg ONCE ONCE IV PUSH Last administered on 07/03/17at 09:11; Start 07/03/17 at 09:00; Stop 07/03/17 at 09:01 ; Status DC Hydromorphone HCl (Dilaudid Pf Inj) 2 mg ONCE ONCE IV PUSH Last administered on 07/03/17at 09:37; Start 07/03/17 at 09:30; Stop 07/03/17 at 09:31; Status DC Sodium Chloride 1,000 ml @ 999 mls/hr BOLUS ONCE IV Last administered on 07/03at 12:03; Start 07/03/17 at 11:30; Stop 07/03/17 at 12:30; Status DC Heparin Sodium (Porcine) (Heparin Central Flush) 500 units DAILY IV FLUSH Last administered on 07/04/17at 10:17; Start 07/03/17 at 11:45 Sodium Chloride 1,000 ml @ 125 mls/hr Q8H IV Last administered on 07/03/17at 13 :45; Start 07/03/17 at 12:00; Stop 07/03/17 at 18:09; Status DC Sodium Chloride (NS Flush) 2 ml UNSCH PRN IV FLUSH FLUSH AFTER USING IV ACCESS Last administered on 07/07/17at 03:24; Start 07/03/17 at 11:45 Sodium Chloride (NS Flush) 2 ml BID IV FLUSH Last administered on 07/07/17at 08: 42; Start 07/03/17 at 21:00 Ondansetron HCl (Zofran Inj) 4 mg Q6H PRN IVP NAUSEA OR VOMITING; Start at 11:45; Stop 07/03/17 at 15:05; Status DC Naloxone HCl (Narcan Inj) 0.4 mg UNSCH PRN IV PUSH SEE LABEL COMMENTS; Start at 11:45 Oxycodone HCl (Roxicodone) 5 mg Q4H PRN PO PAIN GREATER THAN 5 Last administered on 07/04/17at 06:30; Start 07/03/17 at 14:00; Stop 07/04/17 at 11:10; Status DC Loperamide HCl (Imodium) 2 mg Q6H PRN PO DIARRHEA; Start 07/03/17 at 14:00; Stop 07/04/17 at 06:11; Status DC Scopolamine (Transderm-Scop 1.5 Mg Patch.72 Hr) 1 patch Q3D T-DERMAL Last administered on 07/06/17at 14:36; Start 07/03/17 at 16:00 Metoclopramide HCl (Reglan Inj) 10 mg Q6H PRN IV PUSH NAUSEA Last administered on 07/03/17 14:35; Start 07/03/17 at 14:00; Stop 07/03/17 at 15:05; Status DC Miscellaneous Information 1 Q3D T-DERMAL Last administered on 07/06/17at 15:35; Start 07/06/17 at 16:00 Ondansetron HCl (Zofran Inj) 8 mg Q8HR IVP Last administered on 07/07/17 06:29 ; Start 07/03/17 at 15:15; Stop 07/07/17 at 13:04; Status DC Multi-Ingredient Mouthwash/Gargle (Magic Mouthwash Adult Liq) 10 ml QID SWISH- SWAL Last administered on 07/08/17 08:43; Start 07/03/17 at 18:00 Sodium Chloride 1,000 ml @ 999 mls/hr Q1H1M ONCE IV Last administered on at 18:25; Start 07/03/17 at 18:15; Stop 07/03/17 at 19:15; Status DC Sodium Chloride 1,000 ml @ 125 mls/hr Q8H IV Last administered on 07/08/17at 08: 50; Start 07/03/17 at 18:30; Stop 07/08/17 at 09:28; Status DC Promethazine HCl (Phenergan Inj) 25 mg ONCE ONCE IM Last administered on at 03:57; Start 07/04/17 at 03:45; Stop 07/04/17 at 03:48; Status DC Hydromorphone HCl (Dilaudid Pf Inj) 0.5 mg ONCE ONCE IV PUSH Last administered on 07/04/17at 03:58; Start 07/04/17 at 03:45; Stop 07/04/17 at 03:48; Status DC Hyoscyamine Sulfate (Levsin Liq) 0.125 mg Q4H PRN PO secretions Last administered on 07/04/17at 10:18; Start 07/04/17 at 03:45 Loperamide HCl (Imodium Liq) 2 mg UNSCH PRN PO DIARRHEA Last administered on 07/06/17at 09:01; Start 07/04/17 at 06:15 Filgrastim (Neupogen Inj) 300 mcg DAILY@14 SQ Last administered on 07/06/17 14: 35; Start 07/04/17 at 14:00; Stop 07/06/17 at 14:58; Status DC Hydromorphone HCl (Dilaudid Pf Inj) 0.5 mg Q4H PRN IV PUSH pain1-10 Last administered on 07/05/17 10:15; Start 07/04/17 at 11:15; Stop 07/05/17 at 11:27; Status DC Prochlorperazine Edisylate (Compazine Inj) 5 mg Q4H PRN IV PUSH breakthrough nausea Last administered on 07/05/17 10:15; Start 07/04/17 at 11:15; Stop at 10:43; Status DC Diphenhydramine HCl (Benadryl Inj) 25 mg Q4H PRN IV PUSH itching Last administered on 07/05/17 10:16; Start 07/04/17 at 11:15 Prochlorperazine Edisylate (Compazine Inj) 10 mg Q4H PRN IV PUSH breakthrough nausea Last administered on 07/08/17 01:47; Start 07/05/17 at 12:00 Cefepime HCl 2000 mg/Sodium Chloride 100 ml @ 200 mls/hr Q8H IV Last administered on 07/08/17 04:28; Start 07/05/17 at 13:00 Hydromorphone HCl (Dilaudid Pf Inj) 1 mg Q4H PRN IV PUSH pain1-10 Last administered on 07/08/17 10:15; Start 07/05/17 at 15:15 Acetaminophen (Tylenol 650 Mg/ 20 ml Liq) 650 mg Q4H PRN PEG FEVER GREATER THAN 100.4 Last administered on 07/06/17 09:12; Start 07/05/17 at 18:45 Dexamethasone (Decadron) 4 mg Q12HR PO Last administered on 07/08/17 08:43; Start 07/06/17 at 09:00 Fluconazole/ Sodium Chloride 50 ml @ 50 mls/hr Q24H IV Last administered on 07/07 23:39; Start 07/06/17 at 00:00 Nystatin (Mycostatin Liq) 5 ml QID SWISH-SWAL Last administered on 4/5/18at 08 :43; Start 07/06/17 at 13:00 Filgrastim 300 mcg/Dextrose 26 ml @ 50 mls/hr DAILY@14 IV Last administered on 07/07/17at 14:28; Start 07/07/17 at 14:00 Ondansetron HCl (Zofran Inj) 4 mg Q6HR PRN IV PUSH nausea Last administered on 07/07/17at 22:03; Start 07/07/17 at 13:15 Pantoprazole Sodium (Protonix) 20 mg DAILY PO ; Start 07/08/17 at 09:30 A/P Problem List: (1) Chemotherapy-induced nausea and vomiting ICD Code: R11.2 - Nausea with vomiting, unspecified; T45.1X5A - Adverse effect of antineoplastic and immunosuppressive drugs, initial encounter Status: Resolved Plan: Continue antiemetics with Zofran, scopolamine patch. Symptoms likely related to chemotherapy. IV fluids for hydration. Continue tube feeding BEING SWITCHED TO BOLUS INSTEAD OF CONTINUOUS TUBE FEEDS (2) Primary tongue squamous cell carcinoma ICD Code: C02.9 - Malignant neoplasm of tongue, unspecified Plan: Patient currently receiving chemotherapy. Follow-up outpatient. Continue bypass feeding via PEG with vitals Dietitian following. Can do smaller bolus feeding more frequently per the dietitian recommendations. Discussed with patient. Mucositis. Patient started on fluconazole (3) Diarrhea ICD Code: R19.7 - Diarrhea, unspecified Status: Resolved Plan: Likely related to chemotherapy. C. diff neg. Imodium as needed. Add probiotic NOW CONSTIPATED (4) Dehydration ICD Code: E86.0 - Dehydration Status: Acute Plan: Mild. Continue IV fluid (5) Neutropenic fever ICD Code: D70.9 - Neutropenia, unspecified; R50.81 - Fever presenting with conditions classified elsewhere Status: Resolved Plan: Patient has been started empirically on broad-spectrum antibiotics. Blood cultures pending. NO GROWTH SO FAR Assessment and Plan (1) Chemotherapy-induced nausea and vomiting ICD Code: R11.2 - Nausea with vomiting, unspecified; T45.1X5A - Adverse effect of antineoplastic and immunosuppressive drugs, initial encounter Plan: Continue antiemetics with Zofran, scopolamine patch. Symptoms likely related to chemotherapy. IV fluids for hydration. Continue tube feeding SWITCHING TO BOLUS TUBE FEEDS TODAY (2) Primary tongue squamous cell carcinoma ICD Code: C02.9 - Malignant neoplasm of tongue, unspecified Plan: Patient currently receiving chemotherapy. Follow-up outpatient. Continue bypass feeding via PEG with vitals Dietitian following. Can do smaller bolus feeding more frequently per the dietitian recommendations. Discussed with patient. Mucositis. Patient started on fluconazole (3) Diarrhea ICD Code: R19.7 - Diarrhea, unspecified Status: Acute Plan: Likely related to chemotherapy. C. diff neg. Imodium as needed. Add probiotic NOW CONSTIPATED (4) Dehydration ICD Code: E86.0 - Dehydration Status: Acute Plan: Mild. Continue IV fluid (5) Neutropenic fever ICD Code: D70.9 - Neutropenia, unspecified; R50.81 - Fever presenting with conditions classified elsewhere Plan: Patient has been started empirically on broad-spectrum antibiotics. Blood cultures pending. Discharge Planning PENDING TO CONTINUE NOT CLEARED BY ONCOLOGY AM LABS Problem Qualifiers (1) Diarrhea: Qualified Codes: R19.7 - Diarrhea, unspecified Alvarado Macedo DO Jul 08, 2017 10:45
[2017-07-08] MEDS: PANTOPRAZOLE SODIUM 40 MG VIAL IV PUSH SCH (14:30)
[2017-07-08] MEDS: FILGRASTIM INJ 300 MCG in DEXTROSE 5% IN WATER INJ 25 ML IV SCH ×2 (14:33)
[2017-07-08 17:10] LABS: HEMOGLOBIN A1C 5.8 % (4.3-6.0)
[2017-07-08] MEDS: LEVOFLOXACIN 500 MG TAB PO SCH (18:31)
[2017-07-08] MEDS: FLUCONAZOLE 100 MG PREMIX BAG 50 ML IV SCH (23:04)
[2017-07-09] VITALS (25 sets, daily range): BP systolic 99–117; BP diastolic 59–71; PULSE 52–80; RESP 16–20; TEMP 97.5–98.1; O2SAT 98–100
[2017-07-09] MEDS: HYDROmorphone HCL PF 2 MG/ML VIAL IV PUSH PRN ×2 (03:36→08:36)
[2017-07-09 04:50] LABS: AUTOMATED NEUTROPHIL # 20.7 TH/MM3 (1.8-7.7); BASOPHIL % 0.1 % (0.0-2.0); HEMATOCRIT 33.7 % (39.0-51.0); HEMOGLOBIN 11.3 GM/DL (13.0-17.0); LYMPH % 7.5 % (9.0-44.0); LYMPHOCYTE # 1.9 TH/MM3 (1.0-4.8); MEAN CELL VOLUME 87.8 FL (80.0-100.0); MEAN CORPUSCULAR HEMOGLOBIN 29.4 PG (27.0-34.0); MEAN CORPUSCULAR HGB CONC 33.5 % (32.0-36.0); MEAN PLATELET VOLUME 8.6 FL (7.0-11.0); MONO % 12.5 % (0.0-8.0); MONOCYTE # 3.2 TH/MM3 (0-0.9); NEUT % 79.9 % (16.0-70.0); PLATELET COUNT 235 TH/MM3 (150-450); RED BLOOD COUNT 3.84 MIL/MM3 (4.50-5.90); RED CELL DISTRIBUTION WIDTH 14.3 % (11.6-17.2); WHITE BLOOD COUNT 25.9 TH/MM3 (4.0-11.0)
[2017-07-09 05:20] LABS: ALBUMIN 2.1 GM/DL (3.4-5.0); ALT (GPT) 23 U/L (12-78); AST (GOT) 12 U/L (15-37); BLOOD UREA NITROGEN 11 MG/DL (7-18); CALCIUM 8.2 MG/DL (8.5-10.1); CHLORIDE 103 MEQ/L (98-107); CREATININE 0.64 MG/DL (0.60-1.30); GLOMERULAR FILTRATION RATE 135 ML/MIN (>89); GLUCOSE,RANDOM 92 MG/DL (74-106); MAGNESIUM 1.5 MG/DL (1.5-2.5); SODIUM (NA) 139 MEQ/L (136-145)
[2017-07-09 05:22] LABS: ALKALINE PHOSPHATASE 87 U/L (45-117); TOTAL BILIRUBIN ADULT LESS THAN 0.1 MG/DL (0.2-1.0); TOTAL PROTEIN 5.4 GM/DL (6.4-8.2)
[2017-07-09 08:30] LABS: BANDS 33 % (0-6); LYMPHOCYTES 9 % (9-44); METAMYELOCYTES 2 % (0-1); MONOCYTES 9 % (0-8); NEUTROPHIL # MANUAL DIFF 21.2 TH/MM3 (1.8-7.7); POLYS (SEG NEUTROPHILS) 47 % (16-70)
--- NOTE | 2017-07-09 08:34 | PD.ONC.PN ---
Subjective Subjective Remarks Afebrile overnight. Patient resting in bed. states he is tolerating bolus tube feeds. continues to have pain in his mouth which is controlled with dilaudid. Objective Data Date Time Temp Pulse Resp B/P (MAP) Pulse Ox O2 Delivery O2 Flow Rate FiO2 07/09/17 05:00 70 07/09/17 04:00 97.9 73 20 111/65 (80) 98 07/09/17 04:00 60 07/09/17 03:00 60 07/09/17 02:00 66 07/09/17 01:00 70 07/09/17 00:16 97.8 63 20 99/59 (72) 100 07/09/17 00:00 75 07/08/17 23:00 68 07/08/17 22:00 58 07/08/17 21:00 68 07/08/17 20:42 97.9 63 20 112/74 (87) 100 07/08/17 20:00 57 07/08/17 19:00 60 07/08/17 19:00 60 07/08/17 18:20 97.7 57 18 107/66 (80) 100 07/08/17 18:00 56 07/08/17 17:00 56 07/08/17 16:00 64 07/08/17 15:00 58 07/08/17 14:00 68 07/08/17 13:30 97.5 70 16 100/62 (75) 97 07/08/17 13:00 50 07/08/17 12:00 72 07/08/17 11:00 52 07/08/17 10:00 64 07/08/17 09:00 72 07/08/17 08:37 98.1 67 16 110/60 (77) 99 07/09/17 07/09/17 07/09/17 07:00 15:00 23:00 Intake Total 770 ml Balance 770 ml Result Diagram: 07/09/17 0340 07/09/17 0340 Laboratory Results Laboratory Tests Test 07/09/17 03:40 White Blood Count 25.9 TH/MM3 Red Blood Count 3.84 MIL/MM3 Hemoglobin 11.3 GM/DL Hematocrit 33.7 % Mean Corpuscular Volume 87.8 FL Mean Corpuscular Hemoglobin 29.4 PG Mean Corpuscular Hemoglobin Concent 33.5 % Red Cell Distribution Width 14.3 % Platelet Count 235 TH/MM3 Mean Platelet Volume 8.6 FL Neutrophils (%) (Auto) 79.9 % Lymphocytes (%) (Auto) 7.5 % Monocytes (%) (Auto) 12.5 % Eosinophils (%) (Auto) 0.0 % Basophils (%) (Auto) 0.1 % Neutrophils # (Auto) 20.7 TH/MM3 Lymphocytes # (Auto) 1.9 TH/MM3 Monocytes # (Auto) 3.2 TH/MM3 Eosinophils # (Auto) 0.0 TH/MM3 Basophils # (Auto) 0.0 TH/MM3 CBC Comment AUTO DIFF Blood Urea Nitrogen 11 MG/DL Creatinine 0.64 MG/DL Random Glucose 92 MG/DL Total Protein 5.4 GM/DL Albumin 2.1 GM/DL Calcium Level 8.2 MG/DL Phosphorus Level 2.0 MG/DL Magnesium Level 1.5 MG/DL Alkaline Phosphatase 87 U/L Aspartate Amino Transf (AST/SGOT) 12 U/L Alanine Aminotransferase (ALT/SGPT) 23 U/L Total Bilirubin LESS THAN 0.1 MG/DL Sodium Level 139 MEQ/L Potassium Level 3.9 MEQ/L Chloride Level 103 MEQ/L Carbon Dioxide Level 27.0 MEQ/L Anion Gap 9 MEQ/L Estimat Glomerular Filtration Rate 135 ML/MIN Culture Results Microbiology Date/Time Source Procedure Growth Status 07/06/17 11:55 Blood Peripheral Aerobic Blood Culture - Preliminary NO GROWTH IN 2 DAYS Resulted 07/06/17 11:55 Blood Peripheral Anaerobic Blood Culture - Preliminary NO GROWTH IN 2 DAYS Resulted Administered Medications Medications (Trade) Dose Ordered Sig/Tiffanie Route PRN Reason Start Time Stop Time Status Last Admin Dose Admin Heparin Sodium (Porcine) (Heparin Central Flush) 500 units DAILY IV FLUSH 07/03/17 11:45 07/04/17 10:17 Sodium Chloride (NS Flush) 2 ml UNSCH PRN IV FLUSH FLUSH AFTER USING IV ACCESS 07/03/17 11:45 07/07/17 03:24 Sodium Chloride (NS Flush) 2 ml BID IV FLUSH 07/03/17 21:00 07/08/17 23:06 Scopolamine (Transderm-Scop 1.5 Mg Patch.72 Hr) 1 patch Q3D T-DERMAL 07/03/17 16:00 07/06/17 14:36 Miscellaneous Information 1 Q3D T-DERMAL 07/06/17 16:00 07/06/17 15:35 Multi-Ingredient Mouthwash/Gargle (Magic Mouthwash Adult Liq) 10 ml QID SWISH-SWAL 07/03/17 18:00 07/08/17 20:53 Hyoscyamine Sulfate (Levsin Liq) 0.125 mg Q4H PRN PO secretions 07/04/17 03:45 07/04/17 10:18 Loperamide HCl (Imodium Liq) 2 mg UNSCH PRN PO DIARRHEA 07/04/17 06:15 07/06/17 09:01 Diphenhydramine HCl (Benadryl Inj) 25 mg Q4H PRN IV PUSH itching 07/04/17 11:15 07/05/17 10:16 Prochlorperazine Edisylate (Compazine Inj) 10 mg Q4H PRN IV PUSH breakthrough nausea 07/05/17 12:00 07/08/17 01:47 Hydromorphone HCl (Dilaudid Pf Inj) 1 mg Q4H PRN IV PUSH pain1-10 07/05/17 15:15 07/09/17 03:36 Acetaminophen (Tylenol 650 Mg/ 20 ml Liq) 650 mg Q4H PRN PEG FEVER GREATER THAN 100.4 07/05/17 18:45 07/06/17 09:12 Dexamethasone (Decadron) 4 mg Q12HR PO 07/06/17 09:00 07/08/17 20:53 Fluconazole/ Sodium Chloride 50 ml @ 50 mls/hr Q24H IV 07/06/17 00:00 07/08/17 23:04 Nystatin (Mycostatin Liq) 5 ml QID SWISH-SWAL 07/06/17 13:00 07/08/17 20:53 Ondansetron HCl (Zofran Inj) 4 mg Q6HR PRN IV PUSH nausea 07/07/17 13:15 07/07/17 22:03 Pantoprazole Sodium (Protonix Inj) 40 mg Q24H IV PUSH 07/08/17 15:00 07/08/17 14:30 Levofloxacin (Levaquin) 500 mg DAILY PO 07/08/17 14:30 07/08/17 18:31 Objective Remarks GENERAL: Middle aged male, sitting up in bed complaining of pain in his mouth. SKIN: Warm and dry. HEAD: Normocephalic. EYES: No injection or drainage. NECK: Supple, trachea midline. CARDIOVASCULAR: Regular rate and rhythm RESPIRATORY: Breath sounds equal bilaterally. No accessory muscle use. GASTROINTESTINAL: Abdomen soft, non-tender, nondistended. G-tube clamped. EXTREMITIES: No cyanosis NEUROLOGICAL: awake and alert. normal speech. Assessment/Plan Problem List: (1) Primary tongue squamous cell carcinoma ICD Codes: C02.9 - Malignant neoplasm of tongue, unspecified Plan: --Base of tongue poorly differentiated squamous cell carcinoma with palpable bilateral cervical adenopathy. P16 negative. --developed significant nausea, vomiting and dysphagia after first cycle of TPF chemotherapy and a PEG tube was placed. --received cycle 2 of chemotherapy 06/28/2017 and the 5-FU pump, which was discontinued 07/03, started having nausea the day after chemotherapy. (2) Malnourished ICD Codes: E46 - Unspecified protein-calorie malnutrition Plan: --tolerating bolus tube feeds. 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 (3) Neutropenic fever ICD Codes: D70.9 - Neutropenia, unspecified; R50.81 - Fever presenting with conditions classified elsewhere Status: Resolved Plan: --BC no growth --on Levaquin + diflucan (4) Chemotherapy-induced nausea and vomiting ICD Codes: R11.2 - Nausea with vomiting, unspecified; T45.1X5A - Adverse effect of antineoplastic and immunosuppressive drugs, initial encounter Status: Resolved Plan: ---has scopolamine patch + PRN Compazine --nausea improved (5) Mucositis (ulcerative) due to antineoplastic therapy ICD Codes: K12.31 - Oral mucositis (ulcerative) due to antineoplastic therapy Status: Resolved Plan: --on Magic mouthwash. 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 Plan 1. continue bolus tube feeds today 2. change to PO pain medications. 3. will discharge tomorrow if pain is controlled with PO pain medications Attending Statement The exam, history, and the medical decision-making described in the above note were completed with the assistance of the mid-level provider. I reviewed and agree with the findings presented. I attest that I had a [id number] encounter with the patient on the same day, and personally performed and documented my assessment and findings in the medical record. Doing better today convert pain meds to po d/c neupogen continue tube feeds d/c levaquin will d/c home with 2 weeks of Diflucan 100mg po daily will likely go home tomorrow if remains stable Jacquelin Quan Jul 09, 2017 08:34 Dwayne Naranjo MD Jul 09, 2017 21:21
[2017-07-09] MEDS: NYSTAT/DIPHENHY/LIDO MOUTHWASH (Adult) 120ML SWISH-SWAL SCH ×4 (08:35→20:44)
[2017-07-09] MEDS: LEVOFLOXACIN 500 MG TAB PO SCH (08:36)
[2017-07-09] MEDS: NYSTATIN SUSP 500,000 U/5 ML CUP SWISH-SWAL SCH ×4 (08:36→20:44)
[2017-07-09] MEDS: DEXAMETHASONE 4 MG TAB PO SCH ×2 (08:36→20:45)
[2017-07-09] MEDS: SODIUM CHLORIDE 0.9% FLUSH 10 ML FLUSH IV FLUSH SCH ×2 (08:37→20:45)
[2017-07-09] MEDS ORDERED: FLUCONAZOLE 100 MG TAB PO ONE (10:00)
--- NOTE | 2017-07-09 10:20 | HHI.PR ---
Subjective Remarks 46-year-old male with a history significant for tongue cancer undergoing chemotherapy who presented to the hospital with complaint of nausea, vomiting, diarrhea, and generalized weakness. Patient reports he had 3 episodes of diarrhea started around 2 AM this morning with associated nausea and vomiting. He became very weak and felt dehydrated which prompted the emergency room visit. He states this is chemotherapy related. He has had similar issue in the past. He denies any sick contacts. 4-1 Follow up on patient with tongue cancer undergoing chemo admitted with N/V, diarrhea. Patient seen and examined. Complaining of persistent nausea, no vomiting this morning. Still with diarrhea but has improved some. C Diff negative. Endorses weakness. Denies any fever or chills. Denies any chest pain or dyspnea. Denies any dysuria. 4-2 Patient reports he is still having severe nausea. Pain is not controlled. He is requiring IV Dilaudid. Temperature 100.0 this morning and is neutropenic. 4-3 Persistent fevers. Feeling poorly. Nausea but no vomiting. 4-4 STILL HAVING FEVERS NO VOMITING STILL HAVING NAUSEA TOLERATING TUBE FEEDS AT 30ML /HOUR DW RN AND PT AND CM AND ONCOLOGY 4-5 BEING SWITCHED TO BOLUS TUBE FEEDS HAVING CONSTIPATION NO BM YESTERDAY OR TODAY BUT TAKING PAIN MEDS DW RN AND PT AND CM AND ONCOLOGY AM LABS 4-6 pain not at goal yet been switch to p.o./via PEG medications Recommend that he continue on senna plus twice daily or at least once daily while on narcotic Continue bolus tube feeds is tolerating well Discussed with patient and RN and case management and oncology Hopefully discharge tomorrow Objective Vitals Vital Signs Date Time Temp Pulse Resp B/P (MAP) Pulse Ox O2 Delivery O2 Flow Rate FiO2 07/09/17 08:33 98.1 71 16 104/71 (82) 99 07/09/17 05:00 70 07/09/17 04:00 97.9 73 20 111/65 (80) 98 07/09/17 04:00 60 07/09/17 03:00 60 07/09/17 02:00 66 07/09/17 01:00 70 07/09/17 00:16 97.8 63 20 99/59 (72) 100 07/09/17 00:00 75 07/08/17 23:00 68 07/08/17 22:00 58 07/08/17 21:00 68 07/08/17 20:42 97.9 63 20 112/74 (87) 100 07/08/17 20:00 57 07/08/17 19:00 60 07/08/17 19:00 60 07/08/17 18:20 97.7 57 18 107/66 (80) 100 07/08/17 18:00 56 07/08/17 17:00 56 07/08/17 16:00 64 07/08/17 15:00 58 07/08/17 14:00 68 07/08/17 13:30 97.5 70 16 100/62 (75) 97 07/08/17 13:00 50 07/08/17 12:00 72 07/08/17 11:00 52 I/O 07/08/17 07/08/17 07/08/17 07/09/17 07/09/17 07/09/17 07:00 15:00 23:00 07:00 15:00 23:00 Intake Total 1350 ml 3812 ml 460 ml 770 ml Balance 1350 ml 3812 ml 460 ml 770 ml Intake Oral 200 ml IV Total 1150 ml 3200 ml 50 ml Tube Feeding 612 ml 360 ml 720 ml Tube Irrigant 100 ml # Voids 3 4 4 # Bowel Movements 2 Result Diagram: 07/09/17 0340 07/09/17 0340 Other Results Laboratory Tests Test 07/07/17 03:50 07/08/17 04:35 07/09/17 03:40 White Blood Count 2.3 TH/MM3 8.8 TH/MM3 25.9 TH/MM3 Red Blood Count 3.76 MIL/MM3 3.59 MIL/MM3 3.84 MIL/MM3 Hemoglobin 11.2 GM/DL 10.7 GM/DL 11.3 GM/DL Hematocrit 32.7 % 31.1 % 33.7 % Mean Corpuscular Volume 87.1 FL 86.7 FL 87.8 FL Mean Corpuscular Hemoglobin 29.8 PG 29.9 PG 29.4 PG Mean Corpuscular Hemoglobin Concent 34.2 % 34.5 % 33.5 % Red Cell Distribution Width 13.7 % 14.0 % 14.3 % Platelet Count 130 TH/MM3 173 TH/MM3 235 TH/MM3 Mean Platelet Volume 8.9 FL 8.8 FL 8.6 FL CBC Comment AUTO DIFF AUTO DIFF AUTO DIFF Differential Total Cells Counted 100 100 100 Neutrophils % (Manual) 14 % 20 % 47 % Band Neutrophils % 7 % 34 % 33 % Lymphocytes % 20 % 19 % 9 % Monocytes % 59 % 27 % 9 % Neutrophils # (Manual) 0.5 TH/MM3 4.8 TH/MM3 21.2 TH/MM3 Differential Comment FINAL DIFF MANUAL FINAL DIFF MANUAL FINAL DIFF MANUAL Platelet Estimate LOW NORMAL NORMAL Platelet Morphology Comment NORMAL NORMAL NORMAL Blood Urea Nitrogen 10 MG/DL 9 MG/DL 11 MG/DL Creatinine 0.62 MG/DL 0.59 MG/DL 0.64 MG/DL Random Glucose 113 MG/DL 109 MG/DL 92 MG/DL Calcium Level 7.8 MG/DL 8.0 MG/DL 8.2 MG/DL Sodium Level 137 MEQ/L 139 MEQ/L 139 MEQ/L Potassium Level 3.8 MEQ/L 3.8 MEQ/L 3.9 MEQ/L Chloride Level 104 MEQ/L 105 MEQ/L 103 MEQ/L Carbon Dioxide Level 25.9 MEQ/L 26.1 MEQ/L 27.0 MEQ/L Anion Gap 7 MEQ/L 8 MEQ/L 9 MEQ/L Estimat Glomerular Filtration Rate 140 ML/MIN 149 ML/MIN 135 ML/MIN Neutrophils (%) (Auto) 53.7 % 79.9 % Lymphocytes (%) (Auto) 15.8 % 7.5 % Monocytes (%) (Auto) 30.4 % 12.5 % Eosinophils (%) (Auto) 0.0 % 0.0 % Basophils (%) (Auto) 0.1 % 0.1 % Neutrophils # (Auto) 4.7 TH/MM3 20.7 TH/MM3 Lymphocytes # (Auto) 1.4 TH/MM3 1.9 TH/MM3 Monocytes # (Auto) 2.7 TH/MM3 3.2 TH/MM3 Eosinophils # (Auto) 0.0 TH/MM3 0.0 TH/MM3 Basophils # (Auto) 0.0 TH/MM3 0.0 TH/MM3 Red Cell Morphology Comment NORMAL NORMAL Total Protein 4.9 GM/DL 5.4 GM/DL Albumin 1.9 GM/DL 2.1 GM/DL Phosphorus Level 2.3 MG/DL 2.0 MG/DL Magnesium Level 1.5 MG/DL 1.5 MG/DL Alkaline Phosphatase 62 U/L 87 U/L Aspartate Amino Transf (AST/SGOT) 13 U/L 12 U/L Alanine Aminotransferase (ALT/SGPT) 22 U/L 23 U/L Total Bilirubin 0.2 MG/DL LESS THAN 0.1 MG/DL Hemoglobin A1c 5.8 % Free Thyroxine 1.11 NG/DL Thyroid Stimulating Hormone 3rd Gen 0.291 uIU/ML Metamyelocytes 2 % Imaging Last Impressions Chest X-Ray 07/07/17 0000 Signed Impressions: Service Date/Time: Friday, July 07, 2017 13:42 - CONCLUSION: The lungs are clear. Gerardo Doran MD Objective Remarks GENERAL: AWAKE AND ALERT AND ORIENTED X3 TALKATIVE AND COOPERATIVE- THIN APPEARING GENTLEMAN SKIN: Warm and dry. HEAD: Atraumatic. Normocephalic. EYES: Pupils equal and round. No scleral icterus. No injection or drainage. EOMI ENT: No nasal bleeding or discharge. Mucous membranes pink and moist. NECK: Trachea midline. No JVD. SUPPLE CARDIOVASCULAR: Regular rate and rhythm. S1, S2 NO S3 OR S4 RESPIRATORY: No accessory muscle use. Clear to auscultation. Breath sounds equal bilaterally. GASTROINTESTINAL: Abdomen soft, non-tender, nondistended. Hepatic and splenic margins not palpable. PEG IN PLACE MUSCULOSKELETAL: Extremities without clubbing, cyanosis, or edema. No obvious deformities. NEUROLOGICAL: Awake and alert. No obvious cranial nerve deficits. Motor grossly within normal limits. 4 out of 5 muscle strength in the arms and legs. Normal speech for the patient. PSYCHIATRIC: Appropriate mood and affect; insight and judgment normal. Procedures NONE Medications and IVs Current Medications Sodium Chloride 1,000 ml @ 1,000 mls/hr Q1H ONCE IV Last administered on at 09:10; Start 07/03/17 at 08:54; Stop 07/03/17 at 09:53; Status DC Sodium Chloride (NS Flush) 2 ml UNSCH PRN IVF FLUSH AFTER USING IV ACCESS Last administered on 07/03/17at 09:11; Start 07/03/17 at 09:00; Stop 07/03/17 at 11:51 ; Status DC Sodium Chloride 1,000 ml @ 1,000 mls/hr Q1H ONCE IV Last administered on at 09:10; Start 07/03/17 at 08:56; Stop 07/03/17 at 09:55; Status DC Sodium Chloride (NS Flush) 2 ml UNSCH PRN IVF FLUSH AFTER USING IV ACCESS Last administered on 07/03/17at 09:11; Start 07/03/17 at 09:00; Stop 07/03/17 at 11:51 ; Status DC Diphenhydramine HCl (Benadryl Inj) 25 mg ONCE ONCE IV PUSH Last administered on 07/03/17at 09:09; Start 07/03/17 at 09:00; Stop 07/03/17 at 09:01; Status DC Prochlorperazine Edisylate (Compazine Inj) 10 mg ONCE ONCE IV PUSH Last administered on 07/03/17at 09:11; Start 07/03/17 at 09:00; Stop 07/03/17 at 09:01 ; Status DC Hydromorphone HCl (Dilaudid Pf Inj) 2 mg ONCE ONCE IV PUSH Last administered on 07/03/17at 09:37; Start 07/03/17 at 09:30; Stop 07/03/17 at 09:31; Status DC Sodium Chloride 1,000 ml @ 999 mls/hr BOLUS ONCE IV Last administered on 07/03at 12:03; Start 07/03/17 at 11:30; Stop 07/03/17 at 12:30; Status DC Heparin Sodium (Porcine) (Heparin Central Flush) 500 units DAILY IV FLUSH Last administered on 07/09/17at 08:36; Start 07/03/17 at 11:45 Sodium Chloride 1,000 ml @ 125 mls/hr Q8H IV Last administered on 07/03/17at 13 :45; Start 07/03/17 at 12:00; Stop 07/03/17 at 18:09; Status DC Sodium Chloride (NS Flush) 2 ml UNSCH PRN IV FLUSH FLUSH AFTER USING IV ACCESS Last administered on 07/07/17at 03:24; Start 07/03/17 at 11:45 Sodium Chloride (NS Flush) 2 ml BID IV FLUSH Last administered on 07/09/17at 08: 37; Start 07/03/17 at 21:00 Ondansetron HCl (Zofran Inj) 4 mg Q6H PRN IVP NAUSEA OR VOMITING; Start at 11:45; Stop 07/03/17 at 15:05; Status DC Naloxone HCl (Narcan Inj) 0.4 mg UNSCH PRN IV PUSH SEE LABEL COMMENTS; Start at 11:45 Oxycodone HCl (Roxicodone) 5 mg Q4H PRN PO PAIN GREATER THAN 5 Last administered on 07/04/17at 06:30; Start 07/03/17 at 14:00; Stop 07/04/17 at 11:10; Status DC Loperamide HCl (Imodium) 2 mg Q6H PRN PO DIARRHEA; Start 07/03/17 at 14:00; Stop 07/04/17 at 06:11; Status DC Scopolamine (Transderm-Scop 1.5 Mg Patch.72 Hr) 1 patch Q3D T-DERMAL Last administered on 07/06/17at 14:36; Start 07/03/17 at 16:00 Metoclopramide HCl (Reglan Inj) 10 mg Q6H PRN IV PUSH NAUSEA Last administered on 07/03/17at 14:35; Start 07/03/17 at 14:00; Stop 07/03/17 at 15:05; Status DC Miscellaneous Information 1 Q3D T-DERMAL Last administered on 07/06/17at 15:35; Start 07/06/17 at 16:00 Ondansetron HCl (Zofran Inj) 8 mg Q8HR IVP Last administered on 07/07/17at 06:29 ; Start 07/03/17 at 15:15; Stop 07/07/17 at 13:04; Status DC Multi-Ingredient Mouthwash/Gargle (Magic Mouthwash Adult Liq) 10 ml QID SWISH- SWAL Last administered on 07/09/17at 08:35; Start 07/03/17 at 18:00 Sodium Chloride 1,000 ml @ 999 mls/hr Q1H1M ONCE IV Last administered on at 18:25; Start 07/03/17 at 18:15; Stop 07/03/17 at 19:15; Status DC Sodium Chloride 1,000 ml @ 125 mls/hr Q8H IV Last administered on 07/08/17at 08: 50; Start 07/03/17 at 18:30; Stop 07/08/17 at 09:28; Status DC Promethazine HCl (Phenergan Inj) 25 mg ONCE ONCE IM Last administered on at 03:57; Start 07/04/17 at 03:45; Stop 07/04/17 at 03:48; Status DC Hydromorphone HCl (Dilaudid Pf Inj) 0.5 mg ONCE ONCE IV PUSH Last administered on 07/04/17at 03:58; Start 07/04/17 at 03:45; Stop 07/04/17 at 03:48; Status DC Hyoscyamine Sulfate (Levsin Liq) 0.125 mg Q4H PRN PO secretions Last administered on 07/04/17at 10:18; Start 07/04/17 at 03:45 Loperamide HCl (Imodium Liq) 2 mg UNSCH PRN PO DIARRHEA Last administered on 07/06/17at 09:01; Start 07/04/17 at 06:15 Filgrastim (Neupogen Inj) 300 mcg DAILY@14 SQ Last administered on 07/06/17at 14: 35; Start 07/04/17 at 14:00; Stop 07/06/17 at 14:58; Status DC Hydromorphone HCl (Dilaudid Pf Inj) 0.5 mg Q4H PRN IV PUSH pain1-10 Last administered on 07/05/17at 10:15; Start 07/04/17 at 11:15; Stop 07/05/17 at 11:27; Status DC Prochlorperazine Edisylate (Compazine Inj) 5 mg Q4H PRN IV PUSH breakthrough nausea Last administered on 07/05/17at 10:15; Start 07/04/17 at 11:15; Stop at 10:43; Status DC Diphenhydramine HCl (Benadryl Inj) 25 mg Q4H PRN IV PUSH itching Last administered on 07/05/17at 10:16; Start 07/04/17 at 11:15 Prochlorperazine Edisylate (Compazine Inj) 10 mg Q4H PRN IV PUSH breakthrough nausea Last administered on 07/08/17at 01:47; Start 07/05/17 at 12:00 Cefepime HCl 2000 mg/Sodium Chloride 100 ml @ 200 mls/hr Q8H IV Last administered on 07/08/17at 04:28; Start 07/05/17 at 13:00; Stop 07/08/17 at 12:50; Status DC Hydromorphone HCl (Dilaudid Pf Inj) 1 mg Q4H PRN IV PUSH pain1-10 Last administered on 07/09/17 08:36; Start 07/05/17 at 15:15; Stop 07/09/17 at 09:00; Status DC Acetaminophen (Tylenol 650 Mg/ 20 ml Liq) 650 mg Q4H PRN PEG FEVER GREATER THAN 100.4 Last administered on 07/06/17 09:12; Start 07/05/17 at 18:45 Dexamethasone (Decadron) 4 mg Q12HR PO Last administered on 07/09/17 08:36; Start 07/06/17 at 09:00 Fluconazole/ Sodium Chloride 50 ml @ 50 mls/hr Q24H IV Last administered on 07/08 23:04; Start 07/06/17 at 00:00; Stop 07/09/17 at 08:51; Status DC Nystatin (Mycostatin Liq) 5 ml QID SWISH-SWAL Last administered on 07/09/17 08 :36; Start 07/06/17 at 13:00 Filgrastim 300 mcg/Dextrose 26 ml @ 50 mls/hr DAILY@14 IV Last administered on 07/08/17 14:33; Start 07/07/17 at 14:00; Stop 07/09/17 at 08:05; Status DC Ondansetron HCl (Zofran Inj) 4 mg Q6HR PRN IV PUSH nausea Last administered on 07/07/17 22:03; Start 07/07/17 at 13:15 Pantoprazole Sodium (Protonix) 20 mg DAILY PO ; Start 07/08/17 at 09:30; Stop 07/08/17 at 12:50; Status DC Pantoprazole Sodium (Protonix Inj) 40 mg Q24H IV PUSH Last administered on 14:30; Start 07/08/17 at 15:00 Levofloxacin (Levaquin) 500 mg DAILY PO Last administered on 07/09/17 08:36; Start 07/08/17 at 14:30 Fluconazole (Diflucan) 100 mg ONCE ONCE PO ; Start 07/09/17 at 10:00; Stop at 10:01; Status DC Oxycodone HCl (Roxicodone) 10 mg Q4H PRN PO PAIN1-10; Start 07/09/17 at 09:00 A/P Problem List: (1) Chemotherapy-induced nausea and vomiting ICD Code: R11.2 - Nausea with vomiting, unspecified; T45.1X5A - Adverse effect of antineoplastic and immunosuppressive drugs, initial encounter Status: Resolved Plan: Continue antiemetics with Zofran, scopolamine patch. Symptoms likely related to chemotherapy. IV fluids for hydration. Continue tube feeding BEING SWITCHED TO BOLUS INSTEAD OF CONTINUOUS TUBE FEEDS (2) Primary tongue squamous cell carcinoma ICD Code: C02.9 - Malignant neoplasm of tongue, unspecified Plan: Patient currently receiving chemotherapy. Follow-up outpatient. Continue bypass feeding via PEG with vitals Dietitian following. Can do smaller bolus feeding more frequently per the dietitian recommendations. Discussed with patient. Mucositis. Patient started on fluconazole and Levaquin (3) Diarrhea ICD Code: R19.7 - Diarrhea, unspecified Status: Resolved Plan: Likely related to chemotherapy. C. diff neg. Imodium as needed. Add probiotic NOW CONSTIPATED Recommend continue on senna plus daily to twice daily (4) Dehydration ICD Code: E86.0 - Dehydration Status: Acute Plan: Mild. Continue IV fluid (5) Neutropenic fever ICD Code: D70.9 - Neutropenia, unspecified; R50.81 - Fever presenting with conditions classified elsewhere Status: Resolved Plan: Patient has been started empirically on broad-spectrum antibiotics. Blood cultures pending. NO GROWTH SO FAR RESOLVED Assessment and Plan (1) Chemotherapy-induced nausea and vomiting ICD Code: R11.2 - Nausea with vomiting, unspecified; T45.1X5A - Adverse effect of antineoplastic and immunosuppressive drugs, initial encounter Plan: Continue antiemetics with Zofran, scopolamine patch. Symptoms likely related to chemotherapy. IV fluids for hydration. Continue tube feeding SWITCHING TO BOLUS TUBE FEEDS TODAY (2) Primary tongue squamous cell carcinoma ICD Code: C02.9 - Malignant neoplasm of tongue, unspecified Plan: Patient currently receiving chemotherapy. Follow-up outpatient. Continue bypass feeding via PEG with vitals Dietitian following. Can do smaller bolus feeding more frequently per the dietitian recommendations. Discussed with patient. Mucositis. Patient started on fluconazole (3) Diarrhea ICD Code: R19.7 - Diarrhea, unspecified Status: Acute Plan: Likely related to chemotherapy. C. diff neg. Imodium as needed. Add probiotic NOW CONSTIPATED (4) Dehydration ICD Code: E86.0 - Dehydration Status: Acute Plan: Mild. Continue IV fluid (5) Neutropenic fever ICD Code: D70.9 - Neutropenia, unspecified; R50.81 - Fever presenting with conditions classified elsewhere Plan: Patient has been started empirically on broad-spectrum antibiotics. Blood cultures pending. Discharge Planning PENDING TO CONTINUE NOT CLEARED BY ONCOLOGY AM LABS Problem Qualifiers (1) Diarrhea: Qualified Codes: R19.7 - Diarrhea, unspecified Alvarado Macedo DO Jul 09, 2017 10:20
[2017-07-09] MEDS ORDERED: fentaNYL 25 MCG/HR PATCH T-DERMAL SCH (14:00)
[2017-07-09] MEDS ORDERED: REMOVE OLD PATCH T-DERMAL SCH (14:00)
[2017-07-09] MEDS: REMOVE OLD SCOPOLAMINE PATCH T-DERMAL SCH (16:00)
[2017-07-09] MEDS: PANTOPRAZOLE SODIUM 40 MG VIAL IV PUSH SCH (16:30)
[2017-07-09] MEDS: SCOPOLAMINE 1.5 MG PATCH T-DERMAL SCH (16:34)
[2017-07-10] VITALS (12 sets, daily range): BP systolic 107–109; BP diastolic 64–74; PULSE 48–84; RESP 16; TEMP 97.6–97.9; O2SAT 99–100
[2017-07-10] MEDS: NYSTAT/DIPHENHY/LIDO MOUTHWASH (Adult) 120ML SWISH-SWAL SCH ×2 (03:38→09:24)
[2017-07-10 06:50] LABS: ALBUMIN 2.5 GM/DL (3.4-5.0); AST (GOT) 20 U/L (15-37); BICARBONATE 28.9 MEQ/L (21.0-32.0); BLOOD UREA NITROGEN 16 MG/DL (7-18); CALCIUM 8.7 MG/DL (8.5-10.1); CHLORIDE 100 MEQ/L (98-107); CREATININE 0.67 MG/DL (0.60-1.30); GLOMERULAR FILTRATION RATE 128 ML/MIN (>89); GLUCOSE,RANDOM 99 MG/DL (74-106); MAGNESIUM 1.7 MG/DL (1.5-2.5); SODIUM (NA) 136 MEQ/L (136-145)
[2017-07-10 06:55] LABS: MEAN CELL VOLUME 87.9 FL (80.0-100.0); MEAN CORPUSCULAR HEMOGLOBIN 29.3 PG (27.0-34.0); MEAN CORPUSCULAR HGB CONC 33.4 % (32.0-36.0); MEAN PLATELET VOLUME 8.4 FL (7.0-11.0); PLATELET COUNT 276 TH/MM3 (150-450); RED CELL DISTRIBUTION WIDTH 14.3 % (11.6-17.2); WHITE BLOOD COUNT 18.8 TH/MM3 (4.0-11.0)
[2017-07-10 06:56] LABS: AUTOMATED NEUTROPHIL # 15.2 TH/MM3 (1.8-7.7); BASOPHIL % 0.1 % (0.0-2.0); EOSINOPHIL # 0.1 TH/MM3 (0-0.4); EOSINOPHIL % 0.6 % (0.0-4.0); LYMPH % 11.8 % (9.0-44.0); LYMPHOCYTE # 2.2 TH/MM3 (1.0-4.8); MONO % 6.6 % (0.0-8.0); MONOCYTE # 1.2 TH/MM3 (0-0.9); NEUT % 80.9 % (16.0-70.0)
[2017-07-10 06:58] LABS: ALKALINE PHOSPHATASE 103 U/L (45-117); ALT (GPT) 32 U/L (12-78); PHOSPHORUS 4.1 MG/DL (2.5-4.9); TOTAL BILIRUBIN ADULT 0.2 MG/DL (0.2-1.0); TOTAL PROTEIN 5.9 GM/DL (6.4-8.2)
[2017-07-10] MEDS: DEXAMETHASONE 4 MG TAB PO SCH (09:23)
[2017-07-10] MEDS: LEVOFLOXACIN 500 MG TAB PO SCH (09:23)
[2017-07-10] MEDS: NYSTATIN SUSP 500,000 U/5 ML CUP SWISH-SWAL SCH (09:24)
[2017-07-10 09:27] LABS: BANDS 17 % (0-6); LYMPHOCYTES 18 % (9-44); METAMYELOCYTES 2 % (0-1); MONOCYTES 8 % (0-8); MYELOCYTES 4 % (0-0); NEUTROPHIL # MANUAL DIFF 13.9 TH/MM3 (1.8-7.7); POLYS (SEG NEUTROPHILS) 51 % (16-70); TOXIC GRANULATION 1+ (NORMAL)
--- NOTE | 2017-07-10 09:48 | PD.ONC.PN ---
Subjective Subjective Remarks Afebrile Patient sitting up in bed in no obvious distress States his pain is mostly controlled with the fentanyl patch and oxycodone Feels comfortable to go home today Objective Data Date Time Temp Pulse Resp B/P (MAP) Pulse Ox O2 Delivery O2 Flow Rate FiO2 07/10/17 06:00 48 07/10/17 05:54 16 07/10/17 05:00 72 07/10/17 04:05 49 07/10/17 03:57 97.6 50 16 109/74 (86) 99 07/10/17 03:00 52 07/10/17 02:00 80 07/10/17 01:00 84 07/10/17 00:56 97.9 69 16 107/64 (78) 100 07/10/17 00:10 70 07/09/17 23:00 80 07/09/17 22:00 52 07/09/17 21:22 54 07/09/17 20:42 98.1 55 20 105/69 (81) 100 07/09/17 19:55 70 07/09/17 19:00 54 07/09/17 17:00 64 07/09/17 16:00 70 07/09/17 16:00 97.6 78 18 117/70 (86) 99 07/09/17 15:00 68 07/09/17 15:00 97.6 78 18 117/70 (86) 99 07/09/17 15:00 18 07/09/17 14:00 66 07/09/17 13:00 64 07/09/17 12:30 66 07/09/17 12:16 97.5 62 16 108/69 (82) 99 07/09/17 11:00 62 07/09/17 10:00 70 07/10/17 07/10/17 07/10/17 07:00 15:00 23:00 Intake Total 790 ml Balance 790 ml Result Diagram: 07/10/17 0500 07/10/17 0500 Laboratory Results Laboratory Tests Test 07/10/17 05:00 White Blood Count 18.8 TH/MM3 Red Blood Count 4.10 MIL/MM3 Hemoglobin 12.0 GM/DL Hematocrit 36.0 % Mean Corpuscular Volume 87.9 FL Mean Corpuscular Hemoglobin 29.3 PG Mean Corpuscular Hemoglobin Concent 33.4 % Red Cell Distribution Width 14.3 % Platelet Count 276 TH/MM3 Mean Platelet Volume 8.4 FL Neutrophils (%) (Auto) 80.9 % Lymphocytes (%) (Auto) 11.8 % Monocytes (%) (Auto) 6.6 % Eosinophils (%) (Auto) 0.6 % Basophils (%) (Auto) 0.1 % Neutrophils # (Auto) 15.2 TH/MM3 Lymphocytes # (Auto) 2.2 TH/MM3 Monocytes # (Auto) 1.2 TH/MM3 Eosinophils # (Auto) 0.1 TH/MM3 Basophils # (Auto) 0.0 TH/MM3 CBC Comment AUTO DIFF Differential Total Cells Counted 100 Neutrophils % (Manual) 51 % Band Neutrophils % 17 % Lymphocytes % 18 % Monocytes % 8 % Neutrophils # (Manual) 13.9 TH/MM3 Metamyelocytes 2 % Myelocytes 4 % Differential Comment FINAL DIFF MANUAL Toxic Granulation 1+ Platelet Estimate NORMAL Platelet Morphology Comment NORMAL Red Cell Morphology Comment NORMAL Blood Urea Nitrogen 16 MG/DL Creatinine 0.67 MG/DL Random Glucose 99 MG/DL Total Protein 5.9 GM/DL Albumin 2.5 GM/DL Calcium Level 8.7 MG/DL Phosphorus Level 4.1 MG/DL Magnesium Level 1.7 MG/DL Alkaline Phosphatase 103 U/L Aspartate Amino Transf (AST/SGOT) 20 U/L Alanine Aminotransferase (ALT/SGPT) 32 U/L Total Bilirubin 0.2 MG/DL Sodium Level 136 MEQ/L Potassium Level 4.4 MEQ/L Chloride Level 100 MEQ/L Carbon Dioxide Level 28.9 MEQ/L Anion Gap 7 MEQ/L Estimat Glomerular Filtration Rate 128 ML/MIN Administered Medications Medications (Trade) Dose Ordered Sig/Tiffanie Route PRN Reason Start Time Stop Time Status Last Admin Dose Admin Heparin Sodium (Porcine) (Heparin Central Flush) 500 units DAILY IV FLUSH 07/03/17 11:45 07/09/17 08:36 Sodium Chloride (NS Flush) 2 ml UNSCH PRN IV FLUSH FLUSH AFTER USING IV ACCESS 07/03/17 11:45 07/07/17 03:24 Sodium Chloride (NS Flush) 2 ml BID IV FLUSH 07/03/17 21:00 07/09/17 20:45 Scopolamine (Transderm-Scop 1.5 Mg Patch.72 Hr) 1 patch Q3D T-DERMAL 07/03/17 16:00 07/09/17 16:34 Miscellaneous Information 1 Q3D T-DERMAL 07/06/17 16:00 07/06/17 15:35 Multi-Ingredient Mouthwash/Gargle (Magic Mouthwash Adult Liq) 10 ml QID SWISH-SWAL 07/03/17 18:00 07/10/17 09:24 Hyoscyamine Sulfate (Levsin Liq) 0.125 mg Q4H PRN PO secretions 07/04/17 03:45 07/04/17 10:18 Loperamide HCl (Imodium Liq) 2 mg UNSCH PRN PO DIARRHEA 07/04/17 06:15 07/06/17 09:01 Diphenhydramine HCl (Benadryl Inj) 25 mg Q4H PRN IV PUSH itching 07/04/17 11:15 07/05/17 10:16 Prochlorperazine Edisylate (Compazine Inj) 10 mg Q4H PRN IV PUSH breakthrough nausea 07/05/17 12:00 07/08/17 01:47 Acetaminophen (Tylenol 650 Mg/ 20 ml Liq) 650 mg Q4H PRN PEG FEVER GREATER THAN 100.4 07/05/17 18:45 07/06/17 09:12 Dexamethasone (Decadron) 4 mg Q12HR PO 07/06/17 09:00 07/10/17 09:23 Nystatin (Mycostatin Liq) 5 ml QID SWISH-SWAL 07/06/17 13:00 07/10/17 09:24 Ondansetron HCl (Zofran Inj) 4 mg Q6HR PRN IV PUSH nausea 07/07/17 13:15 07/07/17 22:03 Pantoprazole Sodium (Protonix Inj) 40 mg Q24H IV PUSH 07/08/17 15:00 07/09/17 16:30 Levofloxacin (Levaquin) 500 mg DAILY PO 07/08/17 14:30 07/10/17 09:23 Oxycodone HCl (Roxicodone) 10 mg Q4H PRN PO PAIN1-10 07/09/17 09:00 07/10/17 09:24 Fentanyl (Duragesic 25 Mcg Patch.72 Hr) 1 patch Q3D T-DERMAL 07/09/17 14:00 07/09/17 13:57 Objective Remarks GENERAL: Younger male resting in bed in no obvious distress SKIN: Warm and dry. HEAD: Normocephalic. EYES: No scleral icterus. No injection or drainage. NECK: Supple, trachea midline. No JVD or lymphadenopathy. CARDIOVASCULAR: Regular rate and rhythm without murmurs. RESPIRATORY: Breath sounds equal bilaterally. No accessory muscle use. GASTROINTESTINAL: Abdomen soft. PEG tube in place. EXTREMITIES: No cyanosis, or edema. MUSCULOSKELETAL: Adequate muscle tone. NEUROLOGICAL: Moving all extremities. Alert and oriented. Difficulty with speech however this is due to oral lesion. Assessment/Plan Problem List: (1) Primary tongue squamous cell carcinoma ICD Codes: C02.9 - Malignant neoplasm of tongue, unspecified Plan: --Base of tongue poorly differentiated squamous cell carcinoma with palpable bilateral cervical adenopathy. P16 negative. --developed significant nausea, vomiting and dysphagia after first cycle of TPF chemotherapy and a PEG tube was placed. --received cycle 2 of chemotherapy 06/28/2017 and the 5-FU pump, which was discontinued 07/03, started having nausea the day after chemotherapy. (2) Malnourished ICD Codes: E46 - Unspecified protein-calorie malnutrition Plan: --tolerating bolus tube feeds. --electrical apprentice following. (3) Neutropenic fever ICD Codes: D70.9 - Neutropenia, unspecified; R50.81 - Fever presenting with conditions classified elsewhere Status: Resolved Plan: --BC no growth --on Levaquin + diflucan (4) Chemotherapy-induced nausea and vomiting ICD Codes: R11.2 - Nausea with vomiting, unspecified; T45.1X5A - Adverse effect of antineoplastic and immunosuppressive drugs, initial encounter Status: Resolved Plan: ---has scopolamine patch + PRN Compazine --nausea improved (5) Mucositis (ulcerative) due to antineoplastic therapy ICD Codes: K12.31 - Oral mucositis (ulcerative) due to antineoplastic therapy Status: Resolved Plan: --on Magic mouthwash. 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 Plan 1. Patient tolerating p.o. pain medications okay 2. Plan to follow-up in clinic this week 3. Clear for discharge from oncology standpoint Attending Statement The exam, history, and the medical decision-making described in the above note were completed with the assistance of the mid-level provider. I reviewed and agree with the findings presented. I attest that I had a [id number] encounter with the patient on the same day, and personally performed and documented my assessment and findings in the medical record. Concerned about Rx for Oxycodone and Fentanyl. Discussed to arrange fu at [facility] at [facility] - call charge nurse. If in trouble over the weekend, advised to call rn radiation. Feels ready to go home. Feels tongue has decrease and size. Sharon Rojas Jul 10, 2017 09:48 Shannon Shah MD Jul 10, 2017 11:35
--- NOTE | 2017-07-10 10:24 | HHI.PR ---
Subjective Remarks 46-year-old male with a history significant for tongue cancer undergoing chemotherapy who presented to the hospital with complaint of nausea, vomiting, diarrhea, and generalized weakness. Patient reports he had 3 episodes of diarrhea started around 2 AM this morning with associated nausea and vomiting. He became very weak and felt dehydrated which prompted the emergency room visit. He states this is chemotherapy related. He has had similar issue in the past. He denies any sick contacts. 4-1 Follow up on patient with tongue cancer undergoing chemo admitted with N/V, diarrhea. Patient seen and examined. Complaining of persistent nausea, no vomiting this morning. Still with diarrhea but has improved some. C Diff negative. Endorses weakness. Denies any fever or chills. Denies any chest pain or dyspnea. Denies any dysuria. 4-2 Patient reports he is still having severe nausea. Pain is not controlled. He is requiring IV Dilaudid. Temperature 100.0 this morning and is neutropenic. 4-3 Persistent fevers. Feeling poorly. Nausea but no vomiting. 4-4 STILL HAVING FEVERS NO VOMITING STILL HAVING NAUSEA TOLERATING TUBE FEEDS AT 30ML /HOUR DW RN AND PT AND CM AND ONCOLOGY 4-5 BEING SWITCHED TO BOLUS TUBE FEEDS HAVING CONSTIPATION NO BM YESTERDAY OR TODAY BUT TAKING PAIN MEDS DW RN AND PT AND CM AND ONCOLOGY AM LABS 4-6 pain not at goal yet been switch to p.o./via PEG medications Recommend that he continue on senna plus twice daily or at least once daily while on narcotic Continue bolus tube feeds is tolerating well Discussed with patient and RN and case management and oncology Hopefully discharge tomorrow 4-7 PAIN IS CONTROLLED TOLERATING BOLUS TUBE FEEDS CLEARED BY ONCOLOGY DC TO HOME ADJUST PAIN MEDS CONTINUE ON GOOD BOWEL REGIMEN Objective Vitals Vital Signs Date Time Temp Pulse Resp B/P (MAP) Pulse Ox O2 Delivery O2 Flow Rate FiO2 07/10/17 06:00 48 07/10/17 05:54 16 07/10/17 05:00 72 07/10/17 04:05 49 07/10/17 03:57 97.6 50 16 109/74 (86) 99 07/10/17 03:00 52 07/10/17 02:00 80 07/10/17 01:00 84 07/10/17 00:56 97.9 69 16 107/64 (78) 100 07/10/17 00:10 70 07/09/17 23:00 80 07/09/17 22:00 52 07/09/17 21:22 54 07/09/17 20:42 98.1 55 20 105/69 (81) 100 07/09/17 19:55 70 07/09/17 19:00 54 07/09/17 17:00 64 07/09/17 16:00 70 07/09/17 16:00 97.6 78 18 117/70 (86) 99 07/09/17 15:00 68 07/09/17 15:00 97.6 78 18 117/70 (86) 99 07/09/17 15:00 18 07/09/17 14:00 66 07/09/17 13:00 64 07/09/17 12:30 66 07/09/17 12:16 97.5 62 16 108/69 (82) 99 07/09/17 11:00 62 I/O 07/09/17 07/09/17 07/09/17 07/10/17 07/10/17 07/10/17 07:00 15:00 23:00 07:00 15:00 23:00 Intake Total 770 ml 920 ml 750 ml 790 ml Balance 770 ml 920 ml 750 ml 790 ml IV Total 50 ml Tube Feeding 720 ml 720 ml 450 ml 360 ml Other 200 ml 300 ml 430 ml # Voids 4 # Bowel Movements 2 1 Result Diagram: 07/10/17 0500 07/10/17 0500 Other Results Laboratory Tests Test 07/08/17 04:35 07/09/17 03:40 07/10/17 05:00 White Blood Count 8.8 TH/MM3 25.9 TH/MM3 18.8 TH/MM3 Red Blood Count 3.59 MIL/MM3 3.84 MIL/MM3 4.10 MIL/MM3 Hemoglobin 10.7 GM/DL 11.3 GM/DL 12.0 GM/DL Hematocrit 31.1 % 33.7 % 36.0 % Mean Corpuscular Volume 86.7 FL 87.8 FL 87.9 FL Mean Corpuscular Hemoglobin 29.9 PG 29.4 PG 29.3 PG Mean Corpuscular Hemoglobin Concent 34.5 % 33.5 % 33.4 % Red Cell Distribution Width 14.0 % 14.3 % 14.3 % Platelet Count 173 TH/MM3 235 TH/MM3 276 TH/MM3 Mean Platelet Volume 8.8 FL 8.6 FL 8.4 FL Neutrophils (%) (Auto) 53.7 % 79.9 % 80.9 % Lymphocytes (%) (Auto) 15.8 % 7.5 % 11.8 % Monocytes (%) (Auto) 30.4 % 12.5 % 6.6 % Eosinophils (%) (Auto) 0.0 % 0.0 % 0.6 % Basophils (%) (Auto) 0.1 % 0.1 % 0.1 % Neutrophils # (Auto) 4.7 TH/MM3 20.7 TH/MM3 15.2 TH/MM3 Lymphocytes # (Auto) 1.4 TH/MM3 1.9 TH/MM3 2.2 TH/MM3 Monocytes # (Auto) 2.7 TH/MM3 3.2 TH/MM3 1.2 TH/MM3 Eosinophils # (Auto) 0.0 TH/MM3 0.0 TH/MM3 0.1 TH/MM3 Basophils # (Auto) 0.0 TH/MM3 0.0 TH/MM3 0.0 TH/MM3 CBC Comment AUTO DIFF AUTO DIFF AUTO DIFF Differential Total Cells Counted 100 100 100 Neutrophils % (Manual) 20 % 47 % 51 % Band Neutrophils % 34 % 33 % 17 % Lymphocytes % 19 % 9 % 18 % Monocytes % 27 % 9 % 8 % Neutrophils # (Manual) 4.8 TH/MM3 21.2 TH/MM3 13.9 TH/MM3 Differential Comment FINAL DIFF MANUAL FINAL DIFF MANUAL FINAL DIFF MANUAL Platelet Estimate NORMAL NORMAL NORMAL Platelet Morphology Comment NORMAL NORMAL NORMAL Red Cell Morphology Comment NORMAL NORMAL NORMAL Blood Urea Nitrogen 9 MG/DL 11 MG/DL 16 MG/DL Creatinine 0.59 MG/DL 0.64 MG/DL 0.67 MG/DL Random Glucose 109 MG/DL 92 MG/DL 99 MG/DL Total Protein 4.9 GM/DL 5.4 GM/DL 5.9 GM/DL Albumin 1.9 GM/DL 2.1 GM/DL 2.5 GM/DL Calcium Level 8.0 MG/DL 8.2 MG/DL 8.7 MG/DL Phosphorus Level 2.3 MG/DL 2.0 MG/DL 4.1 MG/DL Magnesium Level 1.5 MG/DL 1.5 MG/DL 1.7 MG/DL Alkaline Phosphatase 62 U/L 87 U/L 103 U/L Aspartate Amino Transf (AST/SGOT) 13 U/L 12 U/L 20 U/L Alanine Aminotransferase (ALT/SGPT) 22 U/L 23 U/L 32 U/L Total Bilirubin 0.2 MG/DL LESS THAN 0.1 MG/DL 0.2 MG/DL Sodium Level 139 MEQ/L 139 MEQ/L 136 MEQ/L Potassium Level 3.8 MEQ/L 3.9 MEQ/L 4.4 MEQ/L Chloride Level 105 MEQ/L 103 MEQ/L 100 MEQ/L Carbon Dioxide Level 26.1 MEQ/L 27.0 MEQ/L 28.9 MEQ/L Anion Gap 8 MEQ/L 9 MEQ/L 7 MEQ/L Estimat Glomerular Filtration Rate 149 ML/MIN 135 ML/MIN 128 ML/MIN Hemoglobin A1c 5.8 % Free Thyroxine 1.11 NG/DL Thyroid Stimulating Hormone 3rd Gen 0.291 uIU/ML Metamyelocytes 2 % 2 % Myelocytes 4 % Toxic Granulation 1+ Imaging Last Impressions Chest X-Ray 07/07/17 0000 Signed Impressions: Service Date/Time: Friday, July 07, 2017 13:42 - CONCLUSION: The lungs are clear. Gerardo Doran MD Objective Remarks GENERAL: AWAKE AND ALERT AND ORIENTED X3 TALKATIVE AND COOPERATIVE- THIN APPEARING GENTLEMAN SKIN: Warm and dry. HEAD: Atraumatic. Normocephalic. EYES: Pupils equal and round. No scleral icterus. No injection or drainage. EOMI ENT: No nasal bleeding or discharge. Mucous membranes pink and moist. NECK: Trachea midline. No JVD. SUPPLE CARDIOVASCULAR: Regular rate and rhythm. S1, S2 NO S3 OR S4 RESPIRATORY: No accessory muscle use. Clear to auscultation. Breath sounds equal bilaterally. GASTROINTESTINAL: Abdomen soft, non-tender, nondistended. Hepatic and splenic margins not palpable. PEG IN PLACE MUSCULOSKELETAL: Extremities without clubbing, cyanosis, or edema. No obvious deformities. NEUROLOGICAL: Awake and alert. No obvious cranial nerve deficits. Motor grossly within normal limits. 4 out of 5 muscle strength in the arms and legs. Normal speech for the patient. PSYCHIATRIC: Appropriate mood and affect; insight and judgment normal. Procedures NONE Medications and IVs Current Medications Sodium Chloride 1,000 ml @ 1,000 mls/hr Q1H ONCE IV Last administered on at 09:10; Start 07/03/17 at 08:54; Stop 07/03/17 at 09:53; Status DC Sodium Chloride (NS Flush) 2 ml UNSCH PRN IVF FLUSH AFTER USING IV ACCESS Last administered on 07/03/17at 09:11; Start 07/03/17 at 09:00; Stop 07/03/17 at 11:51 ; Status DC Sodium Chloride 1,000 ml @ 1,000 mls/hr Q1H ONCE IV Last administered on at 09:10; Start 07/03/17 at 08:56; Stop 07/03/17 at 09:55; Status DC Sodium Chloride (NS Flush) 2 ml UNSCH PRN IVF FLUSH AFTER USING IV ACCESS Last administered on 07/03/17at 09:11; Start 07/03/17 at 09:00; Stop 07/03/17 at 11:51 ; Status DC Diphenhydramine HCl (Benadryl Inj) 25 mg ONCE ONCE IV PUSH Last administered on 07/03/17at 09:09; Start 07/03/17 at 09:00; Stop 07/03/17 at 09:01; Status DC Prochlorperazine Edisylate (Compazine Inj) 10 mg ONCE ONCE IV PUSH Last administered on 07/03/17at 09:11; Start 07/03/17 at 09:00; Stop 07/03/17 at 09:01 ; Status DC Hydromorphone HCl (Dilaudid Pf Inj) 2 mg ONCE ONCE IV PUSH Last administered on 07/03/17at 09:37; Start 07/03/17 at 09:30; Stop 07/03/17 at 09:31; Status DC Sodium Chloride 1,000 ml @ 999 mls/hr BOLUS ONCE IV Last administered on 07/03at 12:03; Start 07/03/17 at 11:30; Stop 07/03/17 at 12:30; Status DC Heparin Sodium (Porcine) (Heparin Central Flush) 500 units DAILY IV FLUSH Last administered on 07/09/17at 08:36; Start 07/03/17 at 11:45 Sodium Chloride 1,000 ml @ 125 mls/hr Q8H IV Last administered on 07/03/17at 13 :45; Start 07/03/17 at 12:00; Stop 07/03/17 at 18:09; Status DC Sodium Chloride (NS Flush) 2 ml UNSCH PRN IV FLUSH FLUSH AFTER USING IV ACCESS Last administered on 07/07/17 03:24; Start 07/03/17 at 11:45 Sodium Chloride (NS Flush) 2 ml BID IV FLUSH Last administered on 07/09/17at 20: 45; Start 07/03/17 at 21:00 Ondansetron HCl (Zofran Inj) 4 mg Q6H PRN IVP NAUSEA OR VOMITING; Start at 11:45; Stop 07/03/17 at 15:05; Status DC Naloxone HCl (Narcan Inj) 0.4 mg UNSCH PRN IV PUSH SEE LABEL COMMENTS; Start at 11:45 Oxycodone HCl (Roxicodone) 5 mg Q4H PRN PO PAIN GREATER THAN 5 Last administered on 07/04/17 06:30; Start 07/03/17 at 14:00; Stop 07/04/17 at 11:10; Status DC Loperamide HCl (Imodium) 2 mg Q6H PRN PO DIARRHEA; Start 07/03/17 at 14:00; Stop 07/04/17 at 06:11; Status DC Scopolamine (Transderm-Scop 1.5 Mg Patch.72 Hr) 1 patch Q3D T-DERMAL Last administered on 07/09/17at 16:34; Start 07/03/17 at 16:00 Metoclopramide HCl (Reglan Inj) 10 mg Q6H PRN IV PUSH NAUSEA Last administered on 07/03/17 14:35; Start 07/03/17 at 14:00; Stop 07/03/17 at 15:05; Status DC Miscellaneous Information 1 Q3D T-DERMAL Last administered on 07/06/17at 15:35; Start 07/06/17 at 16:00 Ondansetron HCl (Zofran Inj) 8 mg Q8HR IVP Last administered on 07/07/17 06:29 ; Start 07/03/17 at 15:15; Stop 07/07/17 at 13:04; Status DC Multi-Ingredient Mouthwash/Gargle (Magic Mouthwash Adult Liq) 10 ml QID SWISH- SWAL Last administered on 07/10/17at 09:24; Start 07/03/17 at 18:00 Sodium Chloride 1,000 ml @ 999 mls/hr Q1H1M ONCE IV Last administered on at 18:25; Start 07/03/17 at 18:15; Stop 07/03/17 at 19:15; Status DC Sodium Chloride 1,000 ml @ 125 mls/hr Q8H IV Last administered on 07/08/17at 08: 50; Start 07/03/17 at 18:30; Stop 07/08/17 at 09:28; Status DC Promethazine HCl (Phenergan Inj) 25 mg ONCE ONCE IM Last administered on at 03:57; Start 07/04/17 at 03:45; Stop 07/04/17 at 03:48; Status DC Hydromorphone HCl (Dilaudid Pf Inj) 0.5 mg ONCE ONCE IV PUSH Last administered on 07/04/17at 03:58; Start 07/04/17 at 03:45; Stop 07/04/17 at 03:48; Status DC Hyoscyamine Sulfate (Levsin Liq) 0.125 mg Q4H PRN PO secretions Last administered on 07/04/17at 10:18; Start 07/04/17 at 03:45 Loperamide HCl (Imodium Liq) 2 mg UNSCH PRN PO DIARRHEA Last administered on 07/06/17at 09:01; Start 07/04/17 at 06:15 Filgrastim (Neupogen Inj) 300 mcg DAILY@14 SQ Last administered on 07/06/17at 14: 35; Start 07/04/17 at 14:00; Stop 07/06/17 at 14:58; Status DC Hydromorphone HCl (Dilaudid Pf Inj) 0.5 mg Q4H PRN IV PUSH pain1-10 Last administered on 07/05/17at 10:15; Start 07/04/17 at 11:15; Stop 07/05/17 at 11:27; Status DC Prochlorperazine Edisylate (Compazine Inj) 5 mg Q4H PRN IV PUSH breakthrough nausea Last administered on 07/05/17at 10:15; Start 07/04/17 at 11:15; Stop at 10:43; Status DC Diphenhydramine HCl (Benadryl Inj) 25 mg Q4H PRN IV PUSH itching Last administered on 07/05/17 10:16; Start 07/04/17 at 11:15 Prochlorperazine Edisylate (Compazine Inj) 10 mg Q4H PRN IV PUSH breakthrough nausea Last administered on 07/08/17 01:47; Start 07/05/17 at 12:00 Cefepime HCl 2000 mg/Sodium Chloride 100 ml @ 200 mls/hr Q8H IV Last administered on 07/08/17 04:28; Start 07/05/17 at 13:00; Stop 07/08/17 at 12:50; Status DC Hydromorphone HCl (Dilaudid Pf Inj) 1 mg Q4H PRN IV PUSH pain1-10 Last administered on 07/09/17 08:36; Start 07/05/17 at 15:15; Stop 07/09/17 at 09:00; Status DC Acetaminophen (Tylenol 650 Mg/ 20 ml Liq) 650 mg Q4H PRN PEG FEVER GREATER THAN 100.4 Last administered on 07/06/17 09:12; Start 07/05/17 at 18:45 Dexamethasone (Decadron) 4 mg Q12HR PO Last administered on 07/10/17 09:23; Start 07/06/17 at 09:00 Fluconazole/ Sodium Chloride 50 ml @ 50 mls/hr Q24H IV Last administered on 07/08 23:04; Start 07/06/17 at 00:00; Stop 07/09/17 at 08:51; Status DC Nystatin (Mycostatin Liq) 5 ml QID SWISH-SWAL Last administered on 07/10/17 09 :24; Start 07/06/17 at 13:00 Filgrastim 300 mcg/Dextrose 26 ml @ 50 mls/hr DAILY@14 IV Last administered on 07/08/17 14:33; Start 07/07/17 at 14:00; Stop 07/09/17 at 08:05; Status DC Ondansetron HCl (Zofran Inj) 4 mg Q6HR PRN IV PUSH nausea Last administered on 07/07/17 22:03; Start 07/07/17 at 13:15 Pantoprazole Sodium (Protonix) 20 mg DAILY PO ; Start 07/08/17 at 09:30; Stop 07/08/17 at 12:50; Status DC Pantoprazole Sodium (Protonix Inj) 40 mg Q24H IV PUSH Last administered on at 16:30; Start 07/08/17 at 15:00 Levofloxacin (Levaquin) 500 mg DAILY PO Last administered on 07/10/17at 09:23; Start 07/08/17 at 14:30 Fluconazole (Diflucan) 100 mg ONCE ONCE PO Last administered on 07/09/17at 12:10 ; Start 07/09/17 at 10:00; Stop 07/09/17 at 10:01; Status DC Oxycodone HCl (Roxicodone) 10 mg Q4H PRN PO PAIN1-10 Last administered on at 09:24; Start 07/09/17 at 09:00 Fentanyl (Duragesic 25 Mcg Patch.72 Hr) 1 patch Q3D T-DERMAL Last administered on 07/09/17at 13:57; Start 07/09/17 at 14:00 Miscellaneous Information 1 Q3D T-DERMAL ; Start 07/09/17 at 14:00 A/P Problem List: (1) Chemotherapy-induced nausea and vomiting ICD Code: R11.2 - Nausea with vomiting, unspecified; T45.1X5A - Adverse effect of antineoplastic and immunosuppressive drugs, initial encounter Status: Resolved Plan: Continue antiemetics with Zofran, scopolamine patch. Symptoms likely related to chemotherapy. IV fluids for hydration. Continue tube feeding BEING SWITCHED TO BOLUS INSTEAD OF CONTINUOUS TUBE FEEDS RESOLVED (2) Primary tongue squamous cell carcinoma ICD Code: C02.9 - Malignant neoplasm of tongue, unspecified Plan: Patient currently receiving chemotherapy. Follow-up outpatient. Continue bypass feeding via PEG with vitals Dietitian following. Can do smaller bolus feeding more frequently per the dietitian recommendations. Discussed with patient. Mucositis. Patient started on fluconazole and Levaquin (3) Diarrhea ICD Code: R19.7 - Diarrhea, unspecified Status: Resolved Plan: Likely related to chemotherapy. C. diff neg. Imodium as needed. Add probiotic NOW CONSTIPATED Recommend continue on senna plus daily to twice daily (4) Dehydration ICD Code: E86.0 - Dehydration Status: Acute Plan: Mild. Continue IV fluid (5) Neutropenic fever ICD Code: D70.9 - Neutropenia, unspecified; R50.81 - Fever presenting with conditions classified elsewhere Status: Resolved Plan: Patient has been started empirically on broad-spectrum antibiotics. Blood cultures pending. NO GROWTH SO FAR RESOLVED Assessment and Plan (1) Chemotherapy-induced nausea and vomiting ICD Code: R11.2 - Nausea with vomiting, unspecified; T45.1X5A - Adverse effect of antineoplastic and immunosuppressive drugs, initial encounter Plan: Continue antiemetics with Zofran, scopolamine patch. Symptoms likely related to chemotherapy. IV fluids for hydration. Continue tube feeding SWITCHING TO BOLUS TUBE FEEDS TODAY (2) Primary tongue squamous cell carcinoma ICD Code: C02.9 - Malignant neoplasm of tongue, unspecified Plan: Patient currently receiving chemotherapy. Follow-up outpatient. Continue bypass feeding via PEG with vitals Dietitian following. Can do smaller bolus feeding more frequently per the dietitian recommendations. Discussed with patient. Mucositis. Patient started on fluconazole (3) Diarrhea ICD Code: R19.7 - Diarrhea, unspecified Status: Acute Plan: Likely related to chemotherapy. C. diff neg. Imodium as needed. Add probiotic NOW CONSTIPATED (4) Dehydration ICD Code: E86.0 - Dehydration Status: Acute Plan: Mild. Continue IV fluid (5) Neutropenic fever ICD Code: D70.9 - Neutropenia, unspecified; R50.81 - Fever presenting with conditions classified elsewhere Plan: Patient has been started empirically on broad-spectrum antibiotics. Blood cultures pending. Discharge Planning CLEARED BY ONCOLOGY DC TO HOME TODAY Problem Qualifiers (1) Diarrhea: Qualified Codes: R19.7 - Diarrhea, unspecified Alvarado Macedo DO Jul 10, 2017 10:24
[2017-07-10] MEDS ORDERED: ONDA8TAB7 PO (10:31)
[2017-07-10] MEDS ORDERED: DEXA4TAB PO (10:31)
[2017-07-10] MEDS ORDERED: SCOPOLAMINE 1.5 MG T-DERMAL (10:31)
[2017-07-10] MEDS ORDERED: VITAL G-TUBE (10:31)
[2017-07-10] MEDS ORDERED: HYOS0.1231 PO (10:31)
[2017-07-10] MEDS ORDERED: Nystatin Liq SWISH-SWAL (10:31)
[2017-07-10] MEDS ORDERED: OXYC-395 PO (10:31)
[2017-07-10] MEDS ORDERED: FENT25T T-DERMAL ×2 (10:31→13:29)
[2017-07-10] MEDS ORDERED: MAGICADU2 SWISH-SWAL (10:31)
[2017-07-10] MEDS ORDERED: LEVA500T33 PO (10:31)
--- NOTE | 2017-07-10 10:32 | HHI.DS ---
Discharge Summary Admission Date Jul 05, 2017 at 11:57 Discharge Date: Jul 10, 2017 Admitting Diagnosis persistent N/V/D, tongue cancer (1) Chemotherapy-induced nausea and vomiting ICD Code: R11.2 - Nausea with vomiting, unspecified; T45.1X5A - Adverse effect of antineoplastic and immunosuppressive drugs, initial encounter Diagnosis: Principal Status: Resolved (2) Primary tongue squamous cell carcinoma ICD Code: C02.9 - Malignant neoplasm of tongue, unspecified Diagnosis: Principal (3) Diarrhea ICD Code: R19.7 - Diarrhea, unspecified Diagnosis: Secondary Status: Resolved (4) Dehydration ICD Code: E86.0 - Dehydration Diagnosis: Principal Status: Acute (5) Neutropenic fever ICD Code: D70.9 - Neutropenia, unspecified; R50.81 - Fever presenting with conditions classified elsewhere Diagnosis: Principal Status: Resolved Procedures NONE Brief History - From Admission 46-year-old male with a history significant for tongue cancer undergoing chemotherapy who presented to the hospital with complaint of nausea, vomiting, diarrhea, and generalized weakness. Patient reports he had 3 episodes of diarrhea started around 2 AM this morning with associated nausea and vomiting. He became very weak and felt dehydrated which prompted the emergency room visit. He states this is chemotherapy related. He has had similar issue in the past. He denies any sick contacts. CBC/BMP: 07/10/17 0500 07/10/17 0500 Significant Findings Laboratory Tests Test 07/08/17 04:35 07/09/17 03:40 07/10/17 05:00 Red Blood Count 3.59 MIL/MM3 (4.50-5.90) 3.84 MIL/MM3 (4.50-5.90) 4.10 MIL/MM3 (4.50-5.90) Hemoglobin 10.7 GM/DL (13.0-17.0) 11.3 GM/DL (13.0-17.0) 12.0 GM/DL (13.0-17.0) Hematocrit 31.1 % (39.0-51.0) 33.7 % (39.0-51.0) 36.0 % (39.0-51.0) Monocytes (%) (Auto) 30.4 % (0.0-8.0) 12.5 % (0.0-8.0) Monocytes # (Auto) 2.7 TH/MM3 (0-0.9) 3.2 TH/MM3 (0-0.9) 1.2 TH/MM3 (0-0.9) Band Neutrophils % 34 % (0-6) 33 % (0-6) 17 % (0-6) Monocytes % 27 % (0-8) 9 % (0-8) Creatinine 0.59 MG/DL (0.60-1.30) Random Glucose 109 MG/DL (74-106) Total Protein 4.9 GM/DL (6.4-8.2) 5.4 GM/DL (6.4-8.2) 5.9 GM/DL (6.4-8.2) Albumin 1.9 GM/DL (3.4-5.0) 2.1 GM/DL (3.4-5.0) 2.5 GM/DL (3.4-5.0) Calcium Level 8.0 MG/DL (8.5-10.1) 8.2 MG/DL (8.5-10.1) Phosphorus Level 2.3 MG/DL (2.5-4.9) 2.0 MG/DL (2.5-4.9) Aspartate Amino Transf (AST/SGOT) 13 U/L (15-37) 12 U/L (15-37) Thyroid Stimulating Hormone 3rd Gen 0.291 uIU/ML (0.358-3.740) White Blood Count 25.9 TH/MM3 (4.0-11.0) 18.8 TH/MM3 (4.0-11.0) Neutrophils (%) (Auto) 79.9 % (16.0-70.0) 80.9 % (16.0-70.0) Lymphocytes (%) (Auto) 7.5 % (9.0-44.0) Neutrophils # (Auto) 20.7 TH/MM3 (1.8-7.7) 15.2 TH/MM3 (1.8-7.7) Neutrophils # (Manual) 21.2 TH/MM3 (1.8-7.7) 13.9 TH/MM3 (1.8-7.7) Metamyelocytes 2 % (0-1) 2 % (0-1) Total Bilirubin LESS THAN 0.1 MG/DL Myelocytes 4 % (0-0) Toxic Granulation 1+ (NORMAL) Imaging Last Impressions Chest X-Ray 07/07/17 0000 Signed Impressions: Service Date/Time: Friday, July 07, 2017 13:42 - CONCLUSION: The lungs are clear. Gerardo Doran MD PE at Discharge GENERAL: AWAKE AND ALERT AND ORIENTED X3 TALKATIVE AND COOPERATIVE- THIN APPEARING GENTLEMAN SKIN: Warm and dry. HEAD: Atraumatic. Normocephalic. EYES: Pupils equal and round. No scleral icterus. No injection or drainage. EOMI ENT: No nasal bleeding or discharge. Mucous membranes pink and moist. NECK: Trachea midline. No JVD. SUPPLE CARDIOVASCULAR: Regular rate and rhythm. S1, S2 NO S3 OR S4 RESPIRATORY: No accessory muscle use. Clear to auscultation. Breath sounds equal bilaterally. GASTROINTESTINAL: Abdomen soft, non-tender, nondistended. Hepatic and splenic margins not palpable. PEG IN PLACE MUSCULOSKELETAL: Extremities without clubbing, cyanosis, or edema. No obvious deformities. NEUROLOGICAL: Awake and alert. No obvious cranial nerve deficits. Motor grossly within normal limits. 4 out of 5 muscle strength in the arms and legs. Normal speech for the patient. PSYCHIATRIC: Appropriate mood and affect; insight and judgment normal. Hospital Course 46-year-old male with a history significant for tongue cancer undergoing chemotherapy who presented to the hospital with complaint of nausea, vomiting, diarrhea, and generalized weakness. Patient reports he had 3 episodes of diarrhea started around 2 AM this morning with associated nausea and vomiting. He became very weak and felt dehydrated which prompted the emergency room visit. He states this is chemotherapy related. He has had similar issue in the past. He denies any sick contacts. 4-1 Follow up on patient with tongue cancer undergoing chemo admitted with N/V, diarrhea. Patient seen and examined. Complaining of persistent nausea, no vomiting this morning. Still with diarrhea but has improved some. C Diff negative. Endorses weakness. Denies any fever or chills. Denies any chest pain or dyspnea. Denies any dysuria. 4-2 Patient reports he is still having severe nausea. Pain is not controlled. He is requiring IV Dilaudid. Temperature 100.0 this morning and is neutropenic. 4-3 Persistent fevers. Feeling poorly. Nausea but no vomiting. 4-4 STILL HAVING FEVERS NO VOMITING STILL HAVING NAUSEA TOLERATING TUBE FEEDS AT 30ML /HOUR DW RN AND PT AND CM AND ONCOLOGY 4-5 BEING SWITCHED TO BOLUS TUBE FEEDS HAVING CONSTIPATION NO BM YESTERDAY OR TODAY BUT TAKING PAIN MEDS DW RN AND PT AND CM AND ONCOLOGY AM LABS 4-6 pain not at goal yet been switch to p.o./via PEG medications Recommend that he continue on senna plus twice daily or at least once daily while on narcotic Continue bolus tube feeds is tolerating well Discussed with patient and RN and case management and oncology Hopefully discharge tomorrow 4-7 PAIN IS CONTROLLED TOLERATING BOLUS TUBE FEEDS CLEARED BY ONCOLOGY DC TO HOME ADJUST PAIN MEDS CONTINUE ON GOOD BOWEL REGIMEN Pt Condition on Discharge: Good Discharge Disposition: Discharge Home Discharge Time: > 30 minutes Discharge Instructions DIET: Follow Instructions for: On Tube Feeding Activities you can perform: Regular-No Restrictions Follow up Referrals: Oncology/Hematology - 2-3 Days PCP Follow-up - 10 Days New Medications: Dexamethasone (Dexamethasone) 4 Mg Tab 4 MG PO Q12HR for Inflammation, #60 TAB TAKE WITH FOOD Fentanyl (Duragesic) 25 Mcg/Hour Patch.td72 1 PATCH T-DERMAL Q3D for Pain Management, #10 PATCH Hyoscyamine Liq Drops (Hyosyne Liq Drops) 0.125 Mg/Ml Soln 0.125 MG PO Q4H PRN for secretions, #180 ML Levofloxacin (Levaquin) 500 Mg Tablet 500 MG PO DAILY for Infection, #5 TAB [Nystatin Liq] () 5 ML SUSP 5 ML SWISH-SWAL QID for Infection, #600 ML Changed Medications: [Scopolamine 1.5 Mg Patch.72 Hr] () 1 PATCH PATCH 1 PATCH T-DERMAL Q3D, #10 PATCH (Changed from: [Scopolamine 1.5 Mg Patch.72 Hr] (Transderm-Scop 1.5 Mg Patch.72 Hr) 1 PATCH PATCH 1 Patch T-DERMAL Q3D #6 ) [vital] () 360 ML G-TUBE QID (Changed from: Vital 1.5, 360mls four times daily. flush with 100cc saline after each feeding.) Vital 1.5, 360mls 5 times daily. flush with 100cc saline after each feeding. Continued Medications: Loperamide (Imodium A-D) 2 Mg Capsule 2 MG PO Q6H PRN for DIARRHEA, #30 CAP 0 Refills Arsscmwh-Hslnrbjudccqwpi-Ibnjfnrjm Liq (Magic Mouthwash Adult Liq) 120 Ml Susp 10 ML SWISH-SWAL QID for oral thrush, #1200 ML (This prescription has been renewed) Ondansetron (Ondansetron) 8 Mg Tab 8 MG PO TID for Nausea/Vomiting, #60 TAB 0 Refills (This prescription has been renewed) Oxycodone (Oxycodone) 10 Mg Tab 10 MG PO Q4H PRN for pain6-10, #60 TAB (This prescription has been renewed) Discontinued Medications: Ondansetron Odt (Zofran Odt) 4 Mg Tab 4 MG SL Q6HR PRN for Nausea/Vomiting, #7 TAB 0 Refills Alvarado Macedo DO Jul 10, 2017 10:32
[2017-07-10] MEDS ORDERED: SENN1TAB PO (10:52)
[2017-07-10] MEDS: SODIUM CHLORIDE 0.9% FLUSH 10 ML FLUSH IV FLUSH SCH (12:20)
== END 2017-07-10 13:00 | disposition home or self-care (01) | DRG 392 ==
LOC: NEPC 08:21 → NEDA 11:44 → NEPHCDU 16:59 → HCIN 07-04 11:25 → OBSVTOIN 07-05 11:57
PROVIDERS: ADMIT Hospitalist; ATTEND Hospitalist
DX: R11.2 Nausea with vomiting, unspecified (principal); T45.1X5A Adverse effect of antineoplastic and immunosuppressive drugs, initial encounter; C02.9 Malignant neoplasm of tongue, unspecified; D70.1 Agranulocytosis secondary to cancer chemotherapy; E46 Unspecified protein-calorie malnutrition; Z68.1 Body mass index [BMI] 19.9 or less, adult; D70.9 Neutropenia, unspecified; R50.81 Fever presenting with conditions classified elsewhere; R13.10 Dysphagia, unspecified; E86.0 Dehydration; Z93.1 Gastrostomy status; K12.31 Oral mucositis (ulcerative) due to antineoplastic therapy; R19.7 Diarrhea, unspecified; K59.00 Constipation, unspecified; Z87.891 Personal history of nicotine dependence
CPT/HCPCS: 71045; 80048; 80053; 81001; 83036; 83605; 83735; 84100; 84439; 84443; 85007; 85025; 85027; 87040; 87493; 87506; 96361; 96374; 96375; 96376; C9113; G0378; J0692; J0780; J1170; J1200; J1442; J1450; J1642; J2405; J2550; J2765; J7030; J8540

== ENCOUNTER 2017-08-01 02:07 | Inpatient (IN) | payer SELFPAY ==
[2017-08-01] VITALS (16 sets, daily range): BP systolic 112–172; BP diastolic 67–83; PULSE 60–90; RESP 17–20; TEMP 97.9–98.8; O2SAT 98–100
[~2017-08-01] VITALS: Ht 182.9 cm; Wt 80.9 kg
[~2017-08-01 02:07] MED LIST changes: +DEXA4TAB PO; +FENT25T T-DERMAL; +HYOS0.1231 PO; +LEVA500T33 PO; +Nystatin Liq SWISH-SWAL; +SENN1TAB PO; -ZOFR4TAB3 SL
[2017-08-01] MEDS ORDERED: 5FU IV (02:35)
[2017-08-01] MEDS ORDERED: DOCET20P (02:35)
[2017-08-01] MEDS ORDERED: [UNRECOGNIZED DRUG - CODE] (02:35)
[2017-08-01] MEDS ORDERED: DEXA4TAB PO (02:35)
[2017-08-01] MEDS ORDERED: PERC10TA27 PO (02:38)
--- NOTE | 2017-08-01 02:44 | PD ---
HPI Chief Complaint: GI Complaint Time Seen by Provider: 02:43 Travel History International Travel<30 days: No Contact w/Intl Traveler<30days: No Traveled to known affect area: No History of Present Illness HPI 46-year-old male with history of squamous cell carcinoma of the tongue, currently undergoing chemotherapy, presents emergency department for evaluation of nausea and vomiting possible dehydration. Patient states that he just completed his third chemo series. It was Wednesday through Wednesday of last week. He tells me he has been nauseous and vomiting. He has been unable to tolerate his PEG tube feedings. He has been unable to keep himself hydrated through his PEG tube due to significant nausea and vomiting. Patient has diarrhea but he always does following chemo. Denies any significant abdominal pain. Denies any fever or chills. Patient's oncologist is Dr. James. [facility] Past Medical History Autoimmune Disease: No Blood Disorders: No Cancer: Yes (squamous cell on tongue) Cardiovascular Problems: No Chemotherapy: Yes (CURRENT) Diabetes: No Diminished Hearing: No Endocrine: No Gastrointestinal Disorders: Yes (NAUSEA) Genitourinary: No Hepatitis: No Hiatal Hernia: No Immune Disorder: No Implanted Vascular Access Dvce: Yes Musculoskeletal: No Neurologic: No Psychiatric: No Reproductive: No Respiratory: No Immunizations Current: Yes Thyroid Disease: No Tetanus Vaccination: Unknown Influenza Vaccination: No Past Surgical History Abdominal Surgery: Yes (PEG TUBE PLACEMENT ) AICD: No Arteriovenous Shunt: No Cardiac Surgery: No Ear Surgery: No Endocrine Surgery: No Eye Surgery: No Genitourinary Surgery: No Gynecologic Surgery: No Insulin Pump: No Joint Replacement: No Neurologic Surgery: No Oral Surgery: Yes (teeth extraction) Pacemaker: No Thoracic Surgery: No Other Surgery: Yes (PORT PLACEMENT ) Social History Alcohol Use: No Tobacco Use: No (QUIT ) Substance Use: No Allergies-Medications (Allergen,Severity, Reaction): Coded Allergies: Penicillins (Verified Allergy, Severe, UNSURE - CHILD, 08/01/17) Uncoded Allergies: SHELLFISH (Allergy, Severe, Anaphylaxis, 04/27/17) Reported Meds & Prescriptions Reported Meds & Active Scripts Active Duragesic Patch 72 HR (Fentanyl) 25 Mcg/Hour Patch.td72 1 Patch T-DERMAL Q3D PLACE A 25 MCG PATCH EVERY 72 HOURS TOPICALLY Hyosyne Liq Drops (Hyoscyamine Sulfate) 0.125 Mg/Ml Soln 0.125 Mg PO Q4H PRN [Nystatin Liq] 5 ML Susp 5 Ml SWISH-SWAL QID [vital] 360 Ml G-TUBE QID Vital 1.5, 360mls 5 times daily. flush with 100cc saline after each feeding. [Scopolamine 1.5 Mg Patch.72 Hr] 1 PATCH Patch 1 Patch T-DERMAL Q3D Ondansetron (Ondansetron HCl) 8 Mg Tab 8 Mg PO TID Reported Percocet (Oxycodone-Acetaminophen) 10-325 mg Tab 1 Tab PO Q6H PRN Dexamethasone 4 Mg Tab 8 Mg PO BID [5FU] IV Taxotere Inj (Docetaxel) 20 Mg/Ml (1 Ml) Inj Cisplatin Inj (Cisplatin) 1 Mg/Ml Inj Review of Systems Except as stated in HPI: all other systems reviewed are Neg Physical Exam Narrative GENERAL: Thin male patient, appears nontoxic and in no acute distress. SKIN: Focused skin assessment warm/dry. Right anterior chest port in place. No erythema or edema. HEAD: Atraumatic. Normocephalic. EYES: Pupils equal and round. No scleral icterus. No injection or drainage. ENT: No nasal bleeding or discharge. Mucous membranes pink and dry/crusted. Tongue is with moderate sized mass NECK: Trachea midline. No JVD. CARDIOVASCULAR: Regular rate and rhythm. No murmur appreciated. RESPIRATORY: No accessory muscle use. Clear to auscultation. Breath sounds equal bilaterally. GASTROINTESTINAL: Abdomen soft, nondistended. Left upper quadrant PEG tube in place. Mild tenderness to palpation left upper quadrant. No guarding. No rebound tenderness.. Hepatic and splenic margins not palpable. MUSCULOSKELETAL: No obvious deformities. No clubbing. No cyanosis. No edema. NEUROLOGICAL: Awake and alert. No obvious cranial nerve deficits. Motor grossly within normal limits. Speech is garbled PSYCHIATRIC: Appropriate mood and affect; insight and judgment normal. Data Data Last Documented VS Vital Signs Date Time Temp Pulse Resp B/P (MAP) Pulse Ox O2 Delivery O2 Flow Rate FiO2 08/01/17 02:29 20 08/01/17 02:28 88 129/68 (88) 100 Room Air 08/01/17 02:13 98.5 Orders Orders Iv Access Insert/Monitor (08/01/17 02:47) Complete Blood Count With Diff (08/01/17 02:47) Comprehensive Metabolic Panel (08/01/17 02:47) Coag Profile (08/01/17 02:47) Lipase (08/01/17 02:47) Prochlorperazine Inj (Compazine Inj) (08/01/17 03:00) Diphenhydramine Inj (Benadryl Inj) (08/01/17 03:00) Sodium Chlor 0.9% 1000 Ml Inj (Ns 1000 M (08/01/17 03:00) Ondansetron Inj (Zofran Inj) (08/01/17 04:45) Sodium Chlor 0.9% 1000 Ml Inj (Ns 1000 M (08/01/17 04:45) Labs Laboratory Tests Test 08/01/17 03:05 White Blood Count 6.8 TH/MM3 Red Blood Count 4.83 MIL/MM3 Hemoglobin 14.8 GM/DL Hematocrit 43.4 % Mean Corpuscular Volume 89.9 FL Mean Corpuscular Hemoglobin 30.6 PG Mean Corpuscular Hemoglobin Concent 34.1 % Red Cell Distribution Width 17.2 % Platelet Count 154 TH/MM3 Mean Platelet Volume 10.0 FL Neutrophils (%) (Auto) 74.8 % Lymphocytes (%) (Auto) 23.0 % Monocytes (%) (Auto) 0.8 % Eosinophils (%) (Auto) 0.5 % Basophils (%) (Auto) 0.9 % Neutrophils # (Auto) 5.1 TH/MM3 Lymphocytes # (Auto) 1.6 TH/MM3 Monocytes # (Auto) 0.1 TH/MM3 Eosinophils # (Auto) 0.0 TH/MM3 Basophils # (Auto) 0.1 TH/MM3 CBC Comment DIFF FINAL Differential Comment Prothrombin Time 9.8 SEC Prothromb Time International Ratio 1.0 RATIO Activated Partial Thromboplast Time 22.5 SEC Blood Urea Nitrogen 24 MG/DL Creatinine 0.70 MG/DL Random Glucose 94 MG/DL Total Protein 6.0 GM/DL Albumin 2.9 GM/DL Calcium Level 8.3 MG/DL Alkaline Phosphatase 63 U/L Aspartate Amino Transf (AST/SGOT) 14 U/L Alanine Aminotransferase (ALT/SGPT) 25 U/L Total Bilirubin 0.4 MG/DL Sodium Level 132 MEQ/L Potassium Level 4.0 MEQ/L Chloride Level 95 MEQ/L Carbon Dioxide Level 26.2 MEQ/L Anion Gap 11 MEQ/L Estimat Glomerular Filtration Rate 122 ML/MIN Lipase 113 U/L [facility] Medical Decision Making Medical Screen Exam Complete: Yes Emergency Medical Condition: Yes Medical Record Reviewed: Yes Differential Diagnosis Nausea and vomiting intractable versus non-intractable versus dehydration versus gastroenteritis Narrative Course 46-year-old male presents emergency department for evaluation of intractable nausea and vomiting following his third session of chemotherapy that ended on Wednesday. Patient appears nontoxic. He does have dry mucous membranes. Vital signs are stable. He is given Compazine and Benadryl IV. As well as normal saline bolus. Laboratory Tests Test 08/01/17 03:05 White Blood Count 6.8 TH/MM3 Red Blood Count 4.83 MIL/MM3 Hemoglobin 14.8 GM/DL Hematocrit 43.4 % Mean Corpuscular Volume 89.9 FL Mean Corpuscular Hemoglobin 30.6 PG Mean Corpuscular Hemoglobin Concent 34.1 % Red Cell Distribution Width 17.2 % Platelet Count 154 TH/MM3 Mean Platelet Volume 10.0 FL Neutrophils (%) (Auto) 74.8 % Lymphocytes (%) (Auto) 23.0 % Monocytes (%) (Auto) 0.8 % Eosinophils (%) (Auto) 0.5 % Basophils (%) (Auto) 0.9 % Neutrophils # (Auto) 5.1 TH/MM3 Lymphocytes # (Auto) 1.6 TH/MM3 Monocytes # (Auto) 0.1 TH/MM3 Eosinophils # (Auto) 0.0 TH/MM3 Basophils # (Auto) 0.1 TH/MM3 CBC Comment DIFF FINAL Differential Comment Prothrombin Time 9.8 SEC Prothromb Time International Ratio 1.0 RATIO Activated Partial Thromboplast Time 22.5 SEC Blood Urea Nitrogen 24 MG/DL Creatinine 0.70 MG/DL Random Glucose 94 MG/DL Total Protein 6.0 GM/DL Albumin 2.9 GM/DL Calcium Level 8.3 MG/DL Alkaline Phosphatase 63 U/L Aspartate Amino Transf (AST/SGOT) 14 U/L Alanine Aminotransferase (ALT/SGPT) 25 U/L Total Bilirubin 0.4 MG/DL Sodium Level 132 MEQ/L Potassium Level 4.0 MEQ/L Chloride Level 95 MEQ/L Carbon Dioxide Level 26.2 MEQ/L Anion Gap 11 MEQ/L Estimat Glomerular Filtration Rate 122 ML/MIN Lipase 113 U/L Findings are reviewed. Upon reassessment, patient continues to have nausea. He has not vomited. He is given Zofran. I discussed the patient my attending physician. Patient will be admitted observation for intractable nausea vomiting. Diagnosis Primary Impression: Chemotherapy-induced nausea and vomiting Admitting Information Admitting Physician Requests: Observation Condition: Stable Irma Hamm Aug 01, 2017 02:44
[2017-08-01] MEDS ORDERED: PROCHLORPERAZINE INJ 10 MG/2 ML VIAL IV PUSH ONE (03:00)
[2017-08-01] MEDS ORDERED: SODIUM CHLOR 0.9% 1000 ML INJ 1,000 ML IV ONE ×2 (03:00→04:45)
[2017-08-01] MEDS ORDERED: diphenhydrAMINE HCL 50 MG/ML VIAL IV PUSH ONE (03:00)
[2017-08-01 03:36] LABS: AUTOMATED NEUTROPHIL # 5.1 TH/MM3 (1.8-7.7); BASOPHIL # 0.1 TH/MM3 (0-0.2); BASOPHIL % 0.9 % (0.0-2.0); EOSINOPHIL % 0.5 % (0.0-4.0); HEMATOCRIT 43.4 % (39.0-51.0); HEMOGLOBIN 14.8 GM/DL (13.0-17.0); LYMPHOCYTE # 1.6 TH/MM3 (1.0-4.8); MEAN CELL VOLUME 89.9 FL (80.0-100.0); MEAN CORPUSCULAR HEMOGLOBIN 30.6 PG (27.0-34.0); MEAN CORPUSCULAR HGB CONC 34.1 % (32.0-36.0); MONO % 0.8 % (0.0-8.0); MONOCYTE # 0.1 TH/MM3 (0-0.9); NEUT % 74.8 % (16.0-70.0); PLATELET COUNT 154 TH/MM3 (150-450); RED BLOOD COUNT 4.83 MIL/MM3 (4.50-5.90); RED CELL DISTRIBUTION WIDTH 17.2 % (11.6-17.2); WHITE BLOOD COUNT 6.8 TH/MM3 (4.0-11.0)
[2017-08-01 03:47] LABS: PROTHROMBIN TIME - PATIENT 9.8 SEC (9.8-11.6)
[2017-08-01 03:53] LABS: ALBUMIN 2.9 GM/DL (3.4-5.0); ALT (GPT) 25 U/L (12-78); AST (GOT) 14 U/L (15-37); BICARBONATE 26.2 MEQ/L (21.0-32.0); BLOOD UREA NITROGEN 24 MG/DL (7-18); CALCIUM 8.3 MG/DL (8.5-10.1); CHLORIDE 95 MEQ/L (98-107); GLOMERULAR FILTRATION RATE 122 ML/MIN (>89); GLUCOSE,RANDOM 94 MG/DL (74-106); SODIUM (NA) 132 MEQ/L (136-145)
[2017-08-01 03:55] LABS: ALKALINE PHOSPHATASE 63 U/L (45-117); TOTAL BILIRUBIN ADULT 0.4 MG/DL (0.2-1.0)
[2017-08-01] MEDS ORDERED: BISACODYL 10 MG SUPP RECTAL PRN (04:45)
[2017-08-01] MEDS ORDERED: ONDANSETRON HCL 4 MG/2 ML VIAL IV PUSH ONE (04:45)
[2017-08-01] MEDS ORDERED: MAGNESIUM HYDROXIDE SUSP 30 ML CUP PO PRN (04:45)
[2017-08-01] MEDS ORDERED: SENNOSIDES 8.6 MG TAB PO PRN (04:45)
[2017-08-01] MEDS ORDERED: LACTULOSE SYRUP 20 GM/30 ML CUP PO PRN (04:45)
[2017-08-01] MEDS ORDERED: MORPHINE SULFATE 2 MG/ML SYRINGE IV PUSH PRN ×2 (04:45)
[2017-08-01] MEDS ORDERED: HYDROmorphone HCL PF 0.5 MG/0.5 ML SYRINGE IV PUSH PRN (05:00)
[2017-08-01] MEDS: fentaNYL 25 MCG/HR PATCH T-DERMAL SCH (05:00)
--- NOTE | 2017-08-01 05:04 | HHI.HP ---
HPI Service [facility] Primary Care Physician Dwayne Naranjo MD Admission Diagnosis chemo induced Nausea and vomiting Diagnoses: (1) Chemotherapy-induced nausea and vomiting Diagnosis: Principal (2) Dehydration Diagnosis: Principal (3) Tongue cancer Diagnosis: Principal Travel History International Travel<30 Days: No Contact w/Intl Traveler <30 Da: No Traveled to Known Affected Are: No History of Present Illness This is a 46-year-old male with a PMH of Squamous Cell CA of the Tongue currently on Chemo who presented to the ER with complaints of nausea/vomiting x1 day. States he underwent his 3rd series of Chemo Wednesday-Wednesday and has been having ongoing nausea/vomiting, which he states is typical of his post-chemo symptoms. Does not take PO, unable to tolerate feedings through PEG due to nausea/vomiting. Denies fever, chills, abdominal pain or diarrhea. On arrival , BP 172/83, HR 90, O2 sat 100% on RA, Afebrile. CBC unremarkable. BUN 24. INR 1.0. S/p Benadryl/Compazine/Zofran in ER w/ minimal improvement. Review of Systems Except as stated in HPI: all other systems reviewed are Neg ROS: 14 point review of systems otherwise negative. Past Family Social History Past Medical History PMH: Squamous Cell CA of the Tongue Past Surgical History PAST SURGICAL HISTORY: Port Placement, PEG Tube Placement, Dental Extraction Allergies: Coded Allergies: Penicillins (Verified Allergy, Severe, UNSURE - CHILD, 08/01/17) Uncoded Allergies: SHELLFISH (Allergy, Severe, Anaphylaxis, 04/27/17) Family History PAST FAMILY HISTORY: Reviewed. No h/o DM or CAD Social History PAST SOCIAL HISTORY: Negative for alcohol, tobacco or drugs. Physical Exam Vital Signs Vital Signs Date Time Temp Pulse Resp B/P (MAP) Pulse Ox O2 Delivery O2 Flow Rate FiO2 08/01/17 02:29 20 08/01/17 02:28 88 20 129/68 (88) 100 Room Air 08/01/17 02:13 98.5 90 18 172/83 (112) 100 Physical Exam PE: GENERAL: Middle-aged white male in mild distress due to pain and persistent nausea. HEENT: PERRLA, EOMI. No scleral icterus or conjunctival pallor. No lid lag or facial droop. +tongue mass, difficulty w/ speech. CARDIOVASCULAR: Regular rate and rhythm. No obvious murmurs to auscultation. No chest tenderness to palpation. Right chest port. RESPIRATORY: No obvious rhonchi or wheezing. Clear to auscultation. Breath sounds equal bilaterally. GASTROINTESTINAL: Abdomen soft, non-tender, nondistended. BS normal. PEG tube in place, intact. MUSCULOSKELETAL: Extremities without clubbing, cyanosis, or edema. No obvious deformities. NEUROLOGICAL: Awake, alert and oriented x4. No focal neurologic deficits. Moving both upper and lower extremities spontaneously. Laboratory Laboratory Tests Test 08/01/17 03:05 White Blood Count 6.8 Red Blood Count 4.83 Hemoglobin 14.8 Hematocrit 43.4 Mean Corpuscular Volume 89.9 Mean Corpuscular Hemoglobin 30.6 Mean Corpuscular Hemoglobin Concent 34.1 Red Cell Distribution Width 17.2 Platelet Count 154 Mean Platelet Volume 10.0 Neutrophils (%) (Auto) 74.8 Lymphocytes (%) (Auto) 23.0 Monocytes (%) (Auto) 0.8 Eosinophils (%) (Auto) 0.5 Basophils (%) (Auto) 0.9 Neutrophils # (Auto) 5.1 Lymphocytes # (Auto) 1.6 Monocytes # (Auto) 0.1 Eosinophils # (Auto) 0.0 Basophils # (Auto) 0.1 CBC Comment DIFF FINAL Differential Comment Prothrombin Time 9.8 Prothromb Time International Ratio 1.0 Activated Partial Thromboplast Time 22.5 Blood Urea Nitrogen 24 Creatinine 0.70 Random Glucose 94 Total Protein 6.0 Albumin 2.9 Calcium Level 8.3 Alkaline Phosphatase 63 Aspartate Amino Transf (AST/SGOT) 14 Alanine Aminotransferase (ALT/SGPT) 25 Total Bilirubin 0.4 Sodium Level 132 Potassium Level 4.0 Chloride Level 95 Carbon Dioxide Level 26.2 Anion Gap 11 Estimat Glomerular Filtration Rate 122 Lipase 113 Result Diagram: 08/01/1730408/01/17304 Caprini VTE Risk Assessment Caprini VTE Risk Assessment: No/Low Risk (score <= 1) Caprini Risk Assessment Model Point Value = 1 Point Value = 2 Point Value = 3 Point Value = 5 Age 41-60 Minor surgery BMI > 25 kg/m2 Swollen legs Varicose veins or History of unexplained or recurrent spontaneous Oral contraceptives or hormone replacement Sepsis (< 1 month) Serious lung disease, including pneumonia (< 1 month) Abnormal pulmonary function Acute myocardial infarction Congestive heart failure (< 1 month) History of inflammatory bowel disease Medical patient at bed rest Age 61-74 Arthroscopic surgery Major open surgery (> 45 min) Laparoscopic surgery (> 45 min) Malignancy Confined to bed (> 72 hours) Immobilizing plaster cast Central venous access Age >= 75 History of VTE Family history of VTE Factor V Leiden Prothrombin [id number] Lupus anticoagulant Anticardiolipin antibodies Elevated serum homocysteine Heparin-induced thrombocytopenia Other congenital or acquired thrombophilia Stroke (< 1 month) Elective arthroplasty Hip, pelvis, or leg fracture Acute spinal cord injury (< 1 month) Prophylaxis Regimen Total Risk Factor Score Risk Level Prophylaxis Regimen 0-1 Low Early ambulation 2 Moderate Order ONE of the following: *Sequential Compression Device (SCD) *Heparin 5000 units SQ BID 3-4 Higher Order ONE of the following medications: *Heparin 5000 units SQ TID *Enoxaparin/Lovenox 40 mg SQ daily (WT < 150 kg, CrCl > 30 mL/min) *Enoxaparin/Lovenox 30 mg SQ daily (WT < 150 kg, CrCl > 10-29 mL/min) *Enoxaparin/Lovenox 30 mg SQ BID (WT < 150 kg, CrCl > 30 mL/min) AND/OR *Sequential Compression Device (SCD) 5 or more Highest Order ONE of the following medications: *Heparin 5000 units SQ TID (Preferred with Epidurals) *Enoxaparin/Lovenox 40 mg SQ daily (WT < 150 kg, CrCl > 30 mL/min) *Enoxaparin/Lovenox 30 mg SQ daily (WT < 150 kg, CrCl > 10-29 mL/min) *Enoxaparin/Lovenox 30 mg SQ BID (WT < 150 kg, CrCl > 30 mL/min) AND *Sequential Compression Device (SCD) Assessment and Plan Problem List: (1) Chemotherapy-induced nausea and vomiting ICD Code: R11.2 - Nausea with vomiting, unspecified; T45.1X5A - Adverse effect of antineoplastic and immunosuppressive drugs, initial encounter Status: Resolved (2) Dehydration ICD Code: E86.0 - Dehydration (3) Tongue cancer ICD Code: C02.9 - Malignant neoplasm of tongue, unspecified Assessment and Plan A/P: 1. Chemotherapy-Induced NV: s/p completion of 3rd cycle from Wed-Wednesday, now w / persistent nausea/vomiting, s/p Benadryl/Compazine/Zofran in ER w/ minimal improvement, will continue w/ analgesics/antiemetics as needed. NPO, hold tube feedings until symptoms controlled. IVF for hydration. 2. Dehydration: secondary to above, BUN 24, IVF for hydration, repeat labs in am. 3. 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 Naranjo, will place consult for further evaluation/ recommendations. 4. DVT Prophylaxis: SCD/Teds 5. Social work for d/c planning as needed. 6. Case discussed w/ ER physician at length, labs/records/imaging reviewed by me. Lucia Luevano MD Aug 01, 2017 05:04
[2017-08-01] MEDS: SODIUM CHLOR 0.9% 1000 ML INJ 1,000 ML IV SCH ×3 (06:00→23:18)
[2017-08-01] MEDS: HYDROmorphone HCL PF 2 MG/ML VIAL IV PUSH PRN ×4 (06:35→22:35)
[2017-08-01] MEDS: METOCLOPRAMIDE HCL 10 MG/2 ML VIAL IV PUSH PRN ×2 (06:38→22:31)
[2017-08-01] MEDS: DOCUSATE SODIUM 50 MG/SENNA 8.6 MG TAB PO SCH ×2 (06:58→19:53)
[2017-08-01] MEDS: SODIUM CHLORIDE 0.9% FLUSH 10 ML FLUSH IV FLUSH SCH ×2 (06:58→19:54)
[2017-08-01] MEDS: ONDANSETRON HCL 4 MG/2 ML VIAL IVP PRN ×2 (08:43→19:53)
--- NOTE | 2017-08-01 11:43 | MB ---
cc: Alize Jules MD DATE: 08/01/2017 CHIEF COMPLAINT: 1. History of head and neck cancer. 2. Intractable nausea and vomiting. HISTORY OF PRESENT ILLNESS: Mr. Flowers is a 46-year-old gentleman with a history of squamous cell carcinoma of the tongue, currently receiving chemotherapy under the direction of my colleague, Dr. Naranjo, who presented to the hospital on 08/01/2017 with intractable nausea and vomiting of 1 day duration. His Oncology history began approximately 1 year ago when he developed a lesion on his tongue that would wax and wane in size. It progressively grew larger and more painful and he sought evaluation by an ENT physician. At that point in time, he had a biopsy of the lung mass, which confirmed invasive moderately to poorly differentiated squamous cell carcinoma, HPV negative disease. The mass was not resectable. He was then evaluated by the Radiation Oncology and Medical Oncology consult team. Pretreatment PET scan showed intense activity in the right tongue, which crosses the midline anterior and extends on the right side to the base of the tongue, SUV is 16.5 and the size of the mass appears to be approximately 5.2 x 2.3 cm. No enlarged hypermetabolic lymph nodes, nonspecific antral involvement. He has started neoadjuvant TPF under the direction of Dr. Naranjo. He has received 3 cycles. His first cycle was on 06/07/2017. Second on 06/28/2017, third on 07/03/2017 and fourth was given on 07/26/2017. He has been hospitalized after past cycles with nausea, vomiting and diarrhea after chemotherapy. LABORATORY STUDIES: White blood cell count 6.8, hemoglobin 14.8, platelet count is 154,000 with a normal differential. Chemistry studies with a sodium of 132, creatinine 0.70, total protein 6.0, albumin 2.9, normal AST, ALT and kidney function. ROS: as above in HPI, all other ROS negative. PAST MEDICAL HISTORY: Squamous cell carcinoma of the tongue. PAST SURGICAL HISTORY: Right lateral tongue biopsy. FAMILY HISTORY: Father with history of prostate cancer, maternal grandmother with a history of breast cancer. SOCIAL HISTORY: Mr. Flowers is a daily smoker, approximately 1 pack a day for 10 years. Denies alcohol abuse. He has a good support system. ALLERGIES: PENICILLIN. REVIEW OF SYSTEMS: As above in the HPI. All other review of systems negative. PHYSICAL EXAMINATION: VITAL SIGNS: Temperature is 97.9, pulse is 75, respiratory rate 18, blood pressure 116/83, pulse oximetry is 99% on room air. GENERAL: Thin, chronically ill-appearing man, in no distress. NECK: Supple. No palpable lymphadenopathy. LUNGS: Clear to auscultation bilaterally. CARDIOVASCULAR: Regular rate and rhythm. No murmurs. ABDOMEN: Soft. No tenderness. Bowel sounds present. EXTREMITIES: Extremities with no edema. NEUROLOGIC: Grossly nonfocal. PSYCHIATRIC: Appropriate mood and affect. ASSESSMENT AND PLAN: 1. Base of tongue moderate to poorly differentiated squamous cell carcinoma, P16 negative. Currently receiving neoadjuvant chemotherapy. 2. Persistent nausea and vomiting due to chemotherapy. He is currently on antiemetic regimen to include as needed IV Zofran, as needed Reglan and IV fluids. He is also on scopolamine patch. 3. Pain. We will continue current pain medication regimen of oxycodone and Tylenol, as well as fentanyl patch and as needed Dilaudid. The inpatient oncology team will continue to follow. Alize Jules MD LIEN/TL , 11:15 AM , 11:42 AM MTDDesiree
[2017-08-01] MEDS: PROCHLORPERAZINE INJ 10 MG/2 ML VIAL IV PUSH PRN (12:51)
[2017-08-01] MEDS: oxyCODONE/ACETAMINOPHEN 10 MG/325 MG TAB PO PRN ×2 (12:51→19:52)
[2017-08-01] MEDS: NYSTAT/DIPHENHY/LIDO MOUTHWASH (Adult) 120ML PO SCH ×2 (17:36→19:54)
[2017-08-02] VITALS (21 sets, daily range): BP systolic 108–119; BP diastolic 63–75; PULSE 62–99; RESP 16–18; TEMP 97.6–99.5; O2SAT 99–100
[2017-08-02] MEDS: oxyCODONE/ACETAMINOPHEN 10 MG/325 MG TAB PO PRN ×2 (02:06→10:56)
[2017-08-02] MEDS: PROCHLORPERAZINE INJ 10 MG/2 ML VIAL IV PUSH PRN ×3 (02:06→20:41)
[2017-08-02] MEDS: SODIUM CHLORIDE 0.9% FLUSH 10 ML FLUSH IV FLUSH PRN ×2 (03:34→22:11)
[2017-08-02] MEDS: HYDROmorphone HCL PF 2 MG/ML VIAL IV PUSH PRN ×5 (03:34→22:11)
[2017-08-02] MEDS: SODIUM CHLOR 0.9% 1000 ML INJ 1,000 ML IV SCH ×2 (03:35→20:43)
[2017-08-02 05:31] LABS: AUTOMATED NEUTROPHIL # 1.2 TH/MM3 (1.8-7.7); BASOPHIL % 0.4 % (0.0-2.0); HEMATOCRIT 35.4 % (39.0-51.0); LYMPHOCYTE # 1.5 TH/MM3 (1.0-4.8); MEAN CELL VOLUME 89.9 FL (80.0-100.0); MEAN CORPUSCULAR HEMOGLOBIN 30.5 PG (27.0-34.0); MEAN CORPUSCULAR HGB CONC 33.9 % (32.0-36.0); MEAN PLATELET VOLUME 9.6 FL (7.0-11.0); MONO % 1.3 % (0.0-8.0); NEUT % 44.3 % (16.0-70.0); PLATELET COUNT 110 TH/MM3 (150-450); RED BLOOD COUNT 3.94 MIL/MM3 (4.50-5.90); RED CELL DISTRIBUTION WIDTH 16.5 % (11.6-17.2); WHITE BLOOD COUNT 2.8 TH/MM3 (4.0-11.0)
[2017-08-02 05:48] LABS: ALBUMIN 2.1 GM/DL (3.4-5.0); BICARBONATE 25.7 MEQ/L (21.0-32.0); CALCIUM 7.4 MG/DL (8.5-10.1); CALCIUM-PROTEIN CORRECTED 8.9 MG/DL (8.5-10.1); CREATININE 0.44 MG/DL (0.60-1.30); TOTAL BILIRUBIN ADULT 0.4 MG/DL (0.2-1.0); TOTAL PROTEIN 4.5 GM/DL (6.4-8.2)
[2017-08-02] MEDS: NYSTAT/DIPHENHY/LIDO MOUTHWASH (Adult) 120ML PO SCH ×4 (08:23→20:49)
[2017-08-02] MEDS: SODIUM CHLORIDE 0.9% FLUSH 10 ML FLUSH IV FLUSH SCH ×2 (08:24→20:44)
[2017-08-02] MEDS: DOCUSATE SODIUM 50 MG/SENNA 8.6 MG TAB PO SCH ×2 (08:26→20:49)
[2017-08-02] MEDS: METOCLOPRAMIDE HCL 10 MG/2 ML VIAL IV PUSH PRN ×2 (08:32→16:37)
--- NOTE | 2017-08-02 10:10 | PD.ONC.PN ---
Subjective Subjective Remarks Afebrile overnight. Patient continues to feel nauseated, but feels somewhat improved from initial admission. no vomiting in the last 24 hours. continues to have mouth pain and copious oral secretions. Objective Data Date Time Temp Pulse Resp B/P (MAP) Pulse Ox O2 Delivery O2 Flow Rate FiO2 08/02/17 06:02 67 08/02/17 05:00 63 08/02/17 04:01 62 08/02/17 03:49 98.6 67 16 112/63 (79) 99 08/02/17 03:01 66 08/02/17 02:01 79 08/02/17 01:01 74 08/02/17 00:31 97.9 71 16 116/72 (87) 99 08/02/17 00:00 66 08/01/17 23:00 66 08/01/17 22:03 64 08/01/17 21:00 69 08/01/17 20:02 98.8 72 18 117/68 (84) 98 08/01/17 20:01 67 08/01/17 19:02 71 08/01/17 15:37 98.4 73 18 133/76 (95) 100 08/01/17 15:00 78 08/01/17 11:32 98.5 74 18 112/67 (82) 99 08/01/17 11:00 60 08/02/17 08/02/17 08/02/17 07:00 15:00 23:00 Intake Total 120 ml Output Total 425 ml Balance -305 ml Result Diagram: 08/02/17 0350 08/02/17 0350 Laboratory Results Laboratory Tests Test 08/02/17 03:50 White Blood Count 2.8 TH/MM3 Red Blood Count 3.94 MIL/MM3 Hemoglobin 12.0 GM/DL Hematocrit 35.4 % Mean Corpuscular Volume 89.9 FL Mean Corpuscular Hemoglobin 30.5 PG Mean Corpuscular Hemoglobin Concent 33.9 % Red Cell Distribution Width 16.5 % Platelet Count 110 TH/MM3 Mean Platelet Volume 9.6 FL Neutrophils (%) (Auto) 44.3 % Lymphocytes (%) (Auto) 53.0 % Monocytes (%) (Auto) 1.3 % Eosinophils (%) (Auto) 1.0 % Basophils (%) (Auto) 0.4 % Neutrophils # (Auto) 1.2 TH/MM3 Lymphocytes # (Auto) 1.5 TH/MM3 Monocytes # (Auto) 0.0 TH/MM3 Eosinophils # (Auto) 0.0 TH/MM3 Basophils # (Auto) 0.0 TH/MM3 CBC Comment DIFF FINAL Differential Comment Blood Urea Nitrogen 20 MG/DL Creatinine 0.44 MG/DL Random Glucose 81 MG/DL Total Protein 4.5 GM/DL Albumin 2.1 GM/DL Calcium Level 7.4 MG/DL Alkaline Phosphatase 53 U/L Aspartate Amino Transf (AST/SGOT) 10 U/L Alanine Aminotransferase (ALT/SGPT) 17 U/L Total Bilirubin 0.4 MG/DL Sodium Level 134 MEQ/L Potassium Level 3.3 MEQ/L Chloride Level 100 MEQ/L Carbon Dioxide Level 25.7 MEQ/L Anion Gap 8 MEQ/L Estimat Glomerular Filtration Rate 208 ML/MIN Protein Corrected Calcium 8.9 MG/DL Administered Medications Medications (Trade) Dose Ordered Sig/Tiffanie Route PRN Reason Start Time Stop Time Status Last Admin Dose Admin Sodium Chloride 1,000 ml @ 100 mls/hr Q10H IV 08/01/17 04:43 08/02/17 03:35 Sodium Chloride (NS Flush) 2 ml UNSCH PRN IV FLUSH FLUSH AFTER USING IV ACCESS 08/01/17 04:45 08/02/17 03:34 Sodium Chloride (NS Flush) 2 ml BID IV FLUSH 08/01/17 09:00 08/02/17 08:24 Ondansetron HCl (Zofran Inj) 4 mg Q6H PRN IVP NAUSEA OR VOMITING 08/01/17 04:45 08/01/17 19:53 Metoclopramide HCl (Reglan Inj) 10 mg Q6H PRN IV PUSH NAUSEA OR VOMITING 08/01/17 04:45 08/02/17 08:32 Prochlorperazine Edisylate (Compazine Inj) 10 mg Q6H PRN IV PUSH NAUSEA/VOMITING 08/01/17 04:45 08/02/17 02:06 Hydromorphone HCl (Dilaudid Pf Inj) 1 mg Q4H PRN IV PUSH BREAKTHROUGH PAIN 08/01/17 05:00 08/02/17 08:23 Oxycodone/ Acetaminophen (Percocet 10-325 Mg) 1 tab Q6H PRN PO PAIN SCALE 4 TO 10 08/01/17 10:45 08/02/17 02:06 Multi-Ingredient Mouthwash/Gargle (Magic Mouthwash Adult Liq) 10 ml QID PO 08/01/17 18:00 08/02/17 08:23 Objective Remarks GENERAL: Middle aged male, sitting up in bed, weak and malnourished appearing. SKIN: Warm and dry. HEAD: Normocephalic. EYES: No injection or drainage. NECK: Supple, trachea midline. MOUTH: copious oral secretions. CARDIOVASCULAR: Regular rate and rhythm RESPIRATORY: Breath sounds equal bilaterally. No accessory muscle use. GASTROINTESTINAL: Abdomen soft, non-tender, nondistended. G-tube clamped. EXTREMITIES: No cyanosis NEUROLOGICAL: awake and alert. normal speech. moving extremities. Assessment/Plan Problem List: (1) Chemotherapy-induced nausea and vomiting ICD Codes: R11.2 - Nausea with vomiting, unspecified; T45.1X5A - Adverse effect of antineoplastic and immunosuppressive drugs, initial encounter Status: Resolved Plan: --continue supportive care with IVF, Scopolamine patch, zofran, reglan PRN (2) Pancytopenia due to antineoplastic chemotherapy ICD Codes: D61.810 - Antineoplastic chemotherapy induced pancytopenia; T45.1X5A - Adverse effect of antineoplastic and immunosuppressive drugs, initial encounter Plan: --monitor, transfuse as needed. Assessment 46y/o male with h/o head and neck cancer admitted with intractable nausea and vomiting. C4 TPF given on 07/26/2017. Plan 1. monitor CBC 2. consult film recordist 3. start trickle tube feeds. 4. continue supportive care with IVF, anti-emetics. 5. replace potassium Jacquelin Quan Aug 02, 2017 10:10
[2017-08-02] MEDS: POTASSIUM CHLOR 20 MEQ PREMIX 100 ML IV SCH ×2 (10:57→12:48)
[2017-08-02] MEDS: ONDANSETRON HCL 4 MG/2 ML VIAL IVP PRN (14:27)
[2017-08-02] MEDS: FILGRASTIM INJ 300 MCG in DEXTROSE 5% IN WATER INJ 25 ML IV SCH ×2 (14:28)
[2017-08-02] MEDS: ENOXAPARIN SODIUM 40 MG/0.4 ML SYRINGE SQ SCH (14:28)
--- NOTE | 2017-08-02 17:41 | HHI.PR ---
Subjective Remarks Pt complains of feeling very nauseous and also wants pain meds. discussed w RN, pt has been asking for pain meds frequently. Dilaudid has been increased by onc Objective Vitals Vital Signs Date Time Temp Pulse Resp B/P (MAP) Pulse Ox O2 Delivery O2 Flow Rate FiO2 08/02/17 17:18 99.5 74 18 115/66 (82) 100 08/02/17 12:47 98.5 99 18 108/67 (81) 99 08/02/17 12:00 66 08/02/17 10:51 98.7 72 18 119/75 (90) 08/02/17 08:00 71 08/02/17 06:02 67 08/02/17 05:00 63 08/02/17 04:01 62 08/02/17 03:49 98.6 67 16 112/63 (79) 99 08/02/17 03:01 66 08/02/17 02:01 79 08/02/17 01:01 74 08/02/17 00:31 97.9 71 16 116/72 (87) 99 08/02/17 00:00 66 08/01/17 23:00 66 08/01/17 22:03 64 08/01/17 21:00 69 08/01/17 20:02 98.8 72 18 117/68 (84) 98 08/01/17 20:01 67 08/01/17 19:02 71 I/O 08/01/17 08/01/17 08/01/17 08/02/17 08/02/17 08/02/17 07:00 15:00 23:00 07:00 15:00 23:00 Intake Total 120 ml 1200 ml 26 ml Output Total 425 ml Balance -305 ml 1200 ml 26 ml Intake IV Total 1200 ml 26 ml Other 120 ml Output Urine Total 425 ml # Voids 4 # Bowel Movements 1 Result Diagram: 08/02/17 0350 08/02/17 0350 Objective Remarks GENERAL: Middle-aged white male appears uncomfortable CARDIOVASCULAR: Regular rate and rhythm. No obvious murmurs to auscultation. RESPIRATORY: No obvious rhonchi or wheezing. Clear to auscultation. Breath sounds equal bilaterally. GASTROINTESTINAL: Abdomen soft, non-tender, nondistended. BS normal. PEG tube in place, intact. MUSCULOSKELETAL: Extremities without edema. No obvious deformities. NEUROLOGICAL: Awake, alert . Moving both upper and lower extremities spontaneously. A/P Problem List: (1) Chemotherapy-induced nausea and vomiting ICD Code: R11.2 - Nausea with vomiting, unspecified; T45.1X5A - Adverse effect of antineoplastic and immunosuppressive drugs, initial encounter Status: Resolved (2) Dehydration ICD Code: E86.0 - Dehydration (3) Tongue cancer ICD Code: C02.9 - Malignant neoplasm of tongue, unspecified Assessment and Plan 1. Chemotherapy-Induced NV: s/p completion of 3rd cycle from Mon-Wednesday, w/ persistent nausea, s/p Benadryl/Compazine/Zofran in ER w/ minimal improvement, will continue w/ analgesics/antiemetics as needed. onc restarted tube feeds, monitor closely. if nausea worsens, will hold again 2. Dehydration: secondary to above, BUN 24, IVF for hydration, repeat labs in am. 3. 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 Naranjo, onc following. pain meds have been adjusted by onc. I will also add iv toradol x 3 days scheduled to see if this helps 4. DVT Prophylaxis: lovenox Discharge Planning continue to monitor. pain and nausea not well controlled. Alissa Catherine MD Aug 02, 2017 17:41
[2017-08-02] MEDS: KETOROLAC TROMETHAMINE 30 MG/ML (IVP) VIAL IV PUSH SCH (17:54)
[2017-08-03] VITALS (24 sets, daily range): BP systolic 102–144; BP diastolic 53–77; PULSE 69–134; RESP 16–18; TEMP 98.4–101.2; O2SAT 97–100
[2017-08-03] MEDS: KETOROLAC TROMETHAMINE 30 MG/ML (IVP) VIAL IV PUSH SCH ×5 (01:00→19:05)
[2017-08-03] MEDS: SODIUM CHLORIDE 0.9% FLUSH 10 ML FLUSH IV FLUSH PRN ×4 (01:02→22:15)
[2017-08-03] MEDS: SODIUM CHLOR 0.9% 1000 ML INJ 1,000 ML IV SCH ×2 (01:05→12:35)
[2017-08-03] MEDS: ONDANSETRON HCL 4 MG/2 ML VIAL IVP PRN ×3 (02:30→22:15)
[2017-08-03] MEDS: PROCHLORPERAZINE INJ 10 MG/2 ML VIAL IV PUSH PRN ×2 (05:03→20:38)
[2017-08-03] MEDS: HYDROmorphone HCL PF 2 MG/ML VIAL IV PUSH PRN ×5 (05:09→22:18)
[2017-08-03 05:24] LABS: HEMATOCRIT 32.3 % (39.0-51.0); HEMOGLOBIN 11.3 GM/DL (13.0-17.0); MEAN CELL VOLUME 88.3 FL (80.0-100.0); MEAN CORPUSCULAR HGB CONC 35.1 % (32.0-36.0); MEAN PLATELET VOLUME 8.2 FL (7.0-11.0); PLATELET COUNT 112 TH/MM3 (150-450); RED BLOOD COUNT 3.66 MIL/MM3 (4.50-5.90); RED CELL DISTRIBUTION WIDTH 16.8 % (11.6-17.2); WHITE BLOOD COUNT 1.1 TH/MM3 (4.0-11.0)
[2017-08-03 05:54] LABS: ALBUMIN 1.9 GM/DL (3.4-5.0); ALT (GPT) 13 U/L (12-78); AST (GOT) 11 U/L (15-37); BICARBONATE 25.6 MEQ/L (21.0-32.0); BLOOD UREA NITROGEN 16 MG/DL (7-18); CALCIUM 7.5 MG/DL (8.5-10.1); CHLORIDE 100 MEQ/L (98-107); CREATININE 0.37 MG/DL (0.60-1.30); GLOMERULAR FILTRATION RATE 255 ML/MIN (>89); GLUCOSE,RANDOM 88 MG/DL (74-106); MAGNESIUM 1.5 MG/DL (1.5-2.5); PHOSPHORUS 2.7 MG/DL (2.5-4.9); SODIUM (NA) 134 MEQ/L (136-145)
[2017-08-03 05:56] LABS: ALKALINE PHOSPHATASE 50 U/L (45-117); TOTAL BILIRUBIN ADULT 0.4 MG/DL (0.2-1.0); TOTAL PROTEIN 4.3 GM/DL (6.4-8.2)
[2017-08-03] MEDS: METOCLOPRAMIDE HCL 10 MG/2 ML VIAL IV PUSH PRN ×2 (07:58→18:00)
[2017-08-03] MEDS: NYSTAT/DIPHENHY/LIDO MOUTHWASH (Adult) 120ML PO SCH ×4 (07:58→20:45)
[2017-08-03 08:11] LABS: BANDS 1 % (0-6); BASOPHILS 1 % (0-2); LYMPHOCYTES 88 % (9-44); MONOCYTES 2 % (0-8); POLYS (SEG NEUTROPHILS) 8 % (16-70)
[2017-08-03 08:15] LABS: NEUTROPHIL # MANUAL DIFF 0.1 TH/MM3 (1.8-7.7)
[2017-08-03] MEDS: DOCUSATE SODIUM 50 MG/SENNA 8.6 MG TAB PO SCH ×2 (09:00→20:45)
[2017-08-03] MEDS: SODIUM CHLORIDE 0.9% FLUSH 10 ML FLUSH IV FLUSH SCH ×2 (09:41→20:38)
--- NOTE | 2017-08-03 11:17 | PD.ONC.PN ---
Subjective Subjective Remarks Afebrile Patient reports he still has a lot of pain around his tongue. He just had diarrhea approximately 30 minutes prior to my exam He reports his nausea is relentless Objective Data Date Time Temp Pulse Resp B/P (MAP) Pulse Ox O2 Delivery O2 Flow Rate FiO2 08/03/17 07:50 98.5 80 16 112/60 (77) 100 08/03/17 07:15 71 08/03/17 06:02 75 08/03/17 05:12 99.1 84 16 118/67 (84) 99 08/03/17 05:03 87 08/03/17 04:07 85 08/03/17 03:06 72 08/03/17 02:08 72 08/03/17 01:37 70 08/03/17 01:01 109 08/03/17 00:54 99.3 90 16 125/70 (88) 99 08/03/17 00:17 69 08/02/17 23:02 69 08/02/17 22:03 69 08/02/17 21:04 74 08/02/17 20:50 97.6 82 18 118/70 (86) 99 08/02/17 20:04 65 08/02/17 19:08 69 08/02/17 18:20 67 08/02/17 17:18 99.5 74 18 115/66 (82) 100 08/02/17 12:47 98.5 99 18 108/67 (81) 99 08/02/17 12:00 66 08/03/17 08/03/17 08/03/17 07:00 15:00 23:00 Intake Total 1345 ml Output Total 500 ml Balance 845 ml Result Diagram: 08/03/17 0500 08/03/17 0500 Laboratory Results Laboratory Tests Test 08/03/17 05:00 White Blood Count 1.1 TH/MM3 Red Blood Count 3.66 MIL/MM3 Hemoglobin 11.3 GM/DL Hematocrit 32.3 % Mean Corpuscular Volume 88.3 FL Mean Corpuscular Hemoglobin 31.0 PG Mean Corpuscular Hemoglobin Concent 35.1 % Red Cell Distribution Width 16.8 % Platelet Count 112 TH/MM3 Mean Platelet Volume 8.2 FL CBC Comment AUTO DIFF Differential Total Cells Counted 100 Neutrophils % (Manual) 8 % Band Neutrophils % 1 % Lymphocytes % 88 % Monocytes % 2 % Basophils % 1 % Neutrophils # (Manual) 0.1 TH/MM3 Differential Comment FINAL DIFF MANUAL Platelet Estimate LOW Platelet Morphology Comment NORMAL Blood Urea Nitrogen 16 MG/DL Creatinine 0.37 MG/DL Random Glucose 88 MG/DL Total Protein 4.3 GM/DL Albumin 1.9 GM/DL Calcium Level 7.5 MG/DL Phosphorus Level 2.7 MG/DL Magnesium Level 1.5 MG/DL Alkaline Phosphatase 50 U/L Aspartate Amino Transf (AST/SGOT) 11 U/L Alanine Aminotransferase (ALT/SGPT) 13 U/L Total Bilirubin 0.4 MG/DL Sodium Level 134 MEQ/L Potassium Level 3.5 MEQ/L Chloride Level 100 MEQ/L Carbon Dioxide Level 25.6 MEQ/L Anion Gap 8 MEQ/L Estimat Glomerular Filtration Rate 255 ML/MIN Administered Medications Medications (Trade) Dose Ordered Sig/Tiffanie Route PRN Reason Start Time Stop Time Status Last Admin Dose Admin Sodium Chloride 1,000 ml @ 100 mls/hr Q10H IV 08/01/17 04:43 08/03/17 01:05 Sodium Chloride (NS Flush) 2 ml UNSCH PRN IV FLUSH FLUSH AFTER USING IV ACCESS 08/01/17 04:45 08/03/17 05:12 Sodium Chloride (NS Flush) 2 ml BID IV FLUSH 08/01/17 09:00 08/03/17 09:41 Ondansetron HCl (Zofran Inj) 4 mg Q6H PRN IVP NAUSEA OR VOMITING 08/01/17 04:45 08/03/17 09:23 Metoclopramide HCl (Reglan Inj) 10 mg Q6H PRN IV PUSH NAUSEA OR VOMITING 08/01/17 04:45 08/03/17 07:58 Prochlorperazine Edisylate (Compazine Inj) 10 mg Q6H PRN IV PUSH NAUSEA/VOMITING 08/01/17 04:45 08/03/17 05:03 Hydromorphone HCl (Dilaudid Pf Inj) 1 mg Q4H PRN IV PUSH for pain 6-10 08/01/17 05:00 08/03/17 09:41 Multi-Ingredient Mouthwash/Gargle (Magic Mouthwash Adult Liq) 10 ml QID PO 08/01/17 18:00 08/03/17 07:58 Filgrastim 300 mcg/Dextrose 26 ml @ 50 mls/hr DAILY@14 IV 08/02/17 14:00 08/02/17 14:28 Enoxaparin Sodium (Lovenox Inj) 40 mg Q24H SQ 08/02/17 14:00 08/02/17 14:28 Oxycodone HCl (Roxicodone) 10 mg Q6H PRN PO for pain 1-5 08/02/17 14:30 08/03/17 02:37 Ketorolac Tromethamine (Toradol Inj) 30 mg Q6HR IV PUSH 08/02/17 18:00 08/05/17 18:00 08/03/17 06:36 Objective Remarks GENERAL: Younger male, sitting up in bed in no obvious distress SKIN: Warm and dry. HEAD: Normocephalic. EYES: No injection or drainage. NECK: Supple, trachea midline. CARDIOVASCULAR: Regular rate and rhythm without murmurs. RESPIRATORY: Clear posteriorly. Breathing unlabored at rest. GASTROINTESTINAL: Abdomen nontender to palpation. PEG tube in place. EXTREMITIES: No cyanosis, or edema. MUSCULOSKELETAL: Adequate muscle tone. NEUROLOGICAL: Awake and alert. Moving all extremities. Assessment/Plan Problem List: (1) Chemotherapy-induced nausea and vomiting ICD Codes: R11.2 - Nausea with vomiting, unspecified; T45.1X5A - Adverse effect of antineoplastic and immunosuppressive drugs, initial encounter Status: Resolved Plan: --continue supportive care with IVF, Scopolamine patch, zofran, reglan and Compazine PRN (2) Pancytopenia due to antineoplastic chemotherapy ICD Codes: D61.810 - Antineoplastic chemotherapy induced pancytopenia; T45.1X5A - Adverse effect of antineoplastic and immunosuppressive drugs, initial encounter Plan: --monitor, transfuse as needed. Assessment 46y/o male with h/o head and neck cancer admitted with intractable nausea and vomiting. C4 TPF given on 07/26/2017. Plan 1. Start neutropenic precautions 2. Monitor for fevers 3. Continue Neupogen 4. Will discontinue Lovenox when platelets less than 80,000 5. Continue supportive care Attending Statement The exam, history, and the medical decision-making described in the above note were completed with the assistance of the mid-level provider. I reviewed and agree with the findings presented. I attest that I had a [id number] encounter with the patient on the same day, and personally performed and documented my assessment and findings in the medical record. Sharon Rojas August 03, 2017 11:17 Dwayne Naranjo MD August 03, 2017 22:42
[2017-08-03] MEDS: FILGRASTIM INJ 300 MCG in DEXTROSE 5% IN WATER INJ 25 ML IV SCH ×2 (13:59)
[2017-08-03] MEDS: ENOXAPARIN SODIUM 40 MG/0.4 ML SYRINGE SQ SCH (13:59)
--- NOTE | 2017-08-03 16:44 | HHI.PR ---
Subjective Remarks Patient seen earlier this afternoon. Nausea was somewhat controlled at the time. Pain also controlled. [place] a bit better compared to yesterday Objective Vitals Vital Signs Date Time Temp Pulse Resp B/P (MAP) Pulse Ox O2 Delivery O2 Flow Rate FiO2 08/03/17 16:04 108 08/03/17 14:28 20 08/03/17 13:03 98.4 103 18 136/70 (92) 100 08/03/17 07:50 98.5 80 16 112/60 (77) 100 08/03/17 07:15 71 08/03/17 06:02 75 08/03/17 05:12 99.1 84 16 118/67 (84) 99 08/03/17 05:03 87 08/03/17 04:07 85 08/03/17 03:06 72 08/03/17 02:08 72 08/03/17 01:37 70 08/03/17 01:01 109 08/03/17 00:54 99.3 90 16 125/70 (88) 99 08/03/17 00:17 69 08/02/17 23:02 69 08/02/17 22:03 69 08/02/17 21:04 74 08/02/17 20:50 97.6 82 18 118/70 (86) 99 08/02/17 20:04 65 08/02/17 19:08 69 08/02/17 18:20 67 08/02/17 17:18 99.5 74 18 115/66 (82) 100 I/O 08/02/17 08/02/17 08/02/17 08/03/17 08/03/17 08/03/17 07:00 15:00 23:00 07:00 15:00 23:00 Intake Total 120 ml 1200 ml 26 ml 1345 ml Output Total 425 ml 800 ml 500 ml Balance -305 ml 1200 ml -774 ml 845 ml Intake IV Total 1200 ml 26 ml 1000 ml Tube Feeding 125 ml Other 120 ml 220 ml Output Urine Total 425 ml 800 ml 500 ml # Voids 2 # Bowel Movements 1 1 Result Diagram: 08/03/17 0500 08/03/17 0500 Objective Remarks GENERAL: Middle-aged white male appears uncomfortable CARDIOVASCULAR: Regular rate and rhythm. No obvious murmurs to auscultation. RESPIRATORY: No obvious rhonchi or wheezing. Clear to auscultation. Breath sounds equal bilaterally. GASTROINTESTINAL: Abdomen soft, non-tender, nondistended. BS normal. PEG tube in place, intact. MUSCULOSKELETAL: Extremities without edema. No obvious deformities. NEUROLOGICAL: Awake, alert . Moving both upper and lower extremities spontaneously. Procedures GENERAL: Middle-aged white male, sitting up in bed CARDIOVASCULAR: Regular rate and rhythm. No obvious murmurs to auscultation. RESPIRATORY: No obvious wheezing. Clear to auscultation. Breath sounds equal bilaterally. GASTROINTESTINAL: Abdomen soft, non-tender, nondistended. BS normal. PEG tube in place, intact. A/P Problem List: (1) Chemotherapy-induced nausea and vomiting ICD Code: R11.2 - Nausea with vomiting, unspecified; T45.1X5A - Adverse effect of antineoplastic and immunosuppressive drugs, initial encounter Status: Resolved (2) Dehydration ICD Code: E86.0 - Dehydration (3) Tongue cancer ICD Code: C02.9 - Malignant neoplasm of tongue, unspecified Assessment and Plan 1. Chemotherapy-Induced NV: s/p completion of 3rd cycle from Wed-Wednesday, w/ persistent nausea, s/p Benadryl/Compazine/Zofran, appears to be improving, continue w/ analgesics/antiemetics as needed. onc restarted tube feeds, monitor closely. if nausea worsens, will hold again 2. Dehydration: secondary to above, BUN 24, IVF for hydration, repeat labs in am. 3. 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 Naranjo, onc following. pain meds have been adjusted by onc. On iv toradol x 3 days scheduled to see if this helps however he refused dose today as per RN did not help. Will need for now however he does not take it will DC 4. DVT Prophylaxis: lovenox Discharge Planning continue to monitor. Hopefully discharge in a.m. if pain and nausea better controlled Alissa Catherine MD August 03, 2017 16:44
[2017-08-03] MEDS ORDERED: AZTREONAM INJ 2,000 MG in SODIUM CHLORIDE 0.9% INJ 100 ML IV SCH (19:00)
--- NOTE | 2017-08-03 19:56 | RADRPT ---
EXAM DATE/TIME: 08/03/2017 19:28 [facility] COMPARISON: CHEST SINGLE AP, July 07, 2017, 13:42. INDICATIONS : Shortness of breath. MEDICAL HISTORY : Cancer, tongue. SURGICAL HISTORY : Infusaport. ENCOUNTER: Initial ACUITY: 1 day PAIN SCORE: 0/10 LOCATION: Bilateral chest FINDINGS: A single view of the chest demonstrates [id number] in superior vena cava. No consolidation or effu vannessa. Heart size normal. No pneumothorax. CONCLUSION: 1. No active disease. [id number] in superior vena cava. Dick Stack MD on August 03, 2017 at 19:53 Board Certified Radiologist. This report was verified electronically.
[2017-08-03] MEDS: AZTREONAM INJ 2,000 MG in SODIUM CHLORIDE 0.9% INJ 100 ML IV SCH (20:40)
[2017-08-03 21:57] LABS: BILIRUBIN, URINE NEG (NEG); BLOOD, URINE NEG (NEG); GLUCOSE,URINE TRACE mg/dL (NEG); HYALINE CAST, URINE 2 /lpf (RARE); KETONE, URINE 40 mg/dL (NEG); MUCUS URINE FEW /lpf (OCC); NITRITE,URINE NEG (NEG); URINE COLOR YELLOW (YELLW/STRAW); URINE LEUKOCYTE ESTERASE NEG (NEG)
[2017-08-04] VITALS (32 sets, daily range): BP systolic 62–134; BP diastolic 43–78; PULSE 109–160; RESP 16–24; TEMP 97.5–102.2; O2SAT 90–100
[2017-08-04] MEDS: ACETAMINOPHEN 325 MG TAB PO PRN ×2 (00:36→04:39)
[2017-08-04] MEDS: KETOROLAC TROMETHAMINE 30 MG/ML (IVP) VIAL IV PUSH SCH (00:36)
[2017-08-04] MEDS: SODIUM CHLOR 0.9% 1000 ML INJ 1,000 ML IV SCH (01:09)
[2017-08-04] MEDS ORDERED: SODIUM CHLOR 0.9% 1000 ML INJ 1,000 ML IV ONE ×6 (02:15→08:30)
[2017-08-04 02:42] LABS: HEMATOCRIT 33.7 % (39.0-51.0); HEMOGLOBIN 11.8 GM/DL (13.0-17.0); MEAN CELL VOLUME 87.5 FL (80.0-100.0); MEAN CORPUSCULAR HEMOGLOBIN 30.7 PG (27.0-34.0); MEAN CORPUSCULAR HGB CONC 35.1 % (32.0-36.0); MEAN PLATELET VOLUME 8.2 FL (7.0-11.0); PLATELET COUNT 82 TH/MM3 (150-450); RED BLOOD COUNT 3.85 MIL/MM3 (4.50-5.90); RED CELL DISTRIBUTION WIDTH 16.6 % (11.6-17.2); WHITE BLOOD COUNT 0.1 TH/MM3 (4.0-11.0)
[2017-08-04 03:09] LABS: ALBUMIN 1.7 GM/DL (3.4-5.0); BICARBONATE 25.1 MEQ/L (21.0-32.0); CALCIUM 7.2 MG/DL (8.5-10.1); CALCIUM-PROTEIN CORRECTED 8.9 MG/DL (8.5-10.1); CREATININE 1.05 MG/DL (0.60-1.30); MAGNESIUM 1.1 MG/DL (1.5-2.5); PHOSPHORUS 2.5 MG/DL (2.5-4.9); TOTAL BILIRUBIN ADULT 0.5 MG/DL (0.2-1.0); TOTAL PROTEIN 4.2 GM/DL (6.4-8.2)
[2017-08-04] MEDS ORDERED: MAGNESIUM SULFATE 1 GM PREMIX 100 ML IV ONE (03:15)
[2017-08-04] MEDS: ONDANSETRON HCL 4 MG/2 ML VIAL IVP PRN ×3 (03:29→17:56)
[2017-08-04 03:38] LABS: BANDS 2 % (0-6); BLASTS 4 % (0-0); LYMPHOCYTES 48 % (9-44); METAMYELOCYTES 6 % (0-1); MONOCYTES 36 % (0-8); POLYS (SEG NEUTROPHILS) 4 % (16-70)
[2017-08-04] MEDS: AZTREONAM INJ 2,000 MG in SODIUM CHLORIDE 0.9% INJ 100 ML IV SCH ×4 (03:51→19:59)
[2017-08-04] MEDS ORDERED: REMOVE OLD DURAGESIC (FENTANYL) PATCH T-DERMAL SCH (05:00)
[2017-08-04] MEDS ORDERED: IBUPROFEN SUSP 100 MG/5 ML UDC PEG ONE (05:30)
[2017-08-04] MEDS ORDERED: IBUPROFEN 400 MG TAB PO ONE (05:45)
[2017-08-04] MEDS: fentaNYL 25 MCG/HR PATCH T-DERMAL SCH (05:54)
[2017-08-04] MEDS ORDERED: VANCOMYCIN INJ 1,000 MG in SODIUM CHLOR 0.9% 250 ML INJ 250 ML IV ONE (06:00)
[2017-08-04] MEDS ORDERED: TERBUTALINE INJ 1 MG/ML AMP SQ PRN ×3 (08:15→14:30)
[2017-08-04] MEDS ORDERED: MICAFUNGIN INJ 150 MG in SODIUM CHLORIDE 0.9% INJ 100 ML IV STA (08:34)
[2017-08-04] MEDS ORDERED: PHENYLEPHRINE HCL 10 MG/ML VIAL ONE (08:40)
--- NOTE | 2017-08-04 08:53 | PD.CONS ---
HPI Service Critical Care Medicine Consult Requested By Primary Care Physician No Primary Care Physician History of Present Illness History of Present Illness This is a 46-year-old male with a PMH of Squamous Cell CA of the Tongue currently on Chemo who presented to the ER with complaints of nausea/vomiting. He underwent his 3rd series of Chemo Wednesday-Wednesday and has been having ongoing nausea/vomiting, which is typical of his post-chemo symptoms. He was not tolerating feedings through PEG due to nausea/vomiting. Patient was admitted by hospitalist service and was being followed by oncology. He developed worsening neutropenia and overnight has developed hypotension with lactic acidosis. Rapid response team was called and patient was transferred to the ICU after receiving a fluid bolus. He had empiric antibiotics initiated on 08/03 including vancomycin/aztreonam IV after obtaining blood cultures. I spoke with Dr. Rodas who consulted critical care service for further evaluation of hypotension/neutropenic sepsis following patient's transfer to the ICU. I evaluated patient immediately on his arrival to the ICU. He was awake and alert at that time not in any acute distress however was still hypotensive after having received 1 L normal saline bolus. I ordered 2 more liters NS bolus , IV albumin as well as added micafungin and IV Flagyl to his regimen. ID consult has already been requested prior to transfer. Patient has minimal shortness of breath on arrival however denies any chest pain abdominal pain currently. ROS - General Review of Systems Except as stated in HPI: all other systems reviewed are Neg. PFSH Past Family Social History Past Medical History PMH: Squamous Cell CA of the Tongue Past Surgical History PAST SURGICAL HISTORY: Port Placement, PEG Tube Placement, Dental Extraction Allergies: Coded Allergies: Penicillins (Verified Allergy, Severe, UNSURE - CHILD, 08/01/17) Uncoded Allergies: SHELLFISH (Allergy, Severe, Anaphylaxis, 04/27/17) Family History PAST FAMILY HISTORY: Reviewed. No h/o DM or CAD Social History PAST SOCIAL HISTORY: Negative for alcohol, tobacco or drugs. Past Family Social History Allergies: Coded Allergies: Penicillins (Verified Allergy, Severe, UNSURE - CHILD, 08/01/17) Uncoded Allergies: SHELLFISH (Allergy, Severe, Anaphylaxis, 04/27/17) Physical Exam Vital Signs Vital Signs Date Time Temp Pulse Resp B/P (MAP) Pulse Ox O2 Delivery O2 Flow Rate FiO2 5/2/18 07:06 148 89/51 (64) 100 08/04/17 06:38 101.8 150 18 85/48 (60) 98 08/04/17 05:44 156 18 93/50 (64) 97 08/04/17 04:46 160 18 103/53 (70) 100 08/04/17 04:21 102.2 154 18 87/49 (62) 97 08/04/17 04:00 147 111/53 (72) 98 08/04/17 03:54 150 18 92/57 (69) 93 08/04/17 03:28 101.9 138 16 77/62 (67) 90 08/04/17 02:53 137 89/47 (61) 91 08/04/17 02:50 138 84/46 (59) 91 08/04/17 02:46 139 79/47 (58) 90 08/04/17 02:39 139 64/48 (53) 90 08/04/17 02:37 137 72/53 (59) 90 08/04/17 02:33 139 62/47 (52) 92 08/04/17 02:28 75/52 (60) 08/04/17 01:38 100.8 145 16 95/48 (64) 94 08/04/17 01:15 148 08/04/17 00:12 100.4 147 18 134/78 (96) 100 08/04/17 00:11 100.5 08/04/17 00:01 144 08/03/17 23:00 127 08/03/17 22:04 121 08/03/17 21:22 115 08/03/17 20:26 99.4 105 18 102/53 (69) 97 08/03/17 20:05 134 08/03/17 20:00 114 08/03/17 19:03 116 08/03/17 17:45 101.2 114 18 144/77 (99) 99 08/03/17 16:04 108 08/03/17 14:28 20 08/03/17 13:03 98.4 103 18 136/70 (92) 100 08/03/17 12:07 86 08/03/17 12:00 94 Physical Exam Physical Exam PE: GENERAL: Middle-aged white male laying in bed, slightly tachypneic. HEENT: PERRLA, EOMI. No scleral icterus or conjunctival pallor. No lid lag or facial droop. +tongue mass, difficulty w/ speech. CARDIOVASCULAR: Regular rate and rhythm. No obvious murmurs to auscultation. No chest tenderness to palpation. Right chest port. RESPIRATORY: No obvious rhonchi or wheezing. Clear to auscultation. Breath sounds equal bilaterally. GASTROINTESTINAL: Abdomen soft, non-tender, nondistended. BS normal. PEG tube in place, intact. MUSCULOSKELETAL: Extremities without clubbing, cyanosis, or edema. No obvious deformities. NEUROLOGICAL: Awake, alert and oriented x4. No focal neurologic deficits. Moving both upper and lower extremities spontaneously. Laboratory Laboratory Tests Test 08/03/17 20:35 08/04/17 02:25 08/04/17 06:05 Urine Color YELLOW Urine Turbidity CLEAR Urine pH 6.0 Urine Specific [place] 1.023 Urine Protein 30 Urine Glucose (UA) TRACE Urine Ketones 40 Urine Occult Blood NEG Urine Nitrite NEG Urine Bilirubin NEG Urine Urobilinogen LESS THAN 2.0 Urine Leukocyte Esterase NEG Urine WBC 3 Urine Hyaline Casts 2 Urine Granular Casts 2 Urine Mucus FEW Microscopic Urinalysis Comment CULT NOT INDICATED Stool C. difficile Toxin (PCR) NEGATIVE Stl C. difficile Toxin Epiderm 027 PRESUMPTIVE NEGATIVE White Blood Count 0.1 Red Blood Count 3.85 Hemoglobin 11.8 Hematocrit 33.7 Mean Corpuscular Volume 87.5 Mean Corpuscular Hemoglobin 30.7 Mean Corpuscular Hemoglobin Concent 35.1 Red Cell Distribution Width 16.6 Platelet Count 82 Mean Platelet Volume 8.2 CBC Comment AUTO DIFF Differential Total Cells Counted 50 Neutrophils % (Manual) 4 Band Neutrophils % 2 Lymphocytes % 48 Monocytes % 36 Neutrophils # (Manual) 0.0 Metamyelocytes 6 Differential Comment FINAL DIFF MANUAL Blastocytes 4 Platelet Estimate LOW Platelet Morphology Comment NORMAL Blood Urea Nitrogen 21 Creatinine 1.05 Random Glucose 122 Total Protein 4.2 Albumin 1.7 Calcium Level 7.2 Phosphorus Level 2.5 Magnesium Level 1.1 Alkaline Phosphatase 48 Aspartate Amino Transf (AST/SGOT) 11 Alanine Aminotransferase (ALT/SGPT) 11 Total Bilirubin 0.5 Sodium Level 134 Potassium Level 4.0 Chloride Level 101 Carbon Dioxide Level 25.1 Anion Gap 8 Estimat Glomerular Filtration Rate 76 Protein Corrected Calcium 8.9 Lactic Acid Level 4.5 Date/Time Source Procedure Growth Status 08/04/17 06:05 Blood Peripheral Aerobic Blood Culture Pending Received 08/04/17 06:05 Blood Peripheral Anaerobic Blood Culture Pending Received 08/03/17 20:35 Stool Stool Pending Received Result Diagram: 08/04/17 0225 08/04/17 0225 Imaging Last Impressions Chest X-Ray 08/03/17 0000 Signed Impressions: Service Date/Time: Thursday, August 03, 2017 19:28 - CONCLUSION: 1. No active disease. [id number] in superior vena cava. Dick Stack MD Septic Shock Reassessment Septic shock perfusion: reassessment completed Assessment and Plan Assessment and Plan Septic shock Lactic acidosis Neutropenic sepsis Tongue cancer status post recent chemotherapy Thrombocytopenia Plan: Neuro: Follow neuro status, pain medications as needed. Currently on fentanyl patch. Cardiovascular: Multiple fluid boluses, IV abdomen ordered. Vasopressin/Oskar- Synephrine GTT for pressor support to maintain map greater than 65mm Hg Pulmonary: Supplemental O2, bronchodilators as needed. GI/liver: PEG feeds as tolerated. Renal/: IV hydration, strict intake output, monitor and replete electrolyte, follow BUN/creatinine. ID: Follow-up blood cultures. Empiric antibiotic coverage with IV vancomycin/ aztreonam/Flagyl/micafungin. ID consult requested. Heme onc: Status post recent chemotherapy for tongue cancer. Neutropenic sepsis noted. Receiving Neupogen per oncology. Thrombocytopenia noted. Endocrine: SSI for glycemic control as needed. Stress dose steroids with hydrocortisone 50 mg IV every 6 hourly started 08/04 Prophylaxis: Pepcid/SCDs. Hold Lovenox in view of thrombocytopenia. Condition critical Time spent on critical care excluding procedures 60 minutes. Ray Hawkins MD August 04, 2017 08:53
[2017-08-04] MEDS: NYSTAT/DIPHENHY/LIDO MOUTHWASH (Adult) 120ML PO SCH ×4 (09:00→20:00)
[2017-08-04] MEDS: SODIUM CHLORIDE 0.9% FLUSH 10 ML FLUSH IV FLUSH SCH ×2 (09:00→19:59)
[2017-08-04] MEDS: DOCUSATE SODIUM 50 MG/SENNA 8.6 MG TAB PO SCH ×2 (09:00→19:59)
[2017-08-04] MEDS: VASOPRESSIN INJ 40 UNITS in DEXTROSE 5% IN WATER 100ML INJ 98 ML IV SCH ×2 (09:28)
[2017-08-04] MEDS: PHENYLEPHRINE INJ 40 MG in DEXTROSE 5% IN WATE 500 ML INJ 496 ML IV PRN ×6 (09:30→21:16)
[2017-08-04] MEDS: metroNIDAZOLE 500 MG INJ 100 ML IV SCH ×2 (09:35→15:24)
[2017-08-04] MEDS: NORMOSOL R INJ 1,000 ML IV SCH ×3 (09:35→17:56)
[2017-08-04] MEDS: ALBUMIN 5% INJ 500 ML IV SCH ×3 (09:36→19:59)
[2017-08-04] MEDS: MAGNESIUM SULFATE 1 GM PREMIX 100 ML IV SCH ×2 (10:00→10:11)
[2017-08-04] MEDS: PANTOPRAZOLE SODIUM 40 MG VIAL IV PUSH SCH (10:12)
--- NOTE | 2017-08-04 10:33 | EKG ---
Date Performed: 08/04/2017 Time Performed: 05:50:00 PTAGE: 46 years EKG: Sinus tachycardia ST depression, cannot exclude ischemia Abnormal ECG PREVIOUS TRACING 07/01/[address] changes are new from the old tracing. DOCTOR: Joni Araiza Interpretating Date/Time 08/04/2017 10:31:49
[2017-08-04] MEDS: HYDROCORTISONE SOD SUCCINATE 100 MG VIAL IV PUSH SCH ×2 (11:21→17:12)
[2017-08-04 11:38] LABS: LACTIC ACID SEPSIS PROTOCOL 4.5 mmol/L (0.4-2.0)
[2017-08-04] MEDS: FILGRASTIM INJ 300 MCG in DEXTROSE 5% IN WATER INJ 25 ML IV SCH ×2 (12:34)
--- NOTE | 2017-08-04 12:40 | PD.ONC.PN ---
Subjective Subjective Remarks Late entry-patient seen at approximately 9 AM this morning T-max 102.2 overnight He reports he is not having any shortness of breath The tongue pain and nausea is unchanged He was having chills earlier when the fever was at its highest Frustrated but understands that he cannot have pain medication while he is hypotensive Objective Data Date Time Temp Pulse Resp B/P (MAP) Pulse Ox O2 Delivery O2 Flow Rate FiO2 08/04/17 09:30 144 67/40 08/04/17 09:28 144 67/40 08/04/17 07:06 148 89/51 (64) 100 08/04/17 07:03 148 08/04/17 06:38 101.8 150 18 85/48 (60) 98 08/04/17 06:09 160 08/04/17 05:44 156 18 93/50 (64) 97 08/04/17 05:08 156 08/04/17 04:46 160 18 103/53 (70) 100 08/04/17 04:21 102.2 154 18 87/49 (62) 97 08/04/17 04:06 148 08/04/17 04:00 147 111/53 (72) 98 08/04/17 03:54 150 18 92/57 (69) 93 08/04/17 03:28 101.9 138 16 77/62 (67) 90 08/04/17 03:05 141 08/04/17 02:53 137 89/47 (61) 91 08/04/17 02:50 138 84/46 (59) 91 08/04/17 02:46 139 79/47 (58) 90 08/04/17 02:39 139 64/48 (53) 90 08/04/17 02:37 137 72/53 (59) 90 08/04/17 02:33 139 62/47 (52) 92 08/04/17 02:28 75/52 (60) 08/04/17 02:03 141 08/04/17 01:38 100.8 145 16 95/48 (64) 94 08/04/17 01:15 148 08/04/17 00:12 100.4 147 18 134/78 (96) 100 08/04/17 00:11 100.5 08/04/17 00:01 144 08/03/17 23:00 127 08/03/17 22:04 121 08/03/17 21:22 115 08/03/17 20:26 99.4 105 18 102/53 (69) 97 08/03/17 20:05 134 08/03/17 20:00 114 08/03/17 19:03 116 08/03/17 17:45 101.2 114 18 144/77 (99) 99 08/03/17 16:04 108 08/03/17 14:28 20 08/03/17 13:03 98.4 103 18 136/70 (92) 100 08/04/17 08/04/17 08/04/17 07:00 15:00 23:00 Intake Total 3100 ml Balance 3100 ml Result Diagram: 08/04/1722408/04/17 022 Laboratory Results Laboratory Tests Test 08/03/17 20:35 08/04/17 02:25 08/04/17 06:05 08/04/17 10:39 Urine Color YELLOW Urine Turbidity CLEAR Urine pH 6.0 Urine Specific [place] 1.023 Urine Protein 30 mg/dL Urine Glucose (UA) TRACE mg/dL Urine Ketones 40 mg/dL Urine Occult Blood NEG Urine Nitrite NEG Urine Bilirubin NEG Urine Urobilinogen LESS THAN 2.0 MG/DL Urine Leukocyte Esterase NEG Urine WBC 3 /hpf Urine Hyaline Casts 2 /lpf Urine Granular Casts 2 /lpf Urine Mucus FEW /lpf Microscopic Urinalysis Comment CULT NOT INDICATED Stool C. difficile Toxin (PCR) NEGATIVE Stl C. difficile Toxin Epiderm 027 PRESUMPTIVE NEGATIVE White Blood Count 0.1 TH/MM3 Red Blood Count 3.85 MIL/MM3 Hemoglobin 11.8 GM/DL Hematocrit 33.7 % Mean Corpuscular Volume 87.5 FL Mean Corpuscular Hemoglobin 30.7 PG Mean Corpuscular Hemoglobin Concent 35.1 % Red Cell Distribution Width 16.6 % Platelet Count 82 TH/MM3 Mean Platelet Volume 8.2 FL CBC Comment AUTO DIFF Differential Total Cells Counted 50 Neutrophils % (Manual) 4 % Band Neutrophils % 2 % Lymphocytes % 48 % Monocytes % 36 % Neutrophils # (Manual) 0.0 TH/MM3 Metamyelocytes 6 % Differential Comment FINAL DIFF MANUAL Blastocytes 4 % Platelet Estimate LOW Platelet Morphology Comment NORMAL Blood Urea Nitrogen 21 MG/DL Creatinine 1.05 MG/DL Random Glucose 122 MG/DL Total Protein 4.2 GM/DL Albumin 1.7 GM/DL Calcium Level 7.2 MG/DL Phosphorus Level 2.5 MG/DL Magnesium Level 1.1 MG/DL Alkaline Phosphatase 48 U/L Aspartate Amino Transf (AST/SGOT) 11 U/L Alanine Aminotransferase (ALT/SGPT) 11 U/L Total Bilirubin 0.5 MG/DL Sodium Level 134 MEQ/L Potassium Level 4.0 MEQ/L Chloride Level 101 MEQ/L Carbon Dioxide Level 25.1 MEQ/L Anion Gap 8 MEQ/L Estimat Glomerular Filtration Rate 76 ML/MIN Protein Corrected Calcium 8.9 MG/DL Lactic Acid Level 4.5 mmol/L 4.5 mmol/L Culture Results Microbiology Date/Time Source Procedure Growth Status 08/04/17 06:05 Blood Peripheral Aerobic Blood Culture Pending Received 08/04/17 06:05 Blood Peripheral Anaerobic Blood Culture Pending Received 08/04/17 06:05 Blood Line Aerobic Blood Culture Pending Received 08/04/17 06:05 Blood Line Anaerobic Blood Culture Pending Received 08/03/17 20:10 Blood Peripheral Aerobic Blood Culture - Preliminary NO GROWTH IN 1 DAY Resulted 08/03/17 20:10 Blood Peripheral Anaerobic Blood Culture - Preliminary NO GROWTH IN 1 DAY Resulted 08/03/17 18:15 Blood Peripheral Aerobic Blood Culture - Preliminary NO GROWTH IN 1 DAY Resulted 08/03/17 18:15 Blood Peripheral Anaerobic Blood Culture - Preliminary NO GROWTH IN 1 DAY Resulted 08/03/17 20:35 Stool Stool Pending Received 08/03/17 20:35 Stool Stool Stool Occult Blood (NISHA) - Final HEMOCCULT NEGATIVE Complete Administered Medications Medications (Trade) Dose Ordered Sig/Tiffanie Route PRN Reason Start Time Stop Time Status Last Admin Dose Admin Sodium Chloride (NS Flush) 2 ml UNSCH PRN IV FLUSH FLUSH AFTER USING IV ACCESS 08/01/17 04:45 08/03/17 22:15 Sodium Chloride (NS Flush) 2 ml BID IV FLUSH 08/01/17 09:00 08/03/17 20:38 Ondansetron HCl (Zofran Inj) 4 mg Q6H PRN IVP NAUSEA OR VOMITING 08/01/17 04:45 08/04/17 12:24 Metoclopramide HCl (Reglan Inj) 10 mg Q6H PRN IV PUSH NAUSEA OR VOMITING 08/01/17 04:45 08/03/17 18:00 Prochlorperazine Edisylate (Compazine Inj) 10 mg Q6H PRN IV PUSH NAUSEA/VOMITING 08/01/17 04:45 08/03/17 20:38 Fentanyl (Duragesic 25 Mcg Patch.72 Hr) 1 patch Q3D T-DERMAL 08/01/17 05:00 08/04/17 05:54 Hydromorphone HCl (Dilaudid Pf Inj) 1 mg Q4H PRN IV PUSH for pain 6-08/01/17 05:00 08/03/17 22:18 Miscellaneous Information 1 Q3D T-DERMAL 08/04/17 05:00 08/04/17 05:55 Multi-Ingredient Mouthwash/Gargle (Magic Mouthwash Adult Liq) 10 ml QID PO 08/01/17 18:00 08/04/17 09:00 Filgrastim 300 mcg/Dextrose 26 ml @ 50 mls/hr DAILY@14 IV 08/02/17 14:00 08/03/17 13:59 Enoxaparin Sodium (Lovenox Inj) 40 mg Q24H SQ 08/02/17 14:00 Future Hold 08/03/17 13:59 Oxycodone HCl (Roxicodone) 10 mg Q6H PRN PO for pain 1-08/02/17 14:30 08/03/17 02:37 Acetaminophen (Tylenol) 650 mg Q4H PRN PO FEVER>100.4 08/02/17 14:30 08/04/17 04:39 Ketorolac Tromethamine (Toradol Inj) 30 mg Q6HR IV PUSH 08/02/17 18:00 08/05/17 18:00 Future Hold 08/04/17 00:36 Aztreonam 2000 mg/ Sodium Chloride 100 ml @ 200 mls/hr Q6H IV 08/03/17 20:00 08/04/17 09:32 Parenteral Electrolytes 1,000 ml @ 200 mls/hr Q5H IV 08/04/17 09:00 08/04/17 09:35 Vasopressin 40 units/Dextrose 100 ml @ 6 mls/hr [id number] IV 08/04/17 09:00 08/04/17 09:28 Phenylephrine HCl 40 mg/Dextrose 500 ml @ 30 mls/hr TITRATE PRN IV Blood pressure management 08/04/17 09:00 08/04/17 09:30 Metronidazole 100 ml @ 100 mls/hr Q8H IV 08/04/17 09:00 08/04/17 09:35 Hydrocortisone Sodium Succinate (SoluCORTEF INJ) 50 mg Q6HR IV PUSH 08/04/17 12:00 08/04/17 11:21 Albumin Human 500 ml @ 250 mls/hr Q6H IV 08/04/17 09:00 08/05/17 10:00 08/04/17 09:36 Pantoprazole Sodium (Protonix Inj) 40 mg Q24H IV PUSH 08/04/17 09:00 08/04/17 10:12 Objective Remarks GENERAL: Fatigued appearing younger male, sitting upright in ICU bed SKIN: Warm and dry. HEAD: Normocephalic. EYES: No injection or drainage. NECK: Supple, trachea midline. CARDIOVASCULAR: Tachycardia; desk monitor shows rate in the 140s RESPIRATORY: Clear anteriorly. Patient on 2-1/2 L via nasal cannula GASTROINTESTINAL: Abdomen nontender to palpation. PEG tube in place. EXTREMITIES: No cyanosis, or edema. MUSCULOSKELETAL: Adequate muscle tone. NEUROLOGICAL: Awake and alert. Moving all extremities. Assessment/Plan Problem List: (1) Chemotherapy-induced nausea and vomiting ICD Codes: R11.2 - Nausea with vomiting, unspecified; T45.1X5A - Adverse effect of antineoplastic and immunosuppressive drugs, initial encounter Status: Resolved Plan: --continue supportive care with IVF, Scopolamine patch, zofran, reglan and Compazine PRN (2) Pancytopenia due to antineoplastic chemotherapy ICD Codes: D61.810 - Antineoplastic chemotherapy induced pancytopenia; T45.1X5A - Adverse effect of antineoplastic and immunosuppressive drugs, initial encounter Plan: --monitor, transfuse as needed. (3) Neutropenic fever ICD Codes: D70.9 - Neutropenia, unspecified; R50.81 - Fever presenting with conditions classified elsewhere Status: Resolved Plan: --Patient transferred to ICU --Box Coverer Hand, infectious disease consulted --Vasopressin and Oskar-Synephrine started for sepsis associated hypotension --Patient on Vanco, micafungin, aztreonam and Flagyl --Blood cultures drawn on 08/03 in the evening show no growth 1 day --Blood cultures drawn on 08/04 currently pending Assessment 46y/o male with h/o head and neck cancer admitted with intractable nausea and vomiting. C4 TPF given on 07/26/2017. Plan 1. Continue antibiotics; appreciate ID input 2. Continue daily Neupogen 3. Supportive care 4. Monitor CBC Sharon Rojas August 04, 2017 12:40
--- NOTE | 2017-08-04 15:00 | MB ---
cc: Mark Salazar MD DATE: 08/04/2017 DATE OF CONSULTATION: 08/04/2017 REQUESTING PHYSICIAN: Dr. Catherine. REASON: Neutropenic fever. HISTORY OF PRESENT ILLNESS: This is a 46-year-old white male who has squamous cell carcinoma of the tongue. The patient has been undergoing chemotherapy. He has had nausea and vomiting associated with chemotherapy which was completed. He was admitted to the hospital on 08/03 from oncology with intractable nausea and vomiting and he was noted to have neutropenia and also developed elevated temperature of 101.2 degrees. The patient was seen in the Emergency Department on 08/01/2017 and at that time his white count was 6.8 and the platelet count was 154. The patient has a PEG tube for PEG tube feedings. He states that he has had a significant amount of diarrhea which started five days ago. He notes that he was having chills yesterday. Blood cultures have been taken and have no growth in 1 day and repeat blood cultures were performed today. His white blood cell count has constantly decreased and today it is 0.1 and the platelet count is also dropping and it is 82. The patient feels pain in his mouth. He also notes some pain and bloating in his abdomen. He reports to me that he has not passed urine in a couple of days. Stools for C. difficile toxin is negative. The patient has an Infusaport through which she receives chemotherapy. He has no discomfort at the Infusaport site. Chest x-ray shows no active disease. Urinalysis was unremarkable. PAST MEDICAL HISTORY: Squamous cell carcinoma of the tongue. PAST SURGICAL HISTORY: Hip replacement. Infusaport placement. Dental extraction. ALLERGIES: PENICILLIN. SHELLFISH. MEDICATIONS: 1. Vancomycin 2. Micafungin. 3. Aztreonam 4. Metronidazole. 5. Hydrocortisone. 6. Vasopressin. 7. Phenylephrine. 8. Protonix. 9. Filgrastim. 10. Oxycodone p.r.n. SOCIAL HISTORY: Prior tobacco use. No alcohol, no illicit drug use. FAMILY HISTORY: Noncontributory. REVIEW OF SYSTEMS: Significant for chills, fever, nausea, vomiting, diarrhea, abdominal pain, mouth pain. PHYSICAL EXAMINATION: GENERAL: This is a slender male, awake and alert. He is in no acute distress. VITAL SIGNS: Temperature 101. BP 82/60. HEENT: Head is atraumatic. Extraocular movements grossly intact. Pupils reactive to light. No icterus. Oropharynx: Mucosa is moist. NECK: Supple without adenopathy or swelling. LUNGS: Decreased clear breath sounds bilateral. HEART: Regular S1 and S2. No audible murmurs. ABDOMEN: Bowel sounds present. Slightly diminished. Soft. No significant tenderness appreciated. RECTAL: Not performed. EXTREMITIES: No clubbing, no cyanosis or edema. SKIN: No rash. NEUROLOGIC: Alert and oriented. No gross focal findings PSYCH: The patient is calm and cooperative. LABORATORY DATA: WBC 0.1, platelets 82, hemoglobin 11.8. Creatinine 1.05, BUN 21, sodium 134, AST 11, ALT 11, alkaline phosphatase 48. IMPRESSION: 1. Fever and neutropenia. 2. Squamous cell cancer of the tongue, status post chemotherapy. 3. Thrombocytopenia. 4. Hypotension related to sepsis. RECOMMENDATIONS: 1. Continue vancomycin. 2. Continue micafungin. 3. Continue aztreonam. 4. Continue metronidazole. 5. Monitor blood cultures. 6. Monitor the temperature. 7. Monitor the white blood cell count. 8. Monitor clinical status. 9. Antibiotic adjustment depending on culture information. The Infusaport currently appears intact and has no sign of infection at the site. Thank you for this consultation. The patient's progress will be monitored and further recommendations will be given and followup if necessary. MD IVORY Long/ZAIRE , 02:08 PM , 02:59 PM [facility]
[2017-08-04] MEDS: NOREPINEPHRINE-DEXTROSE DRIP 250 ML IV PRN ×2 (15:23→21:17)
--- NOTE | 2017-08-04 15:57 | RADRPT ---
EXAM DATE/TIME: 08/04/2017 15:00 [facility] COMPARISON: CHEST SINGLE AP, August 03, 2017, 19:28. INDICATIONS : Evaluate for fluid overload and infiltrates. MEDICAL HISTORY : Tongue cancer SURGICAL HISTORY : Dental extractions. ENCOUNTER: Subsequent ACUITY: 2 days PAIN SCORE: 10/10 LOCATION: Bilateral chest FINDINGS: Portable AP view of the chest demonstrates a normal-sized cardiac silhouette. EKG lines overlie the p atient. Right chest wall [id number] is present with distal tip in the SVC. There are abnormal inte rstitial opacities in the mid and lower lung zones bilaterally. These are symmetric. No pleural effus ion or pneumothorax is identified. The bones and soft tissues demonstrate no acute finding. CONCLUSION: Abnormal interstitial opacities in the lower lung zones bilaterally in a pattern characteristic of in terstitial pulmonary edema. Consider followup to confirm resolution. Suman Branham MD on August 04, 2017 at 15:53 Board Certified Radiologist. This report was verified electronically.
[2017-08-04 16:23] LABS: ALBUMIN 1.8 GM/DL (3.4-5.0); BICARBONATE 9.8 MEQ/L (21.0-32.0); CALCIUM 5.6 MG/DL (8.5-10.1); CREATININE 2.22 MG/DL (0.60-1.30); TOTAL BILIRUBIN ADULT 0.5 MG/DL (0.2-1.0); TOTAL PROTEIN 3.3 GM/DL (6.4-8.2)
[2017-08-04 16:32] LABS: CALCIUM-PROTEIN CORRECTED 7.4 MG/DL (8.5-10.1)
[2017-08-04] MEDS ORDERED: SODIUM CHLOR 0.9% 1000 ML INJ 1,000 ML IV SCH (16:45)
[2017-08-04 17:17] LABS: EOSINOPHIL % 3.5 % (0.0-4.0); HEMATOCRIT 27.6 % (39.0-51.0); LYMPH % 13.5 % (9.0-44.0); MEAN CORPUSCULAR HEMOGLOBIN 30.6 PG (27.0-34.0); MEAN CORPUSCULAR HGB CONC 33.5 % (32.0-36.0); MEAN PLATELET VOLUME 8.6 FL (7.0-11.0); PLATELET COUNT 74 TH/MM3 (150-450); RED BLOOD COUNT 3.02 MIL/MM3 (4.50-5.90); RED CELL DISTRIBUTION WIDTH 17.9 % (11.6-17.2)
[2017-08-04 17:20] LABS: AUTOMATED NEUTROPHIL # 0.1 TH/MM3 (1.8-7.7); HEMOGLOBIN 9.3 GM/DL (13.0-17.0); MEAN CELL VOLUME 91.3 FL (80.0-100.0); WHITE BLOOD COUNT 0.2 TH/MM3 (4.0-11.0)
[2017-08-04 17:37] LABS: NUCLEATED RED BLOOD CELL 1 (0-0)
[2017-08-04 17:41] LABS: BANDS 4 % (0-6); BLASTS 6 % (0-0); CORRECTED NUCLEATED RBC 2 /100 WBC (0-0); LYMPHOCYTES 26 % (9-44); METAMYELOCYTES 6 % (0-1); MONOCYTES 38 % (0-8); MYELOCYTES 2 % (0-0); NEUTROPHIL # MANUAL DIFF 0.1 TH/MM3 (1.8-7.7); PLASMA CELLS 2 % (0-0); POLYS (SEG NEUTROPHILS) 12 % (16-70); PROMYELOCYTES 4 % (0-0)
[2017-08-04] MEDS: VANCOMYCIN INJ 1,000 MG in SODIUM CHLOR 0.9% 250 ML INJ 250 ML IV SCH (21:04)
[2017-08-04] MEDS: HYDROmorphone HCL PF 2 MG/ML VIAL IV PUSH PRN (21:16)
[2017-08-05] VITALS (16 sets, daily range): BP systolic 105–124; BP diastolic 48–68; PULSE 106–133; RESP 16–35; TEMP 98.2–99; O2SAT 94–100
[2017-08-05] MEDS: HYDROCORTISONE SOD SUCCINATE 100 MG VIAL IV PUSH SCH ×4 (00:05→16:06)
[2017-08-05] MEDS: metroNIDAZOLE 500 MG INJ 100 ML IV SCH ×2 (00:05→10:08)
[2017-08-05] MEDS: NORMOSOL R INJ 1,000 ML IV SCH ×4 (00:06→18:10)
[2017-08-05] MEDS ORDERED: RESP: ACETYLCYSTEINE 20% 10 ML NEB NEB SCH (00:15)
[2017-08-05] MEDS: RESP: ALBUTEROL 2.5 MG/IPRATROPIUM 0.5 MG NEB (SCH) NEB ×5 (00:15→22:00)
[2017-08-05] MEDS: VASOPRESSIN INJ 40 UNITS in DEXTROSE 5% IN WATER 100ML INJ 98 ML IV SCH ×4 (01:20→18:10)
[2017-08-05] MEDS: AZTREONAM INJ 2,000 MG in SODIUM CHLORIDE 0.9% INJ 100 ML IV SCH ×3 (01:20→12:52)
[2017-08-05] MEDS: ALBUMIN 5% INJ 500 ML IV SCH ×2 (01:21→10:08)
[2017-08-05] MEDS: PHENYLEPHRINE INJ 40 MG in DEXTROSE 5% IN WATE 500 ML INJ 496 ML IV PRN ×2 (01:45)
[2017-08-05] MEDS: RESP: ACETYLCYSTEINE 20% 30 ML NEB NEB SCH ×4 (02:55→22:00)
[2017-08-05 04:25] LABS: HEMATOCRIT 27.6 % (39.0-51.0); HEMOGLOBIN 9.7 GM/DL (13.0-17.0); MEAN CELL VOLUME 89.7 FL (80.0-100.0); MEAN CORPUSCULAR HEMOGLOBIN 31.5 PG (27.0-34.0); MEAN CORPUSCULAR HGB CONC 35.1 % (32.0-36.0); MEAN PLATELET VOLUME 8.5 FL (7.0-11.0); PLATELET COUNT 55 TH/MM3 (150-450); RED BLOOD COUNT 3.08 MIL/MM3 (4.50-5.90); RED CELL DISTRIBUTION WIDTH 17.3 % (11.6-17.2); WHITE BLOOD COUNT 0.5 TH/MM3 (4.0-11.0)
[2017-08-05 05:28] LABS: ALBUMIN 2.3 GM/DL (3.4-5.0); BICARBONATE 9.9 MEQ/L (21.0-32.0); CALCIUM 5.1 MG/DL (8.5-10.1); CREATININE 2.03 MG/DL (0.60-1.30); MAGNESIUM 1.7 MG/DL (1.5-2.5); PHOSPHORUS 2.7 MG/DL (2.5-4.9); TOTAL PROTEIN 3.7 GM/DL (6.4-8.2)
[2017-08-05 05:49] LABS: CALCIUM-PROTEIN CORRECTED 6.5 MG/DL (8.5-10.1)
[2017-08-05] MEDS: PHENYLEPHRINE INJ 160 MG in SODIUM CHLORID 0.9% 500 ML INJ 484 ML IV PRN ×2 (06:43→20:06)
[2017-08-05] MEDS ORDERED: CALCIUM GLUCONATE INJ 2 GM in SODIUM CHLORIDE 0.9% INJ 100 ML IV ONE (06:45)
[2017-08-05] MEDS ORDERED: SODIUM BICARBONATE 8.4% INJ 50 MEQ/50 ML SYR ONE ×4 (06:52→23:15)
--- NOTE | 2017-08-05 06:56 | RADRPT ---
EXAM DATE/TIME: 08/05/2017 06:37 [facility] COMPARISON: CHEST SINGLE AP, August 03, 2017, 19:28. CHEST SINGLE AP, August 04, 2017, 15:00. INDICATIONS : Respiratory distress. MEDICAL HISTORY : Tongue cancer. SURGICAL HISTORY : Dental extractions. Port placement. ENCOUNTER: Initial ACUITY: 3 days PAIN SCORE: Non-responsive. LOCATION: Bilateral chest FINDINGS: A single view of the chest demonstrates worsening bilateral, symmetric airspace infiltrates. Findings suggest worsening pulmonary edema although developing bilateral pneumonic infiltrates have a similar appearance. Developing bilateral effusions, left worse on right. Right IJ Hlfrfu-t-Yowh catheter is unchanged in position. Heart size is normal. Osseous structures are intact CONCLUSION: Worsening bibasilar airspace disease. Symmetry suggest advancing pulmonary edema/CHF with develo ping pleural effusions, left worse than right. Rodolfo Ramirez MD on August 05, 2017 at 6:51 Board Certified Radiologist. This report was verified electronically.
[2017-08-05] MEDS ORDERED: ETOMIDATE 40 MG/20 ML VIAL ONE (06:59)
[2017-08-05] MEDS ORDERED: ROCURONIUM INJ 50 MG/5 ML VIAL ONE (06:59)
[2017-08-05] MEDS ORDERED: MIDAZOLAM HCL 5 MG/ML VIAL (1 ML) ONE (06:59)
--- NOTE | 2017-08-05 07:27 | PD.PROCEDR ---
Procedure Note Procedure After the risks and benefits were discussed the following procedure was performed: INTUBATION: The patient was put in optimal position for the procedure. Rapid sequence intubation was initiated by me using 20 milligrams of etomidate IV and 10 milligrams of Versed IV. NM paralysis with 50 mg IV Rocuronium. Large amount of gastric secretions pooled in mouth after induction, which was suctioned out. DL with Mac 4 blade Grade 2-3 view single attempt. I did not see any obstruction at the glottic opening on limited view. The patient was intubated with a 8.0 cuffed endotracheal tube. Tube placement was confirmed by visualization of the tube and balloon passing through the cords, capnometry and subsequent chest x-ray. Breath sounds were equal and well aerated bilaterally postintubation. No breath sounds over stomach. Patient tolerated procedure well. Mason Will MD August 05, 2017 07:27
[2017-08-05] MEDS ORDERED: SODIUM CHLOR 0.9% 1000 ML INJ 1,000 ML IV ONE (07:45)
[2017-08-05] MEDS ORDERED: MIDAZOLAM HCL 5 MG/ML VIAL (1 ML) IV PUSH ONE (07:45)
[2017-08-05] MEDS ORDERED: ETOMIDATE 20 MG/10 ML VIAL IV PUSH ONE (07:45)
[2017-08-05] MEDS ORDERED: SODIUM BICARBONATE 8.4% INJ 50 MEQ/50 ML SYR IV PUSH ONE (07:45)
[2017-08-05] MEDS ORDERED: ROCURONIUM INJ 50 MG/5 ML VIAL IV PUSH ONE (07:45)
[2017-08-05] MEDS: CHLORHEXIDINE 0.12% (ORAL KIT) 15 ML CUP MT SCH ×2 (08:00→20:04)
[2017-08-05] MEDS: MIDAZOLAM 100 MG/100 ML INJ 100 ML IV PRN ×2 (08:18→18:08)
--- NOTE | 2017-08-05 08:41 | RADRPT ---
EXAM DATE/TIME: 08/05/2017 07:28 [facility] COMPARISON: CHEST SINGLE AP, August 05, 2017, 6:37. INDICATIONS : Post intubation. MEDICAL HISTORY : Carcinoma, tongue. SURGICAL HISTORY : Port placement. ENCOUNTER: Subsequent ACUITY: 3 days PAIN SCORE: Non-responsive. LOCATION: Bilateral chest FINDINGS: Portable AP view of the chest demonstrates a normal-sized cardiac silhouette. Endotracheal tube dista l tip measures 3.6 cm from the martín. Right chest wall Oowwqs-q-Nrbv distal tip is in the superior a spect of the right atrium. There is left pleural based opacity with mid and lower lung zone airspace opacity bilaterally. No pneumothorax is visualized. EKG lines overlie the patient. CONCLUSION: 1. Endotracheal tube in appropriate position with tip measuring 3.6 cm from the martín. 2. Stable small left pleural effusion with bilateral mid and lower lung zone airspace consolidation. Suman Branham MD on August 05, 2017 at 8:33 Board Certified Radiologist. This report was verified electronically.
[2017-08-05] MEDS ORDERED: SODIUM BICARBONATE 8.4% INJ 150 MEQ in WATER STERILE FOR INJ 850 ML IV SCH ×2 (09:00→11:15)
[2017-08-05] MEDS ORDERED: SODIUM BICARBONATE 8.4% INJ 75 MEQ in SODIUM CHLOR 0.45% 1000 ML INJ 1,000 ML IV SCH (09:00)
[2017-08-05] MEDS: SODIUM CHLORIDE 0.9% FLUSH 10 ML FLUSH IV FLUSH SCH ×2 (09:00→20:05)
[2017-08-05] MEDS: DOCUSATE SODIUM 50 MG/SENNA 8.6 MG TAB PO SCH ×2 (09:00→19:55)
[2017-08-05] MEDS: NYSTAT/DIPHENHY/LIDO MOUTHWASH (Adult) 120ML PO SCH ×4 (09:00→20:04)
[2017-08-05 09:42] LABS: BANDS 42 % (0-6); CORRECTED NUCLEATED RBC 2 /100 WBC (0-0); LYMPHOCYTES 8 % (9-44); METAMYELOCYTES 4 % (0-1); MONOCYTES 26 % (0-8); MYELOCYTES 2 % (0-0); NUCLEATED RED BLOOD CELL 1 (0-0); POLYS (SEG NEUTROPHILS) 18 % (16-70)
[2017-08-05 09:47] LABS: ACANTHOCYTES OCC (NORMAL); BURR CELLS 1+ (NORMAL); NEUTROPHIL # MANUAL DIFF 0.3 TH/MM3 (1.8-7.7); OVALOCYTES 1+ (NORMAL)
[2017-08-05 09:48] LABS: DOHLE BODIES PRESENT (NONE SEEN); TOXIC VACUOLATION PRESENT (NONE SEEN)
[2017-08-05] MEDS ORDERED: SODIUM BICARBONATE 8.4% INJ 150 MEQ in SODIUM CHLOR 0.45% 1000 ML INJ 1,000 ML IV SCH (10:00)
--- NOTE | 2017-08-05 10:07 | RADRPT ---
EXAM DATE/TIME: 08/05/2017 09:19 [facility] COMPARISON: No previous studies available for comparison. EXTERNAL COMPARISON : [facility], PET/CT HEAD/NECK, May 17, 2017 INDICATIONS : Increased lab values. MEDICAL HISTORY : Nausea. Squamous cell cancer on tongue. Chemotherapy. Blood transfusions. SURGICAL HISTORY : Peg tube placement. Port placement. ENCOUNTER: Initial ACUITY: 1 day PAIN SCORE: 0/10 LOCATION: Bilateral flank MEASUREMENTS: RIGHT KIDNEY: 12.2 x 5.6 x 2.1 cm LEFT KIDNEY: 12.1 x 5.9 x 1.7 cm FINDINGS: RIGHT KIDNEY: Mild diffuse increased cortical echogenicity. Normal cortical thickness. No hydronephrosis, stone, or mass. LEFT KIDNEY: Mild diffuse increased cortical echogenicity. Normal cortical thickness. No hydronephrosis, stone, or mass. BLADDER: Decompressed secondary to Olvera catheter. CONCLUSION: 1. Diffusely increased renal cortical echogenicity consistent with medical renal disease. 2. No obstructive uropathy. Adriano Cardenas MD on August 05, 2017 at 10:04 Board Certified Radiologist. This report was verified electronically.
[2017-08-05] MEDS: MICAFUNGIN INJ 150 MG in SODIUM CHLORIDE 0.9% INJ 100 ML IV SCH (10:08)
[2017-08-05] MEDS: VANCOMYCIN INJ 1,000 MG in SODIUM CHLOR 0.9% 250 ML INJ 250 ML IV SCH (10:18)
[2017-08-05] MEDS: PANTOPRAZOLE SODIUM 40 MG VIAL IV PUSH SCH (10:20)
[2017-08-05] MEDS: NOREPINEPHRINE-DEXTROSE DRIP 250 ML IV PRN ×4 (10:24→23:15)
--- NOTE | 2017-08-05 10:32 | RADRPT ---
EXAM DATE/TIME: 08/05/2017 09:22 [facility] COMPARISON: CHEST SINGLE AP, August 05, 2017, 7:28. INDICATIONS : Central line placement. MEDICAL HISTORY : Carcinoma, tongue. SURGICAL HISTORY : Port placement. ENCOUNTER: Subsequent ACUITY: 3 days PAIN SCORE: Non-responsive. LOCATION: Bilateral chest FINDINGS: The ET tube is in good position. The patient's Jzzfcw-[id number]-Dblk and central venous catheter are in [employer] position. There are small bilateral effusions. There are bilateral areas of infiltrate. There is consolidative change in the left lower lobe. These findings are similar to the previous examinati on. The visualized bony structure are intact. CONCLUSION: 1. New left subclavian central venous catheter in good position without evidence of pneumothorax. 2. Continued effusions and infiltrates. John Joshi MD on August 05, 2017 at 10:29 Board Certified Radiologist. This report was verified electronically.
--- NOTE | 2017-08-05 10:44 | HHI.CCPN ---
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 He underwent his 3rd series of Chemo Wednesday-Wednesday and has been having ongoing nausea/vomiting, which is typical of his post-chemo symptoms. He was not tolerating feedings through PEG due to nausea/vomiting. Patient was admitted by hospitalist service and was being followed by oncology. He developed worsening neutropenia and overnight has developed hypotension with lactic acidosis. Rapid response team was called and patient was transferred to the ICU after receiving a fluid bolus. He had empiric antibiotics initiated on 08/03 including vancomycin/aztreonam IV after obtaining blood cultures. I spoke with Dr. Rodas who consulted critical care service for further evaluation of hypotension/neutropenic sepsis following patient's transfer to the ICU. I evaluated patient immediately on his arrival to the ICU. He was awake and alert at that time not in any acute distress however was still hypotensive after having received 1 L normal saline bolus. I ordered 2 more liters NS bolus , IV albumin as well as added micafungin and IV Flagyl to his regimen. ID consult has already been requested prior to transfer. Patient has minimal shortness of breath on arrival however denies any chest pain abdominal pain currently. 08/05: Remains in septic shock with high doses of pressors. Lactic acidosis/ metabolic acidosis persists. Patient intubated this morning and placed on mechanical ventilation. PEG tube To low intermittent wall suction and about 1 L of gastric contents suctioned out. Started on a bicarb drip. Nephrology consult requested to consider CRRT in view of severe metabolic acidosis and I personally discussed the case with Dr. Alvarado. Objective Vital Signs Date Time Temp Pulse Resp B/P (MAP) Pulse Ox O2 Delivery O2 Flow Rate FiO2 08/05/17 10:24 138 98/53 08/05/17 08:45 100 60 08/05/17 06:38 Partial Rebreather 13.00 08/05/17 04:00 99.0 27 Intake and Output 08/05/17 08/05/17 08/06/17 08:00 16:00 00:00 Intake Total 3300 ml Output Total 1800 ml Balance 1500 ml Result Diagram: 08/05/17 0400 08/05/17 0400 Other Results Microbiology Date/Time Source Procedure Growth Status 08/03/17 20:35 Stool Stool - Final NO ENTERIC PATHOGENS DETECTED BY PCR... Complete 08/03/17 20:35 Stool Stool Stool Occult Blood (NISHA) - Final HEMOCCULT NEGATIVE Complete Laboratory Tests Test 08/05/17 06:35 08/05/17 09:50 Blood Gas Puncture Site ART LINE ART LINE Blood Gas Patient Temperature 98.6 98.6 Blood Gas HCO3 8 mmol/L (22-26) 11 mmol/L (22-26) Blood Gas Base Excess -18.8 mmol/L (-2-2) -14.7 mmol/L (-2-2) Blood Gas Oxygen Saturation 91 % (90-100) 97 % (90-100) Arterial Blood pH 7.21 (7.380-7.420) 7.29 (7.380-7.420) Arterial Blood Partial Pressure CO2 20 mmHg (38-42) 23 mmHg (38-42) Arterial Blood Partial Pressure O2 69 mmHg (61-120) 149 mmHg (61-120) Arterial Blood Oxygen Content 11.8 Vol % (12.0-20.0) 14.8 Vol % (12.0-20.0) Arterial Blood Carboxyhemoglobin 0.5 % (0-4) 0.5 % (0-4) Arterial Blood Methemoglobin 1.1 % (0-2) 1.2 % (0-2) Blood Gas Hemoglobin 9.1 G/DL (12.0-16.0) 10.6 G/DL (12.0-16.0) Oxygen Delivery Device NASAL CANNULA VENTILATOR Blood Gas Liter Flow 6 L/M Blood Gas Ventilator Setting [facility] Imaging Last Impressions Chest X-Ray 08/03/17 0000 Signed Impressions: Service Date/Time: Thursday, August 03, 2017 19:28 - CONCLUSION: 1. No active disease. [id number] in superior vena cava. Dick Stack MD Procedures GENERAL: Middle-aged white male, sitting up in bed CARDIOVASCULAR: Regular rate and rhythm. No obvious murmurs to auscultation. RESPIRATORY: No obvious wheezing. Clear to auscultation. Breath sounds equal bilaterally. GASTROINTESTINAL: Abdomen soft, non-tender, nondistended. BS normal. PEG tube in place, intact. Objective Remarks HEENT/ Neuro: Sedated, orally intubated, Pallor present, no icterus, tongue/ mucosa moist Neck: No JVD Chest/Pulm: on mech vent, good air entry bilaterally, scattered rhonchi, no wheezing or crackles CVS: S1-S2 regular, no murmur GI/abdomen: soft, nontender, bowel sounds sluggish. PEG tube in place currently placed to low intermittent wall suction for Extremities: warm bilaterally, bilateral edema A/P Assessment and Plan Septic shock Lactic acidosis Neutropenic sepsis Tongue cancer status post recent chemotherapy Thrombocytopenia Plan: Neuro: Follow neuro status, pain medications as needed. Currently on fentanyl patch. Cardiovascular: s/p multiple fluid boluses, IV albumin. Vasopressin/ Oskar- Synephrine/Levophed GTT for pressor support to maintain map greater than 65mm Hg Pulmonary: Continue mechanical ventilation, vent bundle, bronchodilators as needed. Follow-up ABGs GI/liver: PEG placed to low intermittent wall suction currently. Renal/: IV hydration, strict intake output, monitor and replete electrolyte, follow BUN/creatinine. Consulted nephrology to consider starting CRRT in view of severe metabolic acidosis in the setting of septic shock. ID: Follow-up blood cultures. Empiric antibiotic coverage with IV vancomycin/ aztreonam/Flagyl/micafungin. ID consulted and following. Heme onc: Status post recent chemotherapy for tongue cancer. Neutropenic sepsis noted. Receiving Neupogen per oncology. Thrombocytopenia noted. Endocrine: SSI for glycemic control as needed. Stress dose steroids with hydrocortisone 50 mg IV every 6 hourly started 5/2 Prophylaxis: Pepcid/SCDs. Hold Lovenox in view of thrombocytopenia. Access: Left subclavian central line placed 5/3, radial A-line placed 5/2 Condition critical. Time spent on critical care excluding procedures 60 minutes. Ray Hawkins MD August 05, 2017 10:44
--- NOTE | 2017-08-05 10:46 | PD.PROCEDR ---
Central Line Procedure REASON FOR PROCEDURE Central venous access PROCEDURE PERFORMED Central line placement: Left subclavian vein CONSENT Informed consent for procedure was obtained from family and document on chart. ANESTHESIA Local injection of 1% Lidocaine DESCRIPTION OF THE PROCEDURE The patient was placed in supine, mild Trendelenburg position. The area was exposed and cleansed with ChloraPrep, times two. Large sterile drape was used to cover the patient, with the site exposed, under sterile conditions including cap, face mask, sterile gown, and sterile gloves. On single attempt, the introducer needle was inserted with negative pressure in syringe and venous flash was obtained. The guide wire was then advanced without any restriction and the needle was removed. The dilator was used without any complications. Using Seldinger technique a 20 cm antimicrobial coated triple-lumen catheter was advanced over the guide wire to a depth of 18 centimeters. The guide wire was removed. All ports were aspirated with dark venous blood return and flushed easily with sterile saline. All ports were capped. Antibiotic disc was placed around central line at puncture site. The central line was secured to the skin with a StatLock. The area was bandaged with sterile see-through central line bandage. Postprocedure chest x-ray ordered and will be reviewed when available. COMPLICATIONS: No apparent complications ESTIMATED BLOOD LOSS: Less than 1 cc. Ray Hawkins MD August 05, 2017 10:46
--- NOTE | 2017-08-05 11:37 | PD.CONS ---
HPI Service Nephrology Consult Requested By Reason for Consult Acute Renal Failure Primary Care Physician No Primary Care Physician History of Present Illness This is a fairly young 46 y/o patient. He was admitted 08/01 for nausea/vomiting x 1 day. Only PMH is cancer of the tongue for which he underwent chemotherapy. He had developed nausea/vomiting post treatment which was expected. On arrival his renal function was normal. He was a rapid response call for hypotension, was intubated this morning for hypoxia, lethargy. Yesterday his creatinine candis to 2.2 from 1, today improved slightly to 2. His CO2 measures 9, BUN 23. He is non oliguric, but has profound metabolic acidosis, is ordered a bicarb gtt. We were consulted to assist with management. He is a full code. ID, CCM, and oncology have also been asked to consult. (Rebecca Lambert) Review of Systems ROS Limitations: Clinical Condition, Intubated (Rebecca Lambert) Past Family Social History Allergies: Coded Allergies: Penicillins (Verified Allergy, Severe, UNSURE - CHILD, 08/01/17) Uncoded Allergies: SHELLFISH (Allergy, Severe, Anaphylaxis, 04/27/17) Past Medical History Squamous cell carcinoma of tongue Past Surgical History Port Placement, PEG Tube Placement, Dental Extraction Reported Medications Duragesic Patch 72 HR (Fentanyl) 25 Mcg/Hour Patch.td72 1 Patch T-DERMAL Q3D PLACE A 25 MCG PATCH EVERY 72 HOURS TOPICALLY Hyosyne Liq Drops (Hyoscyamine Sulfate) 0.125 Mg/Ml Soln 0.125 Mg PO Q4H PRN [Nystatin Liq] 5 ML Susp 5 Ml SWISH-SWAL QID [vital] 360 Ml G-TUBE QID Vital 1.5, 360mls 5 times daily. flush with 100cc saline after each feeding. [Scopolamine 1.5 Mg Patch.72 Hr] 1 PATCH Patch 1 Patch T-DERMAL Q3D Ondansetron (Ondansetron HCl) 8 Mg Tab 8 Mg PO TID Reported Percocet (Oxycodone-Acetaminophen) 10-325 mg Tab 1 Tab PO Q6H PRN Dexamethasone 4 Mg Tab 8 Mg PO BID [5FU] IV Taxotere Inj (Docetaxel) 20 Mg/Ml (1 Ml) Inj Cisplatin Inj (Cisplatin) 1 Mg/Ml Inj Active Ordered Medications Current Medications Medications (Trade) Dose Ordered Sig/Tiffanie Route Start Time Stop Time Status Last Admin (NS Flush) 2 ml UNSCH PRN IV FLUSH 08/01/17 04:45 08/03/17 22:15 (NS Flush) 2 ml BID IV FLUSH 08/01/17 09:00 08/05/17 09:00 (Zofran Inj) 4 mg Q6H PRN IVP 08/01/17 04:45 08/04/17 17:56 (Reglan Inj) 10 mg Q6H PRN IV PUSH 08/01/17 04:45 08/03/17 18:00 (Kathleen-Colace) 1 tab BID PO 08/01/17 09:00 (Milk Of Magnesia Liq) 30 ml Q12H PRN PO 08/01/17 04:45 (Senokot) 17.2 mg Q12H PRN PO 08/01/17 04:45 (Dulcolax Supp) 10 mg DAILY PRN RECTAL 08/01/17 04:45 (Lactulose Liq) 30 ml DAILY PRN PO 08/01/17 04:45 (Compazine Inj) 10 mg Q6H PRN IV PUSH 08/01/17 04:45 08/03/17 20:38 (Duragesic 25 Mcg Patch.72 Hr) 1 patch Q3D T-DERMAL 08/01/17 05:00 08/04/17 05:54 (Dilaudid Pf Inj) 1 mg Q4H PRN IV PUSH 08/01/17 05:00 08/04/17 21:16 Miscellaneous Information 1 Q3D T-DERMAL 08/04/17 05:00 08/04/17 05:55 (Magic Mouthwash Adult Liq) 10 ml QID PO 08/01/17 18:00 08/04/17 20:00 Filgrastim 300 mcg/Dextrose 26 ml @ 50 mls/hr DAILY@14 IV 08/02/17 14:00 08/04/17 12:34 (Lovenox Inj) 40 mg Q24H SQ 08/02/17 14:00 Future Hold 08/03/17 13:59 (Roxicodone) 10 mg Q6H PRN PO 08/02/17 14:30 08/03/17 02:37 (Tylenol) 650 mg Q4H PRN PO 08/02/17 14:30 08/04/17 04:39 (Toradol Inj) 30 mg Q6HR IV PUSH 08/02/17 18:00 08/05/17 18:00 Future Hold 08/04/17 00:36 Aztreonam 2000 mg/ Sodium Chloride 100 ml @ 200 mls/hr Q6H IV 08/03/17 20:00 08/05/17 10:01 Micafungin Sodium 150 mg/Sodium Chloride 100 ml @ 100 mls/hr Q24H IV 08/05/17 09:00 08/05/17 10:08 Vasopressin 40 units/Dextrose 100 ml @ 6 mls/hr [id number] IV 08/04/17 09:00 08/05/17 01:20 (Brethine Inj) 1 mg UNSCH PRN SQ 08/04/17 08:15 Metronidazole 100 ml @ 100 mls/hr Q8H IV 08/04/17 09:00 08/05/17 10:08 (SoluCORTEF INJ) 50 mg Q6HR IV PUSH 08/04/17 12:00 08/05/17 05:17 Vancomycin HCl 1000 mg/Sodium Chloride 250 ml @ 250 mls/hr Q12H IV 08/04/17 21:00 08/05/17 10:18 (Protonix Inj) 40 mg Q24H IV PUSH 08/04/17 09:00 08/05/17 10:20 Norepinephrine Bitartrate 250 ml @ 18.75 mls/ hr TITRATE PRN IV 08/04/17 14:30 08/05/17 10:24 (Brethine Inj) 1 mg UNSCH PRN SQ 08/04/17 14:30 (Duoneb Neb) 1 ampule Q6HR NEB NEB 08/05/17 00:15 08/05/17 09:42 (Mucomyst 20% Neb) 2 ml Q6HR NEB NEB 08/05/17 04:00 08/05/17 09:42 Phenylephrine HCl 160 mg/Sodium Chloride 500 ml @ 7.5 mls/hr TITRATE PRN IV 08/05/17 06:45 08/05/17 06:43 (Peridex 0.12% Liq) 15 ml BID@08,20 MT 08/05/17 08:00 08/05/17 08:00 Midazolam HCl 100 ml @ 2 mls/hr TITRATE PRN IV 08/05/17 07:30 08/05/17 08:18 Parenteral Electrolytes 1,000 ml @ 100 mls/hr Q10H IV 08/05/17 08:15 08/05/17 10:06 Sodium Bicarbonate 150 meq/Sodium Chloride 1,150 ml @ 150 mls/hr Q7H40M IV 08/05/17 10:00 08/05/17 10:00 Family History Non contributory Social History Former smoker full code (Rebecca Lambert) Physical Exam Vital Signs Vital Signs Date Time Temp Pulse Resp B/P (MAP) Pulse Ox O2 Delivery O2 Flow Rate FiO2 08/05/17 10:24 138 98/53 08/05/17 08:45 100 60 08/05/17 07:15 100 60 08/05/17 06:43 145 98/47 08/05/17 06:38 96 Partial Rebreather 13.00 08/05/17 04:00 99.0 133 27 107/48 (67) 95 08/05/17 04:00 133 08/05/17 03:05 94 Nasal Cannula 5.00 08/05/17 01:45 120 112/57 08/05/17 01:20 125 127/59 08/05/17 00:00 109 08/05/17 00:00 98.4 116 24 105/59 (74) 95 08/04/17 21:17 107 111/54 08/04/17 21:16 107 114/57 08/04/17 20:00 97.7 110 22 114/56 (75) 95 Automatic Cuff 08/04/17 20:00 109 08/04/17 19:00 94 Nasal Cannula 3.00 08/04/17 19:00 94 Nasal Cannula 3.00 08/04/17 18:00 112 08/04/17 18:00 97.5 110 16 89/51 (64) 99 08/04/17 16:00 110 08/04/17 15:24 110 88/54 08/04/17 15:23 110 88/54 08/04/17 12:00 97.9 122 24 88/61 (70) 97 08/04/17 12:00 122 Physical Exam Middle aged male patient. Intubated, unresponsive Tachypneic on vent, lungs clear Abd soft, normal bowel sounds Port right chest, TLC left subclavian Ext no edema Olvera in place Laboratory Laboratory Tests Test 08/04/17 15:30 08/04/17 21:14 08/05/17 04:00 08/05/17 06:35 White Blood Count 0.2 0.5 Red Blood Count 3.02 3.08 Hemoglobin 9.3 9.7 Hematocrit 27.6 27.6 Mean Corpuscular Volume 91.3 89.7 Mean Corpuscular Hemoglobin 30.6 31.5 Mean Corpuscular Hemoglobin Concent 33.5 35.1 Red Cell Distribution Width 17.9 17.3 Platelet Count 74 55 Mean Platelet Volume 8.6 8.5 Neutrophils (%) (Auto) 74.0 Lymphocytes (%) (Auto) 13.5 Monocytes (%) (Auto) 9.0 Eosinophils (%) (Auto) 3.5 Basophils (%) (Auto) 0.0 Neutrophils # (Auto) 0.1 Lymphocytes # (Auto) 0.0 Monocytes # (Auto) 0.0 Eosinophils # (Auto) 0.0 Basophils # (Auto) 0.0 CBC Comment AUTO DIFF AUTO DIFF Differential Total Cells Counted 50 50 Neutrophils % (Manual) 12 18 Band Neutrophils % 4 42 Lymphocytes % 26 8 Monocytes % 38 26 Neutrophils # (Manual) 0.1 0.3 Metamyelocytes 6 4 Myelocytes 2 2 Promyelocytes 4 Nucleated Red Blood Cells 2 2 Differential Comment FINAL DIFF MANUAL FINAL DIFF MANUAL Blastocytes 6 Plasma Cells 2 Platelet Estimate LOW LOW Platelet Morphology Comment NORMAL NORMAL Blood Urea Nitrogen 23 23 Creatinine 2.22 2.03 Random Glucose 203 100 Total Protein 3.3 3.7 Albumin 1.8 2.3 Calcium Level 5.6 5.1 Alkaline Phosphatase 30 43 Aspartate Amino Transf (AST/SGOT) 40 76 Alanine Aminotransferase (ALT/SGPT) 21 43 Total Bilirubin 0.5 1.0 Sodium Level 134 132 Potassium Level 3.9 3.9 Chloride Level 106 105 Carbon Dioxide Level 9.8 9.9 Anion Gap 18 17 Estimat Glomerular Filtration Rate 32 36 Lactic Acid Level 7.3 7.3 Protein Corrected Calcium 7.4 6.5 Toxic Vacuolation PRESENT Dohle Bodies PRESENT Ovalocytes 1+ Giovana Cells 1+ Acanthocytes OCC Phosphorus Level 2.7 Magnesium Level 1.7 Blood Gas Puncture Site ART LINE Blood Gas Patient Temperature 98.6 Blood Gas HCO3 8 Blood Gas Base Excess -18.8 Blood Gas Oxygen Saturation 91 Arterial Blood pH 7.21 Arterial Blood Partial Pressure CO2 20 Arterial Blood Partial Pressure O2 69 Arterial Blood Oxygen Content 11.8 Arterial Blood Carboxyhemoglobin 0.5 Arterial Blood Methemoglobin 1.1 Blood Gas Hemoglobin 9.1 Oxygen Delivery Device NASAL CANNULA Blood Gas Liter Flow 6 Test 08/05/17 09:50 Blood Gas Puncture Site ART LINE Blood Gas Patient Temperature 98.6 Blood Gas HCO3 11 Blood Gas Base Excess -14.7 Blood Gas Oxygen Saturation 97 Arterial Blood pH 7.29 Arterial Blood Partial Pressure CO2 23 Arterial Blood Partial Pressure O2 149 Arterial Blood Oxygen Content 14.8 Arterial Blood Carboxyhemoglobin 0.5 Arterial Blood Methemoglobin 1.2 Blood Gas Hemoglobin 10.6 Oxygen Delivery Device VENTILATOR Blood Gas Ventilator Setting [facility] Date/Time Source Procedure Growth Status 08/04/17 06:05 Blood Peripheral Aerobic Blood Culture - Preliminary NO GROWTH IN 1 DAY Resulted 08/04/17 06:05 Blood Peripheral Anaerobic Blood Culture - Final QNS - SEE AEROBE REPORT Resulted 08/03/17 20:35 Stool Stool - Final NO ENTERIC PATHOGENS DETECTED BY PCR... Complete (Rebecca Lambert) Result Diagram: 08/05/17 0400 08/05/17 0400 Imaging Last 72 hours Impressions Renal Ultrasound 08/05/17 0000 Signed Impressions: Service Date/Time: August 09:19 - CONCLUSION: 1. Diffusely increased renal cortical echogenicity consistent with medical renal disease. 2. No obstructive uropathy. Adriano Cardenas MD Chest X-Ray 08/05/17 0000 Signed Impressions: Service Date/Time: August 09:22 - CONCLUSION: 1. New left subclavian central venous catheter in good position without evidence of pneumothorax. 2. Continued effusions and infiltrates. John Joshi MD Chest X-Ray 08/05/17 0000 Signed Impressions: Service Date/Time: August 07:28 - CONCLUSION: 1. Endotracheal tube in appropriate position with tip measuring 3.6 cm from the martín. 2. Stable small left pleural effusion with bilateral mid and lower lung zone airspace consolidation. Suman Branham MD Chest X-Ray 08/05/17 0000 Signed Impressions: Service Date/Time: August 06:37 - CONCLUSION: Worsening bibasilar airspace disease. Symmetry suggest advancing pulmonary edema/ CHF with developing pleural effusions, left worse than right. Rodolfo Ramirez MD Chest X-Ray 08/04/17 0000 Signed Impressions: Service Date/Time: Friday, August 04, 2017 15:00 - CONCLUSION: Abnormal interstitial opacities in the lower lung zones bilaterally in a pattern characteristic of interstitial pulmonary edema. Consider followup to confirm resolution. Suman Branham MD Chest X-Ray 08/03/17 0000 Signed Impressions: Service Date/Time: Thursday, August 03, 2017 19:28 - CONCLUSION: 1. No active disease. [id number] in superior vena cava. Dick Stack MD (Rebecca Lambert) Assessment and Plan Problem List: (1) Acute renal failure ICD Codes: N17.9 - Acute kidney failure, unspecified Plan: Normal renal function at baseline JESSY most likely due to prerenal azotemia due to vomiting May have progressed to ATN He is making urine Has profound metabolic acidosis, see below Continue IVF, continue supportive care Avoid nephrotoxic agents. Given 5 doses of Toradol, it has been stopped. Use pressors to maintain adequate MAP He does not require dialysis at this time. Monitor response to IVF. (2) Metabolic acidosis ICD Codes: E87.2 - Acidosis Plan: Due to renal failure Bicarb gtt ordered, D5W with 3 amps at 125 cc/hr Follow metabolic profile. (3) Pancytopenia ICD Codes: D61.818 - Other pancytopenia Plan: Transfuse as needed Neutropenic precautions (4) Sepsis ICD Codes: A41.9 - Sepsis, unspecified organism Plan: Antibiotics include vancomycin, aztreonam, micafungin, flagyl, Continue supportive care Culture obtained (5) Primary tongue squamous cell carcinoma ICD Codes: C02.9 - Malignant neoplasm of tongue, unspecified Plan: Oncology evaluation appreciated (Rebecca Lambert) Assessment and Plan patient was seen and examined. Extensively discussed with Dr. Hawkins. Patient presents with neutropenic sepsis, septic shock, renal failure. Profound acidosis is noted. He is non oliguric. Acidosis has not corrected. Will attempt CRRT. Very poor prognosis. (Reese Maloney MD) Rebecca Lambert [facility] August 05, 2017 11:37 Reese Maloney MD August 05, 2017 17:43
[2017-08-05 12:27] LABS: BICARBONATE 12.5 MEQ/L (21.0-32.0); CALCIUM 5.4 MG/DL (8.5-10.1); CREATININE 2.15 MG/DL (0.60-1.30)
--- NOTE | 2017-08-05 12:30 | HHI.IDPN ---
Note Infectious Disease Note Patient was intubated this morning. He is sedated on the ventilator. He is on Levophed 11 mcg in addition to vasopressin and phenylephrine. Current systolic blood pressure is 127. Heart rate 115. Afebrile. Blood cultures have no growth. White blood cell count remains low. Patient with history of squamous cell carcinoma of the tongue. The patient has been undergoing chemotherapy. He was admitted to the hospital on 08/03 from oncology with intractable nausea and vomiting and he was noted to have neutropenia and also developed elevated temperature of 101.2 degrees. PAST MEDICAL HISTORY: Squamous cell carcinoma of the tongue. PAST SURGICAL HISTORY: Hip replacement, Infusaport placement, dental extraction. ALLERGIES: PENICILLIN. SHELLFISH. MEDICATIONS: Current Medications Medications (Trade) Dose Ordered Sig/Tiffanie Route PRN Reason Start Time Stop Time Status Last Admin Dose Admin Sodium Chloride (NS Flush) 2 ml UNSCH PRN IV FLUSH FLUSH AFTER USING IV ACCESS 08/01/17 04:45 08/03/17 22:15 Sodium Chloride (NS Flush) 2 ml BID IV FLUSH 08/01/17 09:00 08/05/17 09:00 Ondansetron HCl (Zofran Inj) 4 mg Q6H PRN IVP NAUSEA OR VOMITING 08/01/17 04:45 08/04/17 17:56 Metoclopramide HCl (Reglan Inj) 10 mg Q6H PRN IV PUSH NAUSEA OR VOMITING 08/01/17 04:45 08/03/17 18:00 Senna/Docusate Sodium (Kathleen-Colace) 1 tab BID PO 08/01/17 09:00 Magnesium Hydroxide (Milk Of Magnesia Liq) 30 ml Q12H PRN PO Mild constipation 08/01/17 04:45 Sennosides (Senokot) 17.2 mg Q12H PRN PO Moderate constipation 08/01/17 04:45 Bisacodyl (Dulcolax Supp) 10 mg DAILY PRN RECTAL SEVERE CONSITIPATION/ IF NPO 08/01/17 04:45 Lactulose (Lactulose Liq) 30 ml DAILY PRN PO SEVERE CONSITIPATION / IF PO 08/01/17 04:45 Prochlorperazine Edisylate (Compazine Inj) 10 mg Q6H PRN IV PUSH NAUSEA/VOMITING 08/01/17 04:45 08/03/17 20:38 Fentanyl (Duragesic 25 Mcg Patch.72 Hr) 1 patch Q3D T-DERMAL 08/01/17 05:00 08/04/17 05:54 Hydromorphone HCl (Dilaudid Pf Inj) 1 mg Q4H PRN IV PUSH for pain 6-10 08/01/17 05:00 08/04/17 21:16 Miscellaneous Information 1 Q3D T-DERMAL 08/04/17 05:00 08/04/17 05:55 Multi-Ingredient Mouthwash/Gargle (Magic Mouthwash Adult Liq) 10 ml QID PO 08/01/17 18:00 08/04/17 20:00 Filgrastim 300 mcg/Dextrose 26 ml @ 50 mls/hr DAILY@14 IV 08/02/17 14:00 08/04/17 12:34 Enoxaparin Sodium (Lovenox Inj) 40 mg Q24H SQ 08/02/17 14:00 Future Hold 08/03/17 13:59 Oxycodone HCl (Roxicodone) 10 mg Q6H PRN PO for pain 1-5 08/02/17 14:30 08/03/17 02:37 Acetaminophen (Tylenol) 650 mg Q4H PRN PO FEVER>100.4 08/02/17 14:30 08/04/17 04:39 Aztreonam 2000 mg/ Sodium Chloride 100 ml @ 200 mls/hr Q6H IV 08/03/17 20:00 08/05/17 10:01 Micafungin Sodium 150 mg/Sodium Chloride 100 ml @ 100 mls/hr Q24H IV 08/05/17 09:00 08/05/17 10:08 Vasopressin 40 units/Dextrose 100 ml @ 6 mls/hr [id number] IV 08/04/17 09:00 08/05/17 01:20 Terbutaline Sulfate (Brethine Inj) 1 mg UNSCH PRN SQ For Extravasation 08/04/17 08:15 Hydrocortisone Sodium Succinate (SoluCORTEF INJ) 50 mg Q6HR IV PUSH 08/04/17 12:00 08/05/17 05:17 Vancomycin HCl 1000 mg/Sodium Chloride 250 ml @ 250 mls/hr Q12H IV 08/04/17 21:00 5/3/18 10:18 Pantoprazole Sodium (Protonix Inj) 40 mg Q24H IV PUSH 08/04/17 09:00 08/05/17 10:20 Norepinephrine Bitartrate 250 ml @ 18.75 mls/ hr TITRATE PRN IV Blood pressure management 08/04/17 14:30 08/05/17 10:24 Terbutaline Sulfate (Brethine Inj) 1 mg UNSCH PRN SQ For Extravasation 08/04/17 14:30 Albuterol/ Ipratropium (Duoneb Neb) 1 ampule Q6HR NEB NEB 08/05/17 00:15 08/05/17 09:42 Acetylcysteine (Mucomyst 20% Neb) 2 ml Q6HR NEB NEB 08/05/17 04:00 08/05/17 09:42 Phenylephrine HCl 160 mg/Sodium Chloride 500 ml @ 7.5 mls/hr TITRATE PRN IV Blood Pressure Management 08/05/17 06:45 08/05/17 06:43 Chlorhexidine Gluconate (Peridex 0.12% Liq) 15 ml BID@08,20 MT 08/05/17 08:00 08/05/17 08:00 Midazolam HCl 100 ml @ 2 mls/hr TITRATE PRN IV SEDATION 08/05/17 07:30 08/05/17 08:18 Parenteral Electrolytes 1,000 ml @ 100 mls/hr Q10H IV 08/05/17 08:15 08/05/17 10:06 Sodium Bicarbonate 150 meq/Dextrose 1,150 ml @ 125 mls/hr Q9H12M IV 08/05/17 12:00 Objective: Vital Signs Date Time Temp Pulse Resp B/P (MAP) Pulse Ox O2 Delivery O2 Flow Rate FiO2 08/05/17 12:07 100 50 08/05/17 10:24 138 98/53 08/05/17 08:45 100 60 08/05/17 07:15 100 60 08/05/17 06:43 145 98/47 08/05/17 06:38 96 Partial Rebreather 13.00 08/05/17 04:00 99.0 133 27 107/48 (67) 95 08/05/17 04:00 133 08/05/17 03:05 94 Nasal Cannula 5.00 08/05/17 01:45 120 112/57 08/05/17 01:20 125 127/59 5/3/18 00:00 109 08/05/17 00:00 98.4 116 24 105/59 (74) 95 08/04/17 21:17 107 111/54 08/04/17 21:16 107 114/57 08/04/17 20:00 97.7 110 22 114/56 (75) 95 Automatic Cuff 08/04/17 20:00 109 08/04/17 19:00 94 Nasal Cannula 3.00 08/04/17 19:00 94 Nasal Cannula 3.00 08/04/17 18:00 112 08/04/17 18:00 97.5 110 16 89/51 (64) 99 08/04/17 16:00 110 08/04/17 15:24 110 88/54 08/04/17 15:23 110 88/54 Laboratory Tests Test 08/04/17 02:25 08/04/17 15:30 08/05/17 04:00 White Blood Count 0.1 TH/MM3 0.2 TH/MM3 0.5 TH/MM3 Red Blood Count 3.85 MIL/MM3 3.02 MIL/MM3 3.08 MIL/MM3 Hemoglobin 11.8 GM/DL 9.3 GM/DL 9.7 GM/DL Hematocrit 33.7 % 27.6 % 27.6 % Mean Corpuscular Volume 87.5 FL 91.3 FL 89.7 FL Mean Corpuscular Hemoglobin 30.7 PG 30.6 PG 31.5 PG Mean Corpuscular Hemoglobin Concent 35.1 % 33.5 % 35.1 % Red Cell Distribution Width 16.6 % 17.9 % 17.3 % Platelet Count 82 TH/MM3 74 TH/MM3 55 TH/MM3 Mean Platelet Volume 8.2 FL 8.6 FL 8.5 FL CBC Comment AUTO DIFF AUTO DIFF AUTO DIFF Differential Total Cells Counted 50 50 50 Neutrophils % (Manual) 4 % 12 % 18 % Band Neutrophils % 2 % 4 % 42 % Lymphocytes % 48 % 26 % 8 % Monocytes % 36 % 38 % 26 % Neutrophils # (Manual) 0.0 TH/MM3 0.1 TH/MM3 0.3 TH/MM3 Metamyelocytes 6 % 6 % 4 % Differential Comment FINAL DIFF MANUAL FINAL DIFF MANUAL FINAL DIFF MANUAL Blastocytes 4 % 6 % Platelet Estimate LOW LOW LOW Platelet Morphology Comment NORMAL NORMAL NORMAL Neutrophils (%) (Auto) 74.0 % Lymphocytes (%) (Auto) 13.5 % Monocytes (%) (Auto) 9.0 % Eosinophils (%) (Auto) 3.5 % Basophils (%) (Auto) 0.0 % Neutrophils # (Auto) 0.1 TH/MM3 Lymphocytes # (Auto) 0.0 TH/MM3 Monocytes # (Auto) 0.0 TH/MM3 Eosinophils # (Auto) 0.0 TH/MM3 Basophils # (Auto) 0.0 TH/MM3 Myelocytes 2 % 2 % Promyelocytes 4 % Nucleated Red Blood Cells 2 /100 WBC 2 /100 WBC Plasma Cells 2 % Toxic Vacuolation PRESENT Dohle Bodies PRESENT Ovalocytes 1+ [place] Cells 1+ Acanthocytes OCC Laboratory Tests Test 08/04/17 02:25 08/04/17 06:05 08/04/17 10:39 08/04/17 15:30 Blood Urea Nitrogen 21 MG/DL 23 MG/DL Creatinine 1.05 MG/DL 2.22 MG/DL Random Glucose 122 MG/DL 203 MG/DL Total Protein 4.2 GM/DL 3.3 GM/DL Albumin 1.7 GM/DL 1.8 GM/DL Calcium Level 7.2 MG/DL 5.6 MG/DL Phosphorus Level 2.5 MG/DL Magnesium Level 1.1 MG/DL Alkaline Phosphatase 48 U/L 30 U/L Aspartate Amino Transf (AST/SGOT) 11 U/L 40 U/L Alanine Aminotransferase (ALT/SGPT) 11 U/L 21 U/L Total Bilirubin 0.5 MG/DL 0.5 MG/DL Sodium Level 134 MEQ/L 134 MEQ/L Potassium Level 4.0 MEQ/L 3.9 MEQ/L Chloride Level 101 MEQ/L 106 MEQ/L Carbon Dioxide Level 25.1 MEQ/L 9.8 MEQ/L Anion Gap 8 MEQ/L 18 MEQ/L Estimat Glomerular Filtration Rate 76 ML/MIN 32 ML/MIN Protein Corrected Calcium 8.9 MG/DL 7.4 MG/DL Lactic Acid Level 4.5 mmol/L 4.5 mmol/L 7.3 mmol/L Test 08/04/17 21:14 08/05/17 04:00 08/05/17 11:15 Lactic Acid Level 7.3 mmol/L Blood Urea Nitrogen 23 MG/DL 25 MG/DL Creatinine 2.03 MG/DL 2.15 MG/DL Random Glucose 100 MG/DL 63 MG/DL Total Protein 3.7 GM/DL Albumin 2.3 GM/DL Calcium Level 5.1 MG/DL 5.4 MG/DL Phosphorus Level 2.7 MG/DL Magnesium Level 1.7 MG/DL Alkaline Phosphatase 43 U/L Aspartate Amino Transf (AST/SGOT) 76 U/L Alanine Aminotransferase (ALT/SGPT) 43 U/L Total Bilirubin 1.0 MG/DL Sodium Level 132 MEQ/L 135 MEQ/L Potassium Level 3.9 MEQ/L 3.6 MEQ/L Chloride Level 105 MEQ/L 105 MEQ/L Carbon Dioxide Level 9.9 MEQ/L 12.5 MEQ/L Anion Gap 17 MEQ/L 18 MEQ/L Estimat Glomerular Filtration Rate 36 ML/MIN 33 ML/MIN Protein Corrected Calcium 6.5 MG/DL Microbiology Date/Time Source Procedure Growth Status 08/04/17 06:05 Blood Peripheral Aerobic Blood Culture - Preliminary NO GROWTH IN 1 DAY Resulted 08/04/17 06:05 Blood Peripheral Anaerobic Blood Culture - Final QNS - SEE AEROBE REPORT Resulted 08/04/17 06:05 Blood Line Aerobic Blood Culture - Preliminary NO GROWTH IN 1 DAY Resulted 08/04/17 06:05 Blood Line Anaerobic Blood Culture - Preliminary NO GROWTH IN 1 DAY Resulted 08/03/17 20:10 Blood Peripheral Aerobic Blood Culture - Preliminary NO GROWTH IN 2 DAYS Resulted 08/03/17 20:10 Blood Peripheral Anaerobic Blood Culture - Preliminary NO GROWTH IN 2 DAYS Resulted 08/03/17 18:15 Blood Peripheral Aerobic Blood Culture - Preliminary NO GROWTH IN 2 DAYS Resulted 08/03/17 18:15 Blood Peripheral Anaerobic Blood Culture - Preliminary NO GROWTH IN 2 DAYS Resulted 08/03/17 20:35 Stool Stool - Final NO ENTERIC PATHOGENS DETECTED BY PCR... Complete 08/03/17 20:35 Stool Stool Stool Occult Blood (NISHA) - Final HEMOCCULT NEGATIVE Complete Imaging: Renal Ultrasound 08/05/17 0000 Signed Impressions: Service Date/Time: August 09:19 - CONCLUSION: 1. Diffusely increased renal cortical echogenicity consistent with medical renal disease. 2. No obstructive uropathy. Adriano Cardenas MD Chest X-Ray 08/05/17 0000 Signed Impressions: Service Date/Time: August 09:22 - CONCLUSION: 1. New left subclavian central venous catheter in good position without evidence of pneumothorax. 2. Continued effusions and infiltrates. John Joshi MD PHYSICAL EXAMINATION: GENERAL: Patient on the ventilator. No acute distress. HEENT: Unable to fully assess. Patient on the ventilator. Oropharynx: Mucosa is moist. NECK: No adenopathy or swelling. LUNGS: Decreased breath sounds. HEART: Regular S1 and S2. No audible murmurs. ABDOMEN: Bowel sounds present. Slightly diminished. Soft. EXTREMITIES: No clubbing, small amount of cyanosis at the toes. No edema. SKIN: No rash. NEUROLOGIC: Difficult to assess on the ventilator. PSYCH: Unable to assess. IMPRESSION: 1. Fever and neutropenia. White blood cell count remained profoundly depressed. Temperature is lower. 2. Squamous cell cancer of the tongue, status post chemotherapy. 3. Thrombocytopenia. 4. Hypotension related to sepsis. 5. Acute renal disease. RECOMMENDATIONS: 1. Continue vancomycin. Adjustment for renal function needed. We will ask for pharmacy assistance 2. Continue micafungin. 3. Continue aztreonam. Adjusted for renal function. 4. Continue metronidazole. 5. Monitor blood cultures. 6. Monitor the temperature. 7. Monitor the white blood cell count. 8. Monitor clinical status. Discussed with patient's father and RN. Mark Salazar MD August 05, 2017 12:30
[2017-08-05 12:45] LABS: TOTAL PROTEIN 3.3 GM/DL (6.4-8.2)
[2017-08-05 12:50] LABS: CALCIUM-PROTEIN CORRECTED 7.1 MG/DL (8.5-10.1)
[2017-08-05] MEDS ORDERED: Vancomycin Consult Pharmacy 1 EA OTHER SCH (13:00)
[2017-08-05] MEDS: SODIUM BICARBONATE 8.4% INJ 150 MEQ in DEXTROSE 5% IN WATE 1000ML INJ 1,000 ML IV SCH ×4 (13:29→22:15)
[2017-08-05] MEDS: FILGRASTIM INJ 300 MCG in DEXTROSE 5% IN WATER INJ 25 ML IV SCH ×2 (14:00)
[2017-08-05] MEDS ORDERED: CALCIUM GLUCONATE INJ 2 GM in DEXTROSE 5% IN WATER 100ML INJ 100 ML IV ONE ×4 (14:00→17:00)
--- NOTE | 2017-08-05 14:20 | PD.ONC.PN ---
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 Objective Data Date Time Temp Pulse Resp B/P (MAP) Pulse Ox O2 Delivery O2 Flow Rate FiO2 08/05/17 12:07 100 50 08/05/17 10:24 138 98/53 08/05/17 08:45 100 60 08/05/17 07:15 100 60 08/05/17 06:43 145 98/47 08/05/17 06:38 96 Partial Rebreather 13.00 08/05/17 04:00 99.0 133 27 107/48 (67) 95 08/05/17 04:00 133 08/05/17 03:05 94 Nasal Cannula 5.00 08/05/17 01:45 120 112/57 08/05/17 01:20 125 127/59 08/05/17 00:00 109 08/05/17 00:00 98.4 116 24 105/59 (74) 95 08/04/17 21:17 107 111/54 08/04/17 21:16 107 114/57 08/04/17 20:00 97.7 110 22 114/56 (75) 95 Automatic Cuff 08/04/17 20:00 109 08/04/17 19:00 94 Nasal Cannula 3.00 08/04/17 19:00 94 Nasal Cannula 3.00 08/04/17 18:00 112 08/04/17 18:00 97.5 110 16 89/51 (64) 99 08/04/17 16:00 110 08/04/17 15:24 110 88/54 08/04/17 15:23 110 88/54 08/05/17 08/05/17 08/05/17 07:00 15:00 23:00 Intake Total 3300 ml Output Total 1800 ml Balance 1500 ml Result Diagram: 08/05/17 0400 08/05/17 1115 Laboratory Results Laboratory Tests Test 08/04/17 15:30 08/04/17 21:14 08/05/17 04:00 08/05/17 06:35 White Blood Count 0.2 TH/MM3 0.5 TH/MM3 Red Blood Count 3.02 MIL/MM3 3.08 MIL/MM3 Hemoglobin 9.3 GM/DL 9.7 GM/DL Hematocrit 27.6 % 27.6 % Mean Corpuscular Volume 91.3 FL 89.7 FL Mean Corpuscular Hemoglobin 30.6 PG 31.5 PG Mean Corpuscular Hemoglobin Concent 33.5 % 35.1 % Red Cell Distribution Width 17.9 % 17.3 % Platelet Count 74 TH/MM3 55 TH/MM3 Mean Platelet Volume 8.6 FL 8.5 FL Neutrophils (%) (Auto) 74.0 % Lymphocytes (%) (Auto) 13.5 % Monocytes (%) (Auto) 9.0 % Eosinophils (%) (Auto) 3.5 % Basophils (%) (Auto) 0.0 % Neutrophils # (Auto) 0.1 TH/MM3 Lymphocytes # (Auto) 0.0 TH/MM3 Monocytes # (Auto) 0.0 TH/MM3 Eosinophils # (Auto) 0.0 TH/MM3 Basophils # (Auto) 0.0 TH/MM3 CBC Comment AUTO DIFF AUTO DIFF Differential Total Cells Counted 50 50 Neutrophils % (Manual) 12 % 18 % Band Neutrophils % 4 % 42 % Lymphocytes % 26 % 8 % Monocytes % 38 % 26 % Neutrophils # (Manual) 0.1 TH/MM3 0.3 TH/MM3 Metamyelocytes 6 % 4 % Myelocytes 2 % 2 % Promyelocytes 4 % Nucleated Red Blood Cells 2 /100 WBC 2 /100 WBC Differential Comment FINAL DIFF MANUAL FINAL DIFF MANUAL Blastocytes 6 % Plasma Cells 2 % Platelet Estimate LOW LOW Platelet Morphology Comment NORMAL NORMAL Blood Urea Nitrogen 23 MG/DL 23 MG/DL Creatinine 2.22 MG/DL 2.03 MG/DL Random Glucose 203 MG/DL 100 MG/DL Total Protein 3.3 GM/DL 3.7 GM/DL Albumin 1.8 GM/DL 2.3 GM/DL Calcium Level 5.6 MG/DL 5.1 MG/DL Alkaline Phosphatase 30 U/L 43 U/L Aspartate Amino Transf (AST/SGOT) 40 U/L 76 U/L Alanine Aminotransferase (ALT/SGPT) 21 U/L 43 U/L Total Bilirubin 0.5 MG/DL 1.0 MG/DL Sodium Level 134 MEQ/L 132 MEQ/L Potassium Level 3.9 MEQ/L 3.9 MEQ/L Chloride Level 106 MEQ/L 105 MEQ/L Carbon Dioxide Level 9.8 MEQ/L 9.9 MEQ/L Anion Gap 18 MEQ/L 17 MEQ/L Estimat Glomerular Filtration Rate 32 ML/MIN 36 ML/MIN Lactic Acid Level 7.3 mmol/L 7.3 mmol/L Protein Corrected Calcium 7.4 MG/DL 6.5 MG/DL Toxic Vacuolation PRESENT Dohle Bodies PRESENT Ovalocytes 1+ Newcomb Cells 1+ Acanthocytes OCC Phosphorus Level 2.7 MG/DL Magnesium Level 1.7 MG/DL Blood Gas Puncture Site ART LINE Blood Gas Patient Temperature 98.6 Blood Gas HCO3 8 mmol/L Blood Gas Base Excess -18.8 mmol/L Blood Gas Oxygen Saturation 91 % Arterial Blood pH 7.21 Arterial Blood Partial Pressure CO2 20 mmHg Arterial Blood Partial Pressure O2 69 mmHg Arterial Blood Oxygen Content 11.8 Vol % Arterial Blood Carboxyhemoglobin 0.5 % Arterial Blood Methemoglobin 1.1 % Blood Gas Hemoglobin 9.1 G/DL Oxygen Delivery Device NASAL CANNULA Blood Gas Liter Flow 6 L/M Test 08/05/17 09:50 08/05/17 11:15 Blood Gas Puncture Site ART LINE Blood Gas Patient Temperature 98.6 Blood Gas HCO3 11 mmol/L Blood Gas Base Excess -14.7 mmol/L Blood Gas Oxygen Saturation 97 % Arterial Blood pH 7.29 Arterial Blood Partial Pressure CO2 23 mmHg Arterial Blood Partial Pressure O2 149 mmHg Arterial Blood Oxygen Content 14.8 Vol % Arterial Blood Carboxyhemoglobin 0.5 % Arterial Blood Methemoglobin 1.2 % Blood Gas Hemoglobin 10.6 G/DL Oxygen Delivery Device VENTILATOR Blood Gas Ventilator Setting PRVC Blood Urea Nitrogen 25 MG/DL Creatinine 2.15 MG/DL Random Glucose 63 MG/DL Total Protein 3.3 GM/DL Calcium Level 5.4 MG/DL Sodium Level 135 MEQ/L Potassium Level 3.6 MEQ/L Chloride Level 105 MEQ/L Carbon Dioxide Level 12.5 MEQ/L Anion Gap 18 MEQ/L Estimat Glomerular Filtration Rate 33 ML/MIN Lactic Acid Level 7.0 mmol/L Protein Corrected Calcium 7.1 MG/DL Culture Results Microbiology Date/Time Source Procedure Growth Status 08/04/17 06:05 Blood Peripheral Aerobic Blood Culture - Preliminary NO GROWTH IN 1 DAY Resulted 08/04/17 06:05 Blood Peripheral Anaerobic Blood Culture - Final QNS - SEE AEROBE REPORT Resulted 08/04/17 06:05 Blood Line Aerobic Blood Culture - Preliminary NO GROWTH IN 1 DAY Resulted 08/04/17 06:05 Blood Line Anaerobic Blood Culture - Preliminary NO GROWTH IN 1 DAY Resulted 08/03/17 20:10 Blood Peripheral Aerobic Blood Culture - Preliminary NO GROWTH IN 2 DAYS Resulted 08/03/17 20:10 Blood Peripheral Anaerobic Blood Culture - Preliminary NO GROWTH IN 2 DAYS Resulted 08/03/17 18:15 Blood Peripheral Aerobic Blood Culture - Preliminary NO GROWTH IN 2 DAYS Resulted 08/03/17 18:15 Blood Peripheral Anaerobic Blood Culture - Preliminary NO GROWTH IN 2 DAYS Resulted 08/03/17 20:35 Stool Stool - Final NO ENTERIC PATHOGENS DETECTED BY PCR... Complete 08/03/17 20:35 Stool Stool Stool Occult Blood (NISHA) - Final HEMOCCULT NEGATIVE Complete Imaging Studies Last 24 hours Impressions Renal Ultrasound 08/05/17 0000 Signed Impressions: Service Date/Time: August 09:19 - CONCLUSION: 1. Diffusely increased renal cortical echogenicity consistent with medical renal disease. 2. No obstructive uropathy. Adriano Cardenas MD Chest X-Ray 08/05/17 0000 Signed Impressions: Service Date/Time: August 09:22 - CONCLUSION: 1. New left subclavian central venous catheter in good position without evidence of pneumothorax. 2. Continued effusions and infiltrates. John Joshi MD Chest X-Ray 08/05/17 0000 Signed Impressions: Service Date/Time: August 07:28 - CONCLUSION: 1. Endotracheal tube in appropriate position with tip measuring 3.6 cm from the martín. 2. Stable small left pleural effusion with bilateral mid and lower lung zone airspace consolidation. Suman Branham MD Chest X-Ray 08/05/17 0000 Signed Impressions: Service Date/Time: August 06:37 - CONCLUSION: Worsening bibasilar airspace disease. Symmetry suggest advancing pulmonary edema/ CHF with developing pleural effusions, left worse than right. Rodolfo Ramirez MD Administered Medications Medications (Trade) Dose Ordered Sig/Tiffanie Route PRN Reason Start Time Stop Time Status Last Admin Dose Admin Sodium Chloride (NS Flush) 2 ml UNSCH PRN IV FLUSH FLUSH AFTER USING IV ACCESS 08/01/17 04:45 08/03/17 22:15 Sodium Chloride (NS Flush) 2 ml BID IV FLUSH 08/01/17 09:00 08/05/17 09:00 Ondansetron HCl (Zofran Inj) 4 mg Q6H PRN IVP NAUSEA OR VOMITING 08/01/17 04:45 08/04/17 17:56 Metoclopramide HCl (Reglan Inj) 10 mg Q6H PRN IV PUSH NAUSEA OR VOMITING 08/01/17 04:45 08/03/17 18:00 Prochlorperazine Edisylate (Compazine Inj) 10 mg Q6H PRN IV PUSH NAUSEA/VOMITING 08/01/17 04:45 08/03/17 20:38 Fentanyl (Duragesic 25 Mcg Patch.72 Hr) 1 patch Q3D T-DERMAL 08/01/17 05:00 08/04/17 05:54 Hydromorphone HCl (Dilaudid Pf Inj) 1 mg Q4H PRN IV PUSH for pain 6-08/01/17 05:00 08/04/17 21:16 Miscellaneous Information 1 Q3D T-DERMAL 08/04/17 05:00 08/04/17 05:55 Multi-Ingredient Mouthwash/Gargle (Magic Mouthwash Adult Liq) 10 ml QID PO 08/01/17 18:00 08/04/17 20:00 Filgrastim 300 mcg/Dextrose 26 ml @ 50 mls/hr DAILY@14 IV 08/02/17 14:00 08/04/17 12:34 Enoxaparin Sodium (Lovenox Inj) 40 mg Q24H SQ 08/02/17 14:00 Future Hold 08/03/17 13:59 Oxycodone HCl (Roxicodone) 10 mg Q6H PRN PO for pain 1-5 08/02/17 14:30 08/03/17 02:37 Acetaminophen (Tylenol) 650 mg Q4H PRN PO FEVER>100.4 08/02/17 14:30 08/04/17 04:39 Micafungin Sodium 150 mg/Sodium Chloride 100 ml @ 100 mls/hr Q24H IV 08/05/17 09:00 08/05/17 10:08 Vasopressin 40 units/Dextrose 100 ml @ 6 mls/hr [id number] IV 08/04/17 09:00 08/05/17 01:20 Hydrocortisone Sodium Succinate (SoluCORTEF INJ) 50 mg Q6HR IV PUSH 08/04/17 12:00 08/05/17 12:50 Pantoprazole Sodium (Protonix Inj) 40 mg Q24H IV PUSH 08/04/17 09:00 08/05/17 10:20 Norepinephrine Bitartrate 250 ml @ 18.75 mls/ hr TITRATE PRN IV Blood pressure management 08/04/17 14:30 08/05/17 10:24 Albuterol/ Ipratropium (Duoneb Neb) 1 ampule Q6HR NEB NEB 08/05/17 00:15 08/05/17 09:42 Acetylcysteine (Mucomyst 20% Neb) 2 ml Q6HR NEB NEB 08/05/17 04:00 08/05/17 09:42 Phenylephrine HCl 160 mg/Sodium Chloride 500 ml @ 7.5 mls/hr TITRATE PRN IV Blood Pressure Management 08/05/17 06:45 08/05/17 06:43 Chlorhexidine Gluconate (Peridex 0.12% Liq) 15 ml BID@08,20 MT 08/05/17 08:00 08/05/17 08:00 Midazolam HCl 100 ml @ 2 mls/hr TITRATE PRN IV SEDATION 08/05/17 07:30 08/05/17 08:18 Parenteral Electrolytes 1,000 ml @ 100 mls/hr Q10H IV 08/05/17 08:15 08/05/17 10:06 Sodium Bicarbonate 150 meq/Dextrose 1,150 ml @ 125 mls/hr Q9H12M IV 08/05/17 12:00 08/05/17 13:29 Objective Remarks GENERAL: Younger male, resting in bed intubated and sedated SKIN: Warm and dry. HEAD: Normocephalic. EYES: No injection or drainage. NECK: Supple, trachea midline. CARDIOVASCULAR: Regular rate and rhythm without murmurs. RESPIRATORY: Mechanically ventilated. On 50% FiO2 GASTROINTESTINAL: Abdomen soft, non-tender, nondistended. EXTREMITIES: No cyanosis, or edema. MUSCULOSKELETAL: Adequate muscle tone. NEUROLOGICAL: No obvious focal deficit. Awake, alert, and oriented x3. Assessment/Plan Problem List: (1) Chemotherapy-induced nausea and vomiting ICD Codes: R11.2 - Nausea with vomiting, unspecified; T45.1X5A - Adverse effect of antineoplastic and immunosuppressive drugs, initial encounter Status: Resolved Plan: --continue supportive care with IVF, Scopolamine patch, zofran, reglan and Compazine PRN (2) Pancytopenia due to antineoplastic chemotherapy ICD Codes: D61.810 - Antineoplastic chemotherapy induced pancytopenia; T45.1X5A - Adverse effect of antineoplastic and immunosuppressive drugs, initial encounter Plan: --monitor, transfuse as needed. 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 C4 TPF given on 07/26/2017. Plan 1. Continue daily Neupogen 2. Antibiotics per infectious disease 3. Obtain blood cultures for fever greater than 100.5 Discussed with patient's father at bedside Attending Statement The exam, history, and the medical decision-making described in the above note were completed with the assistance of the mid-level provider. I reviewed and agree with the findings presented. I attest that I had a [id number] encounter with the patient on the same day, and personally performed and documented my assessment and findings in the medical record Acutely ill severely neutropenic/septic and in respiratory failure continue Neupogen, abx vent management per critical care appreciate ID recs follow cultures Transfusion prn for Hb < 7.5 and PLT count less than 20 check daily fibrinogen Sharon Rojas August 05, 2017 14:20 Dwayne Naranjo MD August 05, 2017 23:02
[2017-08-05] MEDS ORDERED: SODIUM BICARBONATE 8.4% SOLN 50 MEQ/50 ML VIAL IV ONE (16:00)
[2017-08-05 16:16] LABS: CREATININE 2.18 MG/DL (0.60-1.30)
[2017-08-05 16:17] LABS: BICARBONATE 12.3 MEQ/L (21.0-32.0)
[2017-08-05 16:55] LABS: TOTAL PROTEIN 3.2 GM/DL (6.4-8.2)
[2017-08-05 16:57] LABS: CALCIUM-PROTEIN CORRECTED 6.7 MG/DL (8.5-10.1)
[2017-08-05] MEDS ORDERED: FUROSEMIDE 40 MG/4 ML VIAL IV PUSH ONE (17:00)
[2017-08-05] MEDS ORDERED: HEPARIN SODIUM - IV 10,000 UNITS/10 ML VIAL ONE (17:47)
[2017-08-05] MEDS ORDERED: SODIUM BICARBONATE 8.4% SOLN 50 MEQ/50 ML VIAL PRN (19:45)
[2017-08-05] MEDS ORDERED: KCL/AQUEOUS SOLN Dialysate additive PRN (19:45)
--- NOTE | 2017-08-05 20:01 | PD.PROCEDR ---
Procedure Note Procedure Hemodialysis catheter placement A time-out was completed verifying correct patient, procedure, site, positioning , and special equipment if applicable. The patient was placed in a dependent position appropriate for central line placement based on the vein to be cannulated. The patients left neck was prepped and draped in sterile fashion. 1 % Lidocaine was used to anesthetize the surrounding skin area. A double-lumen hemodialysis catheter was introduced into the the internal jugular vein using the Seldinger technique and under ultrasound guidance. The catheter was threaded smoothly over the guide wire and appropriate blood return was obtained. Each lumen of the catheter was evacuated of air and flushed with sterile saline. The catheter was then sutured in place to the skin and a sterile dressing applied. Perfusion to the extremity distal to the point of catheter insertion was checked and found to be adequate. Estimated Blood Loss: 1ml The patient tolerated the procedure well and there were no complications. Chilo Torres MD August 05, 2017 20:01
[2017-08-05] MEDS ORDERED: 1/2 NS IV SCH (20:15)
[2017-08-05] MEDS ORDERED: SODIUM BICARBONATE IV SCH (20:15)
[2017-08-05] MEDS ORDERED: KCL IV SCH (20:15)
--- NOTE | 2017-08-05 20:22 | RADRPT ---
EXAM DATE/TIME: 08/05/2017 19:37 [place] COMPARISON: CHEST SINGLE AP, August 05, 2017, 9:22. INDICATIONS : Central line placement. MEDICAL HISTORY : Carcinoma, tongue. SURGICAL HISTORY : Infusaport. ENCOUNTER: Subsequent ACUITY: 1 day PAIN SCORE: Non-responsive. LOCATION: Bilateral chest FINDINGS: A single view of the chest demonstrates endotracheal tube in good position. Right-sided [id number]-g-Ioie and left central line in superior vena cava. Left Vas-Cath in brachiocephalic vein. Bilateral mostly basilar airspace disease and small effusions. CONCLUSION: 1. New left IJ line tip in left brachiocephalic vein near junction with superior vena cava. No pneumo thorax. Dick Stack MD on August 05, 2017 at 20:19 Board Certified Radiologist. This report was verified electronically.
[2017-08-05] MEDS: SODIUM BICARBONATE 8.4% INJ 100 MEQ in SODIUM CHLOR 0.45% 1000 ML INJ 1,000 ML IV SCH ×2 (20:30→22:27)
--- NOTE | 2017-08-05 21:05 | ECHRPT ---
Indication: assess lv fxn CONCLUSIONS Normal left ventricular size. Wall thickness is normal. The left ventricular systolic function is normal with an estimated ejection fraction of 55%. A moderate left sided pleural effusion is noted. BP: / HR: Rhythm: MEASUREMENTS (Male / Female) Normal Values Technical Quality: 2D ECHO LV Diastolic Diameter PLAX 4.3 cm 4.2 - 5.9 / 3.9 - 5.3 cm LV Systolic Diameter PLAX 3.4 cm IVS Diastolic Thickness 0.8 cm 0.6 - 1.0 / 0.6 - 0.9 cm LVPW Diastolic Thickness 0.6 cm 0.6 - 1.0 / 0.6 - 0.9 cm LV Relative Wall Thickness 0.3 LA Systolic Diameter LX 2.4 cm 3.0 - 4.0 / 2.7 - 3.8 cm DOPPLER Mitral E Point Velocity 87.9 cm/s Mitral A Point Velocity 69.1 cm/s Mitral E to A Ratio 1.3 TR Peak Velocity 176.0 cm/s TR Peak Gradient 12.4 mmHg FINDINGS LEFT VENTRICLE Normal left ventricular size. Wall thickness is normal. The left ventricular systolic function is normal with an estimated ejection fraction of 55%. RIGHT VENTRICLE Normal right ventricular size and systolic function. LEFT ATRIUM The left atrial size is normal. RIGHT ATRIUM The right atrial size is normal. ATRIAL SEPTUM Normal atrial septal thickness without atrial level shunting by limited color doppler interrogation. AORTA The aortic root and proximal ascending aorta are normal in size on limited imaging. MITRAL VALVE Structurally normal mitral valve. No mitral valve stenosis or regurgitation. AORTIC VALVE Trileaflet aortic valve. No aortic valve stenosis or regurgitation. TRICUSPID VALVE Structurally normal tricuspid valve. No tricuspid valve stenosis or regurgitation. PULMONARY VALVE The pulmonary valve is not well visualized. VESSELS The inferior vena cava is normal in size. PERICARDIUM A moderate left sided pleural effusion is noted. Mahogany Mercado MD, FACC (Electronically Signed) Final Date:05 Aug 2017 21:04
[2017-08-05 21:46] LABS: INTERNATIONAL NORMALIZED RATIO 5.2 RATIO; PROTHROMBIN TIME - PATIENT 52.6 SEC (9.8-11.6)
[2017-08-05] MEDS ORDERED: SODIUM BICARBONATE 8.4% INJ 50 MEQ/50 ML SYR IV ONE (23:30)
[2017-08-06] VITALS (13 sets, daily range): BP systolic 99–129; BP diastolic 40–74; PULSE 102–120; RESP 27–34; TEMP 97–99.1; O2SAT 91–100
[2017-08-06 00:25] LABS: ALBUMIN 1.7 GM/DL (3.4-5.0); BICARBONATE 14.5 MEQ/L (21.0-32.0); CALCIUM 5.2 MG/DL (8.5-10.1); CREATININE 2.48 MG/DL (0.60-1.30); TOTAL BILIRUBIN ADULT 1.4 MG/DL (0.2-1.0); TOTAL PROTEIN 2.9 GM/DL (6.4-8.2)
[2017-08-06 00:38] LABS: CALCIUM-PROTEIN CORRECTED 7.1 MG/DL (8.5-10.1)
[2017-08-06] MEDS: SODIUM BICARBONATE 8.4% INJ 100 MEQ in SODIUM CHLOR 0.45% 1000 ML INJ 1,000 ML IV SCH ×9 (00:39→16:22)
[2017-08-06] MEDS: CALCIUM GLUCONATE INJ 1 GM in DEXTROSE 5% IN WATER 100ML INJ 100 ML IV SCH ×6 (00:42→12:23)
[2017-08-06] MEDS: HYDROCORTISONE SOD SUCCINATE 100 MG VIAL IV PUSH SCH ×3 (00:45→12:12)
[2017-08-06] MEDS: NOREPINEPHRINE-DEXTROSE DRIP 250 ML IV PRN ×6 (01:45→15:50)
[2017-08-06] MEDS: SODIUM BICARBONATE 8.4% INJ 50 MEQ/50 ML SYR IV SCH ×9 (02:25→16:22)
[2017-08-06] MEDS: RESP: ALBUTEROL 2.5 MG/IPRATROPIUM 0.5 MG NEB (SCH) NEB ×3 (03:55→16:15)
[2017-08-06] MEDS: RESP: ACETYLCYSTEINE 20% 30 ML NEB NEB SCH ×3 (03:55→16:15)
[2017-08-06] MEDS: PHENYLEPHRINE INJ 160 MG in SODIUM CHLORID 0.9% 500 ML INJ 484 ML IV PRN ×2 (04:00→13:43)
[2017-08-06] MEDS: MIDAZOLAM 100 MG/100 ML INJ 100 ML IV PRN (04:15)
[2017-08-06] MEDS: NORMOSOL R INJ 1,000 ML IV SCH ×2 (04:27→14:45)
[2017-08-06 05:47] LABS: HEMOGLOBIN 9.4 GM/DL (13.0-17.0); MEAN CELL VOLUME 87.6 FL (80.0-100.0); MEAN CORPUSCULAR HEMOGLOBIN 30.6 PG (27.0-34.0); MEAN CORPUSCULAR HGB CONC 34.9 % (32.0-36.0); RED BLOOD COUNT 3.08 MIL/MM3 (4.50-5.90); RED CELL DISTRIBUTION WIDTH 17.4 % (11.6-17.2); WHITE BLOOD COUNT 2.3 TH/MM3 (4.0-11.0)
[2017-08-06 06:02] LABS: PLATELET COUNT 14 TH/MM3 (150-450)
[2017-08-06 06:18] LABS: ALBUMIN 1.6 GM/DL (3.4-5.0); BICARBONATE 13.6 MEQ/L (21.0-32.0); CALCIUM 5.2 MG/DL (8.5-10.1); CREATININE 2.67 MG/DL (0.60-1.30); RANDOM VANCOMYCIN 17.3 COMMENT; TOTAL BILIRUBIN ADULT 1.4 MG/DL (0.2-1.0); TOTAL PROTEIN 2.9 GM/DL (6.4-8.2)
[2017-08-06 06:23] LABS: CALCIUM-PROTEIN CORRECTED 7.1 MG/DL (8.5-10.1)
[2017-08-06] MEDS: SODIUM BICARBONATE 8.4% INJ 150 MEQ in DEXTROSE 5% IN WATE 1000ML INJ 1,000 ML IV SCH ×4 (06:24→15:15)
[2017-08-06 07:52] LABS: BANDS 39 % (0-6); LYMPHOCYTES 3 % (9-44); METAMYELOCYTES 3 % (0-1); MONOCYTES 5 % (0-8); MYELOCYTES 5 % (0-0); NEUTROPHIL # MANUAL DIFF 2.1 TH/MM3 (1.8-7.7); POLYS (SEG NEUTROPHILS) 45 % (16-70)
[2017-08-06 07:53] LABS: ACANTHOCYTES 1+ (NORMAL); OVALOCYTES 1+ (NORMAL); TOXIC GRANULATION 1+ (NORMAL)
[2017-08-06] MEDS: CHLORHEXIDINE 0.12% (ORAL KIT) 15 ML CUP MT SCH (08:00)
[2017-08-06] MEDS: NYSTAT/DIPHENHY/LIDO MOUTHWASH (Adult) 120ML PO SCH ×3 (08:04→16:22)
[2017-08-06] MEDS: SODIUM CHLORIDE 0.9% FLUSH 10 ML FLUSH IV FLUSH SCH (08:04)
[2017-08-06] MEDS: DOCUSATE SODIUM 50 MG/SENNA 8.6 MG TAB PO SCH (08:15)
[2017-08-06] MEDS: PANTOPRAZOLE SODIUM 40 MG VIAL IV PUSH SCH (08:15)
[2017-08-06] MEDS: MICAFUNGIN INJ 150 MG in SODIUM CHLORIDE 0.9% INJ 100 ML IV SCH (09:21)
[2017-08-06] MEDS: VASOPRESSIN INJ 40 UNITS in DEXTROSE 5% IN WATER 100ML INJ 98 ML IV SCH ×2 (11:00)
[2017-08-06] MEDS ORDERED: VANCOMYCIN 1,500 MG/NS 500 ML IV ONE ×2 (12:00)
[2017-08-06] MEDS ORDERED: MIDAZOLAM 50 MG/NS 50 ML DRIP Premix IV PRN (12:00)
--- NOTE | 2017-08-06 12:40 | HHI.IDPN ---
Note Infectious Disease Note Patient remains on the ventilator. Currently on 30 mcg of Levophed. Also on vasopressin and phenylephrine. CVVHD is in progress. RN reports that he was hypothermic earlier. Current temperature is 97.8. Cultures negative to date. The white blood cell count has not decreased. Patient is on Neupogen. Patient with history of squamous cell carcinoma of the tongue. The patient has been undergoing chemotherapy. He was admitted to the hospital on 08/03 from oncology with intractable nausea and vomiting and he was noted to have neutropenia and also developed elevated temperature of 101.2 degrees. PAST MEDICAL HISTORY: Squamous cell carcinoma of the tongue. PAST SURGICAL HISTORY: Hip replacement, Infusaport placement, dental extraction. ALLERGIES: PENICILLIN. SHELLFISH. MEDICATIONS: Current Medications Medications (Trade) Dose Ordered Sig/Tiffanie Route PRN Reason Start Time Stop Time Status Last Admin Dose Admin Sodium Chloride (NS Flush) 2 ml UNSCH PRN IV FLUSH FLUSH AFTER USING IV ACCESS 08/01/17 04:45 08/03/17 22:15 Sodium Chloride (NS Flush) 2 ml BID IV FLUSH 08/01/17 09:00 08/05/17 20:05 Ondansetron HCl (Zofran Inj) 4 mg Q6H PRN IVP NAUSEA OR VOMITING 08/01/17 04:45 08/04/17 17:56 Metoclopramide HCl (Reglan Inj) 10 mg Q6H PRN IV PUSH NAUSEA OR VOMITING 08/01/17 04:45 08/03/17 18:00 Senna/Docusate Sodium (Kathleen-Colace) 1 tab BID PO 08/01/17 09:00 08/06/17 08:15 Magnesium Hydroxide (Milk Of Magnesia Liq) 30 ml Q12H PRN PO Mild constipation 08/01/17 04:45 Sennosides (Senokot) 17.2 mg Q12H PRN PO Moderate constipation 08/01/17 04:45 Bisacodyl (Dulcolax Supp) 10 mg DAILY PRN RECTAL SEVERE CONSITIPATION/ IF NPO 08/01/17 04:45 Lactulose (Lactulose Liq) 30 ml DAILY PRN PO SEVERE CONSITIPATION / IF PO 08/01/17 04:45 Prochlorperazine Edisylate (Compazine Inj) 10 mg Q6H PRN IV PUSH NAUSEA/VOMITING 08/01/17 04:45 08/03/17 20:38 Fentanyl (Duragesic 25 Mcg Patch.72 Hr) 1 patch Q3D T-DERMAL 08/01/17 05:00 08/04/17 05:54 Hydromorphone HCl (Dilaudid Pf Inj) 1 mg Q4H PRN IV PUSH for pain 6-10 08/01/17 05:00 08/04/17 21:16 Miscellaneous Information 1 Q3D T-DERMAL 08/04/17 05:00 08/04/17 05:55 Multi-Ingredient Mouthwash/Gargle (Magic Mouthwash Adult Liq) 10 ml QID PO 08/01/17 18:00 08/04/17 20:00 Filgrastim 300 mcg/Dextrose 26 ml @ 50 mls/hr DAILY@14 IV 08/02/17 14:00 08/05/17 14:00 Enoxaparin Sodium (Lovenox Inj) 40 mg Q24H SQ 08/02/17 14:00 Future Hold 08/03/17 13:59 Oxycodone HCl (Roxicodone) 10 mg Q6H PRN PO for pain 1-5 08/02/17 14:30 08/03/17 02:37 Acetaminophen (Tylenol) 650 mg Q4H PRN PO FEVER>100.4 08/02/17 14:30 08/04/17 04:39 Micafungin Sodium 150 mg/Sodium Chloride 100 ml @ 100 mls/hr Q24H IV 08/05/17 09:00 08/06/17 09:21 Vasopressin 40 units/Dextrose 100 ml @ 6 mls/hr [id number] IV 08/04/17 09:00 08/05/17 18:10 Terbutaline Sulfate (Brethine Inj) 1 mg UNSCH PRN SQ For Extravasation 08/04/17 08:15 Hydrocortisone Sodium Succinate (SoluCORTEF INJ) 50 mg Q6HR IV PUSH 08/04/17 12:00 08/06/17 12:12 Pantoprazole Sodium (Protonix Inj) 40 mg Q24H IV PUSH 08/04/17 09:00 08/06/17 08:15 Norepinephrine Bitartrate 250 ml @ 18.75 mls/ hr TITRATE PRN IV Blood pressure management 08/04/17 14:30 08/06/17 08:58 Terbutaline Sulfate (Brethine Inj) 1 mg UNSCH PRN SQ For Extravasation 08/04/17 14:30 Albuterol/ Ipratropium (Duoneb Neb) 1 ampule Q6HR NEB NEB 08/05/17 00:15 08/06/17 08:06 Acetylcysteine (Mucomyst 20% Neb) 2 ml Q6HR NEB NEB 08/05/17 04:00 08/06/17 08:06 Chlorhexidine Gluconate (Peridex 0.12% Liq) 15 ml BID@08,20 MT 08/05/17 08:00 08/06/17 08:00 Parenteral Electrolytes 1,000 ml @ 100 mls/hr Q10H IV 08/05/17 08:15 08/06/17 04:27 Sodium Bicarbonate 150 meq/Dextrose 1,150 ml @ 125 mls/hr Q9H12M IV 08/05/17 12:00 08/06/17 06:24 Aztreonam 2000 mg/ Sodium Chloride 100 ml @ 200 mls/hr Q12H IV 08/06/17 13:00 Pharmacy Profile Note 0 ml @ 0 mls/hr UNSCH OTHER 08/05/17 13:00 Calcium Gluconate 1 gm/Dextrose 110 ml @ 110 mls/hr Q6HR IV 08/06/17 00:00 08/06/17 12:23 Sodium Chloride 1,000 ml @ 0 mls/hr UNSCH PRN OTHER SEE LABEL COMMENTS 08/05/17 19:45 08/06/17 10:15 Potassium Chloride (KCl 40 Meq Premix Inj) Add 4 mEq/ Liter of Dialysate WITH DIALYSIS PRN .XX SEE LABEL COMMENTS 08/05/17 19:45 Sodium Bicarbonate (Sodium Bicarbonate 8.4% Inj) 100 meq CUSTOMER EXPERIENCE ANALYST PRN .XX SEE LABEL COMMENTS 08/05/17 19:45 Sodium Bicarbonate 100 meq/Sodium Chloride 1,100 ml @ 500 mls/hr Q2H12M IV 08/05/17 20:15 08/06/17 11:39 Sodium Bicarbonate (Sodium Bicarbonate 8.4% Inj) 100 meq Q2H IV 08/06/17 02:00 08/06/17 08:15 Phenylephrine HCl 160 mg/Sodium Chloride 500 ml @ 7.5 mls/hr TITRATE PRN IV Blood Pressure Management 08/06/17 02:00 08/06/17 04:00 Vancomycin HCl 1500 mg/Sodium Chloride 515 ml @ 257.5 mls/ hr ONCE ONCE IV 08/06/17 12:00 08/06/17 13:59 08/06/17 12:10 Midazolam HCl 50 ml @ 2 mls/hr TITRATE PRN IV SEDATION 08/06/17 12:00 Objective: Vital Signs Date Time Temp Pulse Resp B/P (MAP) Pulse Ox O2 Delivery O2 Flow Rate FiO2 08/06/17 11:22 93 70 08/06/17 11:00 110 95/49 08/06/17 08:58 114 119/68 08/06/17 08:00 50 08/06/17 08:00 114 08/06/17 08:00 99.1 112 30 129/74 (92) 93 117/60 (79) 08/06/17 07:56 96 Ventilator 50 08/06/17 07:56 96 50 08/06/17 07:00 Mechanical Ventilator 50 08/06/17 06:30 102 132/65 08/06/17 05:10 97 50 08/06/17 04:15 106 130/58 08/06/17 04:00 106 08/06/17 04:00 98.8 106 27 120/62 (81) 97 08/06/17 04:00 97 50 08/06/17 04:00 50 08/06/17 04:00 106 120/62 08/06/17 01:45 114 128/56 08/06/17 00:58 99 50 08/06/17 00:00 120 08/06/17 00:00 50 08/06/17 00:00 97.2 120 31 124/40 (68) 100 08/05/17 23:15 132 156/70 08/05/17 22:35 95 50 08/05/17 20:45 106 108/68 08/05/17 20:06 108 117/69 08/05/17 20:00 106 08/05/17 20:00 50 08/05/17 20:00 99.0 106 25 108/68 (81) 100 08/05/17 19:09 50 08/05/17 19:00 100 Mechanical Ventilator 50 08/05/17 18:10 113 114/56 08/05/17 18:00 106 08/05/17 17:21 114 114/54 08/05/17 16:26 100 50 08/05/17 16:12 113 132/55 08/05/17 16:00 98.4 112 31 124/62 (82) 99 08/05/17 16:00 112 08/05/17 14:00 112 Laboratory Tests Test 08/04/17 15:30 08/05/17 04:00 08/06/17 05:20 White Blood Count 0.2 TH/MM3 0.5 TH/MM3 2.3 TH/MM3 Red Blood Count 3.02 MIL/MM3 3.08 MIL/MM3 3.08 MIL/MM3 Hemoglobin 9.3 GM/DL 9.7 GM/DL 9.4 GM/DL Hematocrit 27.6 % 27.6 % 27.0 % Mean Corpuscular Volume 91.3 FL 89.7 FL 87.6 FL Mean Corpuscular Hemoglobin 30.6 PG 31.5 PG 30.6 PG Mean Corpuscular Hemoglobin Concent 33.5 % 35.1 % 34.9 % Red Cell Distribution Width 17.9 % 17.3 % 17.4 % Platelet Count 74 TH/MM3 55 TH/MM3 14 TH/MM3 Mean Platelet Volume 8.6 FL 8.5 FL 9.0 FL Neutrophils (%) (Auto) 74.0 % Lymphocytes (%) (Auto) 13.5 % Monocytes (%) (Auto) 9.0 % Eosinophils (%) (Auto) 3.5 % Basophils (%) (Auto) 0.0 % Neutrophils # (Auto) 0.1 TH/MM3 Lymphocytes # (Auto) 0.0 TH/MM3 Monocytes # (Auto) 0.0 TH/MM3 Eosinophils # (Auto) 0.0 TH/MM3 Basophils # (Auto) 0.0 TH/MM3 CBC Comment AUTO DIFF AUTO DIFF AUTO DIFF Differential Total Cells Counted 50 50 100 Neutrophils % (Manual) 12 % 18 % 45 % Band Neutrophils % 4 % 42 % 39 % Lymphocytes % 26 % 8 % 3 % Monocytes % 38 % 26 % 5 % Neutrophils # (Manual) 0.1 TH/MM3 0.3 TH/MM3 2.1 TH/MM3 Metamyelocytes 6 % 4 % 3 % Myelocytes 2 % 2 % 5 % Promyelocytes 4 % Nucleated Red Blood Cells 2 /100 WBC 2 /100 WBC Differential Comment FINAL DIFF MANUAL FINAL DIFF MANUAL FINAL DIFF MANUAL Blastocytes 6 % Plasma Cells 2 % Platelet Estimate LOW LOW LOW Platelet Morphology Comment NORMAL NORMAL NORMAL Toxic Vacuolation PRESENT Dohle Bodies PRESENT Ovalocytes 1+ 1+ Giovana Cells 1+ Acanthocytes OCC 1+ Toxic Granulation 1+ Laboratory Tests Test 08/04/17 15:30 08/04/17 21:14 08/05/17 04:00 08/05/17 11:15 Blood Urea Nitrogen 23 MG/DL 23 MG/DL 25 MG/DL Creatinine 2.22 MG/DL 2.03 MG/DL 2.15 MG/DL Random Glucose 203 MG/DL 100 MG/DL 63 MG/DL Total Protein 3.3 GM/DL 3.7 GM/DL 3.3 GM/DL Albumin 1.8 GM/DL 2.3 GM/DL Calcium Level 5.6 MG/DL 5.1 MG/DL 5.4 MG/DL Alkaline Phosphatase 30 U/L 43 U/L Aspartate Amino Transf (AST/SGOT) 40 U/L 76 U/L Alanine Aminotransferase (ALT/SGPT) 21 U/L 43 U/L Total Bilirubin 0.5 MG/DL 1.0 MG/DL Sodium Level 134 MEQ/L 132 MEQ/L 135 MEQ/L Potassium Level 3.9 MEQ/L 3.9 MEQ/L 3.6 MEQ/L Chloride Level 106 MEQ/L 105 MEQ/L 105 MEQ/L Carbon Dioxide Level 9.8 MEQ/L 9.9 MEQ/L 12.5 MEQ/L Anion Gap 18 MEQ/L 17 MEQ/L 18 MEQ/L Estimat Glomerular Filtration Rate 32 ML/MIN 36 ML/MIN 33 ML/MIN Lactic Acid Level 7.3 mmol/L 7.3 mmol/L 7.0 mmol/L Protein Corrected Calcium 7.4 MG/DL 6.5 MG/DL 7.1 MG/DL Phosphorus Level 2.7 MG/DL Magnesium Level 1.7 MG/DL Test 08/05/17 15:00 08/05/17 21:10 08/05/17 23:57 08/06/17 05:20 Blood Urea Nitrogen 26 MG/DL 25 MG/DL 27 MG/DL Creatinine 2.18 MG/DL 2.48 MG/DL 2.67 MG/DL Random Glucose 72 MG/DL 95 MG/DL 103 MG/DL Total Protein 3.2 GM/DL 2.9 GM/DL 2.9 GM/DL Calcium Level 5.0 MG/DL 5.2 MG/DL 5.2 MG/DL Sodium Level 136 MEQ/L 140 MEQ/L 139 MEQ/L Potassium Level 3.6 MEQ/L 3.9 MEQ/L 2.9 MEQ/L Chloride Level 104 MEQ/L 101 MEQ/L 99 MEQ/L Carbon Dioxide Level 12.3 MEQ/L 14.5 MEQ/L 13.6 MEQ/L Anion Gap 20 MEQ/L 25 MEQ/L 26 MEQ/L Estimat Glomerular Filtration Rate 33 ML/MIN 28 ML/MIN 26 ML/MIN Protein Corrected Calcium 6.7 MG/DL 7.1 MG/DL 7.1 MG/DL Lipase 80 U/L Lactic Acid Level 10.6 mmol/L Albumin 1.7 GM/DL 1.6 GM/DL Alkaline Phosphatase 68 U/L 74 U/L Aspartate Amino Transf (AST/SGOT) 70 U/L 80 U/L Alanine Aminotransferase (ALT/SGPT) 35 U/L 40 U/L Total Bilirubin 1.4 MG/DL 1.4 MG/DL Microbiology Date/Time Source Procedure Growth Status 08/04/17 06:05 Blood Peripheral Aerobic Blood Culture - Preliminary NO GROWTH IN 2 DAYS Resulted 08/04/17 06:05 Blood Peripheral Anaerobic Blood Culture - Final QNS - SEE AEROBE REPORT Resulted 08/04/17 06:05 Blood Line Aerobic Blood Culture - Preliminary NO GROWTH IN 2 DAYS Resulted 08/04/17 06:05 Blood Line Anaerobic Blood Culture - Preliminary NO GROWTH IN 2 DAYS Resulted 08/03/17 20:10 Blood Peripheral Aerobic Blood Culture - Preliminary NO GROWTH IN 3 DAYS Resulted 08/03/17 20:10 Blood Peripheral Anaerobic Blood Culture - Preliminary NO GROWTH IN 3 DAYS Resulted 08/03/17 18:15 Blood Peripheral Aerobic Blood Culture - Preliminary NO GROWTH IN 3 DAYS Resulted 08/03/17 18:15 Blood Peripheral Anaerobic Blood Culture - Preliminary NO GROWTH IN 3 DAYS Resulted 08/03/17 20:35 Stool Stool - Final NO ENTERIC PATHOGENS DETECTED BY PCR... Complete 08/03/17 20:35 Stool Stool Stool Occult Blood (NISHA) - Final HEMOCCULT NEGATIVE Complete 08/05/17 16:20 Sputum Endotracheal Gram Stain - Final Resulted 08/05/17 16:20 Sputum Endotracheal Sputum Culture Pending Resulted Imaging: Renal Ultrasound 08/05/17 0000 Signed Impressions: Service Date/Time: August 09:19 - CONCLUSION: 1. Diffusely increased renal cortical echogenicity consistent with medical renal disease. 2. No obstructive uropathy. Adriano Cardenas MD Chest X-Ray 08/05/17 0000 Signed Impressions: Service Date/Time: August 19:37 - CONCLUSION: 1. New left IJ line tip in left brachiocephalic vein near junction with superior vena cava. No pneumothorax. Dick Stack MD Chest X-Ray 08/05/17 0000 Signed Impressions: Service Date/Time: August 09:22 - CONCLUSION: 1. New left subclavian central venous catheter in good position without evidence of pneumothorax. 2. Continued effusions and infiltrates. John Joshi MD Chest X-Ray 08/05/17 0000 Signed Impressions: Service Date/Time: August 07:28 - CONCLUSION: 1. Endotracheal tube in appropriate position with tip measuring 3.6 cm from the martín. 2. Stable small left pleural effusion with bilateral mid and lower lung zone airspace consolidation. Suman Branham MD Chest X-Ray 08/05/17 0000 Signed Impressions: Service Date/Time: August 06:37 - CONCLUSION: Worsening bibasilar airspace disease. Symmetry suggest advancing pulmonary edema/ CHF with developing pleural effusions, left worse than right. Rodolfo Ramirez MD Chest X-Ray 08/04/17 Signed Impressions: Service Date/Time: Friday, August 04, 2017 15:00 - CONCLUSION: Abnormal interstitial opacities in the lower lung zones bilaterally in a pattern characteristic of interstitial pulmonary edema. Consider followup to confirm resolution. Suman Branham MD PHYSICAL EXAMINATION: GENERAL: Patient on the ventilator. Sedated. HEENT: Unable to fully assess. Patient on the ventilator. NECK: No adenopathy or swelling. LUNGS: Decreased breath sounds bilateral. HEART: Regular S1 and S2. No audible murmurs. ABDOMEN: Bowel sounds present. Soft. EXTREMITIES: No clubbing, small amount of cyanosis at the toes. No edema. SKIN: Lacy purpuric areas of erythema at the legs and arms. NEUROLOGIC: Difficult to assess on the ventilator. PSYCH: Unable to assess. IMPRESSION: 1. Sepsis. Patient with increased vasopressor requirements. 2. Fever and neutropenia. White blood cell count is increasing. 3. Squamous cell cancer of the tongue, status post chemotherapy. 4. Thrombocytopenia. 5. Hypotension related to sepsis. 6. Acute renal disease. Currently receiving CVVHD. RECOMMENDATIONS: 1. Continue vancomycin. 2. Continue micafungin. 3. Continue aztreonam. Adjusted for renal function. 4. Continue metronidazole. 5. Obtain CT scan of the abdomen to look for source of sepsis. 6. Monitor blood cultures. 7. Monitor the temperature. 8. Monitor the white blood cell count. 9. Monitor clinical status. Discussed with patient's father and RN. Mark Salazar MD August 06, 2017 12:40
--- NOTE | 2017-08-06 12:42 | HHI.CCPN ---
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 He underwent his 3rd series of Chemo Wednesday-Wednesday and has been having ongoing nausea/vomiting, which is typical of his post-chemo symptoms. He was not tolerating feedings through PEG due to nausea/vomiting. Patient was admitted by hospitalist service and was being followed by oncology. He developed worsening neutropenia and overnight has developed hypotension with lactic acidosis. Rapid response team was called and patient was transferred to the ICU after receiving a fluid bolus. He had empiric antibiotics initiated on 08/03 including vancomycin/aztreonam IV after obtaining blood cultures. I spoke with Dr. Rodas who consulted critical care service for further evaluation of hypotension/neutropenic sepsis following patient's transfer to the ICU. I evaluated patient immediately on his arrival to the ICU. He was awake and alert at that time not in any acute distress however was still hypotensive after having received 1 L normal saline bolus. I ordered 2 more liters NS bolus , IV albumin as well as added micafungin and IV Flagyl to his regimen. ID consult has already been requested prior to transfer. Patient has minimal shortness of breath on arrival however denies any chest pain abdominal pain currently. 08/05: Remains in septic shock with high doses of pressors. Lactic acidosis/ metabolic acidosis persists. Patient intubated this morning and placed on mechanical ventilation. PEG tube To low intermittent wall suction and about 1 L of gastric contents suctioned out. Started on a bicarb drip. Nephrology consult requested to consider CRRT in view of severe metabolic acidosis and I personally discussed the case with Dr. Alvarado. 08/06: Remains in septic shock on high doses of pressors. CRRT started last night however filter clotted off in 3 hours. Also patient became very hemodynamically unstable while on CRRT last night. Has been receiving bicarb boluses through the night. CRRT resumed this morning. Patient remains sedated , orally intubated on mechanical ventilation on high doses of Levophed/Oskar- Synephrine as well as vasopressin GTT. Worsening platelet count and coagulopathy noted. Objective Vital Signs Date Time Temp Pulse Resp B/P (MAP) Pulse Ox O2 Delivery O2 Flow Rate FiO2 08/06/17 11:22 93 70 08/06/17 11:00 110 95/49 08/06/17 08:00 99.1 30 08/06/17 07:56 Ventilator 08/05/17 07:00 3.00 Intake and Output 08/06/17 08/06/17 08/07/17 08:00 16:00 00:00 Intake Total 2570 ml Output Total 2000 ml Balance 570 ml Result Diagram: 08/06/17 0520 08/06/17 0520 Other Results Microbiology Date/Time Source Procedure Growth Status 08/03/17 20:35 Stool Stool - Final NO ENTERIC PATHOGENS DETECTED BY PCR... Complete 08/03/17 20:35 Stool Stool Stool Occult Blood (NISHA) - Final HEMOCCULT NEGATIVE Complete Laboratory Tests Test 08/05/17 23:25 08/06/17 09:40 Blood Gas Puncture Site ART LINE ART LINE Blood Gas Patient Temperature 98.6 98.6 Blood Gas HCO3 13 mmol/L (22-26) 17 mmol/L (22-26) Blood Gas Base Excess -12.4 mmol/L (-2-2) -5.3 mmol/L (-2-2) Blood Gas Oxygen Saturation 97 % (90-100) 94 % (90-100) Arterial Blood pH 7.32 (7.380-7.420) 7.52 (7.380-7.420) Arterial Blood Partial Pressure CO2 26 mmHg (38-42) 21 mmHg (38-42) Arterial Blood Partial Pressure O2 138 mmHg (61-120) 70 mmHg (61-120) Arterial Blood Oxygen Content 11.5 Vol % (12.0-20.0) 12.0 Vol % (12.0-20.0) Arterial Blood Carboxyhemoglobin 0.4 % (0-4) 0.8 % (0-4) Arterial Blood Methemoglobin 1.0 % (0-2) 1.1 % (0-2) Blood Gas Hemoglobin 8.2 G/DL (12.0-16.0) 9.1 G/DL (12.0-16.0) Oxygen Delivery Device VENTILATOR VENTILATOR Blood Gas Ventilator Setting PC/AC Blood Gas Inspired Oxygen 50 % 50 % Imaging Last Impressions Chest X-Ray 08/03/17 0000 Signed Impressions: Service Date/Time: Thursday, August 03, 2017 19:28 - CONCLUSION: 1. No active disease. [place]-[id number]-[id number] in superior vena cava. Dick Stack MD Procedures GENERAL: Middle-aged white male, sitting up in bed CARDIOVASCULAR: Regular rate and rhythm. No obvious murmurs to auscultation. RESPIRATORY: No obvious wheezing. Clear to auscultation. Breath sounds equal bilaterally. GASTROINTESTINAL: Abdomen soft, non-tender, nondistended. BS normal. PEG tube in place, intact. Objective Remarks HEENT/ Neuro: Sedated, orally intubated, Pallor present, no icterus, tongue/ mucosa moist Neck: No JVD, left IJ Vas-Cath in place Chest/Pulm: on mech vent, good air entry bilaterally, scattered rhonchi, no wheezing or crackles CVS: S1-S2 regular, no murmur GI/abdomen: soft, nontender, bowel sounds sluggish. PEG tube in place currently placed to low intermittent wall suction Extremities: warm bilaterally, bilateral edema. Skin appears mottled over bilateral upper and lower extremities A/P Assessment and Plan Septic shock Lactic acidosis Neutropenic sepsis Tongue cancer status post recent chemotherapy Thrombocytopenia Plan: Neuro: Follow neuro status, pain medications as needed. Currently on fentanyl patch. Versed gtt Cardiovascular: s/p multiple fluid boluses, IV albumin. Vasopressin/ Oskar- Synephrine/Levophed GTT for pressor support to maintain map greater than 65mm Hg Pulmonary: Continue mechanical ventilation, vent bundle, bronchodilators as needed. Follow-up ABGs GI/liver: PEG placed to low intermittent wall suction currently. Renal/: IV hydration, strict intake output, monitor and replete electrolyte, follow BUN/creatinine. Consulted nephrology. On CRRT in view of severe metabolic acidosis in the setting of septic shock. ID: Follow-up blood cultures. Empiric antibiotic coverage with IV vancomycin/ aztreonam/Flagyl/micafungin. ID consulted and following. Heme onc: Status post recent chemotherapy for tongue cancer. Neutropenic sepsis noted. Receiving Neupogen per oncology. Thrombocytopenia/coagulopathy noted. Blood products per hematology. Endocrine: SSI for glycemic control as needed. Stress dose steroids with hydrocortisone 50 mg IV every 6 hourly started 08/04 Prophylaxis: Pepcid/SCDs. Hold Lovenox in view of thrombocytopenia. Access: Left subclavian central line placed 08/05, radial A-line placed 08/04. Left IJ Vas-Cath placed 08/05, Condition critical. Prognosis appears extremely poor with septic shock and multiorgan failure on high doses of pressors. I spoke with patient's father this morning explaining to him that patient is extremely critical at high risk of going into a cardiac arrest and he voiced understanding. I have consulted palliative care to assist with deciding goals of therapy. Patient is alternate CODE STATUS at this time. Time spent on critical care excluding procedures 50 minutes. Ray Hawkins MD August 06, 2017 12:42
[2017-08-06] MEDS ORDERED: AZTREONAM INJ 2,000 MG in SODIUM CHLORIDE 0.9% INJ 100 ML IV SCH (13:00)
--- NOTE | 2017-08-06 13:03 | HHI.NPPN ---
Subjective Renal Failure: Acute Interval History CRRT started last night around 8pm. He is making urine. Remains intubated on 70 % FiO2. He is still on Levophed and neosynepherine. Skin mottling noted on lower extremities. Vascath fuction has not been great. Had to reverse lines, flow rate 180 ml/min. Hypokalemic. Acidosis persists. (Rebecca Lambert) Review of Systems General General Remarks unable to obtain (Rebecca Lambert) Objective Data Data Vital Signs Date Time Temp Pulse Resp B/P (MAP) Pulse Ox O2 Delivery O2 Flow Rate FiO2 08/06/17 11:22 93 70 08/06/17 11:00 110 95/49 08/06/17 08:58 114 119/68 08/06/17 08:00 50 08/06/17 08:00 114 08/06/17 08:00 99.1 112 30 129/74 (92) 93 117/60 (79) 08/06/17 07:56 96 Ventilator 50 08/06/17 07:56 96 50 08/06/17 07:00 Mechanical Ventilator 50 08/06/17 06:30 102 132/65 08/06/17 05:10 97 50 08/06/17 04:15 106 130/58 08/06/17 04:00 106 08/06/17 04:00 98.8 106 27 120/62 (81) 97 08/06/17 04:00 97 50 08/06/17 04:00 50 08/06/17 04:00 106 120/62 08/06/17 01:45 114 128/56 08/06/17 00:58 99 50 08/06/17 00:00 120 08/06/17 00:00 50 08/06/17 00:00 97.2 120 31 124/40 (68) 100 08/05/17 23:15 132 156/70 08/05/17 22:35 95 50 08/05/17 20:45 106 108/68 08/05/17 20:06 108 117/69 08/05/17 20:00 106 08/05/17 20:00 50 08/05/17 20:00 99.0 106 25 108/68 (81) 100 08/05/17 19:09 50 08/05/17 19:00 100 Mechanical Ventilator 50 08/05/17 18:10 113 114/56 08/05/17 18:00 106 08/05/17 17:21 114 114/54 08/05/17 16:26 100 50 08/05/17 16:12 113 132/55 08/05/17 16:00 98.4 112 31 124/62 (82) 99 08/05/17 16:00 112 08/05/17 14:00 112 (Rebecca Lambert) -: 08/06/17 0520 08/06/17 0520 Microbiology 08/05/17 Gram Stain - Final, Resulted 08/05/17 Sputum Culture, Resulted Pending Tubes & Lines: Vas-Cath, Olvera Tubes & Lines Comment Port a cath A line TLC Drip Comment levo, jorge (Rebecca Lambert) Physical Exam General Appearance: Well Developed, No Acute Distress, Comfortable (Rebecca Lambert) Eyes Eye Exam: Pupils Equal, Pupils Reactive (Rebecca Lambert) Throat Throat Remarks broken teeth, poor dentition (Rebecca Lambert) Pulmonary Resp Exam: Clear Bilaterally, Breath Sounds Equal (Rebecca Lambert) Cardiology CV Exam: Regular, Normal Sinus Rhythm (Rebecca Lambert) Gastrointestinal/Abdomen GI Exam: Soft, Non-Tender, Bowel Sounds Present (Rebecca Lambert) Musculoskeletal MS Exam: Joints Intact, Normal Tone, Unable to Ambulate (Rebecca Lambert) Integumentary Skin Exam: Clear, Dry, Cool Skin Remarks mottling lower extremities (Rebecca Lambert) Extremeties Extremities Exam: No Edema, Pedal Pulses Palpable (Rebecca Lambert) Neurologic Neuro Exam: Unresponsive, Sedated (Rebecca Lambert) Assessment/Plan Discussed Condition With: Relative Assessment Summary: JESSY/Acute Renal Failure, Acute Tubular Necrosis Problem List: (1) Acute renal failure ICD Codes: N17.9 - Acute kidney failure, unspecified Plan: Normal renal function at baseline JESSY most likely ATN secondary to vomiting he is non oliguric CRRT started 5/4 due to refractory acidosis Pre dilutional fluid is 1/2 NS with 2 amps bicarb No fluid removal Off bicarb gtt Replace potassium Avoid nephrotoxic agents. Given 5 doses of Toradol for pain on arrival. Use pressors to maintain adequate MAP (2) Metabolic acidosis ICD Codes: E87.2 - Acidosis Plan: Due to renal failure CRRT ongoing with bicarb as pre dilutional fluid (3) Pancytopenia ICD Codes: D61.818 - Other pancytopenia Plan: Transfuse as needed Neutropenic precautions (4) Sepsis ICD Codes: A41.9 - Sepsis, unspecified organism Plan: Antibiotics include vancomycin, aztreonam, micafungin, flagyl, Continue supportive care Culture obtained ID following (5) Primary tongue squamous cell carcinoma ICD Codes: C02.9 - Malignant neoplasm of tongue, unspecified Plan: Oncology evaluation appreciated (Rebecca Lambert) Plan Patient was seen and examined. Agree with above assessment and plan. Seen during CRRT. Bicarbonate is better. However lactic acid level remains very high. Poor prognosis. (Reese Maloney MD) Rebecca Lambert August 06, 2017 13:03 Reese Maloney MD August 06, 2017 16:17
--- NOTE | 2017-08-06 13:56 | PD.CONS ---
Consult Service Palliative Care Consult Requested By Dr Hawkins . Primary Care Physician No Primary Care Physician Reason for Consultation a. To assist with evaluation and management of symptoms including: Dyspnea, encephalopathy b. To assist medical decision maker(s) with: better understanding of current medical conditions; weighing benefits/burdens of medical treatment options; making medical treatment decisions. HPI History of Present Illness This 46-year-old male presented to the ED on 08/01/17 for complaints of nausea, vomiting and dehydration. He had just completed a third chemotherapy series the week prior. He had been nauseous and vomiting since. Unable to tolerate PEG tube feedings. Patient reports diarrhea but always has that following chemotherapy. Denies abdominal pain. Denies fever chills. 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 * Treated with IV fluids. Treated with Compazine and Benadryl. Nausea persists , treated with Zofran. Exam benign. CBC unremarkable. BMP with mild hyponatremia 132, potassium 4.0, BUN 24/creatinine 0.70. Blood glucose 94. Albumin 2.9. Lipase 113. Admitted for further management of chemo-induced nausea/vomiting. * Continued on IV fluids for hydration, n.p.o. until nausea improved. Oncology consulted to follow. Scopolamine patch added. Still with significant oral pain , copious oral secretions. * 08/03 through 08/04 worsening neutropenia, overnight hypotension and lactic acidosis. Rapid response alert was called he was transferred to ICU, received IV fluid bolus. Started on empiric antibiotics of vancomycin, aztreonam. Blood cultures obtained. Critical care was consulted to assist with management of hypotension, neutropenic sepsis. At time of ICU arrival 08/04 he is noted to be awake alert in no acute distress however hypotensive after IV fluid bolus. He was adored for additional IV fluids IV albumin and micafungin, IV Flagyl. ID consulted. Minimally short of breath. Denying chest pain. Febrile T-max 102.2. * 2D echo: 08/05 normal left ventricular size. Wall thickness normal. Left ventricular systolic function normal EF 55%. Moderate left-sided pleural effusion. * 08/05 patient was intubated. Septic shock requiring high doses of pressors. PEG to lower intermittent suction about 1 L gastric output. Started on bicarbonate drip. Nephrology consulted for possible CRRT for severe metabolic acidosis. ID consulted and recommends continue Vanco, micafungin, aztreonam, Flagyl, follow cultures, clinical status. * Nephrology: JESSY likely secondary to prerenal azotemia due to vomiting may have progressed to ATN. Making some urine. Profound metabolic acidosis. Continue IV fluids and supportive care. Acidosis not corrected. May attempt CRRT. Very poor prognosis noted. 08/05 hemodialysis catheter placed. * 08/06 remains in septic shock, requiring high doses of pressors. CRRT started overnight however filter clotted off after 3 hours. Patient also became hemodynamically unstable while on CRRT. Was receiving bicarb boluses throughout the night. CRRT resumed this morning. Patient remaining sedated, orally intubated on mechanical vent. On Levophed, Oskar-Synephrine, vasopressin. Platelet count worsening 55--> 14 today. H&H stable. Renal function continues to worsen BUN 27/creatinine 2.67. GFR 26. Potassium 2.9. Patient condition critical , critical care attending notes discussion with father regarding multiorgan failure risk for cardiac arrest. Alternate code was elected at that time. Blood cultures 08/03 with no growth 3 days, blood cultures 08/04 no growth 2 days. Sputum culture 08/05 pending. Stool culture with no enteric pathogens ID. Palliative care was consulted to assist with clarification of goals of treatment. Patient seen in room no visitors present. Primary nurse present. He is nonresponsive to exam. He appears tachypneic and some accessory muscle use noted on mechanical vent. On multiple pressors--norepinephrine 30 mics/minute, phenylephrine 300 mics/minute, vasopressin 0.04 units/minute. following exam met with patient father, stepmother. Additional oncology history per review of record: Initially developed a lesion about a year ago, he had developed a lesion on his tongue that would wax and wane in size. It progressively got larger with increased pain he saw ENT . At that time he had a biopsy which confirmed invasive moderately to poorly differentiated squamous cell carcinoma HPV negative. Diagnosed 04/2017. mass was not resectable. He was evaluated by radiation oncology and medical oncology. Pretreatment PET scan showed intense activity right tongue crossing midline to base no enlarged lymph nodes nonspecific antral involvement. He was started on neoadjuvant TPF: first cycle 06/07 second cycle 06/28, third cycle , and the fourth completed 07/26/17. He required hospitalization after prior cycles due to nausea and vomiting and diarrhea ========[id number] call from critical care Dr Hawkins, he advised me that has just met again w pt father, and worsening labs, father requests compassionate withdrawal of life support and transition to comfort measures only at this time. Requested palliative care follow-up. Patient seen again in room, met with father again. Review of withdrawal process , anticipatory guidance. He expresses with patient deteriorating condition he does not wish to further prolong any possible suffering based on patient known wishes. Exhibits B, C signed and placed in chart. He requests auto air conditioning installer support , community health nursing director paged auto air conditioning installer . Review with primary nurse, critical care. Comfort orders entered for pre-withdrawal, time of withdrawal and post withdrawal. Will continue Versed drip given patient's significant tachypnea up until this point. Function/Cognitive Trajectory Prior to current acute hospitalization, patient lived at home in his own apartment. Independent with all ADLs. Cognitively sharp. No cognitive or functional deficits. . Review of Systems ROS Limitations: Clinical Condition, Intubated, Unresponsive Past Family Social History Coded Allergies: Penicillins (Verified Allergy, Severe, UNSURE - CHILD, 08/01/17) Uncoded Allergies: SHELLFISH (Allergy, Severe, Anaphylaxis, 04/27/17) Past Medical History Squamous Cell carcinoma of the Tongue . Past Surgical History Port Placement PEG Tube Placement Dental Extraction . Reported Medications Duragesic Patch 72 HR (Fentanyl) 25 Mcg/Hour Patch.td72 1 Patch T-DERMAL Q3D PLACE A 25 MCG PATCH EVERY 72 HOURS TOPICALLY Hyosyne Liq Drops (Hyoscyamine Sulfate) 0.125 Mg/Ml Soln 0.125 Mg PO Q4H PRN [Nystatin Liq] 5 ML Susp 5 Ml SWISH-SWAL QID [vital] 360 Ml G-TUBE QID Vital 1.5, 360mls 5 times daily. flush with 100cc saline after each feeding. [Scopolamine 1.5 Mg Patch.72 Hr] 1 PATCH Patch 1 Patch T-DERMAL Q3D Ondansetron (Ondansetron HCl) 8 Mg Tab 8 Mg PO TID Percocet (Oxycodone-Acetaminophen) 10-325 mg Tab 1 Tab PO Q6H PRN Dexamethasone 4 Mg Tab 8 Mg PO BID [5FU] IV Taxotere Inj (Docetaxel) 20 Mg/Ml (1 Ml) Inj Cisplatin Inj (Cisplatin) 1 Mg/Ml Inj . Current Medications Medications (Trade) Dose Ordered Sig/Tiffanie Route Start Time Stop Time Status Last Admin (NS Flush) 2 ml UNSCH PRN IV FLUSH 08/01/17 04:45 08/03/17 22:15 (NS Flush) 2 ml BID IV FLUSH 08/01/17 09:00 08/05/17 20:05 (Zofran Inj) 4 mg Q6H PRN IVP 08/01/17 04:45 08/04/17 17:56 (Reglan Inj) 10 mg Q6H PRN IV PUSH 08/01/17 04:45 08/03/17 18:00 (Kathleen-Colace) 1 tab BID PO 08/01/17 09:00 08/06/17 08:15 (Milk Of Magnesia Liq) 30 ml Q12H PRN PO 08/01/17 04:45 (Senokot) 17.2 mg Q12H PRN PO 08/01/17 04:45 (Dulcolax Supp) 10 mg DAILY PRN RECTAL 08/01/17 04:45 (Lactulose Liq) 30 ml DAILY PRN PO 08/01/17 04:45 (Compazine Inj) 10 mg Q6H PRN IV PUSH 08/01/17 04:45 08/03/17 20:38 (Duragesic 25 Mcg Patch.72 Hr) 1 patch Q3D T-DERMAL 08/01/17 05:00 08/04/17 05:54 (Dilaudid Pf Inj) 1 mg Q4H PRN IV PUSH 08/01/17 05:00 08/04/17 21:16 Miscellaneous Information 1 Q3D T-DERMAL 08/04/17 05:00 08/04/17 05:55 (Magic Mouthwash Adult Liq) 10 ml QID PO 08/01/17 18:00 08/04/17 20:00 Filgrastim 300 mcg/Dextrose 26 ml @ 50 mls/hr DAILY@14 IV 08/02/17 14:00 08/05/17 14:00 (Lovenox Inj) 40 mg Q24H SQ 08/02/17 14:00 Future Hold 08/03/17 13:59 (Roxicodone) 10 mg Q6H PRN PO 08/02/17 14:30 08/03/17 02:37 (Tylenol) 650 mg Q4H PRN PO 08/02/17 14:30 08/04/17 04:39 Micafungin Sodium 150 mg/Sodium Chloride 100 ml @ 100 mls/hr Q24H IV 08/05/17 09:00 08/06/17 09:21 Vasopressin 40 units/Dextrose 100 ml @ 6 mls/hr [id number] IV 08/04/17 09:00 08/05/17 18:10 (Brethine Inj) 1 mg UNSCH PRN SQ 08/04/17 08:15 (SoluCORTEF INJ) 50 mg Q6HR IV PUSH 08/04/17 12:00 08/06/17 12:12 (Protonix Inj) 40 mg Q24H IV PUSH 08/04/17 09:00 08/06/17 08:15 Norepinephrine Bitartrate 250 ml @ 18.75 mls/ hr TITRATE PRN IV 08/04/17 14:30 08/06/17 08:58 (Brethine Inj) 1 mg UNSCH PRN SQ 08/04/17 14:30 (Duoneb Neb) 1 ampule Q6HR NEB NEB 08/05/17 00:15 08/06/17 08:06 (Mucomyst 20% Neb) 2 ml Q6HR NEB NEB 08/05/17 04:00 08/06/17 08:06 (Peridex 0.12% Liq) 15 ml BID@08,20 MT 08/05/17 08:00 08/06/17 08:00 Parenteral Electrolytes 1,000 ml @ 100 mls/hr Q10H IV 08/05/17 08:15 08/06/17 04:27 Sodium Bicarbonate 150 meq/Dextrose 1,150 ml @ 125 mls/hr Q9H12M IV 08/05/17 12:00 08/06/17 06:24 Aztreonam 2000 mg/ Sodium Chloride 100 ml @ 200 mls/hr Q12H IV 08/06/17 13:00 Pharmacy Profile Note 0 ml @ 0 mls/hr UNSCH OTHER 08/05/17 13:00 Calcium Gluconate 1 gm/Dextrose 110 ml @ 110 mls/hr Q6HR IV 08/06/17 00:00 08/06/17 12:23 Sodium Chloride 1,000 ml @ 0 mls/hr UNSCH PRN OTHER 08/05/17 19:45 08/06/17 10:15 (KCl 40 Meq Premix Inj) Add 4 mEq/ Liter of Dialysate WITH DIALYSIS PRN .XX 08/05/17 19:45 (Sodium Bicarbonate 8.4% Inj) 100 meq WATER PUMP SERVICER PRN .XX 08/05/17 19:45 Sodium Bicarbonate 100 meq/Sodium Chloride 1,100 ml @ 500 mls/hr Q2H12M IV 08/05/17 20:15 08/06/17 11:39 (Sodium Bicarbonate 8.4% Inj) 100 meq Q2H IV 08/06/17 02:00 08/06/17 08:15 Phenylephrine HCl 160 mg/Sodium Chloride 500 ml @ 7.5 mls/hr TITRATE PRN IV 08/06/17 02:00 08/06/17 04:00 Vancomycin HCl 1500 mg/Sodium Chloride 515 ml @ 257.5 mls/ hr ONCE ONCE IV 08/06/17 12:00 08/06/17 13:59 08/06/17 12:10 Midazolam HCl 50 ml @ 2 mls/hr TITRATE PRN IV 08/06/17 12:00 Family History Father with history of prostate cancer, maternal grandmother with breast cancer. Substance Use Tobacco: Smokes 1 pack per day 20 years Alcohol: None reported Prescription med abuse: None reported Illicits: None reported . 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 Not no children. Only child. Supported by his father, stepmother. Has not had communication with a strange biological mother for many years. . Spiritual/Cultural Factors Believes in God, father indicates outside spiritual support has been provided may be open to auto air conditioning installer visits if the patient is actively dying. Living Will: Never completed Health Care Surrogate: Never completed Durable Power of Numerical Control Nesting Operator: Never completed Ethical and Legal Issues No advance directives. Patient unable to participate in decision-making, does not appear he will regain this ability unless critical condition and organ failure resolves. Per [place] statutes a parent would be appropriate legal decision maker/proxy. His father remain supportive and involved with patient. He has not had communication with his biological mother in many years. . Physical Exam Vital Signs Date Time Temp Pulse Resp B/P (MAP) Pulse Ox O2 Delivery O2 Flow Rate FiO2 08/06/17 13:27 97.0 115 31 99/47 08/06/17 12:00 70 08/06/17 12:00 113 08/06/17 12:00 97.2 113 31 115/52 (73) 08/06/17 11:22 93 70 08/06/17 11:00 110 95/49 08/06/17 08:58 114 119/68 08/06/17 08:00 50 08/06/17 08:00 114 08/06/17 08:00 99.1 112 30 129/74 (92) 93 117/60 (79) 08/06/17 07:56 96 Ventilator 50 08/06/17 07:56 96 50 08/06/17 07:00 Mechanical Ventilator 50 08/06/17 06:30 102 132/65 08/06/17 05:10 97 50 08/06/17 04:15 106 130/58 08/06/17 04:00 106 08/06/17 04:00 98.8 106 27 120/62 (81) 97 08/06/17 04:00 97 50 08/06/17 04:00 50 08/06/17 04:00 106 120/62 08/06/17 01:45 114 128/56 08/06/17 00:58 99 50 08/06/17 00:00 120 08/06/17 00:00 50 08/06/17 00:00 97.2 120 31 124/40 (68) 100 08/05/17 23:15 132 156/70 08/05/17 22:35 95 50 08/05/17 20:45 106 108/68 08/05/17 20:06 108 117/69 08/05/17 20:00 106 08/05/17 20:00 50 08/05/17 20:00 99.0 106 25 108/68 (81) 100 08/05/17 19:09 50 08/05/17 19:00 100 Mechanical Ventilator 50 08/05/17 18:10 113 114/56 08/05/17 18:00 106 08/05/17 17:21 114 114/54 08/05/17 16:26 100 50 08/05/17 16:12 113 132/55 08/05/17 16:00 98.4 112 31 124/62 (82) 99 08/05/17 16:00 112 08/05/17 14:00 112 Exam CONSTITUTIONAL/GENERAL: This is a pale, ill-appearing patient nonresponsive on mechanical vent. TUBES/LINES/DRAINS: Right radial arterial line clamped. Right femoral arterial line. Left IJ vascular access line. Right subclavian port access. Left subclavian central line. Warming blanket. ET tube. PEG tube to suction. SKIN: No jaundice, rashes, or lesions.No wounds seen anteriorly. Skin cool. Mottling present to all extremities as well as some skin on face, scalp. Very dark mottling to legs and extremities less so centrally. HEAD: Atraumatic. Normocephalic. EYES: Pupils nonreactive. + Scleral edema. No injection or drainage. Fundi not examined. ENT: Nose without bleeding or purulent drainage. Unable to visualize oropharynx secondary to ET tube. NECK: Trachea midline. Supple, nontender. No palpable thyroid enlargement or nodularity. CARDIOVASCULAR: Regular rate and rhythm without murmur--tachycardic. No JVD. Unable to palpate peripheral pulses though good arterial line from femoral site noted. Extremities are mottled. RESPIRATORY/CHEST: Symmetric, mildly labored respirations via mechanical vent. Mildly tachypneic respiratory rate 35, ventilator set rate 14. Coarse rhonchi. Decreased air movement. GASTROINTESTINAL: Abdomen soft, nondistended. No palpable masses. PEG tube present upper abdomen, to wall suction. Bowel sounds hypoactive to intermittent. GENITOURINARY: Without palpable bladder distension. Olvera catheter in place minimal urine output. MUSCULOSKELETAL: Extremities without clubbing, cyanosis, or edema. + Mottling to extremities very dark distally. Unable to palpate peripheral pulses. LYMPHATICS: No palpable cervical or supraclavicular adenopathy. NEUROLOGICAL: Light sedation on mechanical vent Versed 10 mg an hour. Nonresponsive to exam no eye opening.+ Spontaneous respirations/tachypnea over ventilator rate. PSYCHIATRIC: No obvious anxiety/depression--limited assessment secondary to clinical condition. . Diagnostic Tests Laboratory Laboratory Tests Test 08/03/17 20:35 08/04/17 02:25 08/04/17 06:05 08/04/17 10:39 Urine Color YELLOW (YELLW/STRAW) Urine Turbidity CLEAR (CLEAR) Urine pH 6.0 (5.0-8.5) Urine Specific [place] 1.023 (1.002-1.035) Urine Protein 30 mg/dL (NEG-TRACE) Urine Glucose (UA) TRACE mg/dL (NEG) Urine Ketones 40 mg/dL (NEG) Urine Occult Blood NEG (NEG) Urine Nitrite NEG (NEG) Urine Bilirubin NEG (NEG) Urine Urobilinogen LESS THAN 2.0 MG/DL (LESS Urine Leukocyte Esterase NEG (NEG) Urine WBC 3 /hpf (0-5) Urine Hyaline Casts 2 /lpf (RARE) Urine Granular Casts 2 /lpf (NONE) Urine Mucus FEW /lpf (OCC) Microscopic Urinalysis Comment CULT NOT INDICATED Stool C. difficile Toxin (PCR) NEGATIVE (NEGATIVE) Stl C. difficile Toxin Epiderm 027 PRESUMPTIVE NEGATIVE White Blood Count 0.1 TH/MM3 (4.0-11.0) Red Blood Count 3.85 MIL/MM3 (4.50-5.90) Hemoglobin 11.8 GM/DL (13.0-17.0) Hematocrit 33.7 % (39.0-51.0) Mean Corpuscular Volume 87.5 FL (80.0-100.0) Mean Corpuscular Hemoglobin 30.7 PG (27.0-34.0) Mean Corpuscular Hemoglobin Concent 35.1 % (32.0-36.0) Red Cell Distribution Width 16.6 % (11.6-17.2) Platelet Count 82 TH/MM3 (150-450) Mean Platelet Volume 8.2 FL (7.0-11.0) CBC Comment AUTO DIFF Differential Total Cells Counted 50 Neutrophils % (Manual) 4 % (16-70) Band Neutrophils % 2 % (0-6) Lymphocytes % 48 % (9-44) Monocytes % 36 % (0-8) Neutrophils # (Manual) 0.0 TH/MM3 (1.8-7.7) Metamyelocytes 6 % (0-1) Differential Comment FINAL DIFF MANUAL Blastocytes 4 % (0-0) Platelet Estimate LOW (NORMAL) Platelet Morphology Comment NORMAL (NORMAL) Blood Urea Nitrogen 21 MG/DL (7-18) Creatinine 1.05 MG/DL (0.60-1.30) Random Glucose 122 MG/DL (74-106) Total Protein 4.2 GM/DL (6.4-8.2) Albumin 1.7 GM/DL (3.4-5.0) Calcium Level 7.2 MG/DL (8.5-10.1) Phosphorus Level 2.5 MG/DL (2.5-4.9) Magnesium Level 1.1 MG/DL (1.5-2.5) Alkaline Phosphatase 48 U/L (45-117) Aspartate Amino Transf (AST/SGOT) 11 U/L (15-37) Alanine Aminotransferase (ALT/SGPT) 11 U/L (12-78) Total Bilirubin 0.5 MG/DL (0.2-1.0) Sodium Level 134 MEQ/L (136-145) Potassium Level 4.0 MEQ/L (3.5-5.1) Chloride Level 101 MEQ/L (98-107) Carbon Dioxide Level 25.1 MEQ/L (21.0-32.0) Anion Gap 8 MEQ/L (5-15) Estimat Glomerular Filtration Rate 76 ML/MIN (>89) Protein Corrected Calcium 8.9 MG/DL (8.5-10.1) Lactic Acid Level 4.5 mmol/L (0.4-2.0) 4.5 mmol/L (0.4-2.0) Test 08/04/17 15:30 08/04/17 21:14 08/05/17 04:00 08/05/17 06:35 White Blood Count 0.2 TH/MM3 (4.0-11.0) 0.5 TH/MM3 (4.0-11.0) Red Blood Count 3.02 MIL/MM3 (4.50-5.90) 3.08 MIL/MM3 (4.50-5.90) Hemoglobin 9.3 GM/DL (13.0-17.0) 9.7 GM/DL (13.0-17.0) Hematocrit 27.6 % (39.0-51.0) 27.6 % (39.0-51.0) Mean Corpuscular Volume 91.3 FL (80.0-100.0) 89.7 FL (80.0-100.0) Mean Corpuscular Hemoglobin 30.6 PG (27.0-34.0) 31.5 PG (27.0-34.0) Mean Corpuscular Hemoglobin Concent 33.5 % (32.0-36.0) 35.1 % (32.0-36.0) Red Cell Distribution Width 17.9 % (11.6-17.2) 17.3 % (11.6-17.2) Platelet Count 74 TH/MM3 (150-450) 55 TH/MM3 (150-450) Mean Platelet Volume 8.6 FL (7.0-11.0) 8.5 FL (7.0-11.0) Neutrophils (%) (Auto) 74.0 % (16.0-70.0) Lymphocytes (%) (Auto) 13.5 % (9.0-44.0) Monocytes (%) (Auto) 9.0 % (0.0-8.0) Eosinophils (%) (Auto) 3.5 % (0.0-4.0) Basophils (%) (Auto) 0.0 % (0.0-2.0) Neutrophils # (Auto) 0.1 TH/MM3 (1.8-7.7) Lymphocytes # (Auto) 0.0 TH/MM3 (1.0-4.8) Monocytes # (Auto) 0.0 TH/MM3 (0-0.9) Eosinophils # (Auto) 0.0 TH/MM3 (0-0.4) Basophils # (Auto) 0.0 TH/MM3 (0-0.2) CBC Comment AUTO DIFF AUTO DIFF Differential Total Cells Counted 50 50 Neutrophils % (Manual) 12 % (16-70) 18 % (16-70) Band Neutrophils % 4 % (0-6) 42 % (0-6) Lymphocytes % 26 % (9-44) 8 % (9-44) Monocytes % 38 % (0-8) 26 % (0-8) Neutrophils # (Manual) 0.1 TH/MM3 (1.8-7.7) 0.3 TH/MM3 (1.8-7.7) Metamyelocytes 6 % (0-1) 4 % (0-1) Myelocytes 2 % (0-0) 2 % (0-0) Promyelocytes 4 % (0-0) Nucleated Red Blood Cells 2 /100 WBC (0-0) 2 /100 WBC (0-0) Differential Comment FINAL DIFF MANUAL FINAL DIFF MANUAL Blastocytes 6 % (0-0) Plasma Cells 2 % (0-0) Platelet Estimate LOW (NORMAL) LOW (NORMAL) Platelet Morphology Comment NORMAL (NORMAL) NORMAL (NORMAL) Blood Urea Nitrogen 23 MG/DL (7-18) 23 MG/DL (7-18) Creatinine 2.22 MG/DL (0.60-1.30) 2.03 MG/DL (0.60-1.30) Random Glucose 203 MG/DL (74-106) 100 MG/DL (74-106) Total Protein 3.3 GM/DL (6.4-8.2) 3.7 GM/DL (6.4-8.2) Albumin 1.8 GM/DL (3.4-5.0) 2.3 GM/DL (3.4-5.0) Calcium Level 5.6 MG/DL (8.5-10.1) 5.1 MG/DL (8.5-10.1) Alkaline Phosphatase 30 U/L (45-117) 43 U/L (45-117) Aspartate Amino Transf (AST/SGOT) 40 U/L (15-37) 76 U/L (15-37) Alanine Aminotransferase (ALT/SGPT) 21 U/L (12-78) 43 U/L (12-78) Total Bilirubin 0.5 MG/DL (0.2-1.0) 1.0 MG/DL (0.2-1.0) Sodium Level 134 MEQ/L (136-145) 132 MEQ/L (136-145) Potassium Level 3.9 MEQ/L (3.5-5.1) 3.9 MEQ/L (3.5-5.1) Chloride Level 106 MEQ/L (98-107) 105 MEQ/L (98-107) Carbon Dioxide Level 9.8 MEQ/L (21.0-32.0) 9.9 MEQ/L (21.0-32.0) Anion Gap 18 MEQ/L (5-15) 17 MEQ/L (5-15) Estimat Glomerular Filtration Rate 32 ML/MIN (>89) 36 ML/MIN (>89) Lactic Acid Level 7.3 mmol/L (0.4-2.0) 7.3 mmol/L (0.4-2.0) Protein Corrected Calcium 7.4 MG/DL (8.5-10.1) 6.5 MG/DL (8.5-10.1) Toxic Vacuolation PRESENT (NONE SEEN) Dohle Bodies PRESENT (NONE SEEN) Ovalocytes 1+ (NORMAL) [place] Cells 1+ (NORMAL) Acanthocytes OCC (NORMAL) Phosphorus Level 2.7 MG/DL (2.5-4.9) Magnesium Level 1.7 MG/DL (1.5-2.5) Blood Gas Puncture Site ART LINE Blood Gas Patient Temperature 98.6 Blood Gas HCO3 8 mmol/L (22-26) Blood Gas Base Excess -18.8 mmol/L (-2-2) Blood Gas Oxygen Saturation 91 % (90-100) Arterial Blood pH 7.21 (7.380-7.420) Arterial Blood Partial Pressure CO2 20 mmHg (38-42) Arterial Blood Partial Pressure O2 69 mmHg (61-120) Arterial Blood Oxygen Content 11.8 Vol % (12.0-20.0) Arterial Blood Carboxyhemoglobin 0.5 % (0-4) Arterial Blood Methemoglobin 1.1 % (0-2) Blood Gas Hemoglobin 9.1 G/DL (12.0-16.0) Oxygen Delivery Device NASAL CANNULA Blood Gas Liter Flow 6 L/M Test 08/05/17 09:50 08/05/17 11:15 08/05/17 15:00 08/05/17 21:10 Blood Gas Puncture Site ART LINE Blood Gas Patient Temperature 98.6 Blood Gas HCO3 11 mmol/L (22-26) Blood Gas Base Excess -14.7 mmol/L (-2-2) Blood Gas Oxygen Saturation 97 % (90-100) Arterial Blood pH 7.29 (7.380-7.420) Arterial Blood Partial Pressure CO2 23 mmHg (38-42) Arterial Blood Partial Pressure O2 149 mmHg (61-120) Arterial Blood Oxygen Content 14.8 Vol % (12.0-20.0) Arterial Blood Carboxyhemoglobin 0.5 % (0-4) Arterial Blood Methemoglobin 1.2 % (0-2) Blood Gas Hemoglobin 10.6 G/DL (12.0-16.0) Oxygen Delivery Device VENTILATOR Blood Gas Ventilator Setting [facility] Blood Urea Nitrogen 25 MG/DL (7-18) 26 MG/DL (7-18) Creatinine 2.15 MG/DL (0.60-1.30) 2.18 MG/DL (0.60-1.30) Random Glucose 63 MG/DL (74-106) 72 MG/DL (74-106) Total Protein 3.3 GM/DL (6.4-8.2) 3.2 GM/DL (6.4-8.2) Calcium Level 5.4 MG/DL (8.5-10.1) 5.0 MG/DL (8.5-10.1) Sodium Level 135 MEQ/L (136-145) 136 MEQ/L (136-145) Potassium Level 3.6 MEQ/L (3.5-5.1) 3.6 MEQ/L (3.5-5.1) Chloride Level 105 MEQ/L (98-107) 104 MEQ/L (98-107) Carbon Dioxide Level 12.5 MEQ/L (21.0-32.0) 12.3 MEQ/L (21.0-32.0) Anion Gap 18 MEQ/L (5-15) 20 MEQ/L (5-15) Estimat Glomerular Filtration Rate 33 ML/MIN (>89) 33 ML/MIN (>89) Lactic Acid Level 7.0 mmol/L (0.4-2.0) 10.6 mmol/L (0.4-2.0) Protein Corrected Calcium 7.1 MG/DL (8.5-10.1) 6.7 MG/DL (8.5-10.1) Lipase 80 U/L (73-393) Prothrombin Time 52.6 SEC (9.8-11.6) Prothromb Time International Ratio 5.2 RATIO Activated Partial Thromboplast Time 91.3 SEC (24.3-30.1) Fibrinogen 286 mg/dL (227-377) Test 08/05/17 23:25 08/05/17 23:57 08/06/17 05:20 08/06/17 09:40 Blood Gas Puncture Site ART LINE ART LINE Blood Gas Patient Temperature 98.6 98.6 Blood Gas HCO3 13 mmol/L (22-26) 17 mmol/L (22-26) Blood Gas Base Excess -12.4 mmol/L (-2-2) -5.3 mmol/L (-2-2) Blood Gas Oxygen Saturation 97 % (90-100) 94 % (90-100) Arterial Blood pH 7.32 (7.380-7.420) 7.52 (7.380-7.420) Arterial Blood Partial Pressure CO2 26 mmHg (38-42) 21 mmHg (38-42) Arterial Blood Partial Pressure O2 138 mmHg (61-120) 70 mmHg (61-120) Arterial Blood Oxygen Content 11.5 Vol % (12.0-20.0) 12.0 Vol % (12.0-20.0) Arterial Blood Carboxyhemoglobin 0.4 % (0-4) 0.8 % (0-4) Arterial Blood Methemoglobin 1.0 % (0-2) 1.1 % (0-2) Blood Gas Hemoglobin 8.2 G/DL (12.0-16.0) 9.1 G/DL (12.0-16.0) Oxygen Delivery Device VENTILATOR VENTILATOR Blood Gas Ventilator Setting PC/AC Blood Gas Inspired Oxygen 50 % 50 % Blood Urea Nitrogen 25 MG/DL (7-18) 27 MG/DL (7-18) Creatinine 2.48 MG/DL (0.60-1.30) 2.67 MG/DL (0.60-1.30) Random Glucose 95 MG/DL (74-106) 103 MG/DL (74-106) Total Protein 2.9 GM/DL (6.4-8.2) 2.9 GM/DL (6.4-8.2) Albumin 1.7 GM/DL (3.4-5.0) 1.6 GM/DL (3.4-5.0) Calcium Level 5.2 MG/DL (8.5-10.1) 5.2 MG/DL (8.5-10.1) Alkaline Phosphatase 68 U/L (45-117) 74 U/L (45-117) Aspartate Amino Transf (AST/SGOT) 70 U/L (15-37) 80 U/L (15-37) Alanine Aminotransferase (ALT/SGPT) 35 U/L (12-78) 40 U/L (12-78) Total Bilirubin 1.4 MG/DL (0.2-1.0) 1.4 MG/DL (0.2-1.0) Sodium Level 140 MEQ/L (136-145) 139 MEQ/L (136-145) Potassium Level 3.9 MEQ/L (3.5-5.1) 2.9 MEQ/L (3.5-5.1) Chloride Level 101 MEQ/L (98-107) 99 MEQ/L (98-107) Carbon Dioxide Level 14.5 MEQ/L (21.0-32.0) 13.6 MEQ/L (21.0-32.0) Anion Gap 25 MEQ/L (5-15) 26 MEQ/L (5-15) Estimat Glomerular Filtration Rate 28 ML/MIN (>89) 26 ML/MIN (>89) Protein Corrected Calcium 7.1 MG/DL (8.5-10.1) 7.1 MG/DL (8.5-10.1) White Blood Count 2.3 TH/MM3 (4.0-11.0) Red Blood Count 3.08 MIL/MM3 (4.50-5.90) Hemoglobin 9.4 GM/DL (13.0-17.0) Hematocrit 27.0 % (39.0-51.0) Mean Corpuscular Volume 87.6 FL (80.0-100.0) Mean Corpuscular Hemoglobin 30.6 PG (27.0-34.0) Mean Corpuscular Hemoglobin Concent 34.9 % (32.0-36.0) Red Cell Distribution Width 17.4 % (11.6-17.2) Platelet Count 14 TH/MM3 (150-450) Mean Platelet Volume 9.0 FL (7.0-11.0) CBC Comment AUTO DIFF Differential Total Cells Counted 100 Neutrophils % (Manual) 45 % (16-70) Band Neutrophils % 39 % (0-6) Lymphocytes % 3 % (9-44) Monocytes % 5 % (0-8) Neutrophils # (Manual) 2.1 TH/MM3 (1.8-7.7) Metamyelocytes 3 % (0-1) Myelocytes 5 % (0-0) Differential Comment FINAL DIFF MANUAL Toxic Granulation 1+ (NORMAL) Platelet Estimate LOW (NORMAL) Platelet Morphology Comment NORMAL (NORMAL) Ovalocytes 1+ (NORMAL) Acanthocytes 1+ (NORMAL) Fibrinogen 229 mg/dL (227-377) Random Vancomycin Level 17.3 COMMENT Result Diagram: 08/06/17 0520 08/06/17 0520 Microbiology Microbiology Date/Time Source Procedure Growth Status 08/04/17 06:05 Blood Peripheral Aerobic Blood Culture - Preliminary NO GROWTH IN 2 DAYS Resulted 08/04/17 06:05 Blood Peripheral Anaerobic Blood Culture - Final QNS - SEE AEROBE REPORT Resulted 08/04/17 06:05 Blood Line Aerobic Blood Culture - Preliminary NO GROWTH IN 2 DAYS Resulted 08/04/17 06:05 Blood Line Anaerobic Blood Culture - Preliminary NO GROWTH IN 2 DAYS Resulted 08/03/17 20:10 Blood Peripheral Aerobic Blood Culture - Preliminary NO GROWTH IN 3 DAYS Resulted 08/03/17 20:10 Blood Peripheral Anaerobic Blood Culture - Preliminary NO GROWTH IN 3 DAYS Resulted 08/03/17 18:15 Blood Peripheral Aerobic Blood Culture - Preliminary NO GROWTH IN 3 DAYS Resulted 08/03/17 18:15 Blood Peripheral Anaerobic Blood Culture - Preliminary NO GROWTH IN 3 DAYS Resulted 08/03/17 20:35 Stool Stool - Final NO ENTERIC PATHOGENS DETECTED BY PCR... Complete 08/03/17 20:35 Stool Stool Stool Occult Blood (NISHA) - Final HEMOCCULT NEGATIVE Complete 08/05/17 16:20 Sputum Endotracheal Gram Stain - Final Resulted 08/05/17 16:20 Sputum Endotracheal Sputum Culture Pending Resulted Imaging Last Impressions Renal Ultrasound 08/05/17 0000 Signed Impressions: Service Date/Time: August 09:19 - CONCLUSION: 1. Diffusely increased renal cortical echogenicity consistent with medical renal disease. 2. No obstructive uropathy. Adriano Cardenas MD Chest X-Ray 08/05/17 0000 Signed Impressions: Service Date/Time: August 19:37 - CONCLUSION: 1. New left IJ line tip in left brachiocephalic vein near junction with superior vena cava. No pneumothorax. Dick Stack MD Procedures 08/05 intubation 08/05 CRRT started . Patient/Family Conference Family Conference Time (mins): 30 Family Conference Location: Consult Room Issues Discussed: Met with patient and father at length discussion included the following: * Palliative care role, purpose, approach * Additional medical, psychosocial, and spiritual history * Patients general health, functional status leading up to the current hospitalization * Patient/family understanding of the current medical problems * Patient/family understanding of prognosis-review of high risk for further complications decline and * Patients goals of care as best understood from advance directives and/or conversations and/or values * Current medical treatment options and benefits/burdens of those options; review of treatments in place, maximized vasopressor therapy, multiorgan failure * Likely scenarios comparing ongoing aggressive care with a transition to comfort measures only-review of alternative to continue aggressive measures versus de-escalation and compassionate withdrawal of artificial measures comfort care only. Brief review of anticipatory guidance of possible withdrawal * CODE STATUS-father affirms earlier today elected intubation only, he wants no further cardiac interventions should the patient suffered cardiac arrest or arrhythmia * Review of healthcare proxy per [place] statutes * Questions answered to the best of my ability * Palliative care contact information provided Father indicates critical care has been speaking with him extensively over the past few days. He indicates he understands patient condition is critical and he is not expected to survive current acute organ failure. He understands underlying cancer may have been treatable however current shock status may be life limiting. He wishes to continue with aggressive treatments in place following along with the next lab values with critical care, he indicates he will discuss further with critical care when they might recommend no further interventions and possible compassionate withdrawal of artificial measures. Brief review of anticipatory guidance of possible withdrawal. . 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 Not no children. Only child. Supported by his father, stepmother. Has not had communication with a strange biological mother for many years. Spiritual: No particular affiliation. Believes in God. Spiritual support has been provided by outside support. May be open to auto air conditioning installer visits if he is actively dying. Legal:No advance directives. Patient unable to participate in decision-making, does not appear he will regain this ability unless critical condition and organ failure resolves. Per [place] statutes a parent would be appropriate legal decision maker/proxy. His father remain supportive and involved with patient. He has not had communication with his biological mother in many years. Ethical issues impacting care: No ethical issues identified Important Contacts Fabien Flowers father [phone] Prognosis This patient was admitted for postchemotherapy nausea and vomiting. He has underlying squamous cell carcinoma of the tongue, which from oncology perspective is treatable. This was just diagnosed April of this year. During his acute hospital course he developed severe neutropenic sepsis, septic shock, multiple organ failure. He is now in critical condition and high risk for further cardiovascular compromise and . . Code Status: Alternative Code Plan * Legal decision maker:No advance directives. Patient unable to participate in decision-making, does not appear he will regain this ability unless critical condition and organ failure resolves. Per [place] statutes a parent would be appropriate legal decision maker/proxy. His father remain supportive and involved with patient. He has not had communication with his biological mother in many years. * Goals: Met at length with patient father Gavin. He will await additional updates from critical care attending later this afternoon regarding follow-up labs. He understands patient is in critical condition and may not survive current acute illness. He wishes to continue aggressive measures short of resuscitation following scheduled lab results with critical care. If critical care indicates his condition is worsening or not showing improvement he may elect to withdrawal artificial measures, compassionate withdrawal of life support and comfort measures only in the coming hours or day. Discussed with critical care, primary nurse ======= 1630 later notified critical care followed up with patient family, worsening labs requesting compassionate withdrawal/transition to comfort focus at this time. Exhibits B, C signed and in chart. Anticipatory guidance provided . Comfort orders entered for pre-withdrawal, time of withdrawal and post withdrawal. Will continue Versed drip given patient tachypnea up until this point. DNR entered * CODE STATUS: * SYMPTOMS: --Dyspnea-emergently intubated /. Multiorgan failure. Today with some vent asynchrony requiring addition of sedation, one-time dose of fentanyl. Tachypneic even on ventilator. Some accessory muscle use noted. Critical care following. Will continue to evaluate. --Encephalopathy-patient sedated on mechanical vent, multiorgan failure. Nonresponsive. --Pain: Patient previously outpatient and inpatient reporting significant oral pharyngeal pain. Other sources of pain would include bedbound status, multiple invasive procedures during acute hospital course. He was on outpatient pain regimen Duragesic patch 25 mics, Percocet 10 mg. Not opiate na ve. currently receiving Versed for general sedation, as needed dosing of fentanyl, critical care cautiously using opiates due to hypotension, multiple pressors * Palliative care will continue to follow during hospital course as condition evolves, to assist patient/decision-maker with understanding of medical conditions, weighing benefits/burdens of treatment options, for clarification of goals of treatment. Additionally will assist with any symptoms of palliative concern . Time Spent Total Floor Time (mins): 85 (Chart review, PE, discussion with family, discussion with critical care. Discussion with nursing.,+ Return to unit again and further discussions regarding withdrawal) Thank you for the opportunity to participate in the care of Mr. Flowers. Attestation To help prompt me to consider important information that might be impacting today's encounter and assessment, information from prior notes written by myself or my colleagues may have been "brought forward" into today's note. My signature on this note, however, is an attestation that I personally performed the exam, history, and/or decision-making noted today, and, unless otherwise indicated, the interactions with patient, family, and staff as well as the review of records all occurred today. I also attest that the listed assessment and stated plan reflect my best clinical judgment today based on the combination of historical information, prior notes, and today's exam/ interactions. When time spent is documented, it refers only to time spent today by the signer, or if indicated, combined time spent today by collaborating physician/nurse practitioner. Steffanie Petty August 06, 2017 13:56
[2017-08-06] MEDS ORDERED: DIATRIZOATE MEGLUM/DIATRIZOATE SOD 9 ML CUP PO ONE (14:30)
[2017-08-06] MEDS ORDERED: MORPHINE SULFATE 4 MG/ML INJ IV PUSH PRN (15:00)
[2017-08-06] MEDS: FILGRASTIM INJ 300 MCG in DEXTROSE 5% IN WATER INJ 25 ML IV SCH ×2 (15:00)
[2017-08-06 15:47] LABS: HEMOGLOBIN 8.8 GM/DL (13.0-17.0); MEAN CELL VOLUME 87.3 FL (80.0-100.0); MEAN CORPUSCULAR HEMOGLOBIN 30.6 PG (27.0-34.0); RED BLOOD COUNT 2.87 MIL/MM3 (4.50-5.90); RED CELL DISTRIBUTION WIDTH 17.7 % (11.6-17.2); WHITE BLOOD COUNT 2.9 TH/MM3 (4.0-11.0)
[2017-08-06 15:54] LABS: PLATELET COUNT 22 TH/MM3 (150-450)
--- NOTE | 2017-08-06 15:57 | PD.ONC.PN ---
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 Objective Data Date Time Temp Pulse Resp B/P (MAP) Pulse Ox O2 Delivery O2 Flow Rate FiO2 08/06/17 13:48 97.0 117 34 119/49 08/06/17 13:43 114 127/43 08/06/17 13:43 114 121/49 08/06/17 13:42 97.0 115 34 126/50 08/06/17 13:27 97.0 115 31 99/47 08/06/17 12:00 70 08/06/17 12:00 113 08/06/17 12:00 97.2 113 31 115/52 (73) 08/06/17 11:22 93 70 08/06/17 11:00 110 95/49 08/06/17 08:58 114 119/68 08/06/17 08:00 50 08/06/17 08:00 114 08/06/17 08:00 99.1 112 30 129/74 (92) 93 117/60 (79) 08/06/17 07:56 96 Ventilator 50 08/06/17 07:56 96 50 08/06/17 07:00 Mechanical Ventilator 50 08/06/17 06:30 102 132/65 08/06/17 05:10 97 50 08/06/17 04:15 106 130/58 08/06/17 04:00 106 08/06/17 04:00 98.8 106 27 120/62 (81) 97 08/06/17 04:00 97 50 08/06/17 04:00 50 08/06/17 04:00 106 120/62 08/06/17 01:45 114 128/56 08/06/17 00:58 99 50 08/06/17 00:00 120 08/06/17 00:00 50 08/06/17 00:00 97.2 120 31 124/40 (68) 100 08/05/17 23:15 132 156/70 08/05/17 22:35 95 50 08/05/17 20:45 106 108/68 08/05/17 20:06 108 117/69 08/05/17 20:00 106 08/05/17 20:00 50 08/05/17 20:00 99.0 106 25 108/68 (81) 100 08/05/17 19:09 50 08/05/17 19:00 100 Mechanical Ventilator 50 08/05/17 18:10 113 114/56 08/05/17 18:00 106 08/05/17 17:21 114 114/54 08/05/17 16:26 100 50 08/05/17 16:12 113 132/55 08/05/17 16:00 98.4 112 31 124/62 (82) 99 08/05/17 16:00 112 08/06/17 08/06/17 08/06/17 07:00 15:00 23:00 Intake Total 2820 ml 370 ml Output Total 2000 ml Balance 820 ml 370 ml Result Diagram: 08/06/17 0520 08/06/17 0520 Laboratory Results Laboratory Tests Test 08/05/17 21:10 08/05/17 23:25 08/05/17 23:57 08/06/17 05:20 Prothrombin Time 52.6 SEC Prothromb Time International Ratio 5.2 RATIO Activated Partial Thromboplast Time 91.3 SEC Fibrinogen 286 mg/dL 229 mg/dL Lactic Acid Level 10.6 mmol/L Blood Gas Puncture Site ART LINE Blood Gas Patient Temperature 98.6 Blood Gas HCO3 13 mmol/L Blood Gas Base Excess -12.4 mmol/L Blood Gas Oxygen Saturation 97 % Arterial Blood pH 7.32 Arterial Blood Partial Pressure CO2 26 mmHg Arterial Blood Partial Pressure O2 138 mmHg Arterial Blood Oxygen Content 11.5 Vol % Arterial Blood Carboxyhemoglobin 0.4 % Arterial Blood Methemoglobin 1.0 % Blood Gas Hemoglobin 8.2 G/DL Oxygen Delivery Device VENTILATOR Blood Gas Ventilator Setting PC/AC Blood Gas Inspired Oxygen 50 % Blood Urea Nitrogen 25 MG/DL 27 MG/DL Creatinine 2.48 MG/DL 2.67 MG/DL Random Glucose 95 MG/DL 103 MG/DL Total Protein 2.9 GM/DL 2.9 GM/DL Albumin 1.7 GM/DL 1.6 GM/DL Calcium Level 5.2 MG/DL 5.2 MG/DL Alkaline Phosphatase 68 U/L 74 U/L Aspartate Amino Transf (AST/SGOT) 70 U/L 80 U/L Alanine Aminotransferase (ALT/SGPT) 35 U/L 40 U/L Total Bilirubin 1.4 MG/DL 1.4 MG/DL Sodium Level 140 MEQ/L 139 MEQ/L Potassium Level 3.9 MEQ/L 2.9 MEQ/L Chloride Level 101 MEQ/L 99 MEQ/L Carbon Dioxide Level 14.5 MEQ/L 13.6 MEQ/L Anion Gap 25 MEQ/L 26 MEQ/L Estimat Glomerular Filtration Rate 28 ML/MIN 26 ML/MIN Protein Corrected Calcium 7.1 MG/DL 7.1 MG/DL White Blood Count 2.3 TH/MM3 Red Blood Count 3.08 MIL/MM3 Hemoglobin 9.4 GM/DL Hematocrit 27.0 % Mean Corpuscular Volume 87.6 FL Mean Corpuscular Hemoglobin 30.6 PG Mean Corpuscular Hemoglobin Concent 34.9 % Red Cell Distribution Width 17.4 % Platelet Count 14 TH/MM3 Mean Platelet Volume 9.0 FL CBC Comment AUTO DIFF Differential Total Cells Counted 100 Neutrophils % (Manual) 45 % Band Neutrophils % 39 % Lymphocytes % 3 % Monocytes % 5 % Neutrophils # (Manual) 2.1 TH/MM3 Metamyelocytes 3 % Myelocytes 5 % Differential Comment FINAL DIFF MANUAL Toxic Granulation 1+ Platelet Estimate LOW Platelet Morphology Comment NORMAL Ovalocytes 1+ Acanthocytes 1+ Random Vancomycin Level 17.3 COMMENT Test 08/06/17 09:40 08/06/17 15:11 08/06/17 15:16 Blood Gas Puncture Site ART LINE Blood Gas Patient Temperature 98.6 Blood Gas HCO3 17 mmol/L Blood Gas Base Excess -5.3 mmol/L Blood Gas Oxygen Saturation 94 % Arterial Blood pH 7.52 Arterial Blood Partial Pressure CO2 21 mmHg Arterial Blood Partial Pressure O2 70 mmHg Arterial Blood Oxygen Content 12.0 Vol % Arterial Blood Carboxyhemoglobin 0.8 % Arterial Blood Methemoglobin 1.1 % Blood Gas Hemoglobin 9.1 G/DL Oxygen Delivery Device VENTILATOR Blood Gas Ventilator Setting Blood Gas Inspired Oxygen 50 % Culture Results Microbiology Date/Time Source Procedure Growth Status 08/04/17 06:05 Blood Peripheral Aerobic Blood Culture - Preliminary NO GROWTH IN 2 DAYS Resulted 08/04/17 06:05 Blood Peripheral Anaerobic Blood Culture - Final QNS - SEE AEROBE REPORT Resulted 08/04/17 06:05 Blood Line Aerobic Blood Culture - Preliminary NO GROWTH IN 2 DAYS Resulted 08/04/17 06:05 Blood Line Anaerobic Blood Culture - Preliminary NO GROWTH IN 2 DAYS Resulted 08/03/17 20:10 Blood Peripheral Aerobic Blood Culture - Preliminary NO GROWTH IN 3 DAYS Resulted 08/03/17 20:10 Blood Peripheral Anaerobic Blood Culture - Preliminary NO GROWTH IN 3 DAYS Resulted 08/03/17 18:15 Blood Peripheral Aerobic Blood Culture - Preliminary NO GROWTH IN 3 DAYS Resulted 08/03/17 18:15 Blood Peripheral Anaerobic Blood Culture - Preliminary NO GROWTH IN 3 DAYS Resulted 08/03/17 20:35 Stool Stool - Final NO ENTERIC PATHOGENS DETECTED BY PCR... Complete 08/03/17 20:35 Stool Stool Stool Occult Blood (NISHA) - Final HEMOCCULT NEGATIVE Complete 08/05/17 16:20 Sputum Endotracheal Gram Stain - Final Resulted 08/05/17 16:20 Sputum Endotracheal Sputum Culture - Preliminary HEAVY GROWTH NORMAL RESPIRATORY BRAYDEN... Resulted Administered Medications Medications (Trade) Dose Ordered Sig/Tiffanie Route PRN Reason Start Time Stop Time Status Last Admin Dose Admin Sodium Chloride (NS Flush) 2 ml UNSCH PRN IV FLUSH FLUSH AFTER USING IV ACCESS 08/01/17 04:45 08/03/17 22:15 Sodium Chloride (NS Flush) 2 ml BID IV FLUSH 08/01/17 09:00 08/05/17 20:05 Ondansetron HCl (Zofran Inj) 4 mg Q6H PRN IVP NAUSEA OR VOMITING 08/01/17 04:45 08/04/17 17:56 Metoclopramide HCl (Reglan Inj) 10 mg Q6H PRN IV PUSH NAUSEA OR VOMITING 08/01/17 04:45 08/03/17 18:00 Senna/Docusate Sodium (Kathleen-Colace) 1 tab BID PO 08/01/17 09:00 08/06/17 08:15 Prochlorperazine Edisylate (Compazine Inj) 10 mg Q6H PRN IV PUSH NAUSEA/VOMITING 08/01/17 04:45 08/03/17 20:38 Fentanyl (Duragesic 25 Mcg Patch.72 Hr) 1 patch Q3D T-DERMAL 08/01/17 05:00 08/04/17 05:54 Hydromorphone HCl (Dilaudid Pf Inj) 1 mg Q4H PRN IV PUSH for pain 6-10 08/01/17 05:00 08/04/17 21:16 Miscellaneous Information 1 Q3D T-DERMAL 08/04/17 05:00 08/04/17 05:55 Multi-Ingredient Mouthwash/Gargle (Magic Mouthwash Adult Liq) 10 ml QID PO 08/01/17 18:00 08/04/17 20:00 Filgrastim 300 mcg/Dextrose 26 ml @ 50 mls/hr DAILY@14 IV 08/02/17 14:00 08/06/17 15:00 Enoxaparin Sodium (Lovenox Inj) 40 mg Q24H SQ 08/02/17 14:00 Future Hold 08/03/17 13:59 Oxycodone HCl (Roxicodone) 10 mg Q6H PRN PO for pain 1-5 08/02/17 14:30 08/03/17 02:37 Acetaminophen (Tylenol) 650 mg Q4H PRN PO FEVER>100.4 08/02/17 14:30 08/04/17 04:39 Micafungin Sodium 150 mg/Sodium Chloride 100 ml @ 100 mls/hr Q24H IV 08/05/17 09:00 08/06/17 09:21 Vasopressin 40 units/Dextrose 100 ml @ 6 mls/hr [id number] IV 08/04/17 09:00 08/05/17 18:10 Hydrocortisone Sodium Succinate (SoluCORTEF INJ) 50 mg Q6HR IV PUSH 08/04/17 12:00 08/06/17 12:12 Pantoprazole Sodium (Protonix Inj) 40 mg Q24H IV PUSH 08/04/17 09:00 08/06/17 08:15 Norepinephrine Bitartrate 250 ml @ 18.75 mls/ hr TITRATE PRN IV Blood pressure management 08/04/17 14:30 08/06/17 13:43 Albuterol/ Ipratropium (Duoneb Neb) 1 ampule Q6HR NEB NEB 08/05/17 00:15 08/06/17 08:06 Acetylcysteine (Mucomyst 20% Neb) 2 ml Q6HR NEB NEB 08/05/17 04:00 08/06/17 08:06 Chlorhexidine Gluconate (Peridex 0.12% Liq) 15 ml BID@08,20 MT 08/05/17 08:00 08/06/17 08:00 Parenteral Electrolytes 1,000 ml @ 100 mls/hr Q10H IV 08/05/17 08:15 5/4/18 14:45 Sodium Bicarbonate 150 meq/Dextrose 1,150 ml @ 125 mls/hr Q9H12M IV 08/05/17 12:00 08/06/17 06:24 Aztreonam 2000 mg/ Sodium Chloride 100 ml @ 200 mls/hr Q12H IV 08/06/17 13:00 08/06/17 13:33 Calcium Gluconate 1 gm/Dextrose 110 ml @ 110 mls/hr Q6HR IV 08/06/17 00:00 08/06/17 12:23 Sodium Chloride 1,000 ml @ 0 mls/hr UNSCH PRN OTHER SEE LABEL COMMENTS 08/05/17 19:45 08/06/17 10:15 Sodium Bicarbonate 100 meq/Sodium Chloride 1,100 ml @ 500 mls/hr Q2H12M IV 08/05/17 20:15 08/06/17 13:33 Sodium Bicarbonate (Sodium Bicarbonate 8.4% Inj) 100 meq Q2H IV 08/06/17 02:00 08/06/17 08:15 Phenylephrine HCl 160 mg/Sodium Chloride 500 ml @ 7.5 mls/hr TITRATE PRN IV Blood Pressure Management 08/06/17 02:00 08/06/17 13:43 Midazolam HCl 50 ml @ 2 mls/hr TITRATE PRN IV SEDATION 08/06/17 12:00 08/06/17 15:18 Objective Remarks GENERAL: Younger male, resting in bed intubated and sedated SKIN: Warm and dry. HEAD: Normocephalic. EYES: Covered with vaseline gauze NECK: Supple, trachea midline. CARDIOVASCULAR: Regular rate and rhythm. +Tachycardia RESPIRATORY: Mechanically ventilated. On t0% FiO2 GASTROINTESTINAL: Abdomen soft, non-tender, nondistended. EXTREMITIES: Scattered diffuse mottling to hands, knees and distally. NEUROLOGICAL: Sedated and intubated Assessment/Plan Problem List: (1) Chemotherapy-induced nausea and vomiting ICD Codes: R11.2 - Nausea with vomiting, unspecified; T45.1X5A - Adverse effect of antineoplastic and immunosuppressive drugs, initial encounter Status: Resolved Plan: --continue supportive care with IVF, Scopolamine patch, zofran, reglan and Compazine PRN (2) Pancytopenia due to antineoplastic chemotherapy ICD Codes: D61.810 - Antineoplastic chemotherapy induced pancytopenia; T45.1X5A - Adverse effect of antineoplastic and immunosuppressive drugs, initial encounter Plan: --monitor, transfuse as needed. (3) Neutropenic fever ICD Codes: D70.9 - Neutropenia, unspecified; R50.81 - Fever presenting with conditions classified elsewhere Status: Resolved Plan: --Patient in ICU intubated and sedated --Director Utilization Management, infectious disease following --On vasopressors for septic shock --Patient on Patient on aztreonam, micafungin --Blood cultures so far show no growth Assessment 46y/o male with h/o head and neck cancer admitted with intractable nausea and vomiting. C4 TPF given on 07/26/2017. Plan 1. Pt's condition extremely guarded at this point 2. Continue Neupogen 3. Continue Abx per ID 4. Transfuse 1 unit platelets today for level of 15k 5. Continue to monitor CBC Discussed with patient's parents at bedside. Attending Statement The exam, history, and the medical decision-making described in the above note were completed with the assistance of the mid-level provider. I reviewed and agree with the findings presented. I attest that I had a [id number] encounter with the patient on the same day, and personally performed and documented my assessment and findings in the medical record prognosis remains poor on maximum support 3 vasopressors hypothermic/ poor capillary refill continue Neupogen transfuse platelets as above case discussed with Sharon Rajan August 06, 2017 15:57 Dwayne Naranjo MD August 06, 2017 21:30
[2017-08-06 16:01] LABS: INTERNATIONAL NORMALIZED RATIO 1.9 RATIO; PROTHROMBIN TIME - PATIENT 19.4 SEC (9.8-11.6)
[2017-08-06 16:03] LABS: BICARBONATE 20.5 MEQ/L (21.0-32.0); BLOOD UREA NITROGEN 27 MG/DL (7-18); CHLORIDE 97 MEQ/L (98-107); CREATININE 2.44 MG/DL (0.60-1.30); GLOMERULAR FILTRATION RATE 29 ML/MIN (>89); GLUCOSE,RANDOM 66 MG/DL (74-106); SODIUM (NA) 142 MEQ/L (136-145)
[2017-08-06 16:22] LABS: CALCIUM LESS THAN 5.0 MG/DL (8.5-10.1)
[2017-08-06 16:32] LABS: TOTAL PROTEIN 3.2 GM/DL (6.4-8.2)
[2017-08-06 16:38] LABS: CALCIUM-PROTEIN CORRECTED 6.7 MG/DL (8.5-10.1)
[2017-08-06] MEDS ORDERED: MIDAZOLAM 100 MG/100 ML INJ 100 ML IV SCH (17:15)
[2017-08-06] MEDS ORDERED: LORazepam 2 MG/ML VIAL IV PUSH ONE ×2 (17:15→17:30)
[2017-08-06] MEDS ORDERED: HYOSCYAMINE 0.5 MG/ML AMP IV PUSH ONE (17:15)
[2017-08-06] MEDS ORDERED: HYDROmorphone HCL PF 0.5 MG/0.5 ML SYRINGE IV PUSH ONE ×2 (17:15→17:30)
[2017-08-06] MEDS ORDERED: HYDROmorphone HCL PF 0.5 MG/0.5 ML SYRINGE IV PUSH PRN ×2 (17:45)
[2017-08-06] MEDS ORDERED: HYOSCYAMINE 0.5 MG/ML AMP IV PUSH PRN (17:45)
[2017-08-06] MEDS ORDERED: LORazepam 2 MG/ML VIAL IV PUSH PRN ×2 (17:45)
[2017-08-06] MEDS ORDERED: LORazepam 2 MG/ML VIAL IV PUSH SCH (20:00)
[2017-08-06] MEDS ORDERED: HYDROmorphone HCL PF 0.5 MG/0.5 ML SYRINGE IV PUSH SCH (20:00)
== END 2017-08-06 18:50 | disposition expired | DRG 640 ==
LOC: NEPE 02:07 → NEDA 04:46 → HCIN 06:16 → OBSVTOIN 08-03 13:57 → N03A 08-04 07:59
PROVIDERS: ADMIT Internal Medicine Critical Care Medicine; ATTEND Internal Medicine Critical Care Medicine
PROC: 5A1935Z Respiratory Ventilation, Less than 24 Consecutive Hours (ICD-10-PCS; 2017-08-05)
PROC: 0BH17EZ Insertion of Endotracheal Airway into Trachea, Via Natural or Artificial Opening (ICD-10-PCS; 2017-08-05)
PROC: 02HV33Z Insertion of Infusion Device into Superior Vena Cava, Percutaneous Approach (ICD-10-PCS; 2017-08-05)
PROC: 05HN33Z Insertion of Infusion Device into Left Internal Jugular Vein, Percutaneous Approach (ICD-10-PCS; 2017-08-05)
PROC: 5A1D70Z Performance of Urinary Filtration, Intermittent, Less than 6 Hours Per Day (ICD-10-PCS; 2017-08-05)
PROC: 6A550Z2 Pheresis of Platelets, Single (ICD-10-PCS; principal; 2017-08-06)
DX: E86.0 Dehydration (principal); A41.9 Sepsis, unspecified organism; N17.0 Acute kidney failure with tubular necrosis; J96.90 Respiratory failure, unspecified, unspecified whether with hypoxia or hypercapnia; R65.21 Severe sepsis with septic shock; G93.40 Encephalopathy, unspecified; J90 Pleural effusion, not elsewhere classified; D61.810 Antineoplastic chemotherapy induced pancytopenia; D68.9 Coagulation defect, unspecified; E87.2 Acidosis; E87.1 Hypo-osmolality and hyponatremia; C02.9 Malignant neoplasm of tongue, unspecified; Z93.1 Gastrostomy status; D70.3 Neutropenia due to infection; R11.2 Nausea with vomiting, unspecified; T45.1X5A Adverse effect of antineoplastic and immunosuppressive drugs, initial encounter; Z87.891 Personal history of nicotine dependence; Z80.3 Family history of malignant neoplasm of breast; Z80.42 Family history of malignant neoplasm of prostate; Z96.649 Presence of unspecified artificial hip joint; R19.7 Diarrhea, unspecified; E87.6 Hypokalemia; Z51.5 Encounter for palliative care; R50.81 Fever presenting with conditions classified elsewhere; Z66 Do not resuscitate
CPT/HCPCS: 31500; 36430; 36620; 71045; 76775; 76937; 80048; 80053; 80202; 81001; 82272; 82805; 83605; 83690; 83735; 84100; 84155; 85007; 85025; 85027; 85384; 85610; 85730; 86403; 87040; 87070; 87205; 87493; 87506; 93005; 93306; 94002; 94003; 94640; 94664; 96361; 96374; 96375; 96376; C9113; G0378; J0610; J0780; J1170; J1200; J1442; J1644; J1650; J1720; J1885; J1940; J2060; J2248; J2250; J2370; J2405; J2765; J3010; J3370; J3475; J3480; J7030; J7040; J7050; J7060; J7070; J7608; P9035; P9045